=== PATIENT | male | born 1975 | race Caucasian/White ===

== ENCOUNTER 2021-12-30 23:31 | Inpatient (IN) ==
--- NOTE | 2021-12-31 00:01 | Emergency Department Note ---
History of Present Illness General Chief complaint: Chest Pain Stated complaint: chest pressure Time Seen by Provider: 12/30/21 23:43 History of Present Illness Maximum Pain Intensity: 5 38-year-old male presents emergency department with a significant history of multiple strokes in the past 2 years multiple heart attacks with 1 cardiac stent. Patient states he has not been receiving medical care for a year now he states he moved from [facility] to [place] used to get all of his medical care in [facility]. Patient was at work tonight he felt generally weak states he vomited once he had decreased p.o. intake he feels like he is constipated. Patient had called EMS due to chest pain he was given nitro and he was given aspirin by EMS prior to arrival. Patient any chest pain. Patient states that he vomited today and states there may have been blood however he states that he did not look at the vomit. Patient states that he is on Plavix. Patient states that he is got chronic kidney disease and is not on dialysis. There are no other mitigating or alleviating factors Home Medications Medication Instructions Recorded Confirmed Type amlodipine 10 mg tablet 10 mg PO DAILY 12/31/21 12/31/21 History aspirin 81 mg tablet,delayed 81 mg PO DAILY 12/31/21 12/31/21 History release atorvastatin 40 mg tablet 40 mg PO DAILY 12/31/21 12/31/21 History carvedilol 6.25 mg tablet 6.25 mg PO BID 12/31/21 12/31/21 History clopidogrel 75 mg tablet (Plavix) 75 mg PO DAILY 12/31/21 12/31/21 History isosorbide mononitrate 30 mg 30 mg PO DAILY 12/31/21 12/31/21 History tablet,extended release 24 hr losartan 25 mg tablet 25 mg PO DAILY 12/31/21 12/31/21 History Allergies Allergy/AdvReac Type Severity Reaction Status Date / Time No Known Allergies Allergy Verified 12/31/21 00:58 Past Med/Surg History Social History Smoking Status: Former smoker Immunizations: Past medical history CKD, coronary artery disease, DE, CVA, anemia Review of Systems A total of 10 systems reviewed and were otherwise negative Constitutional: + fatigue; no fever Respiratory: no cough Cardiovascular: + chest pain Gastrointestinal: + vomiting; no abdominal pain Neurologic: + generalized weakness Physical Exam Vital Signs Vital Signs - 24 hr 12/30/21 23:36 12/30/21 23:40 12/30/21 23:41 Temperature 37.0 C Temperature Source Oral Pulse Rate 73 75 Pulse Rate from SpO2 Sensor Pulse Rhythm Regular Respiratory Rate 20 20 20 Respiratory Effort / Characteristics Non-Labored Non-Labored Respiratory Depth Normal Normal Respiratory Pattern Regular Blood Pressure 166/86 H Blood Pressure Mean 112 Blood Pressure Position Lying Pulse Oximetry 98 98 99 Oxygen Delivery Method Room Air Room Air Room Air Sepsis Recent Fever Within 48 Hours No Sepsis New/Unexplained Change in Mental Status No Sepsis Action Taken by Nursing No Action Required 12/30/21 23:52 12/31/21 00:00 12/31/21 00:10 Temperature Temperature Source Pulse Rate 75 71 70 Pulse Rate from SpO2 Sensor 75 72 70 Pulse Rhythm Respiratory Rate 15 15 13 Respiratory Effort / Characteristics Respiratory Depth Respiratory Pattern Blood Pressure 181/91 H Blood Pressure Mean 121 Blood Pressure Position Pulse Oximetry 99 98 99 Oxygen Delivery Method Sepsis Recent Fever Within 48 Hours Sepsis New/Unexplained Change in Mental Status Sepsis Action Taken by Nursing 12/31/21 00:20 12/31/21 00:30 12/31/21 00:40 Temperature Temperature Source Pulse Rate 71 72 72 Pulse Rate from SpO2 Sensor 71 72 71 Pulse Rhythm Respiratory Rate 16 14 17 Respiratory Effort / Characteristics Respiratory Depth Respiratory Pattern Blood Pressure 174/91 H Blood Pressure Mean 118 Blood Pressure Position Pulse Oximetry 99 100 99 Oxygen Delivery Method Sepsis Recent Fever Within 48 Hours Sepsis New/Unexplained Change in Mental Status Sepsis Action Taken by Nursing 12/31/21 00:50 12/31/21 00:56 12/31/21 01:00 Temperature Temperature Source Pulse Rate 74 85 69 Pulse Rate from SpO2 Sensor 75 69 Pulse Rhythm Regular Respiratory Rate 20 20 15 Respiratory Effort / Characteristics Respiratory Depth Respiratory Pattern Blood Pressure 184/94 H Blood Pressure Mean 124 Blood Pressure Position Pulse Oximetry 99 98 99 Oxygen Delivery Method Room Air Sepsis Recent Fever Within 48 Hours Sepsis New/Unexplained Change in Mental Status Sepsis Action Taken by Nursing 12/31/21 01:10 12/31/21 01:20 12/31/21 01:30 Temperature Temperature Source Pulse Rate 69 69 66 Pulse Rate from SpO2 Sensor 69 69 66 Pulse Rhythm Respiratory Rate 12 13 16 Respiratory Effort / Characteristics Respiratory Depth Respiratory Pattern Blood Pressure 173/88 H Blood Pressure Mean 116 Blood Pressure Position Pulse Oximetry 97 98 98 Oxygen Delivery Method Sepsis Recent Fever Within 48 Hours Sepsis New/Unexplained Change in Mental Status Sepsis Action Taken by Nursing 12/31/21 01:40 Temperature Temperature Source Pulse Rate 68 Pulse Rate from SpO2 Sensor 69 Pulse Rhythm Respiratory Rate 13 Respiratory Effort / Characteristics Respiratory Depth Respiratory Pattern Blood Pressure Blood Pressure Mean Blood Pressure Position Pulse Oximetry 98 Oxygen Delivery Method Sepsis Recent Fever Within 48 Hours Sepsis New/Unexplained Change in Mental Status Sepsis Action Taken by Nursing VITAL SIGNS - Vital signs and nursing notes were reviewed. GENERAL - no acute distress. Communicates well with provider and answers questions appropriately. SKIN - Without rashes. HEAD - NC/AT. EYES - PERRL with EOMI bilaterally. Sclera anicteric. Palpebral conjunctiva pink and moist with no injection noted. EARS - No deformities of external structures noted on gross examination bilaterally. NOSE - Midline and without cyanosis. No epistaxis or purulent drainage noted. Septum midline without deviation or septal hematoma noted. MOUTH/OROPHARYNX - Without perioral cyanosis. NECK - Neck with FROM. LUNGS - Chest wall symmetric without accessory muscle use, intercostals retr actions, or central cyanosis. Normal vesicular breath sounds CTA B/L. No wheezes, rales, or rhonchi appreciated. CARDIAC - RRR with S1/S2. No murmur, rubs, or gallops appreciated. ABDOMEN - Abdominal contour soft without pulsations or visible masses. BS normoactive all four quadrants. No tenderness, palpable masses, hepatosplenomegaly, or ascites noted. EXTREMITIES - No clubbing or peripheral cyanosis. No pretibial edema present. +5/5 strength noted in UE/LE bilaterally. NEUROLOGIC - Cranial nerves II through XII grossly intact. PSYCH - A&Ox3 and cooperates fully with examiner. Pt is very pleasant and interacts well with examiner. Course Reevaluation(s) Reevaluation #1: Patient is resting in no distress normotensive. Patient states to me that he does make urine patient has a prior history of CKD but was never placed on dialysis. Patient does not remember his creatinine. Case was discussed with the hospitalist for admission. Patient is in acute renal failure. Time: 02:07 Critical Care Time Critical Care Time: Yes Total Critical Care Time: 35 I have personally spent greater than 35 minutes of critical care time in the direct management of this patient. This includes bedside care, interpretation of diagnostic studies, and testing, discussion with consultants, patient, and family members, and other required patient management activities. These minutes are in excess of all separately billable procedures. Medical Decision Making Medical Records Attestation: I reviewed the patient's medical records. Home Medications Current Medication List: was personally reviewed by me Laboratory Data Attestation: I reviewed the patient's lab results. Result diagrams: 12/30/21 23:53 12/30/21 23:53 Lab Results 12/30/21 12/30/21 12/31/21 Range/Units 23:53 23:53 00:51 WBC 18.58 H (4.8-10.8) K/uL RBC 2.70 L (4.7-6.1) M/uL Hgb 7.7 L (14.0-18.0) g/dL Hct 23.4 L (42-52) % MCV 86.7 (80-100) fL MCH 28.5 (25-34) pg MCHC 32.9 (32-36) g/dL RDW Std Deviation 40.1 (36.4-46.3) fL RDW Coeff of Jermaine 12.5 (11.5-14.5) % Plt Count 551 H (130-400) K/uL MPV 10.1 (7.4-10.4) fL Immature Gran % (Auto) 1.0 % Neut % (Auto) 85.4 % Lymph % (Auto) 6.3 % Dorado % (Auto) 6.3 % Eos % (Auto) 0.8 % Baso % (Auto) 0.2 % Neut # (Auto) 15.89 H (1.4-6.5) K/uL Lymph # (Auto) 1.17 L (1.2-3.4) K/uL Dor[place] # (Auto) 1.17 H (0.11-0.59) K/uL Eos # (Auto) 0.14 (0-0.5) K/uL Baso # (Auto) 0.03 (0-0.2) K/uL Immature Gran # (Auto) 0.18 H (0.00-0.02) K/uL Echinocytes 1+ Sodium 137 (136-145) mmol/L Potassium 4.0 (3.5-5.1) mmol/L Chloride 106 (98-107) mmol/L Carbon Dioxide 16 L (21-32) mmol/L Anion Gap 15 H (3-11) BUN 110 H (6-23) mg/dl Creatinine 13.14 H* (0.6-1.4) mg/dl Est Cr Clr Drug Dosing 6.8 ml/min Est GFR ( Amer) 4.6 ml/min Est GFR (Non-Af Amer) 3.9 ml/min BUN/Creatinine Ratio 8.4 L (10-20) Glucose 104 H (70-99(Fasting)) mg/dl Calcium 7.0 L (8.5-10.1) mg/dl Total Bilirubin 0.3 (0.2-1.0) mg/dl AST 7 L (13-39) U/L ALT 12 (7-52) U/L Alkaline Phosphatase 68 (34-104) U/L Troponin I High Sens 31.9 H (0-20) pg/ml Total Protein 7.2 (6.0-8.3) gm/dl Albumin 2.8 L (3.4-5.0) gm/dl Globulin 4.4 H (2.5-4.0) gm/dl Albumin/Globulin Ratio 0.6 L (0.9-2) Lipase 20 (11-82) U/L SARS-CoV-2, RNA, NAAT NEGATIVE (NEGATIVE) Imaging Data Attestation: I personally reviewed and interpreted this imaging study as follo ws: ECG Data Attestation: I personally reviewed and interpreted this ECG as follows: Additional Comments: EKG interpreted by me normal sinus rhythm rate of [address] segment segment elevation; normal intervals normal axis rate of 77; nonspecific ST-T changes in the lateral leads MDM Narrative Call decision making differential diagnosis includes angina unstable angina acute DE acute renal failure, acute anemia, dehydration, metabolic derangement. Impression & Plan Acute renal failure, Chest pain, Anemia Discharge Plan Visit Data Chief Complaint: Chest Pain Stated Complaint: chest pressure ED Provider: Herbert Chilel Discharge Problem: Acute renal failure, Chest pain, Anemia Patient Disposition: Being Evaluated by Hospitalist Forms Stand Alone Forms: [facility] Prescriptions Prescriptions: No Action clopidogrel [Plavix] 75 mg Tablet 75 mg PO DAILY RF: 0 atorvastatin 40 mg tablet 40 mg PO DAILY RF: 0 carvedilol 6.25 mg tablet 6.25 mg PO BID RF: 0 isosorbide mononitrate 30 mg tablet extended release 24 hr 30 mg PO DAILY RF: 0 aspirin 81 mg tablet,delayed release (DR/EC) 81 mg PO DAILY RF: 0 amlodipine 10 mg tablet 10 mg PO DAILY RF: 0 losartan 25 mg tablet 25 mg PO DAILY RF: 0 Referrals Referrals: PCP,NO [Primary Care Provider] - Discharge Problem: Acute renal failure Qualifiers: Acute renal failure type: unspecified Qualified Code(s): N17.9 - Acute kidney failure, unspecified Chest pain Qualifiers: Chest pain type: precordial pain Qualified Code(s): R07.2 - Precordial pain Anemia Qualifiers: Anemia type: unspecified type Qualified Code(s): D64.9 - Anemia, unspecified
[2021-12-31 00:03] LABS: Hematocrit (blood only) 23.4 % (42-52); Hemoglobin 7.7 g/dL (14.0-18.0); Mean Corpuscular Hemoglobin 28.5 pg (25-34); Mean Corpuscular Hgb Conc 32.9 g/dL (32-36); Mean Corpuscular Volume 86.7 fL (80-100); Mean Platelet Volume 10.1 fL (7.4-10.4); Platelet Count 551 K/uL (130-400); RDW Coefficient of Variation 12.5 % (11.5-14.5); RDW Standard Deviation 40.1 fL (36.4-46.3); White Blood Count 18.58 K/uL (4.8-10.8)
[2021-12-31 00:35] LABS: Basophils # (auto) 0.03 K/uL (0-0.2); Basophils % (auto) 0.2 %; Echinocytes 1+; Eosinophils # (auto) 0.14 K/uL (0-0.5); Eosinophils % (auto) 0.8 %; Immature Granulocytes # (auto) 0.18 K/uL (0.00-0.02); Lymphocytes # (auto) 1.17 K/uL (1.2-3.4); Lymphocytes % (auto) 6.3 %; Monocytes # (auto) 1.17 K/uL (0.11-0.59); Monocytes % (auto) 6.3 %; Neutrophils # (auto) 15.89 K/uL (1.4-6.5); Neutrophils % (auto) 85.4 %; Troponin I High Sensitivity 31.9 pg/ml (0-20)
[2021-12-31 00:36] LABS: Albumin Globulin Ratio 0.6 (0.9-2); Albumin Level 2.8 gm/dl (3.4-5.0); BUN Creatinine Ratio 8.4 (10-20); Bilirubin,Total 0.3 mg/dl (0.2-1.0); Creatinine Clr Calc Pharmacy 6.8 ml/min; Est GFR (African American) 4.6 ml/min; Est GFR (Non-African American) 3.9 ml/min; Globulin 4.4 gm/dl (2.5-4.0); Total Protein 7.2 gm/dl (6.0-8.3)
--- NOTE | 2021-12-31 02:32 | Emergency Department Note ---
ED Visit Note Reexamination of the patient after he removed his sneakers reveals the right foot dorsum has a significant area of ulceration and erythema as well as necrotic tissue involving the third fourth and fifth toes. . : Acute renal failure Qualifiers: Acute renal failure type: unspecified Qualified Code(s): N17.9 - Acute kidney failure, unspecified Chest pain Qualifiers: Chest pain type: precordial pain Qualified Code(s): R07.2 - Precordial pain Anemia Qualifiers: Anemia type: unspecified type Qualified Code(s): D64.9 - Anemia, unspecified
--- NOTE | 2021-12-31 02:45 | History & Physical Report ---
Date of Service December 31, 2021 Assessment & Plan (1) ESRD (end stage renal disease): Plan: Unfortunate 46 y/o M Hx HTN, HLD, DM II, CKD, CAD - KS x 8, CVA x 5. The pt has not followed up with an MD in approximately one year. He was working today and developed R central CP. He is short of breath at baseline. His employer thought he appeared ill and requested that he attend the hospital. He is CP- free at the time of admission but does endorse feeling SOB. He was not hypoxic and denies a cough or fever. On further questioning, he also provided that he has had an infection of his R foot for some time which he has not treated, and has been suffering from intermittent nausea, vomiting and poor PO intake for approximately one year. Initial labs were alarming, including a BUN/creatinine of 110/13, troponin of 32, leukocytosis, anemia with an Hb of 7.7, throm bocytosis, protein malnutrition. Calcium is low but can mostly be accounted for by a low albumin. Potassium is WNL and he us entirely lucid despite a BUN of 110 indicating his renal failure is quite chronic. He does in fact continue to make urine. An EKG demonstrated a sinus rhythm with lateral ST segment flattening and no clear ischemic changes. Examination of the pt's feet revealed a deep ulcer on the dorsal aspect of the R foot and BL necrosis of the 5th toes. 1) CKD - ESRD - not likely acute. We have requested a vascular and nephrology consult as he is going to require dialysis. Gentle IVF is provided overnight pending a repeat BMP, which may allow us to determine if there is an acute element. I do not feel we can stop his ASA ans Plavix considering his history. We will hold losartan due to hyperkalemia risk. 2) CAD - elevated trop in setting of ESRD and nonischemic EKG. Cont ASA, Plavix, statin, carvedilol, Imdur. Trend trop, AM echo, cardiology consult. Consider ful-dose anticoagulation if trop trends up. 3) Infection and necrosis of toes. Arterial Dopplers ordered. Vascular consult. I have informed that pt that amputation of toes may be likely. he is placed on Ceftriaxone and Dapto. 4) Multiple CVAs - states R carotid stenosis. We will obtain carotid Dopplers as he does not have good follow up at present. 4) DM - diet controlled - will check A1C. GLU is WNL on arrival. 5) HTN - poorly controlled despite compliance with meds. We will cont Imdur, amlodipine, carvedilol and start PRN Hydralazine. 6) HLD - lipid profile AM - cont statin This pt is set to move to [place] in one week to move in with his mother and sister. This would likely be beneficial so that we should consider discharge to resume care in [place] within one week if possible. Total time for this complex admission including review of labs, meds, imaging, EKG, records, discussion with pt and ER attending - 65 min (2) CAD (coronary artery disease): (3) Chest pain: (4) Anemia: (5) CVA, old, ataxia: History of Present Illness Chief Complaint: Chest pain Primary Care Provider: VIDHYA PCP Unfortunate 46 y/o M Hx HTN, HLD, DM II, CKD, CAD - KS x 8, CVA x 5. The pt has not followed up with an MD in approximately one year. He was working today and developed R central CP. He is short of breath at baseline. His employer thought he appeared ill and requested that he attend the hospital. He is CP- free at the time of admission but does endorse feeling SOB. He was not hypoxic and denies a cough or fever. On further questioning, he also provided that he has had an infection of his R foot for some time which he has not treated, and has been suffering from intermittent nausea, vomiting and poor PO intake for approximately one year. Initial labs were alarming, including a BUN/creatinine of 110/13, troponin of 32, leukocytosis, anemia with an Hb of 7.7, thrombocytosis, protein malnutrition. Calcium is low but can mostly be accounted for by a low albumin. Potassium is WNL and he us entirely lucid despite a BUN of 110 indicating his renal failure is quite chronic. He does in fact continue to make urine. An EKG demonstrated a sinus rhythm with lateral ST segment flattening and no clear ischemic changes. Examination of the pt's feet revealed a deep ulcer on the dorsal aspect of the R foot and BL necrosis of the 5th toes. PMH: 1) HTN 2) HLD 3) CAD - KS x 8, one stent to RCA 2019 (Dr Levy @ [facility]) 4) R carotid stenosis - CVA x 5 - residual L weakness 5) DM II - diet-controlled owing to significant weight loss over past year 6) CKD - could not tell me stage and has not checked renal function in > 1 year. Diagnosis of CKD dates back to 2004. Surgical: Denies prior surgery Social: Does not drink or smoke. No drug use. Employed at [employer]. Family: Does not know father Mother in remission from hepatocellular CA Allergies Allergy/AdvReac Type Severity Reaction Status Date / Time No Known Allergies Allergy Verified 12/31/21 00:58 Home Medications Medication Instructions Recorded Confirmed Type amlodipine 10 mg tablet 10 mg PO DAILY 12/31/21 12/31/21 History aspirin 81 mg tablet,delayed 81 mg PO DAILY 12/31/21 12/31/21 History release atorvastatin 40 mg tablet 40 mg PO DAILY 12/31/21 12/31/21 History carvedilol 6.25 mg tablet 6.25 mg PO BID 12/31/21 12/31/21 History clopidogrel 75 mg tablet (Plavix) 75 mg PO DAILY 12/31/21 12/31/21 History isosorbide mononitrate 30 mg 30 mg PO DAILY 12/31/21 12/31/21 History tablet,extended release 24 hr losartan 25 mg tablet 25 mg PO DAILY 12/31/21 12/31/21 History Past Med/Surg History Social History Smoking Status: Former smoker Review of Systems Review of Systems: Gen: Denies fevers, night sweats, rigors, fatigue, malaise, weight loss/gain ENT: Denies congestion, throat pain, hearing loss Eyes: Denies acute visual changes CV: + CP as above Pulmonary: + chronic SOB GI: + intermittent nausea, vomiting and poor intake x 1 yr Neuro: Chronic L weakness Musculoskeletal: Denies joint pain, inflammation Endocrine: Denies polydipsia, polyuria Skin: Ulcer/infection of R foot - was not aware of L infection Physical Exam Physical Exam: General: Thin and irritable, middle-aged M, AAO x 3, no distress ENT: No erythema or exudates, no thrush Eyes: DON, EOMI Head and neck: Normocephalic, atraumatic, No JVD, neck is supple. Chest/heart: Nontender, S1,2, RRR, no murmurs, no gallops Lungs: CTAB, no wheezing or crackles Abdomen: Nontender, nondistended, BS+ Neuro: AAO x 3, speech is clear. + L sided weakness Musculoskeletal: No joint inflammation, muscle tenderness, FROM Skin: Unstageable ulcer on dorsum of R foot, BL 5th toes are significantly necrotic and atrophied Extremities: As per skin exam - no edema Results & Data Results & Data ([facility]) Vital Signs (Past 12 Hours) Vital Signs Temp Pulse Resp BP Pulse Ox 12/31/21 02:33 77 14 177/74 H 98 12/31/21 01:40 68 13 98 12/31/21 01:30 66 16 173/88 H 98 12/31/21 01:20 69 13 98 12/31/21 01:10 69 12 97 12/31/21 01:00 69 15 184/94 H 99 12/31/21 00:56 85 20 98 12/31/21 00:50 74 20 99 12/31/21 00:40 72 17 99 12/31/21 00:30 72 14 174/91 H 100 12/31/21 00:20 71 16 99 12/31/21 00:10 70 13 99 12/31/21 00:00 71 15 181/91 H 98 12/30/21 23:52 75 15 99 12/30/21 23:41 98.6 F 75 20 166/86 H 99 12/30/21 23:40 20 98 12/30/21 23:36 73 20 98 Code Status & VTE Plan VTE Prophylaxis Plan VTE Prophylaxis will be ordered: Yes PG Care Time/CCT Total # of Minutes Spent Total Time Spent with Patient: Total time spent is greater than 50% in coordination of care (as documented) at patient's floor/unit and/or counseling patient: Coding Level of Care Code 31007 Initial Inpt Care Lvl 3 Diagnoses ESRD (end stage renal disease) N18.6 CAD (coronary artery disease) I25.10 Chest pain R07.2 Chest pain type: precordial pain Anemia D64.9 Anemia type: unspecified type CVA, old, ataxia I69.993 (1) Chest pain Chest pain type: precordial pain Qualified Code(s): R07.2 - Precordial pain (2) Anemia Anemia type: unspecified type Qualified Code(s): D64.9 - Anemia, unspecified
[2021-12-31] MEDS ORDERED: ACETAMINOPHEN 325 MG TAB PO PRN (02:52)
[2021-12-31] MEDS ORDERED: NITROGLYCERIN SL 0.4 MG/TAB TAB SL PRN (02:52)
[2021-12-31] MEDS ORDERED: hydrALAZINE HCL 20 MG/ML VIAL IV PRN (03:29)
[2021-12-31] MEDS ORDERED: cefTRIAXone SODIUM 1,000 MG in DEXTROSE 5% 50 ML IV SCH (04:00)
[2021-12-31] MEDS: SODIUM CHLORIDE 0.9% 1000ML 1,000 ML IV SCH ×2 (04:15→16:48)
[2021-12-31] MEDS ORDERED: DAPTOmycin 275 MG in SYRINGE 0 ML IV SCH (05:00)
[2021-12-31] MEDS: HEPARIN SOD 5,000 UNIT/0.5 ML VIAL SQ SCH ×2 (06:20→14:07)
[2021-12-31] MEDS ORDERED: PIPERACILLIN/TAZOBACTAM 2.25 GM in DEXTROSE 5% 100 ML IV SCH (07:15)
[2021-12-31] MEDS ORDERED: PIPERACILLIN/TAZOBACTAM 3.375 GM in DEXTROSE 5% 100 ML IV ONE (07:30)
[2021-12-31 07:39] LABS: Basophils # (auto) 0.03 K/uL (0-0.2); Basophils % (auto) 0.2 %; Eosinophils # (auto) 0.12 K/uL (0-0.5); Eosinophils % (auto) 0.6 %; Hematocrit (blood only) 22.2 % (42-52); Hemoglobin 7.3 g/dL (14.0-18.0); Immature Granulocytes # (auto) 0.14 K/uL (0.00-0.02); Immature Granulocytes % (auto) 0.7 %; Lymphocytes % (auto) 11.1 %; Mean Corpuscular Hemoglobin 28.6 pg (25-34); Mean Corpuscular Hgb Conc 32.9 g/dL (32-36); Mean Corpuscular Volume 87.1 fL (80-100); Mean Platelet Volume 10.3 fL (7.4-10.4); Monocytes # (auto) 1.08 K/uL (0.11-0.59); Monocytes % (auto) 5.7 %; Neutrophils # (auto) 15.45 K/uL (1.4-6.5); Neutrophils % (auto) 81.7 %; Platelet Count 501 K/uL (130-400); RDW Coefficient of Variation 12.6 % (11.5-14.5); Red Blood Count 2.55 M/uL (4.7-6.1); White Blood Count 18.92 K/uL (4.8-10.8)
--- NOTE | 2021-12-31 07:46 | History & Physical Bridge Note ---
Date of Service December 31, 2021 History & Physical Bridge Note I have examined the patient, reviewed the History & Physical and in the interval since the performance of the History & Physical I have noted the following changes of clinical significance: Also reports hematemesis, IV PPI, GI consult Podiatry consulted; R foot x-ray; denies tetanus booster; Plavix held Frequent hemoglobin
[2021-12-31 07:49] LABS: Estimated Average Glucose 128 mg/dl; Hemoglobin A1C 6.1 % (4.5-5.6)
[2021-12-31] MEDS ORDERED: PIPERACILLIN/TAZOBACTAM 3.375 GM in DEXTROSE 5% 100 ML IV SCH (08:00)
--- NOTE | 2021-12-31 08:07 | XRay Report ---
XR foot RT 2V HISTORY: 46 years-old Male diabetic foot infection acute right foot pain with reported soft tissue i nfection COMPARISON: None TECHNIQUE: 2 views of the right foot FINDINGS: Arterial calcifications. Mild diffuse soft tissue swelling. There is mild to moderate multifocal oste oarthritis. No acute fracture, dislocation or definite acute osseous erosion. IMPRESSION: Soft tissue swelling without acute osseous abnormality. ACT 112: Negative or not required by law. The above report was generated using voice recognition software. It may contain grammatical, syntax o r spelling errors. Electronically signed by: Farshad Kidd M.D. 12/31/2021 8:06 AM
[2021-12-31 08:09] LABS: Chol HDL Ratio 5.8 (0-5); Magnesium 2.4 mg/dl (1.7-2.4)
[2021-12-31 08:16] LABS: Troponin I High Sensitivity 34.5 pg/ml (0-20)
[2021-12-31 08:19] LABS: BUN Creatinine Ratio 8.5 (10-20); Calcium 6.9 mg/dl (8.5-10.1); Creatinine Clr Calc Pharmacy 6.7 ml/min; Est GFR (African American) 4.6 ml/min; Potassium 3.9 mmol/L (3.5-5.1)
[2021-12-31] MEDS ORDERED: DEXTROSE 50% 50 ML SYRINGE IV PRN (08:23)
[2021-12-31] MEDS ORDERED: GLUCOSE 10 TAB/TUBE PO PRN (08:23)
[2021-12-31] MEDS ORDERED: GLUCOSE 40% GEL 15 GM TUBE PO PRN (08:23)
[2021-12-31] MEDS ORDERED: GLUCAGON FOR INJ 1 MG VIAL SQ PRN (08:23)
[2021-12-31 08:44] LABS: RBC Morphology Unremarkable
--- NOTE | 2021-12-31 08:52 | XRay Report ---
XR chest 1V portable CLINICAL HISTORY: Chest Pain TECHNIQUE: Single frontal radiograph of the chest was obtained. Comparison: None available at the time of this dictation. FINDINGS: No lines and tubes are seen. The cardiomediastinal silhouette is normal. The lungs are clear. No evid ence of pleural effusion or pneumothorax. IMPRESSION: No acute chest disease. ACT 112: Negative or not required by law. Electronically signed by: Imtiaz Jarquin M.D. 12/31/2021 8:51 AM
[2021-12-31] MEDS ORDERED: CLOPIDOGREL BISULFATE 75 MG TAB PO SCH (09:00)
[2021-12-31] MEDS: ASPIRIN 81 MG ECTAB PO SCH (09:09)
[2021-12-31] MEDS: ATORVASTATIN 40 MG TAB PO SCH (09:09)
[2021-12-31] MEDS: ISOSORBIDE MONO EXTENDED REL 30 MG TABCR PO SCH (09:09)
[2021-12-31] MEDS: carvediloL 6.25 MG TAB PO SCH ×2 (09:09→20:27)
[2021-12-31] MEDS: amLODIPine BESYLATE 5 MG TAB PO SCH (09:09)
--- NOTE | 2021-12-31 09:28 | XCELERA ---
[id number]
[2021-12-31] MEDS: PANTOprazole 40 MG in SYRINGE 0 ML IV SCH ×2 (09:51→20:26)
--- NOTE | 2021-12-31 11:42 | Ultrasound Report ---
ULTRASOUND OF THE CAROTID ARTERIES CLINICAL HISTORY: Right carotid artery stenosis. COMPARISON STUDY: No priors. TECHNIQUE: Real-time, grayscale, and color Doppler sonography of the carotid arteries is performed. I mages are reviewed in the transverse and longitudinal planes. FINDINGS: The carotid arteries are patent bilaterally and demonstrate antegrade flow. There is advanced atheros clerotic plaque seen in the right carotid bulb. Only mild plaque is seen in the left carotid bulb. Th ere is near complete thrombosis of the right internal carotid artery with only trace flow. There is l oss of normal arterial waveforms in the right. Normal doppler arterial waveforms are seen on the left . Velocity measurements are listed below. Common carotid peak systolic velocity (cm/sec): RIGHT: 51 LEFT: 111 ICA proximal peak systolic velocity (cm/sec): RIGHT: 14 LEFT: 115 ICA mid peak systolic velocity (cm/sec): RIGHT: 9 LEFT: 68 ICA distal peak systolic velocity (cm/sec): RIGHT: 8 LEFT: 81 ICA/CC peak systolic ratio: RIGHT: 0.3 LEFT: 1.0 Antegrade flow was shown in the vertebral arteries. The external carotid arteries are patent. There a re elevated velocities within the right external carotid artery which measure up to 344 cm/s. IMPRESSION: 1. High-grade stenosis with only trace flow identified in the right internal carotid artery. 2. There is no sonographic evidence of hemodynamically significant stenosis within the left carotid a rterial system. 3. Antegrade flow is shown in the vertebral arteries. ACT 112: Negative or not required by law. Electronically signed by: Ab Green M.D. 12/31/2021 11:41 AM
--- NOTE | 2021-12-31 12:11 | Ultrasound Report ---
US renal/blad retro comp HISTORY: 46 years-old Male taisha/ckd acute on chronic kidney disease COMPARISON: None TECHNIQUE: Multiple real-time sonographic images of the kidneys and urinary bladder were obtained ass essing grayscale appearance and color flow FINDINGS: The right kidney measures 11.6 cm in length and demonstrates no renal calculi, hydronephrosis or susp icious mass lesion. Mild perinephric edema. Left kidney measures 11.2 cm in length and demonstrates n o renal calculi, hydronephrosis or suspicious mass lesion. There is increased echogenicity of the kid neys with decreased corticomedullary differentiation. Mild circumferential urinary bladder wall thickening. Ureteral jets are not identified. IMPRESSION: 1. No renal calculi or hydronephrosis. 2. Evidence of chronic medical renal disease. 3. Mild nonspecific right perinephric edema is noted in addition to mild urinary bladder wall thicken ing. Correlate with urinalysis to exclude infection. ACT 112: Negative or not required by law. The above report was generated using voice recognition software. It may contain grammatical, syntax o r spelling errors. Electronically signed by: Farshad Kidd M.D. 12/31/2021 12:10 PM
--- NOTE | 2021-12-31 12:15 | Nephrology Consultation ---
Date of Consultation December 31, 2021 Assessment & Plan (1) Acute renal failure: No emergent indication for HD today. Findings are suggestive of advanced CKD for which Raulito may require HD this admission. IVF are being provided and additional records requested. Goals of care were reviewed and education of HD started. Document strict I/O's. Repeat metabolic profile this afternoon. Hold losartan. Medications appropriate for kidney dysfunction. IVF to encourage positive fluid balance. PO NaHCO3 replacement has been ordered. Renal US and urine studies ordered this AM. (2) Chronic kidney disease: Additional records have been requested. Hepatitis labs ordered. Education of potential future need for dialysis provided. No emergent indication at this time but if there is no improvement in next 24 hours I would consider TDC placement. Update labs for CKD/MBD with next blood work. (3) Anemia: Check iron profile with next blood work. Epogen [id number] units now. GI consultation pending. History of Present Illness Reason for Consultation: Kidney dysfunction Requesting Physician: Joselyn Pope MD Attending Physician: Joselyn Pope MD History of Present Illness Mr. Raulito Richardson is a 46 year-old male with a notable history of chronic kidney disease, coronary artery disease and peripheral vascular disease. He reports multiple CVA and [place] in the past. He denies any chronic neurologic deficits. He has not had regular follow up with a physician though he reports that he has been taking antiplatelet therapy, a statin, and antihypertensives as prescribed. Raulito acknowledges a history of advanced CKD. He was told in the past that he will require dialysis. Unfortunately, he has very little education regarding renal replacement therapies. He previously followed in the nephrology clinic with Dr. Chilo Stevenson in [place]. However, he did not maintain regular follow up. He has not seen a physician or had blood work in 1 year. Raulito reports that he is essentially homeless at this time. He has significant financial concerns. His health has not been his priority and he acknowledges that he has been neglecting many concerning issues. He has developed a progressive necrotic area on his right foot. He has been struggling with persistent nausea, vomiting, and weight loss. Symptoms have been ongoing for at least 2 months. Raulito presented to the ER at [facility] for evaluation yesterday after vomiting blood. He was encouraged to come for medical evaluation by his employer. Raulito states that he knew that coming to the hospital would likely result in starting dialysis. He continues to make a good amount of urine. He denies fluid retention or edema. Laboratory studies on admission are notable for severe azotemia, advanced kidney dysfunction, anemia, and metabolic acidosis. Allergies Allergy/AdvReac Type Severity Reaction Status Date / Time No Known Allergies Allergy Verified 12/31/21 00:58 Home Medications Medication Instructions Recorded Confirmed Type amlodipine 10 mg tablet 10 mg PO DAILY 12/31/21 12/31/21 History aspirin 81 mg tablet,delayed 81 mg PO DAILY 12/31/21 12/31/21 History release atorvastatin 40 mg tablet 40 mg PO DAILY 12/31/21 12/31/21 History carvedilol 6.25 mg tablet 6.25 mg PO BID 12/31/21 12/31/21 History clopidogrel 75 mg tablet (Plavix) 75 mg PO DAILY 12/31/21 12/31/21 History isosorbide mononitrate 30 mg 30 mg PO DAILY 12/31/21 12/31/21 History tablet,extended release 24 hr losartan 25 mg tablet 25 mg PO DAILY 12/31/21 12/31/21 History Patient History Medical History (Updated 12/31/21 @ 12:13 by Carmine Webster DO) CAD (coronary artery disease) Chronic kidney disease CVA, old, ataxia Social History Smoking Status: Former smoker Second Hand Exposure: No; Do You Dip or Chew Tobacco: No; Tobacco Cessation Education Requested by Patient: No Hx Alcohol Use: No Hx Substance Use: No Preferred Language: Fijian Communication Ability: Effective Residential Door Unit Installer Required: No Beliefs That Will Affect Care: None Current Living Situation: Alone Other Information That Helps Us Care for You: Yes (patient claims he is going to [place] to live with his mother) Feels Safe at Home: Yes Assistive Devices: None Review of Systems Constitutional: + fatigue, + anorexia and + weight loss (20 lbs in past few months); no weight gain and no problem reported Eyes: no problem reported Ear, Nose, Mouth, Throat: no problem reported Respiratory: no problem reported Cardiovascular: no problem reported Gastrointestinal: + abdominal pain, + nausea, + vomiting and + diarrhea/loose stools Musculoskeletal: no problem reported Integumentary: + skin ulcer Neurologic: no problem reported Psychiatric: no problem reported Endocrine: no problem reported Hematologic / Lymphatic: no problem reported Physical Exam Constitutional: well developed; no acute distress Eyes: no scleral abnormality and no corneal abnormality ENMT: Mouth: no oral mucosal abnormality and oral mucous membranes not dry Neck: normal visual inspection and trachea midline Respiratory: normal respiratory effort Auscultation: lungs clear to auscultation bilaterally Cardiovascular: Rate/Rhythm: regular rate Heart Sounds: normal S1 and normal S2 Extremities: + pedal edema Musculoskeletal: Extremities: no cyanosis and no clubbing Skin: + turgor decreased and + ulcer Neurologic: Motor/Sensory: no tremor and no asterixis Psychiatric: Orientation: alert and oriented x 3 Results & Data ([facility]) Vital Signs (Past 12 Hours) Vital Signs Temp Pulse Pulse Resp BP BP Pulse Ox 12/31/21 11:44 36.8 C 59 L 10 L 134/67 98 12/31/21 07:14 36.9 C 67 12 169/82 H 98 12/31/21 05:13 63 12/31/21 02:52 36.8 C 73 18 178/78 H 98 12/31/21 02:50 36.8 C 73 18 175/78 H 98 12/31/21 02:33 77 14 177/74 H 98 12/31/21 01:40 68 13 98 12/31/21 01:30 66 16 173/88 H 98 12/31/21 01:20 69 13 98 12/31/21 01:10 69 12 97 12/31/21 01:00 69 15 184/94 H 99 12/31/21 00:56 85 20 98 12/31/21 00:50 74 20 99 12/31/21 00:40 72 17 99 12/31/21 00:30 72 14 174/91 H 100 12/31/21 00:20 71 16 99 Pulse Ox 12/31/21 11:44 12/31/21 07:14 12/31/21 05:13 12/31/21 02:52 98 12/31/21 02:50 12/31/21 02:33 12/31/21 01:40 12/31/21 01:30 12/31/21 01:20 12/31/21 01:10 12/31/21 01:00 12/31/21 00:56 12/31/21 00:50 12/31/21 00:40 12/31/21 00:30 12/31/21 00:20 Laboratory Results Laboratory Results - last 24 hr 12/30/21 12/30/21 12/31/21 23:53 23:53 00:51 WBC 18.58 H RBC 2.70 L Hgb 7.7 L Hct 23.4 L MCV 86.7 MCH 28.5 MCHC 32.9 RDW Std Deviation 40.1 RDW Coeff of Jermaine 12.5 Plt Count 551 H MPV 10.1 Immature Gran % (Auto) 1.0 Neut % (Auto) 85.4 Lymph % (Auto) 6.3 Moody % (Auto) 6.3 Eos % (Auto) 0.8 Baso % (Auto) 0.2 Neut # (Auto) 15.89 H Lymph # (Auto) 1.17 L Moody # (Auto) 1.17 H Eos # (Auto) 0.14 Baso # (Auto) 0.03 Immature Gran # (Auto) 0.18 H RBC Morphology Echinocytes 1+ Sodium 137 Potassium 4.0 Chloride 106 Carbon Dioxide 16 L Anion Gap 15 H BUN 110 H Creatinine 13.14 H* Est Cr Clr Drug Dosing 6.8 Est GFR ( Amer) 4.6 Est GFR (Non-Af Amer) 3.9 BUN/Creatinine Ratio 8.4 L Glucose 104 H POC Glucose Estimat Average Glucose Hemoglobin A1c Calcium 7.0 L Magnesium Total Bilirubin 0.3 AST 7 L ALT 12 Alkaline Phosphatase 68 Troponin I High Sens 31.9 H Total Protein 7.2 Albumin 2.8 L Globulin 4.4 H Albumin/Globulin Ratio 0.6 L Triglycerides Cholesterol LDL Cholesterol, Calc VLDL Cholesterol, Calc HDL Cholesterol Cholesterol/HDL Ratio Lipase 20 Hepatitis B Ab, Qual Hep Bs Antigen Hep Bs Ag Confirmation Hep B Core IgM Ab Hepatitis C Ab (EIA) Hep C Ab Signal/Cutoff SARS-CoV-2, RNA, NAAT NEGATIVE 12/31/21 12/31/21 12/31/21 06:59 06:59 06:59 WBC 18.92 H RBC 2.55 L Hgb 7.3 L Hct 22.2 L MCV 87.1 MCH 28.6 MCHC 32.9 RDW Std Deviation 41.0 RDW Coeff of Jermaine 12.6 Plt Count 501 H MPV 10.3 Immature Gran % (Auto) 0.7 Neut % (Auto) 81.7 Lymph % (Auto) 11.1 Moody % (Auto) 5.7 Eos % (Auto) 0.6 Baso % (Auto) 0.2 Neut # (Auto) 15.45 H Lymph # (Auto) 2.10 Moody # (Auto) 1.08 H Eos # (Auto) 0.12 Baso # (Auto) 0.03 Immature Gran # (Auto) 0.14 H RBC Morphology Unremarkable Echinocytes Sodium Potassium Chloride Carbon Dioxide Anion Gap BUN Creatinine Est Cr Clr Drug Dosing Est GFR ( Amer) Est GFR (Non-Af Amer) BUN/Creatinine Ratio Glucose POC Glucose Estimat Average Glucose 128 Hemoglobin A1c 6.1 H Calcium Magnesium 2.4 Total Bilirubin AST ALT Alkaline Phosphatase Troponin I High Sens Total Protein Albumin Globulin Albumin/Globulin Ratio Triglycerides 139 Cholesterol 110 LDL Cholesterol, Calc 63 VLDL Cholesterol, Calc 28 HDL Cholesterol 19 Cholesterol/HDL Ratio 5.8 H Lipase Hepatitis B Ab, Qual Hep Bs Antigen Hep Bs Ag Confirmation Hep B Core IgM Ab Hepatitis C Ab (EIA) Hep C Ab Signal/Cutoff SARS-CoV-2, RNA, NAAT 12/31/21 12/31/21 12/31/21 06:59 08:55 08:55 WBC RBC Hgb Hct MCV MCH MCHC RDW Std Deviation RDW Coeff of Jermaine Plt Count MPV Immature Gran % (Auto) Neut % (Auto) Lymph % (Auto) Moody % (Auto) Eos % (Auto) Baso % (Auto) Neut # (Auto) Lymph # (Auto) Moody # (Auto) Eos # (Auto) Baso # (Auto) Immature Gran # (Auto) RBC Morphology Echinocytes Sodium 138 Potassium 3.9 Chloride 108 H Carbon Dioxide 16 L Anion Gap 14 H BUN 110 H Creatinine 12.98 H* Est Cr Clr Drug Dosing 6.7 Est GFR ( Amer) 4.6 Est GFR (Non-Af Amer) 4.0 BUN/Creatinine Ratio 8.5 L Glucose 87 POC Glucose Estimat Average Glucose Hemoglobin A1c Calcium 6.9 L Magnesium Total Bilirubin AST ALT Alkaline Phosphatase Troponin I High Sens 34.5 H Total Protein Albumin Globulin Albumin/Globulin Ratio Triglycerides Cholesterol LDL Cholesterol, Calc VLDL Cholesterol, Calc HDL Cholesterol Cholesterol/HDL Ratio Lipase Hepatitis B Ab, Qual Pending Hep Bs Antigen Pending Hep Bs Ag Confirmation Pending Hep B Core IgM Ab Pending Hepatitis C Ab (EIA) Pending Hep C Ab Signal/Cutoff Pending SARS-CoV-2, RNA, NAAT 07/05/22 12:08 WBC RBC Hgb Hct MCV MCH MCHC RDW Std Deviation RDW Coeff of Jermaine Plt Count MPV Immature Gran % (Auto) Neut % (Auto) Lymph % (Auto) Moody % (Auto) Eos % (Auto) Baso % (Auto) Neut # (Auto) Lymph # (Auto) Moody # (Auto) Eos # (Auto) Baso # (Auto) Immature Gran # (Auto) RBC Morphology Echinocytes Sodium Potassium Chloride Carbon Dioxide Anion Gap BUN Creatinine Est Cr Clr Drug Dosing Est GFR ( Amer) Est GFR (Non-Af Amer) BUN/Creatinine Ratio Glucose POC Glucose 97 Estimat Average Glucose Hemoglobin A1c Calcium Magnesium Total Bilirubin AST ALT Alkaline Phosphatase Troponin I High Sens Total Protein Albumin Globulin Albumin/Globulin Ratio Triglycerides Cholesterol LDL Cholesterol, Calc VLDL Cholesterol, Calc HDL Cholesterol Cholesterol/HDL Ratio Lipase Hepatitis B Ab, Qual Hep Bs Antigen Hep Bs Ag Confirmation Hep B Core IgM Ab Hepatitis C Ab (EIA) Hep C Ab Signal/Cutoff SARS-CoV-2, RNA, NAAT PG Care Time/CCT Total # of Minutes Spent Total Time Spent with Patient: Total time spent is greater than 50% in coordination of care (as documented) at patient's floor/unit and/or counseling patient: Coding Level of Care Code 77978 Inpt Consult Level 4 Diagnoses Chronic kidney disease N18.9 Acute renal failure N17.9 Acute renal failure type: unspecified Anemia D64.9 Anemia type: unspecified type (1) Acute renal failure Acute renal failure type: unspecified Qualified Code(s): N17.9 - Acute kidney failure, unspecified (2) Anemia Anemia type: unspecified type Qualified Code(s): D64.9 - Anemia, unspecified
[2021-12-31] MEDS ORDERED: EPOETIN ALFA 10,000 UNITS/ML VIAL SQ ONE (12:34)
[2021-12-31 15:28] LABS: Iron 23 mcg/dl (35-175); Total Iron Binding Cap Calc 120 mcg/dl (250-450); Transferrin (FE) Percent Satur 19 % (20-50); Unsaturated Iron Binding Cap 97 mcg/dl (155-355)
[2021-12-31 15:38] LABS: Albumin Level 2.6 gm/dl (3.4-5.0); BUN Creatinine Ratio 8.5 (10-20); Calcium 6.9 mg/dl (8.5-10.1); Creatinine Clr Calc Pharmacy 6.7 ml/min; Est GFR (African American) 4.6 ml/min
--- NOTE | 2021-12-31 16:06 | Ultrasound Report ---
US arterial duplex LE BI CLINICAL HISTORY: BL necrosis of toes TECHNIQUE: Real-time grayscale and color and spectral Doppler ultrasound imaging of the bilateral low er extremity arteries was performed. Measurements calculated based on NASCET criteria. COMPARISON: None available at the time of this dictation. FINDINGS: RIGHT: Common femoral artery: Triphasic waveforms. Peak systolic velocity (PSV) 137 cm/s. Deep femoral artery: Triphasic waveforms. PSV 96 cm/s. Superficial femoral artery: Triphasic waveforms. PSV 233 cm/s. Popliteal artery: Triphasic waveforms. PSV 155 cm/s. Anterior tibial artery: Triphasic waveforms. PSV 147 cm/s. Posterior tibial artery: Triphasic waveforms. PSV 100 cm/s. Peroneal artery: Biphasic waveforms. PSV 127 cm/s. Dorsalis pedis: Biphasic waveforms. PSV 48 cm/s. LEFT: Common femoral artery: Triphasic waveforms. Peak systolic velocity (PSV) 126 cm/s. Deep femoral artery: Triphasic waveforms. PSV 120 cm/s. Superficial femoral artery: Triphasic waveforms. PSV 58 cm/s. Popliteal artery: Triphasic waveforms. PSV 155 cm/s. Anterior tibial artery: Monophasic waveforms. PSV 199 cm/s. Posterior tibial artery: Monophasic waveforms. PSV 133 cm/s. Peroneal artery: Biphasic waveforms. PSV 85 cm/s. Dorsalis pedis: Monophasic waveforms. PSV 192 cm/s. ANKLE/BRACHIAL INDEX (MILAGROS): Brachial: Right: 177 mmHg. Left: 175 mmHg. Ankle (dorsalis pedis): Right: 174 mmHg. Left: 157 mmHg. Ankle (posterior tibial): Right: 154 mmHg. Left: 144 mmHg. Ankle/brachial index: Right: 0.98, Left: 0.89. Reference ranges: Normal Ankle/Brachial Index (MILAGROS) 1.0-1.4; 0.91-0.99 borderline; < or = 0.9 abnormal (0.7-0.89 mild, 0.51-0.69 moderate, < or = 0.5 severe peripheral arterial disease). Normal Toe/Brachial Index (TBI) > or = 0.6; < 0.6 abnormal (0.34-0.59 mild, 0.12-0.34 moderate, < or = 0.11 severe peripheral arterial disease). IMPRESSION: 1. Mildly elevated velocities in the distal left lower extremity with monophasic to biphasic wavefor ms. 2. Mildly decreased left ankle brachial index. ACT 112: Negative or not required by law. Electronically signed by: Imtiaz Jarquin M.D. 12/31/2021 4:04 PM
--- NOTE | 2021-12-31 16:14 | Gastrointestinal Consultation ---
Date of Consultation December 31, 2021 Assessment & Plan (1) Anemia: (2) Hematemesis: (3) Nausea & vomiting: (4) Acute renal failure: (5) CAD (coronary artery disease): This is a 46 y/o male with multiple medical problems including h/o CKD, CAD, CVA, multiple MIs, admitted w/ severe acute on chronic renal failure, anemia, right foot wound, and nausea, vomiting. 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 On exam, has soft abd, HD stable. - He had reported hematemesis x 1 prior to arrival; it appears has not had any GI output since. He is being evaluated by nephrology for his severe renal dysfunction. - Given his overall lack of overt ongoing GIB and underlying significant co- morbidities including advanced CKD (which may be contributing to his anemia), will defer endoscopy here at this time - His renal disease likely also contributes to his symptoms of nausea/vomiting - Diet as per nephro/primary teams - Would continue PPI - Monitor and document GI output - If he has diarrhea consider sending for C. diff, stool culture - Await UCx, BCx given leukocytosis - Trend H&H, transfuse PRN - Nephro w/u in process - Antiemetics PRN - Once his acute issues improve and if he has continued GI symptoms including n/v could consider w/u perhaps in the outpt setting Thank you for allowing us to participate in the care of this patient. Please call with any acute changes, questions or concerns. Please see addendum below with additional recommendation from my supervising physician. Supervising Physician Co-Signing Physician Notes I saw and evaluated the patient on December 31, 2021. The patient presented with complications related to long-term renal dysfunction. GI is consulted for question of of hematemesis several days prior to arrival. It appears that this has not recurred since his admission nor has the patient had melena nor significant decline in his hemoglobin or hematocrit. Physical examination Patient appears much older than stated age No abdominal tenderness Impression: patient with numerous medical problems, GI consulted for question with regard to hematemesis. This appears to been an isolated event and has had no significant recurrence no drop in his hemoglobin or hematocrit. Given the multitude of medical problems endoscopic evaluation is probably not in the patient's best interest at the present time. Would recommend use of a proton pump inhibitor 20 mg 1 time daily. Please call with any questions or concerns, GI to sign off History of Present Illness Reason for Consultation: Hematemesis Requesting Physician: Dr. Pope Attending Physician: Joselyn Pope MD History of Present Illness This is a 46 y/o male iwth CKD, CAD, PVD, multiple CVA and AR x 8, on Plavix, without regular medical follow-up who was admitted to [facility] after presenting yesterday w/ chest pressure, nausea, vomiting. He reports seeing dark red in his vomit x 1 yesterday. On arrival was found to have acute on chronic renal f ailure w/ creatinine of 12.96 and a BUN of 110, anemia w/ HGB 7.7, leukocytosis w/ WBC 18.92, and thrombocytosis PLT 500. We are consulted for concern for hematemesis. Overnight has had no GI output. He is HD stable. He states he has been vomiting daily (one-several times a day) for the last few months; can be post- prandial, can be without eating, typically looks like "stomach acid." Has not taken anything for this. Appetite has been poor. He tends to have liquid brown stools; hasn't had a formed stool in a few months. He can't tell me how many stools he has per day; unable to quantify. He has an infected area on his right foot as well. Appears from hospital notes that he has had housing stability and has been neglecting many issues with his health. He states he has been taking his Plavix daily. Denies NSAID, tobacco, ETOH use. He is being evaluated by nephrology. Never had endoscopy. Denies melena, hematochezia, dysphagia, heartburn, fever, chills, SOB, abd pain, bloating, constipation. Allergies Allergy/AdvReac Type Severity Reaction Status Date / Time No Known Allergies Allergy Verified 12/31/21 00:58 Home Medications Medication Instructions Recorded Confirmed Type amlodipine 10 mg tablet 10 mg PO DAILY 12/31/21 12/31/21 History aspirin 81 mg tablet,delayed 81 mg PO DAILY 12/31/21 12/31/21 History release atorvastatin 40 mg tablet 40 mg PO DAILY 12/31/21 12/31/21 History carvedilol 6.25 mg tablet 6.25 mg PO BID 12/31/21 12/31/21 History clopidogrel 75 mg tablet (Plavix) 75 mg PO DAILY 12/31/21 12/31/21 History isosorbide mononitrate 30 mg 30 mg PO DAILY 12/31/21 12/31/21 History tablet,extended release 24 hr losartan 25 mg tablet 25 mg PO DAILY 12/31/21 12/31/21 History Patient History Medical History CAD (coronary artery disease) Carotid artery stenosis Chronic kidney disease CVA, old, ataxia Dyslipidemia Hypertension Surgical History S/P coronary artery stent placement Social History Smoking Status: Former smoker Second Hand Exposure: No; Do You Dip or Chew Tobacco: No; Tobacco Cessation Education Requested by Patient: No Hx Alcohol Use: No Hx Substance Use: No Preferred Language: Maori Communication Ability: Effective Food And Nutrition Professor Required: No Beliefs That Will Affect Care: None Current Living Situation: Alone Other Information That Helps Us Care for You: Yes (patient claims he is going to [place] to live with his mother) Feels Safe at Home: Yes Assistive Devices: None Review of Systems Review of Systems: All systems reviewed & are unremarkable except as noted in HPI & below Physical Exam Constitutional: WD/WN, vitals as above (chronically ill) Eyes: PERRL, conjunctivae normal, anicteric sclerae ENMT: external ear and nose normal, oropharynx normal Respiratory: normal respiratory effort, lungs clear to auscultation Cardiovascular: RRR, no murmur, no edema Gastrointestinal (Abdomen): normal bowel sounds, soft, nontender, no hepatosplenomegaly Skin: no rashes, warm and dry Psychiatric: A+Ox3, euthymic affect Results & Data ([facility]) Vital Signs (Past 12 Hours) Vital Signs Temp Pulse Pulse Resp BP Pulse Ox 12/31/21 11:44 36.8 C 59 L 10 L 134/67 98 12/31/21 07:14 36.9 C 67 12 169/82 H 98 12/31/21 05:13 63 Laboratory Results 12/31/21 12/31/21 12/31/21 Range/Units 14:47 14:47 14:47 WBC (4.8-10.8) K/uL RBC (4.7-6.1) M/uL Hgb (14.0-18.0) g/dL Hct (42-52) % MCV (80-100) fL MCH (25-34) pg MCHC (32-36) g/dL RDW Std Deviation (36.4-46.3) fL RDW Coeff of Jermaine (11.5-14.5) % Plt Count (130-400) K/uL MPV (7.4-10.4) fL Immature Gran % (Auto) % Neut % (Auto) % Lymph % (Auto) % Patrick % (Auto) % Eos % (Auto) % Baso % (Auto) % Neut # (Auto) (1.4-6.5) K/uL Lymph # (Auto) (1.2-3.4) K/uL Patrick # (Auto) (0.11-0.59) K/uL Eos # (Auto) (0-0.5) K/uL Baso # (Auto) (0-0.2) K/uL Immature Gran # (Auto) (0.00-0.02) K/uL RBC Morphology Echinocytes Sodium (136-145) mmol/L Potassium (3.5-5.1) mmol/L Chloride (98-107) mmol/L Carbon Dioxide (21-32) mmol/L Anion Gap (3-11) BUN (6-23) mg/dl Creatinine (0.6-1.4) mg/dl Est Cr Clr Drug Dosing ml/min Est GFR ( Amer) ml/min Est GFR (Non-Af Amer) ml/min BUN/Creatinine Ratio (10-20) Glucose (70-99(Fasting)) mg/dl POC Glucose (70-99) mg/dl Estimat Average Glucose mg/dl Hemoglobin A1c (4.5-5.6) % Calcium (8.5-10.1) mg/dl Phosphorus (2.5-4.9) mg/dl Magnesium (1.7-2.4) mg/dl Iron 23 L (35-175) mcg/dl TIBC 120 L (250-450) mcg/dl Unsaturated IBC 97 L (155-355) mcg/dl Transferrin % Sat 19 L (20-50) % Ferritin Total Bilirubin (0.2-1.0) mg/dl AST (13-39) U/L ALT (7-52) U/L Alkaline Phosphatase (34-104) U/L Troponin I High Sens (0-20) pg/ml Total Protein (6.0-8.3) gm/dl Albumin (3.4-5.0) gm/dl Globulin (2.5-4.0) gm/dl Albumin/Globulin Ratio (0.9-2) Triglycerides (0-150) mg/dl Cholesterol (0-200) mg/dl LDL Cholesterol, Calc mg/dl VLDL Cholesterol, Calc (0-30) mg/dl HDL Cholesterol mg/dl Cholesterol/HDL Ratio (0-5) Lipase (11-82) U/L 25-OH Vitamin D Total 90.9 (30-100) ng/ml PTH Intact 271.7 H (12.0-88.0) pg/ml Hepatitis B Ab, Qual Hep Bs Antigen Hep Bs Ag Confirmation Hep B Core IgM Ab Hepatitis C Ab (EIA) Hep C Ab Signal/Cutoff SARS-CoV-2, RNA, NAAT (NEGATIVE) 12/31/21 12/31/21 12/31/21 Range/Units 14:47 14:47 12:08 WBC (4.8-10.8) K/uL RBC (4.7-6.1) M/uL Hgb 7.3 L (14.0-18.0) g/dL Hct (42-52) % MCV (80-100) fL MCH (25-34) pg MCHC (32-36) g/dL RDW Std Deviation (36.4-46.3) fL RDW Coeff of Jermaine (11.5-14.5) % Plt Count (130-400) K/uL MPV (7.4-10.4) fL Immature Gran % (Auto) % Neut % (Auto) % Lymph % (Auto) % Patrick % (Auto) % Eos % (Auto) % Baso % (Auto) % Neut # (Auto) (1.4-6.5) K/uL Lymph # (Auto) (1.2-3.4) K/uL Patrick # (Auto) (0.11-0.59) K/uL Eos # (Auto) (0-0.5) K/uL Baso # (Auto) (0-0.2) K/uL Immature Gran # (Auto) (0.00-0.02) K/uL RBC Morphology Echinocytes Sodium 138 (136-145) mmol/L Potassium 4.0 (3.5-5.1) mmol/L Chloride 108 H (98-107) mmol/L Carbon Dioxide 17 L (21-32) mmol/L Anion Gap 13 H (3-11) BUN 110 H (6-23) mg/dl Creatinine 12.96 H* (0.6-1.4) mg/dl Est Cr Clr Drug Dosing 6.7 ml/min Est GFR ( Amer) 4.6 ml/min Est GFR (Non-Af Amer) 4.0 ml/min BUN/Creatinine Ratio 8.5 L (10-20) Glucose 97 (70-99(Fasting)) mg/dl POC Glucose 97 (70-99) mg/dl Estimat Average Glucose mg/dl Hemoglobin A1c (4.5-5.6) % Calcium 6.9 L (8.5-10.1) mg/dl Phosphorus 9.0 H (2.5-4.9) mg/dl Magnesium (1.7-2.4) mg/dl Iron (35-175) mcg/dl TIBC (250-450) mcg/dl Unsaturated IBC (155-355) mcg/dl Transferrin % Sat (20-50) % Ferritin Pending Total Bilirubin (0.2-1.0) mg/dl AST (13-39) U/L ALT (7-52) U/L Alkaline Phosphatase (34-104) U/L Troponin I High Sens (0-20) pg/ml Total Protein (6.0-8.3) gm/dl Albumin 2.6 L (3.4-5.0) gm/dl Globulin (2.5-4.0) gm/dl Albumin/Globulin Ratio (0.9-2) Triglycerides (0-150) mg/dl Cholesterol (0-200) mg/dl LDL Cholesterol, Calc mg/dl VLDL Cholesterol, Calc (0-30) mg/dl HDL Cholesterol mg/dl Cholesterol/HDL Ratio (0-5) Lipase (11-82) U/L 25-OH Vitamin D Total (30-100) ng/ml PTH Intact (12.0-88.0) pg/ml Hepatitis B Ab, Qual Hep Bs Antigen Hep Bs Ag Confirmation Hep B Core IgM Ab Hepatitis C Ab (EIA) Hep C Ab Signal/Cutoff SARS-CoV-2, RNA, NAAT (NEGATIVE) 12/31/21 12/31/21 12/31/21 Range/Units 08:55 08:55 06:59 WBC (4.8-10.8) K/uL RBC (4.7-6.1) M/uL Hgb (14.0-18.0) g/dL Hct (42-52) % MCV (80-100) fL MCH (25-34) pg MCHC (32-36) g/dL RDW Std Deviation (36.4-46.3) fL RDW Coeff of Jermaine (11.5-14.5) % Plt Count (130-400) K/uL MPV (7.4-10.4) fL Immature Gran % (Auto) % Neut % (Auto) % Lymph % (Auto) % Patrick % (Auto) % Eos % (Auto) % Baso % (Auto) % Neut # (Auto) (1.4-6.5) K/uL Lymph # (Auto) (1.2-3.4) K/uL Patrick # (Auto) (0.11-0.59) K/uL Eos # (Auto) (0-0.5) K/uL Baso # (Auto) (0-0.2) K/uL Immature Gran # (Auto) (0.00-0.02) K/uL RBC Morphology Echinocytes Sodium 138 (136-145) mmol/L Potassium 3.9 (3.5-5.1) mmol/L Chloride 108 H (98-107) mmol/L Carbon Dioxide 16 L (21-32) mmol/L Anion Gap 14 H (3-11) BUN 110 H (6-23) mg/dl Creatinine 12.98 H* (0.6-1.4) mg/dl Est Cr Clr Drug Dosing 6.7 ml/min Est GFR ( Amer) 4.6 ml/min Est GFR (Non-Af Amer) 4.0 ml/min BUN/Creatinine Ratio 8.5 L (10-20) Glucose 87 (70-99(Fasting)) mg/dl POC Glucose (70-99) mg/dl Estimat Average Glucose mg/dl Hemoglobin A1c (4.5-5.6) % Calcium 6.9 L (8.5-10.1) mg/dl Phosphorus (2.5-4.9) mg/dl Magnesium (1.7-2.4) mg/dl Iron (35-175) mcg/dl TIBC (250-450) mcg/dl Unsaturated IBC (155-355) mcg/dl Transferrin % Sat (20-50) % Ferritin Total Bilirubin (0.2-1.0) mg/dl AST (13-39) U/L ALT (7-52) U/L Alkaline Phosphatase (34-104) U/L Troponin I High Sens 34.5 H (0-20) pg/ml Total Protein (6.0-8.3) gm/dl Albumin (3.4-5.0) gm/dl Globulin (2.5-4.0) gm/dl Albumin/Globulin Ratio (0.9-2) Triglycerides (0-150) mg/dl Cholesterol (0-200) mg/dl LDL Cholesterol, Calc mg/dl VLDL Cholesterol, Calc (0-30) mg/dl HDL Cholesterol mg/dl Cholesterol/HDL Ratio (0-5) Lipase (11-82) U/L 25-OH Vitamin D Total (30-100) ng/ml PTH Intact (12.0-88.0) pg/ml Hepatitis B Ab, Qual Pending Hep Bs Antigen Pending Hep Bs Ag Confirmation Pending Hep B Core IgM Ab Pending Hepatitis C Ab (EIA) Pending Hep C Ab Signal/Cutoff Pending SARS-CoV-2, RNA, NAAT (NEGATIVE) 12/31/21 12/31/21 12/31/21 Range/Units 06:59 06:59 06:59 WBC 18.92 H (4.8-10.8) K/uL RBC 2.55 L (4.7-6.1) M/uL Hgb 7.3 L (14.0-18.0) g/dL Hct 22.2 L (42-52) % MCV 87.1 (80-100) fL MCH 28.6 (25-34) pg MCHC 32.9 (32-36) g/dL RDW Std Deviation 41.0 (36.4-46.3) fL RDW Coeff of Jermaine 12.6 (11.5-14.5) % Plt Count 501 H (130-400) K/uL MPV 10.3 (7.4-10.4) fL Immature Gran % (Auto) 0.7 % Neut % (Auto) 81.7 % Lymph % (Auto) 11.1 % Patrick % (Auto) 5.7 % Eos % (Auto) 0.6 % Baso % (Auto) 0.2 % Neut # (Auto) 15.45 H (1.4-6.5) K/uL Lymph # (Auto) 2.10 (1.2-3.4) K/uL Patrick # (Auto) 1.08 H (0.11-0.59) K/uL Eos # (Auto) 0.12 (0-0.5) K/uL Baso # (Auto) 0.03 (0-0.2) K/uL Immature Gran # (Auto) 0.14 H (0.00-0.02) K/uL RBC Morphology Unremarkable Echinocytes Sodium (136-145) mmol/L Potassium (3.5-5.1) mmol/L Chloride (98-107) mmol/L Carbon Dioxide (21-32) mmol/L Anion Gap (3-11) BUN (6-23) mg/dl Creatinine (0.6-1.4) mg/dl Est Cr Clr Drug Dosing ml/min Est GFR ( Amer) ml/min Est GFR (Non-Af Amer) ml/min BUN/Creatinine Ratio (10-20) Glucose (70-99(Fasting)) mg/dl POC Glucose (70-99) mg/dl Estimat Average Glucose 128 mg/dl Hemoglobin A1c 6.1 H (4.5-5.6) % Calcium (8.5-10.1) mg/dl Phosphorus (2.5-4.9) mg/dl Magnesium 2.4 (1.7-2.4) mg/dl Iron (35-175) mcg/dl TIBC (250-450) mcg/dl Unsaturated IBC (155-355) mcg/dl Transferrin % Sat (20-50) % Ferritin Total Bilirubin (0.2-1.0) mg/dl AST (13-39) U/L ALT (7-52) U/L Alkaline Phosphatase (34-104) U/L Troponin I High Sens (0-20) pg/ml Total Protein (6.0-8.3) gm/dl Albumin (3.4-5.0) gm/dl Globulin (2.5-4.0) gm/dl Albumin/Globulin Ratio (0.9-2) Triglycerides 139 (0-150) mg/dl Cholesterol 110 (0-200) mg/dl LDL Cholesterol, Calc 63 mg/dl VLDL Cholesterol, Calc 28 (0-30) mg/dl HDL Cholesterol 19 mg/dl Cholesterol/HDL Ratio 5.8 H (0-5) Lipase (11-82) U/L 25-OH Vitamin D Total (30-100) ng/ml PTH Intact (12.0-88.0) pg/ml Hepatitis B Ab, Qual Hep Bs Antigen Hep Bs Ag Confirmation Hep B Core IgM Ab Hepatitis C Ab (EIA) Hep C Ab Signal/Cutoff SARS-CoV-2, RNA, NAAT (NEGATIVE) 12/31/21 12/30/21 12/30/21 Range/Units 00:51 23:53 23:53 WBC 18.58 H (4.8-10.8) K/uL RBC 2.70 L (4.7-6.1) M/uL Hgb 7.7 L (14.0-18.0) g/dL Hct 23.4 L (42-52) % MCV 86.7 (80-100) fL MCH 28.5 (25-34) pg MCHC 32.9 (32-36) g/dL RDW Std Deviation 40.1 (36.4-46.3) fL RDW Coeff of Jermaine 12.5 (11.5-14.5) % Plt Count 551 H (130-400) K/uL MPV 10.1 (7.4-10.4) fL Immature Gran % (Auto) 1.0 % Neut % (Auto) 85.4 % Lymph % (Auto) 6.3 % Patrick % (Auto) 6.3 % Eos % (Auto) 0.8 % Baso % (Auto) 0.2 % Neut # (Auto) 15.89 H (1.4-6.5) K/uL Lymph # (Auto) 1.17 L (1.2-3.4) K/uL Patrick # (Auto) 1.17 H (0.11-0.59) K/uL Eos # (Auto) 0.14 (0-0.5) K/uL Baso # (Auto) 0.03 (0-0.2) K/uL Immature Gran # (Auto) 0.18 H (0.00-0.02) K/uL RBC Morphology Echinocytes 1+ Sodium 137 (136-145) mmol/L Potassium 4.0 (3.5-5.1) mmol/L Chloride 106 (98-107) mmol/L Carbon Dioxide 16 L (21-32) mmol/L Anion Gap 15 H (3-11) BUN 110 H (6-23) mg/dl Creatinine 13.14 H* (0.6-1.4) mg/dl Est Cr Clr Drug Dosing 6.8 ml/min Est GFR ( Amer) 4.6 ml/min Est GFR (Non-Af Amer) 3.9 ml/min BUN/Creatinine Ratio 8.4 L (10-20) Glucose 104 H (70-99(Fasting)) mg/dl POC Glucose (70-99) mg/dl Estimat Average Glucose mg/dl Hemoglobin A1c (4.5-5.6) % Calcium 7.0 L (8.5-10.1) mg/dl Phosphorus (2.5-4.9) mg/dl Magnesium (1.7-2.4) mg/dl Iron (35-175) mcg/dl TIBC (250-450) mcg/dl Unsaturated IBC (155-355) mcg/dl Transferrin % Sat (20-50) % Ferritin Total Bilirubin 0.3 (0.2-1.0) mg/dl AST 7 L (13-39) U/L ALT 12 (7-52) U/L Alkaline Phosphatase 68 (34-104) U/L Troponin I High Sens 31.9 H (0-20) pg/ml Total Protein 7.2 (6.0-8.3) gm/dl Albumin 2.8 L (3.4-5.0) gm/dl Globulin 4.4 H (2.5-4.0) gm/dl Albumin/Globulin Ratio 0.6 L (0.9-2) Triglycerides (0-150) mg/dl Cholesterol (0-200) mg/dl LDL Cholesterol, Calc mg/dl VLDL Cholesterol, Calc (0-30) mg/dl HDL Cholesterol mg/dl Cholesterol/HDL Ratio (0-5) Lipase 20 (11-82) U/L 25-OH Vitamin D Total (30-100) ng/ml PTH Intact (12.0-88.0) pg/ml Hepatitis B Ab, Qual Hep Bs Antigen Hep Bs Ag Confirmation Hep B Core IgM Ab Hepatitis C Ab (EIA) Hep C Ab Signal/Cutoff SARS-CoV-2, RNA, NAAT NEGATIVE (NEGATIVE) Medications Administered Renal US: FINDINGS: The right kidney measures 11.6 cm in length and demonstrates no renal calculi, hydronephrosis or suspicious mass lesion. Mild perinephric edema. Left kidney measures 11.2 cm in length and demonstrates no renal calculi, hydronephrosis or suspicious mass lesion. There is increased echogenicity of the kidneys with decreased corticomedullary differentiation. Mild circumferential urinary bladder wall thickening. Ureteral jets are not identified. IMPRESSION: 1. No renal calculi or hydronephrosis. 2. Evidence of chronic medical renal disease. 3. Mild nonspecific right perinephric edema is noted in addition to mild urinary bladder wall thickening. Correlate with urinalysis to exclude infection. CXR: No lines and tubes are seen. The cardiomediastinal silhouette is normal. The lungs are clear. No evidence of pleural effusion or pneumothorax. IMPRESSION: No acute chest disease. (1) Acute renal failure Acute renal failure type: unspecified Qualified Code(s): N17.9 - Acute kidney failure, unspecified (2) Anemia Anemia type: unspecified type Qualified Code(s): D64.9 - Anemia, unspecified
[2021-12-31 16:30] LABS: Ferritin 528.7 ng/ml (8-388)
[2021-12-31] MEDS ORDERED: IRON SUCROSE 200 MG in 0.9 % SODIUM CHLORIDE 100 ML IV ONE (16:43)
[2021-12-31] MEDS: PIPERACILLIN/TAZOBACTAM 3.375 GM in DEXTROSE 5% 100 ML IV SCH (16:49)
--- NOTE | 2021-12-31 17:15 | Surgery Consultation ---
Date of Consultation December 31, 2021 Assessment & Plan (1) Ulcer of right foot with necrosis of bone: Patient seen, evaluated, and treated. Reviewed necrotic toes with malodorous infection with Patient. Wounds probe to bone. I discussed removal of non-viable bone and soft tissue with Patient to bilateral feet. Patient understands need for procedure. Per anesthesia, Anemia present at 7.3, currently not optimized for procedure, will need transfusion PRBCs and repeat H/H prior to planned procedure with HgB target > 8.0 Plan is to delay procedure until 01/01. Reviewed consults from nephrology, cardiology, and gastrointestinal. Thank you for allowing me to participate in the care of this Patient. (2) Ulcer of left foot with necrosis of bone: History of Present Illness Requesting Physician: Dr. Pope Attending Physician: Joselyn Pope MD History of Present Illness Patient is a 46 year-old male who is seen at bedside. Patient has a complicated past medical history including hypertension, dyslipidemia, chronic kidney disease, coronary artery disease and peripheral vascular disease. He reports m ultiple CVA and DC in the past. Patient has not been evaluated by a physician for approximately 1 year. He had been living in [place] but moved to [place] a few months ago. He is currently homeless, but has been sleeping at his workplace. He was brought to [facility] via EMS after chest pains and vomiting blood while at work one day earlier at the insistence of his employer. During ED examination bilateral foot wounds with significant necrosis were noted. He states they started as blisters a 2 months earlier and progressively worsened. Laboratory studies on admission are notable for severe azotemia, advanced kidney dysfunction, anemia, and metabolic acidosis. Patient has been seen by cardiology, nephrology, and gastrointestinal for evaluation while in house. Allergies Allergy/AdvReac Type Severity Reaction Status Date / Time No Known Allergies Allergy Verified 12/31/21 00:58 Home Medications Medication Instructions Recorded Confirmed Type amlodipine 10 mg tablet 10 mg PO DAILY 12/31/21 12/31/21 History aspirin 81 mg tablet,delayed 81 mg PO DAILY 12/31/21 12/31/21 History release atorvastatin 40 mg tablet 40 mg PO DAILY 12/31/21 12/31/21 History carvedilol 6.25 mg tablet 6.25 mg PO BID 12/31/21 12/31/21 History clopidogrel 75 mg tablet (Plavix) 75 mg PO DAILY 12/31/21 12/31/21 History isosorbide mononitrate 30 mg 30 mg PO DAILY 12/31/21 12/31/21 History tablet,extended release 24 hr losartan 25 mg tablet 25 mg PO DAILY 12/31/21 12/31/21 History Patient History Medical History CAD (coronary artery disease) Carotid artery stenosis Chronic kidney disease CVA, old, ataxia Dyslipidemia Hypertension Surgical History S/P coronary artery stent placement Social History Smoking Status: Former smoker Second Hand Exposure: No; Do You Dip or Chew Tobacco: No; Tobacco Cessation Education Requested by Patient: No Hx Alcohol Use: No Hx Substance Use: No Preferred Language: Telugu Communication Ability: Effective Hat Brim Curler Required: No Beliefs That Will Affect Care: None Current Living Situation: Alone Other Information That Helps Us Care for You: Yes (patient claims he is going to [place] to live with his mother) Feels Safe at Home: Yes Assistive Devices: None Review of Systems Review of Systems: All systems reviewed & are unremarkable except as noted in HPI & below Physical Exam Constitutional: WD/WN, vitals as above Eyes: PERRL, conjunctivae normal, anicteric sclerae ENMT: external ear and nose normal, oropharynx normal Respiratory: normal respiratory effort, lungs clear to auscultation Cardiovascular: RRR, no murmur, no edema Pedal pulses palpable bilateral Gastrointestinal (Abdomen): normal bowel sounds, soft, nontender, no hepatosplenomegaly Skin: Left and rightfull thicknessulcers. Wound location:Right fourth and fifth toes and left foot fifth toes Wound base color and depth:Full-thickness intomuscle and tendon probes to bone Malodorous Mild drainage Adjacent erythema Neurologic: Absent epicritic sensation bilateral feet Psychiatric: A+Ox3, euthymic affect Results & Data ([facility]) Vital Signs (Past 12 Hours) Vital Signs Temp Pulse Resp BP Pulse Ox 12/31/21 16:19 36.6 C 62 10 L 122/50 L 97 12/31/21 11:44 36.8 C 59 L 10 L 134/67 98 12/31/21 07:14 36.9 C 67 12 169/82 H 98 Diagnostic Findings US arterial duplex LE BI CLINICAL HISTORY: BL necrosis of toes TECHNIQUE: Real-time grayscale and color and spectral Doppler ultrasound imaging of the bilateral lower extremity arteries was performed. Measurements calculated based on NASCET criteria. COMPARISON: None available at the time of this dictation. FINDINGS: RIGHT: Common femoral artery: Triphasic waveforms. Peak systolic velocity (PSV) 137 cm/s. Deep femoral artery: Triphasic waveforms. PSV 96 cm/s. Superficial femoral artery: Triphasic waveforms. PSV 233 cm/s. Popliteal artery: Triphasic waveforms. PSV 155 cm/s. Anterior tibial artery: Triphasic waveforms. PSV 147 cm/s. Posterior tibial artery: Triphasic waveforms. PSV 100 cm/s. Peroneal artery: Biphasic waveforms. PSV 127 cm/s. Dorsalis pedis: Biphasic waveforms. PSV 48 cm/s. LEFT: Common femoral artery: Triphasic waveforms. Peak systolic velocity (PSV) 126 cm/s. Deep femoral artery: Triphasic waveforms. PSV 120 cm/s. Superficial femoral artery: Triphasic waveforms. PSV 58 cm/s. Popliteal artery: Triphasic waveforms. PSV 155 cm/s. Anterior tibial artery: Monophasic waveforms. PSV 199 cm/s. Posterior tibial artery: Monophasic waveforms. PSV 133 cm/s. Peroneal artery: Biphasic waveforms. PSV 85 cm/s. Dorsalis pedis: Monophasic waveforms. PSV 192 cm/s. ANKLE/BRACHIAL INDEX (MILAGROS): Brachial: Right: 177 mmHg. Left: 175 mmHg. Ankle (dorsalis pedis): Right: 174 mmHg. Left: 157 mmHg. Ankle (posterior tibial): Right: 154 mmHg. Left: 144 mmHg. Ankle/brachial index: Right: 0.98, Left: 0.89. Reference ranges: Normal Ankle/Brachial Index (MILAGROS) 1.0-1.4; 0.91-0.99 borderline; < or = 0.9 abnormal (0.7-0.89 mild, 0.51-0.69 moderate, < or = 0.5 severe peripheral arterial disease). Normal Toe/Brachial Index (TBI) > or = 0.6; < 0.6 abnormal (0.34-0.59 mild, 0.12-0.34 moderate, < or = 0.11 severe peripheral arterial disease). IMPRESSION: 1. Mildly elevated velocities in the distal left lower extremity with monophasic to biphasic waveforms. 2. Mildly decreased left ankle brachial index.
--- NOTE | 2021-12-31 17:29 | Cardiology Consultation ---
Date of Consultation December 31, 2021 Assessment & Plan (1) CAD (coronary artery disease): (2) S/P coronary artery stent placement: (3) Chest pain: (4) Hematemesis: (5) Acute renal failure: (6) Hypertension: (7) Dyslipidemia: (8) Elevated troponin: (9) LVH (left ventricular hypertrophy): (10) Abnormal echocardiogram: ASSESSMENT/PLAN: 1. CAD s/p RCA PCI (2019): No definite angina but reports chest pain that can occur at rest or with exertion. Troponin is not indicative of acute coronary syndrome and is likely secondary to significant renal dysfunction. Continue aspirin 81 mg daily if safe from a GI standpoint given 1 episode of hematemesis. Continue high-intensity statin therapy. 2. Chest pain: Etiology unclear. Would not pursue ischemic evaluation in his current state with significant anemia, acute renal failure, and necrotic/possibly infected distal lower extremities. 3. Hypertension: Blood pressure was initially elevated but more recently well controlled. Continue amlodipine and carvedilol. 4. Acute renal failure: As per Nephrology. 5. Hematemesis: As per GI. 6. Dyslipidemia: Continue high-intensity statin therapy. 7. LVH: Severe concentric LVH could be secondary to poorly controlled chronic hypertension. Cannot exclude infiltrative process. 8. Anemia: Per primary service. 9. Elevated troponin: As above. Likely due to acute renal failure. 10. Abnormal echo: Echodensity noted along the tricuspid valve annulus is of uncertain significance. Will likely pursue limited echo during this hospital stay to further investigate. Would not pursue transesophageal echo with hematemesis on 12/30/2021. Blood cultures are pending. No vegetation noted. 11. Disposition: Please call with any questions or concerns. Will pursue limited echo as above. Thank you for allowing me to participate in the care of your patient. Please call for any other questions or concerns. Sincerely, Shayne Benitez M.D. History of Present Illness Reason for Consultation: Chest pain and history of AL Requesting Physician: Dr. Santos Attending Physician: Joselyn Pope MD History of Present Illness Mr. Richardson is a 46-year-old gentleman with a history significant for CAD s/p RCA PCI, AL x8, stroke x5 (residual left-sided weakness), CKD, type 2 diabetes, hypertension, dyslipidemia, carotid artery stenosis. He was admitted on 12/31/2021 with end-stage renal disease and infection/necrotic toes. He has not been evaluated by a physician for approximately 1 year. He had been living in [place] but moved to this area a few months ago. He is currently homeless, but has been sleeping at his workplace. He reportedly was urged to come to the emergency department by his employer. He has intermittent chest pain which occurs when feeling anxious. He describes it as a squeezing sensation. He also reports that he may get chest discomfort with movement. He feels very worn out with any movement. His fatigue has worsened over the past few months. He noted issues with his bilateral toes as they have been turning black and has a significant ulceration involving the right foot. He has noted this over the past 3 weeks. He is short of breath in all positions and has occasional palpitations. He has noted lower extremity swelling. He feels dizzy on occasion. He is currently free from chest pain. He reports unintentional 80 lb weight loss over the past year. He had reported intermittent nausea and vomiting to the admitting provider. He reports hematemesis last night for the first time and otherwise denies melena, hematochezia, hematuria, or other bleeding. On presentation, his creatinine was 13.14. Review of systems: As above. Review of systems otherwise negative/unremarkable. Family history: No known premature CAD. Social history: He has smoked in the past but denies tobacco or alcohol use in the past year. He denies drug abuse. He is . When asked about children, he stated that he does not feel comfortable discussing his social history with strangers. He was alone in his hospital room. Allergies Allergy/AdvReac Type Severity Reaction Status Date / Time No Known Allergies Allergy Verified 12/31/21 00:58 Home Medications Medication Instructions Recorded Confirmed Type amlodipine 10 mg tablet 10 mg PO DAILY 12/31/21 12/31/21 History aspirin 81 mg tablet,delayed 81 mg PO DAILY 12/31/21 12/31/21 History release atorvastatin 40 mg tablet 40 mg PO DAILY 12/31/21 12/31/21 History carvedilol 6.25 mg tablet 6.25 mg PO BID 12/31/21 12/31/21 History clopidogrel 75 mg tablet (Plavix) 75 mg PO DAILY 12/31/21 12/31/21 History isosorbide mononitrate 30 mg 30 mg PO DAILY 12/31/21 12/31/21 History tablet,extended release 24 hr losartan 25 mg tablet 25 mg PO DAILY 12/31/21 12/31/21 History Patient History Medical History (Updated 12/31/21 @ 17:21 by Clark Benitez MD) CAD (coronary artery disease) Carotid artery stenosis Chronic kidney disease CVA, old, ataxia Dyslipidemia Hypertension Surgical History (Updated 12/31/21 @ 17:21 by Clark Benitez MD) S/P coronary artery stent placement Social History Smoking Status: Former smoker Second Hand Exposure: No; Do You Dip or Chew Tobacco: No; Tobacco Cessation Education Requested by Patient: No Hx Alcohol Use: No Hx Substance Use: No Preferred Language: Malian Communication Ability: Effective Personal Investment Adviser Required: No Beliefs That Will Affect Care: None Current Living Situation: Alone Other Information That Helps Us Care for You: Yes (patient claims he is going to [place] to live with his mother) Feels Safe at Home: Yes Assistive Devices: None Physical Exam Physical Exam: Gen.: No acute distress. Alert and oriented. HEENT: Anicteric sclera. Neck: No appreciable JVD. No bruits. Normal carotid upstrokes bilaterally. Cardiac: PMI was nondisplaced. No ventricular heave. Regular rate and rhythm. Normal S1-S2. 1/6 systolic murmur. No rubs, or gallops. Pulmonary: Clear to auscultation bilaterally without wheezes, rales, or rhonchi. Abdomen: Soft, nontender, nondistended, with normoactive bowel sounds. No bruits noted. Extremities: 2+ radial pulses bilaterally. 2+ posterior tibialis pulses bilaterally. No significant pitting edema. No cyanosis. Ulceration of distal foot and necrotic appearing 4/5 toe on the right. Left fifth toe appears necrotic. Results & Data ([facility]) Vital Signs (Past 12 Hours) Vital Signs Temp Pulse Pulse Resp BP Pulse Ox 12/31/21 16:19 36.6 C 62 10 L 122/50 L 97 12/31/21 11:44 36.8 C 59 L 10 L 134/67 98 12/31/21 07:14 36.9 C 67 12 169/82 H 98 12/31/21 05:13 63 Laboratory Results Laboratory Results - last 24 hr 12/30/21 12/30/21 12/31/21 23:53 23:53 00:51 WBC 18.58 H RBC 2.70 L Hgb 7.7 L Hct 23.4 L MCV 86.7 MCH 28.5 MCHC 32.9 RDW Std Deviation 40.1 RDW Coeff of Jermaine 12.5 Plt Count 551 H MPV 10.1 Immature Gran % (Auto) 1.0 Neut % (Auto) 85.4 Lymph % (Auto) 6.3 Geary % (Auto) 6.3 Eos % (Auto) 0.8 Baso % (Auto) 0.2 Neut # (Auto) 15.89 H Lymph # (Auto) 1.17 L Geary # (Auto) 1.17 H Eos # (Auto) 0.14 Baso # (Auto) 0.03 Immature Gran # (Auto) 0.18 H RBC Morphology Echinocytes 1+ Sodium 137 Potassium 4.0 Chloride 106 Carbon Dioxide 16 L Anion Gap 15 H BUN 110 H Creatinine 13.14 H* Est Cr Clr Drug Dosing 6.8 Est GFR ( Amer) 4.6 Est GFR (Non-Af Amer) 3.9 BUN/Creatinine Ratio 8.4 L Glucose 104 H POC Glucose Estimat Average Glucose Hemoglobin A1c Calcium 7.0 L Phosphorus Magnesium Iron TIBC Unsaturated IBC Transferrin % Sat Ferritin Total Bilirubin 0.3 AST 7 L ALT 12 Alkaline Phosphatase 68 Troponin I High Sens 31.9 H Total Protein 7.2 Albumin 2.8 L Globulin 4.4 H Albumin/Globulin Ratio 0.6 L Triglycerides Cholesterol LDL Cholesterol, Calc VLDL Cholesterol, Calc HDL Cholesterol Cholesterol/HDL Ratio Lipase 20 25-OH Vitamin D Total PTH Intact Hepatitis B Ab, Qual Hep Bs Antigen Hep Bs Ag Confirmation Hep B Core IgM Ab Hepatitis C Ab (EIA) Hep C Ab Signal/Cutoff SARS-CoV-2, RNA, NAAT NEGATIVE 12/31/21 12/31/21 12/31/21 06:59 06:59 06:59 WBC 18.92 H RBC 2.55 L Hgb 7.3 L Hct 22.2 L MCV 87.1 MCH 28.6 MCHC 32.9 RDW Std Deviation 41.0 RDW Coeff of Jermaine 12.6 Plt Count 501 H MPV 10.3 Immature Gran % (Auto) 0.7 Neut % (Auto) 81.7 Lymph % (Auto) 11.1 Geary % (Auto) 5.7 Eos % (Auto) 0.6 Baso % (Auto) 0.2 Neut # (Auto) 15.45 H Lymph # (Auto) 2.10 Geary # (Auto) 1.08 H Eos # (Auto) 0.12 Baso # (Auto) 0.03 Immature Gran # (Auto) 0.14 H RBC Morphology Unremarkable Echinocytes Sodium Potassium Chloride Carbon Dioxide Anion Gap BUN Creatinine Est Cr Clr Drug Dosing Est GFR ( Amer) Est GFR (Non-Af Amer) BUN/Creatinine Ratio Glucose POC Glucose Estimat Average Glucose 128 Hemoglobin A1c 6.1 H Calcium Phosphorus Magnesium 2.4 Iron TIBC Unsaturated IBC Transferrin % Sat Ferritin Total Bilirubin AST ALT Alkaline Phosphatase Troponin I High Sens Total Protein Albumin Globulin Albumin/Globulin Ratio Triglycerides 139 Cholesterol 110 LDL Cholesterol, Calc 63 VLDL Cholesterol, Calc 28 HDL Cholesterol 19 Cholesterol/HDL Ratio 5.8 H Lipase 25-OH Vitamin D Total PTH Intact Hepatitis B Ab, Qual Hep Bs Antigen Hep Bs Ag Confirmation Hep B Core IgM Ab Hepatitis C Ab (EIA) Hep C Ab Signal/Cutoff SARS-CoV-2, RNA, NAAT 12/31/21 12/31/21 12/31/21 06:59 08:55 08:55 WBC RBC Hgb Hct MCV MCH MCHC RDW Std Deviation RDW Coeff of Jermaine Plt Count MPV Immature Gran % (Auto) Neut % (Auto) Lymph % (Auto) Geary % (Auto) Eos % (Auto) Baso % (Auto) Neut # (Auto) Lymph # (Auto) Geary # (Auto) Eos # (Auto) Baso # (Auto) Immature Gran # (Auto) RBC Morphology Echinocytes Sodium 138 Potassium 3.9 Chloride 108 H Carbon Dioxide 16 L Anion Gap 14 H BUN 110 H Creatinine 12.98 H* Est Cr Clr Drug Dosing 6.7 Est GFR ( Amer) 4.6 Est GFR (Non-Af Amer) 4.0 BUN/Creatinine Ratio 8.5 L Glucose 87 POC Glucose Estimat Average Glucose Hemoglobin A1c Calcium 6.9 L Phosphorus Magnesium Iron TIBC Unsaturated IBC Transferrin % Sat Ferritin Total Bilirubin AST ALT Alkaline Phosphatase Troponin I High Sens 34.5 H Total Protein Albumin Globulin Albumin/Globulin Ratio Triglycerides Cholesterol LDL Cholesterol, Calc VLDL Cholesterol, Calc HDL Cholesterol Cholesterol/HDL Ratio Lipase 25-OH Vitamin D Total PTH Intact Hepatitis B Ab, Qual Pending Hep Bs Antigen Pending Hep Bs Ag Confirmation Pending Hep B Core IgM Ab Pending Hepatitis C Ab (EIA) Pending Hep C Ab Signal/Cutoff Pending SARS-CoV-2, RNA, NAAT 12/31/21 12/31/21 12/31/21 12:08 14:47 14:47 WBC RBC Hgb 7.3 L Hct MCV MCH MCHC RDW Std Deviation RDW Coeff of Jermaine Plt Count MPV Immature Gran % (Auto) Neut % (Auto) Lymph % (Auto) Geary % (Auto) Eos % (Auto) Baso % (Auto) Neut # (Auto) Lymph # (Auto) Geary # (Auto) Eos # (Auto) Baso # (Auto) Immature Gran # (Auto) RBC Morphology Echinocytes Sodium 138 Potassium 4.0 Chloride 108 H Carbon Dioxide 17 L Anion Gap 13 H BUN 110 H Creatinine 12.96 H* Est Cr Clr Drug Dosing 6.7 Est GFR ( Amer) 4.6 Est GFR (Non-Af Amer) 4.0 BUN/Creatinine Ratio 8.5 L Glucose 97 POC Glucose 97 Estimat Average Glucose Hemoglobin A1c Calcium 6.9 L Phosphorus 9.0 H Magnesium Iron TIBC Unsaturated IBC Transferrin % Sat Ferritin 528.7 H Total Bilirubin AST ALT Alkaline Phosphatase Troponin I High Sens Total Protein Albumin 2.6 L Globulin Albumin/Globulin Ratio Triglycerides Cholesterol LDL Cholesterol, Calc VLDL Cholesterol, Calc HDL Cholesterol Cholesterol/HDL Ratio Lipase 25-OH Vitamin D Total PTH Intact Hepatitis B Ab, Qual Hep Bs Antigen Hep Bs Ag Confirmation Hep B Core IgM Ab Hepatitis C Ab (EIA) Hep C Ab Signal/Cutoff SARS-CoV-2, RNA, NAAT 12/31/21 12/31/21 12/31/21 14:47 14:47 14:47 WBC RBC Hgb Hct MCV MCH MCHC RDW Std Deviation RDW Coeff of Jermaine Plt Count MPV Immature Gran % (Auto) Neut % (Auto) Lymph % (Auto) Geary % (Auto) Eos % (Auto) Baso % (Auto) Neut # (Auto) Lymph # (Auto) Geary # (Auto) Eos # (Auto) Baso # (Auto) Immature Gran # (Auto) RBC Morphology Echinocytes Sodium Potassium Chloride Carbon Dioxide Anion Gap BUN Creatinine Est Cr Clr Drug Dosing Est GFR ( Amer) Est GFR (Non-Af Amer) BUN/Creatinine Ratio Glucose POC Glucose Estimat Average Glucose Hemoglobin A1c Calcium Phosphorus Magnesium Iron 23 L TIBC 120 L Unsaturated IBC 97 L Transferrin % Sat 19 L Ferritin Total Bilirubin AST ALT Alkaline Phosphatase Troponin I High Sens Total Protein Albumin Globulin Albumin/Globulin Ratio Triglycerides Cholesterol LDL Cholesterol, Calc VLDL Cholesterol, Calc HDL Cholesterol Cholesterol/HDL Ratio Lipase 25-OH Vitamin D Total 90.9 PTH Intact 271.7 H Hepatitis B Ab, Qual Hep Bs Antigen Hep Bs Ag Confirmation Hep B Core IgM Ab Hepatitis C Ab (EIA) Hep C Ab Signal/Cutoff SARS-CoV-2, RNA, NAAT 12/31/21 16:26 WBC RBC Hgb Hct MCV MCH MCHC RDW Std Deviation RDW Coeff of Jermaine Plt Count MPV Immature Gran % (Auto) Neut % (Auto) Lymph % (Auto) Geary % (Auto) Eos % (Auto) Baso % (Auto) Neut # (Auto) Lymph # (Auto) Geary # (Auto) Eos # (Auto) Baso # (Auto) Immature Gran # (Auto) RBC Morphology Echinocytes Sodium Potassium Chloride Carbon Dioxide Anion Gap BUN Creatinine Est Cr Clr Drug Dosing Est GFR ( Amer) Est GFR (Non-Af Amer) BUN/Creatinine Ratio Glucose POC Glucose 107 H Estimat Average Glucose Hemoglobin A1c Calcium Phosphorus Magnesium Iron TIBC Unsaturated IBC Transferrin % Sat Ferritin Total Bilirubin AST ALT Alkaline Phosphatase Troponin I High Sens Total Protein Albumin Globulin Albumin/Globulin Ratio Triglycerides Cholesterol LDL Cholesterol, Calc VLDL Cholesterol, Calc HDL Cholesterol Cholesterol/HDL Ratio Lipase 25-OH Vitamin D Total PTH Intact Hepatitis B Ab, Qual Hep Bs Antigen Hep Bs Ag Confirmation Hep B Core IgM Ab Hepatitis C Ab (EIA) Hep C Ab Signal/Cutoff SARS-CoV-2, RNA, NAAT Diagnostic Findings Telemetry personally reviewed: Sinus rhythm. No arrhythmia. Echo 12/31/2021: EF 60%. No wall motion abnormalities. Severe concentric LVH. No significant valvular abnormalities. Trace pericardial effusion. Normal RVSP. Echodensity near the tricuspid annulus involving the RV myocardium noted only on parasternal short axis view, measuring approximately 2.5 x 2.7 cm. This was not well evaluated on echo. ECG personally reviewed 12/30/2021: Sinus rhythm 77 beats per minute. Lateral T-wave abnormality. Renal ultrasound 12/31/2021: Chronic medical renal disease per Radiology. Carotid Doppler 12/31/2021: High-grade stenosis with only trace flow identified in the right ICA. No significant stenosis left ICA. Chest x-ray 12/30/2021: No acute disease per radiology. Medications Administered Current Inpatient Medications Acetaminophen (Acetaminophen 325 Mg Tab) 650 mg PO Q4H PRN PRN Reason: Pain or Fever Stop: 01/30/22 02:51 Amlodipine Besylate (Amlodipine Besylate 5 Mg Tab) 10 mg PO DAILY TALIB Stop: 01/30/22 08:59 Last Admin: 12/31/21 09:09 Dose: 10 mg Documented by: Aspirin (Aspirin 81 Mg Ectab) 81 mg PO DAILY TALIB Stop: 01/30/22 08:59 Last Admin: 12/31/21 09:09 Dose: 81 mg Documented by: Atorvastatin Calcium (Atorvastatin 40 Mg Tab) 40 mg PO DAILY TALIB Stop: 01/30/22 08:59 Last Admin: 12/31/21 09:09 Dose: 40 mg Documented by: Calcium Acetate (Calcium Acetate 667 Mg Cap/Tab) 667 mg PO TIDM TALIB Stop: 01/30/22 16:59 Carvedilol (Carvedilol 6.25 Mg Tab) 6.25 mg PO BID TALIB Stop: 01/30/22 08:59 Last Admin: 12/31/21 09:09 Dose: 6.25 mg Documented by: Dextrose (Dextrose 50% 50 Ml Syringe) 25 - 50 ml IV UD PRN; Protocol PRN Reason: Hypoglycemia Protocol Stop: 01/30/22 08:22 Glucagon (Glucagon For Inj 1 Mg Vial) 1 mg SQ UD PRN; Protocol PRN Reason: Hypoglycemia Protocol Stop: 01/30/22 08:22 Glucose (Glucose 10 Tabs/Tube) 4 - 8 tabs PO UD PRN; Protocol PRN Reason: Hypoglycemia Protocol Stop: 01/30/22 08:22 Glucose (Glucose 40% Gel 15 Gm Tube) 15 - 30 gm PO UD PRN; Protocol PRN Reason: Hypoglycemia Protocol Stop: 01/30/22 08:22 Hydralazine HCl (Hydralazine Hcl 20 Mg/Ml Vial) 5 mg IV Q8H PRN PRN Reason: SBP > 155 Stop: 01/30/22 03:29 Last Admin: 12/31/21 05:04 Dose: 5 mg Documented by: Sodium Chloride (Nss 1000ml) 1,000 mls @ 80 mls/hr IV .[id number] [facility] Stop: 01/30/22 02:51 Last Admin: 12/31/21 16:48 Dose: 80 mls/hr Documented by: Piperacillin Sod/Tazobactam (Sod 3.375 gm/ Dextrose) 115 mls @ 28.75 mls/hr IV Q12H [facility]; Protocol Stop: 02/11/22 15:59 Last Admin: 12/31/21 16:49 Dose: 28.8 mls/hr Documented by: Pantoprazole Sodium 40 mg/ (Syringe) 10 mls @ 5 mls/min IV BID [facility] Stop: 01/30/22 08:59 Last Admin: 12/31/21 09:51 Dose: 5 mls/min Documented by: Daptomycin 275 mg/ Syringe 5.5 mls @ 2.75 mls/min IV Q2D@1400 [facility]; Protocol Stop: 01/07/22 13:59 Insulin Aspart (Insulin Aspart Per Unit) 0 units SC ACHS [facility] Stop: 01/30/22 16:29 Isosorbide Mononitrate (Isosorbide [place] Extended Rel 30 Mg Tabcr) 30 mg PO DAILY [facility] Stop: 01/30/22 08:59 Last Admin: 12/31/21 09:09 Dose: 30 mg Documented by: Miscellaneous (Carbohydrates For Hypoglycemia ) 15 - 30 gm PO UD PRN PRN Reason: Hypoglycemia Protocol Stop: 01/30/22 08:22 Nitroglycerin (Nitroglycerin Sl 0.4 Mg/Tab Tab) 0.4 mg SL UD PRN PRN Reason: Chest Pain Stop: 01/30/22 02:51 Sodium Bicarbonate (Sodium Bicarbonate 650 Mg Tab) 650 mg PO BID [facility] Stop: 01/30/22 20:59 PG Care Time/CCT Total # of Minutes Spent Total Time Spent with Patient: Total time spent is greater than 50% in coordination of care (as documented) at patient's floor/unit and/or counseling patient: Coding Level of Care Code 11424 Initial Inpt Care Lvl 3 Diagnoses CAD (coronary artery disease) I25.10 S/P coronary artery stent placement Z95.5 Chest pain R07.9 Hematemesis K92.0 Acute renal failure N17.9 Acute renal failure type: unspecified Hypertension I10 Dyslipidemia E78.5 Elevated troponin R77.8 LVH (left ventricular hypertrophy) I51.7 Abnormal echocardiogram R93.1 (1) Acute renal failure Acute renal failure type: unspecified Qualified Code(s): N17.9 - Acute kidney failure, unspecified
[2021-12-31] MEDS: INSULIN ASPART PER UNIT SC SCH ×2 (17:34→21:28)
--- NOTE | 2021-12-31 17:43 | Anesthesiology Consultation ---
Date of Service December 31, 2021 Assessment & Plan (1) Encounter for pre-operative examination: Chart Review Chart Review: Pending: Refer to Additional Notes / Consult section and Patient NOT seen in Pre Admission Testing Consults Requested none Additional Notes Mr. Richardson is a 46-year-old gentleman with a history significant for CAD s/p RCA PCI, DC x8, stroke x5 (residual left-sided weakness), CKD, type 2 diabetes, hypertension, dyslipidemia, carotid artery stenosis. He was admitted on 12/31/2021 with end-stage renal disease and infection/necrotic toes. Anemia present at 7.3, currently not optimized for procedure, will need transfusion PRBCs and repeat H/H prior to planned procedure with HgB target > 8. 0 History Surgery Operation Date: 12/31/21 17:55 Proposed Procedures p Left 5th Toe Amputation, Right 4th & 5th Ray Amputation - Raulito Ferrer DPM, Operation Date: 01/01/22 08:20 Proposed Procedures p Left 5th Toe Amputation, Right 4th and 5th Ray Amputation - Raulito Ferrer DPM, MS Height/Weight Height: 5 ft 11 in Weight: 68.266 kg Allergies Allergy/AdvReac Type Severity Reaction Status Date / Time No Known Allergies Allergy Verified 12/31/21 00:58 Medications Home Medications Medication Instructions Recorded Confirmed Last Taken amlodipine 10 mg tablet 10 mg PO DAILY 12/31/21 12/31/21 Unknown aspirin 81 mg tablet,delayed 81 mg PO DAILY 12/31/21 12/31/21 Unknown release atorvastatin 40 mg tablet 40 mg PO DAILY 12/31/21 12/31/21 Unknown carvedilol 6.25 mg tablet 6.25 mg PO BID 12/31/21 12/31/21 Unknown clopidogrel 75 mg tablet (Plavix) 75 mg PO DAILY 12/31/21 12/31/21 Unknown isosorbide mononitrate 30 mg 30 mg PO DAILY 12/31/21 12/31/21 Unknown tablet,extended release 24 hr losartan 25 mg tablet 25 mg PO DAILY 12/31/21 12/31/21 Unknown Active Medications Generic Name Dose Route Start Last Admin Trade Name Freq PRN Reason Stop Dose Admin Amlodipine Besylate 10 mg 12/31/21 09:00 12/31/21 09:09 Amlodipine Besylate 5 Mg Tab PO 01/30/22 08:59 10 mg DAILY TALIB Administration Aspirin 81 mg 12/31/21 09:00 12/31/21 09:09 Aspirin 81 Mg Ectab PO 01/30/22 08:59 81 mg DAILY TALIB Administration Atorvastatin Calcium 40 mg 12/31/21 09:00 12/31/21 09:09 Atorvastatin 40 Mg Tab PO 01/30/22 08:59 40 mg DAILY TALIB Administration Carvedilol 6.25 mg 12/31/21 09:00 12/31/21 09:09 Carvedilol 6.25 Mg Tab PO 01/30/22 08:59 6.25 mg BID TALIB Administration Hydralazine HCl 5 mg 12/31/21 03:29 12/31/21 05:04 Hydralazine Hcl 20 Mg/Ml Vial IV 01/30/22 03:29 5 mg Q8H PRN Administration SBP > 155 Sodium Chloride 1,000 mls @ 80 mls/hr 12/31/21 02:52 12/31/21 16:48 Nss 1000ml IV 01/30/22 02:51 80 mls/hr .[id number] TALIB Administration Piperacillin Sod/Tazobactam 115 mls @ 28.75 mls/hr 12/31/21 16:00 12/31/21 16:49 Sod 3.375 gm/ Dextrose IV 02/11/22 15:59 28.8 mls/hr Q12H [facility]ALIB Administration Protocol Pantoprazole Sodium 40 mg/ 10 mls @ 5 mls/min 12/31/21 09:00 12/31/21 09:51 Syringe IV 01/30/22 08:59 5 mls/min BID TALIB Administration Insulin Aspart 0 units 12/31/21 16:30 12/31/21 17:34 Insulin Aspart Per Unit SC 01/30/22 16:29 Not Given ACHS [facility]ALIB Isosorbide Mononitrate 30 mg 12/31/21 09:00 12/31/21 09:09 Isosorbide [place] Extended Rel 30 Mg Tabcr PO 01/30/22 08:59 30 mg DAILY TALIB Administration Past Medical History Medical History CAD (coronary artery disease) Carotid artery stenosis Chronic kidney disease CVA, old, ataxia Dyslipidemia Hypertension Past Surgical History Surgical History S/P coronary artery stent placement Social History Smoking Status: Former smoker tobacco type: cigarettes Do You Dip or Chew Tobacco: No Hx Alcohol Use: No Hx Substance Use: No Physical Exam Vital Signs Last Vital Signs Temp 97.9 F 12/31/21 16:19 Pulse 62 12/31/21 16:19 Resp 10 L 12/31/21 16:19 BP 122/50 L 12/31/21 16:19 Pulse Ox 97 12/31/21 16:19 Testing Laboratory Results 12/31/21 14:47 12/31/21 14:47 Hemoglobin A1c 6.1 % (4.5-5.6) H 12/31/21 06:59 12/31/21 12/31/21 16:26 12:08 POC Glucose 107 H 97 Electrocardiogram Date: 12/30/21 Findings: + NSR @ Possible Left atrial enlargement T wave abnormality, consider lateral ischemia Abnormal ECG Chest X-Ray Date: 12/30/21 Findings: + NAD Echocardiogram Date: 12/31/21 EF: 60 LV Function: normal Valvular Disease: + no significant valvular disease
[2021-12-31] MEDS ORDERED: SODIUM CHLORIDE 0.9% 250 ML IV PRN ×2 (17:44→19:20)
[2021-12-31] MEDS: CALCIUM ACETATE 667 MG CAP/TAB PO SCH (17:57)
[2021-12-31] MEDS ORDERED: SODIUM BICARBONATE 650 MG TAB PO SCH (21:00)
[2022-01-01] MEDS: PIPERACILLIN/TAZOBACTAM 3.375 GM in DEXTROSE 5% 100 ML IV SCH ×2 (05:56→15:46)
--- NOTE | 2022-01-01 06:16 | Electrocardiogram Report ---
Test Reason : Blood Pressure : / mmHG Vent. Rate : 077 BPM Atrial Rate : 077 BPM P-R Int : 142 ms QRS Dur : 104 ms QT Int : 432 ms P-R-T Axes : 066 068 105 degrees QTc Int : 488 ms Normal sinus rhythm Possible Left atrial enlargement T wave abnormality, consider lateral ischemia Prolonged QT Abnormal ECG No previous ECGs available Confirmed by Clark Benitez ([id number]) on 01/01/2022 6:15:47 AM Referred By: REFERRED SELF Confirmed By:Clark Benitez
[2022-01-01 06:32] LABS: Appearance Urine Cloudy (Clear); Bacteria Urine Automated Negative (Negative); Bilirubin Urine Negative (Negative); Blood Urine 3+ (Negative); Color Urine Yellow; Epithelial Cell Urine Auto >30 /lpf (0-5); Glucose Urine UA Trace (Negative); Ketones Urine Negative (Negative); Leukocyte Esterase Urine Negative (Negative); Nitrite Urine Negative (Negative); Protein Urine 3+ (Negative); Specific Gravity Urine 1.015 (1.000-1.030); Urobilinogen Urine Negative (Negative)
[2022-01-01 06:49] LABS: Basophils # (auto) 0.06 K/uL (0-0.2); Basophils % (auto) 0.3 %; Eosinophils # (auto) 0.08 K/uL (0-0.5); Eosinophils % (auto) 0.4 %; Hematocrit (blood only) 24.9 % (42-52); Hemoglobin 8.2 g/dL (14.0-18.0); Immature Granulocytes # (auto) 0.14 K/uL (0.00-0.02); Immature Granulocytes % (auto) 0.8 %; Lymphocytes # (auto) 1.64 K/uL (1.2-3.4); Lymphocytes % (auto) 8.9 %; Mean Corpuscular Hemoglobin 28.5 pg (25-34); Mean Corpuscular Hgb Conc 32.9 g/dL (32-36); Mean Corpuscular Volume 86.5 fL (80-100); Mean Platelet Volume 9.9 fL (7.4-10.4); Neutrophils # (auto) 15.31 K/uL (1.4-6.5); Neutrophils % (auto) 83.6 %; Platelet Count 491 K/uL (130-400); RDW Coefficient of Variation 13.2 % (11.5-14.5); RDW Standard Deviation 42.2 fL (36.4-46.3); Red Blood Count 2.88 M/uL (4.7-6.1); White Blood Count 18.33 K/uL (4.8-10.8)
[2022-01-01 07:13] LABS: Creatinine Urine Random 132.7 mg/dl; Protein Creatinine Ratio Urine 2.9 (0-0.2); Total Protein Urine Random 381.9 mg/dl (0-11.9)
[2022-01-01 07:27] LABS: Albumin Globulin Ratio 0.6 (0.9-2); Albumin Level 2.6 gm/dl (3.4-5.0); Bilirubin,Total 0.3 mg/dl (0.2-1.0); Calcium 6.9 mg/dl (8.5-10.1); Creatinine Clr Calc Pharmacy 6.7 ml/min; Est GFR (African American) 4.5 ml/min; Est GFR (Non-African American) 3.9 ml/min; Globulin 4.1 gm/dl (2.5-4.0); Magnesium 2.5 mg/dl (1.7-2.4); Total Protein 6.7 gm/dl (6.0-8.3)
[2022-01-01] MEDS ORDERED: IRON SUCROSE 200 MG in 0.9 % SODIUM CHLORIDE 100 ML IV ONE (08:29)
[2022-01-01] MEDS: INSULIN ASPART PER UNIT SC SCH ×4 (09:28→20:07)
[2022-01-01] MEDS: CALCIUM ACETATE 667 MG CAP/TAB PO SCH ×3 (09:49→19:57)
[2022-01-01] MEDS: carvediloL 6.25 MG TAB PO SCH ×2 (09:50→19:57)
[2022-01-01] MEDS: PANTOprazole 40 MG in SYRINGE 0 ML IV SCH ×2 (09:50→20:07)
[2022-01-01] MEDS: ISOSORBIDE MONO EXTENDED REL 30 MG TABCR PO SCH (09:50)
[2022-01-01] MEDS: amLODIPine BESYLATE 5 MG TAB PO SCH (09:50)
[2022-01-01] MEDS: ASPIRIN 81 MG ECTAB PO SCH (09:50)
[2022-01-01] MEDS: ATORVASTATIN 40 MG TAB PO SCH (09:50)
[2022-01-01] MEDS: SODIUM CHLORIDE 0.9% 1000ML 1,000 ML IV SCH ×2 (09:50→20:06)
[2022-01-01] MEDS: CALCITRIOL 0.25 MCG CAPSULE PO SCH (09:50)
[2022-01-01] MEDS: SODIUM BICARBONATE 650 MG TAB PO SCH ×2 (09:51→20:07)
--- NOTE | 2022-01-01 10:29 | Nephrology Progress Note ---
Date of Service January 01, 2022 Assessment & Plan (1) Acute renal failure: Plan: No emergent indication for HD today. However, I have recommended Raulito consider having permcath placed and starting treatment. Serious health risks associated with advanced kidney dysfunction were discussed. Dialysis permcath placement was reviewed. Blood cultures negative. Follow up TTE pending. HD held for now pending additional monitoring. Dr. Flanagan is not available until Thursday. Document strict I/O's. Repeat metabolic profile tomorrow AM. Hold losartan. Medications appropriate for kidney dysfunction. PO NaHCO3 replacement 1300 mg BID. Renal US reviewed. (2) Chronic kidney disease: Plan: Additional records requested. Hepatitis profile updated. Education of potential future need for dialysis provided. No emergent indication at this time but if there is no improvement in next 24 hours I have suggested TDC placement. (3) Anemia: Plan: s/p 1 u PRBC overnight. Epogen 11566 units yesterday. Venofer 200 mg IV provided yesterday with second dose today. No signs of GI bleeding overnight. (4) Chronic kidney disease-mineral and bone disorder: Plan: Renal diet. Calcium acetate 1 tab QAC. Calcitriol 0.25 mcg daily for sPTH. Admission and Anticipated Discharge Date Admission Date: December 31, 2021 Subjective No acute events overnight. Raulito is frustrated this AM and overwhelmed with information. He is disappointed that surgery has not been completed. He states that he feels well but continues to struggle with nausea and intermittent v omiting. No additional hematemesis. No melena or hematochezia. He did have a bloody nose. Denies abdominal pain. Loose stools persist. Appetite is fair but he is not happy with his food selection. He denies fevers or chills. No chest pain or palpitations. No fluid retention or edema. We discussed dialysis in detail today. He expressed reservations. He states that he would likely refuse PER DIEM PHYSICAL THERAPIST at this time and consider revisiting once he moves to [place]. Review of Systems Review of Systems: All systems reviewed & are unremarkable except as noted in HPI & below Physical Exam Constitutional: well developed; no acute distress Eyes: no scleral abnormality and no corneal abnormality ENMT: Mouth: no oral mucosal abnormality and oral mucous membranes not dry Neck: normal visual inspection and trachea midline Respiratory: normal respiratory effort Auscultation: lungs clear to auscultation bilaterally Cardiovascular: Rate/Rhythm: regular rate Heart Sounds: normal S1 and normal S2 Extremities: + pedal edema Musculoskeletal: Extremities: no cyanosis and no clubbing Skin: + turgor decreased and + ulcer Neurologic: Motor/Sensory: no tremor and no asterixis Psychiatric: Orientation: alert and oriented x 3 Results & Data ([facility]) Vital Signs (Past 12 Hours) Vital Signs Temp Pulse Pulse Resp BP BP Pulse Ox 01/01/22 07:18 36.6 C 71 16 164/73 H 97 01/01/22 03:29 37.2 C 70 18 159/75 H 97 01/01/22 00:45 36.6 C 69 16 157/72 H 97 01/01/22 00:05 36.7 C 70 16 143/67 H 99 12/31/21 23:05 36.6 C 67 16 155/78 H 98 12/31/21 22:35 36.5 C 66 16 154/75 H 99 12/31/21 22:20 36.6 C 70 17 148/77 H 98 Laboratory Results Laboratory Results - last 24 hr 12/31/21 12/31/21 12/31/21 12:08 14:47 14:47 WBC RBC Hgb 7.3 L Hct MCV MCH MCHC RDW Std Deviation RDW Coeff of Jermaine Plt Count MPV Immature Gran % (Auto) Neut % (Auto) Lymph % (Auto) [place] % (Auto) Eos % (Auto) Baso % (Auto) Neut # (Auto) Lymph # (Auto) [place] # (Auto) Eos # (Auto) Baso # (Auto) Immature Gran # (Auto) Sodium 138 Potassium 4.0 Chloride 108 H Carbon Dioxide 17 L Anion Gap 13 H BUN 110 H Creatinine 12.96 H* Est Cr Clr Drug Dosing 6.7 Est GFR ( Amer) 4.6 Est GFR (Non-Af Amer) 4.0 BUN/Creatinine Ratio 8.5 L Glucose 97 POC Glucose 97 Fasting Glucose Calcium 6.9 L Phosphorus 9.0 H Magnesium Iron TIBC Unsaturated IBC Transferrin % Sat Ferritin 528.7 H Total Bilirubin AST ALT Alkaline Phosphatase Total Protein Albumin 2.6 L Globulin Albumin/Globulin Ratio 25-OH Vitamin D Total PTH Intact Urine Color Urine Appearance Urine pH Ur Specific [place] Urine Protein Urine Glucose (UA) Urine Ketones Urine Blood Urine Nitrite Urine Bilirubin Urine Urobilinogen Ur Leukocyte Esterase Urine WBC (Auto) Urine RBC (Auto) U Hyaline Cast (Auto) U Epithel Cells (Auto) Urine Bacteria (Auto) Ur Renal Epithelial Cell Granular Casts Ur Random Creatinine U Random Total Protein Protein/Creatinin Ratio Blood Type Blood Type Recheck Antibody Screen Crossmatch 12/31/21 12/31/21 12/31/21 14:47 14:47 14:47 WBC RBC Hgb Hct MCV MCH MCHC RDW Std Deviation RDW Coeff of Jermaine Plt Count MPV Immature Gran % (Auto) Neut % (Auto) Lymph % (Auto) [place] % (Auto) Eos % (Auto) Baso % (Auto) Neut # (Auto) Lymph # (Auto) [place] # (Auto) Eos # (Auto) Baso # (Auto) Immature Gran # (Auto) Sodium Potassium Chloride Carbon Dioxide Anion Gap BUN Creatinine Est Cr Clr Drug Dosing Est GFR ( Amer) Est GFR (Non-Af Amer) BUN/Creatinine Ratio Glucose POC Glucose Fasting Glucose Calcium Phosphorus Magnesium Iron 23 L TIBC 120 L Unsaturated IBC 97 L Transferrin % Sat 19 L Ferritin Total Bilirubin AST ALT Alkaline Phosphatase Total Protein Albumin Globulin Albumin/Globulin Ratio 25-OH Vitamin D Total 90.9 PTH Intact 271.7 H Urine Color Urine Appearance Urine pH Ur Specific [place] Urine Protein Urine Glucose (UA) Urine Ketones Urine Blood Urine Nitrite Urine Bilirubin Urine Urobilinogen Ur Leukocyte Esterase Urine WBC (Auto) Urine RBC (Auto) U Hyaline Cast (Auto) U Epithel Cells (Auto) Urine Bacteria (Auto) Ur Renal Epithelial Cell Granular Casts Ur Random Creatinine U Random Total Protein Protein/Creatinin Ratio Blood Type Blood Type Recheck Antibody Screen Crossmatch 12/31/21 12/31/21 12/31/21 16:26 18:02 18:33 WBC RBC Hgb Hct MCV MCH MCHC RDW Std Deviation RDW Coeff of Jermaine Plt Count MPV Immature Gran % (Auto) Neut % (Auto) Lymph % (Auto) [place] % (Auto) Eos % (Auto) Baso % (Auto) Neut # (Auto) Lymph # (Auto) [place] # (Auto) Eos # (Auto) Baso # (Auto) Immature Gran # (Auto) Sodium Potassium Chloride Carbon Dioxide Anion Gap BUN Creatinine Est Cr Clr Drug Dosing Est GFR ( Amer) Est GFR (Non-Af Amer) BUN/Creatinine Ratio Glucose POC Glucose 107 H Fasting Glucose Calcium Phosphorus Magnesium Iron TIBC Unsaturated IBC Transferrin % Sat Ferritin Total Bilirubin AST ALT Alkaline Phosphatase Total Protein Albumin Globulin Albumin/Globulin Ratio 25-OH Vitamin D Total PTH Intact Urine Color Urine Appearance Urine pH Ur Specific [place] Urine Protein Urine Glucose (UA) Urine Ketones Urine Blood Urine Nitrite Urine Bilirubin Urine Urobilinogen Ur Leukocyte Esterase Urine WBC (Auto) Urine RBC (Auto) U Hyaline Cast (Auto) U Epithel Cells (Auto) Urine Bacteria (Auto) Ur Renal Epithelial Cell Granular Casts Ur Random Creatinine U Random Total Protein Protein/Creatinin Ratio Blood Type O Positive Blood Type Recheck O Positive Antibody Screen NEGATIVE Crossmatch See Detail 12/31/21 01/01/22 01/01/22 20:34 01:07 06:15 WBC RBC Hgb 8.1 L Hct MCV MCH MCHC RDW Std Deviation RDW Coeff of Jermaine Plt Count MPV Immature Gran % (Auto) Neut % (Auto) Lymph % (Auto) [place] % (Auto) Eos % (Auto) Baso % (Auto) Neut # (Auto) Lymph # (Auto) [place] # (Auto) Eos # (Auto) Baso # (Auto) Immature Gran # (Auto) Sodium Potassium Chloride Carbon Dioxide Anion Gap BUN Creatinine Est Cr Clr Drug Dosing Est GFR ( Amer) Est GFR (Non-Af Amer) BUN/Creatinine Ratio Glucose POC Glucose 169 H Fasting Glucose Calcium Phosphorus Magnesium Iron TIBC Unsaturated IBC Transferrin % Sat Ferritin Total Bilirubin AST ALT Alkaline Phosphatase Total Protein Albumin Globulin Albumin/Globulin Ratio 25-OH Vitamin D Total PTH Intact Urine Color Yellow Urine Appearance Cloudy A Urine pH 5.0 Ur Specific [place] 1.015 Urine Protein 3+ H Urine Glucose (UA) Trace H Urine Ketones Negative Urine Blood 3+ H Urine Nitrite Negative Urine Bilirubin Negative Urine Urobilinogen Negative Ur Leukocyte Esterase Negative Urine WBC (Auto) 5-10 H Urine RBC (Auto) 5-10 H U Hyaline Cast (Auto) 1-5 U Epithel Cells (Auto) >30 H Urine Bacteria (Auto) Negative Ur Renal Epithelial Cell Not Reportable Granular Casts 1-5 H Ur Random Creatinine U Random Total Protein Protein/Creatinin Ratio Blood Type Blood Type Recheck Antibody Screen Crossmatch 01/01/22 01/01/22 01/01/22 06:15 06:33 06:33 WBC 18.33 H RBC 2.88 L Hgb 8.2 L Hct 24.9 L MCV 86.5 MCH 28.5 MCHC 32.9 RDW Std Deviation 42.2 RDW Coeff of Jermaine 13.2 Plt Count 491 H MPV 9.9 Immature Gran % (Auto) 0.8 Neut % (Auto) 83.6 Lymph % (Auto) 8.9 [place] % (Auto) 6.0 Eos % (Auto) 0.4 Baso % (Auto) 0.3 Neut # (Auto) 15.31 H Lymph # (Auto) 1.64 [place] # (Auto) 1.10 H Eos # (Auto) 0.08 Baso # (Auto) 0.06 Immature Gran # (Auto) 0.14 H Sodium 137 Potassium 4.0 Chloride 107 Carbon Dioxide 16 L Anion Gap 14 H BUN 109 H Creatinine 13.18 H* Est Cr Clr Drug Dosing 6.7 Est GFR ( Amer) 4.5 Est GFR (Non-Af Amer) 3.9 BUN/Creatinine Ratio Glucose POC Glucose Fasting Glucose 85 Calcium 6.9 L Phosphorus Magnesium 2.5 H Iron TIBC Unsaturated IBC Transferrin % Sat Ferritin Total Bilirubin 0.3 AST 6 L ALT 9 Alkaline Phosphatase 65 Total Protein 6.7 Albumin 2.6 L Globulin 4.1 H Albumin/Globulin Ratio 0.6 L 25-OH Vitamin D Total PTH Intact Urine Color Urine Appearance Urine pH Ur Specific [place] Urine Protein Urine Glucose (UA) Urine Ketones Urine Blood Urine Nitrite Urine Bilirubin Urine Urobilinogen Ur Leukocyte Esterase Urine WBC (Auto) Urine RBC (Auto) U Hyaline Cast (Auto) U Epithel Cells (Auto) Urine Bacteria (Auto) Ur Renal Epithelial Cell Granular Casts Ur Random Creatinine 132.7 U Random Total Protein 381.9 H Protein/Creatinin Ratio 2.9 H Blood Type Blood Type Recheck Antibody Screen Crossmatch 01/01/22 01/01/22 07:15 07:31 WBC RBC Hgb Hct MCV MCH MCHC RDW Std Deviation RDW Coeff of Jermaine Plt Count MPV Immature Gran % (Auto) Neut % (Auto) Lymph % (Auto) [place] % (Auto) Eos % (Auto) Baso % (Auto) Neut # (Auto) Lymph # (Auto) [place] # (Auto) Eos # (Auto) Baso # (Auto) Immature Gran # (Auto) Sodium Potassium Chloride Carbon Dioxide Anion Gap BUN Creatinine Est Cr Clr Drug Dosing Est GFR ( Amer) Est GFR (Non-Af Amer) BUN/Creatinine Ratio Glucose POC Glucose 69 L* 73 Fasting Glucose Calcium Phosphorus Magnesium Iron TIBC Unsaturated IBC Transferrin % Sat Ferritin Total Bilirubin AST ALT Alkaline Phosphatase Total Protein Albumin Globulin Albumin/Globulin Ratio 25-OH Vitamin D Total PTH Intact Urine Color Urine Appearance Urine pH Ur Specific [place] Urine Protein Urine Glucose (UA) Urine Ketones Urine Blood Urine Nitrite Urine Bilirubin Urine Urobilinogen Ur Leukocyte Esterase Urine WBC (Auto) Urine RBC (Auto) U Hyaline Cast (Auto) U Epithel Cells (Auto) Urine Bacteria (Auto) Ur Renal Epithelial Cell Granular Casts Ur Random Creatinine U Random Total Protein Protein/Creatinin Ratio Blood Type Blood Type Recheck Antibody Screen Crossmatch PG Care Time/CCT Total # of Minutes Spent Total Time Spent with Patient: Total time spent is greater than 50% in coordination of care (as documented) at patient's floor/unit and/or counseling patient: Coding Level of Care Code 70102 Subseq Hosp Care Lvl 3 Diagnoses Acute renal failure N17.9 Acute renal failure type: unspecified Chronic kidney disease N18.9 Anemia D64.9 Anemia type: unspecified type Chronic kidney disease-mineral and bone disorder N18.9; E83.9; M89.9 (1) Acute renal failure Acute renal failure type: unspecified Qualified Code(s): N17.9 - Acute kidney failure, unspecified (2) Anemia Anemia type: unspecified type Qualified Code(s): D64.9 - Anemia, unspecified
--- NOTE | 2022-01-01 10:54 | XCELERA ---
[id number]
[2022-01-01 12:28] LABS: HBSAG NON-REACTIVE (NON-REACTIVE); Hepatitis B Core Antibody IgM NON-REACTIVE (NON-REACTIVE)
--- NOTE | 2022-01-01 13:23 | Hospitalist Progress Note ---
Date of Service January 01, 2022 Assessment & Plan (1) Diabetic foot infection: Plan: Gangrenous fifth toes, leukocytosis, podiatry consultedsurgery today; continue broad-spectrum antibiotics (2) ESRD (end stage renal disease): Plan: Likely merits initiation of TECHNOLOGY SUPPORT ANALYST, nephrology following; noted electrolyte abnormalitiesnephrology managing, will defer (metabolic acidosis, hyperphosphatemia, hypocalcemia) (3) CAD (coronary artery disease): Plan: As noted by cardiology no convincing angina, continue aspirin, statin, on beta- sarah (4) Chest pain: Plan: Suspect noncardiac, as above (5) Anemia: Plan: Likely in large part due to CKD, may have some acute blood loss anemia secondary to hematemesis (6) CVA, old, ataxia: Plan: PT/OT after surgery; has severe carotid stenosisvascular surgery evaluation after acute illness (not available at present, not urgent) (7) Hypertension: Plan: BP trending high but hold off adjusting meds for now (8) Dyslipidemia: Plan: Continue statin (9) Hematemesis: Plan: None again after 1 episode, continue PPI (10) Carotid stenosis, right: Plan: Plavix on hold; resume when safe, vascular surgery later (11) DM type 2 (diabetes mellitus, type 2): Plan: Sliding scale, sugars acceptable (12) Right atrial mass: Plan: ? Significantce; cannot completely rule out endocarditis; cultures negative; cardiology input appreciated Admission and Anticipated Discharge Date Admission Date: December 31, 2021 Subjective Follow-up presentation with hematemesis, diabetic foot infection, right-sided chest painreceived blood transfusion overnight; no specific new issues, some vo miting after dinner Physical Exam Physical Exam: Constitutional and general: No acute distress, looks biologic age Head and face: No puffiness, atraumatic Eyes: No scleral icterus, extraocular movements normal Neck: Supple, no JVD Musculoskeletal: No acute joint swelling, no bony abnormalities Skin/dermatologic/integument: No rash, no purpura Hematologic and lymphatic: pallor ++, no petechia Gastrointestinal/abdomen: Nondistended, soft, nonacute Neurologic: Cranial nerves intact, nonfocal Psychiatry: Awake, alert, pleasant, communicative Cardiovascular: Heart rhythm regular, no rub, SM, no gallop Respiratory: Chest movements equal, no use of accessory muscles, no adventitious sounds Extremities: No edema, no cyanosis; gangrene both feet fifth toe Results & Data Results & Data ([facility]) Vital Signs (Past 12 Hours) Vital Signs Temp Pulse Resp BP Pulse Ox 01/01/22 07:18 36.6 C 71 16 164/73 H 97 01/01/22 03:29 37.2 C 70 18 159/75 H 97 Laboratory Results Laboratory Results - last 24 hr 12/31/21 12/31/21 12/31/21 08:55 08:55 14:47 WBC RBC Hgb 7.3 L Hct MCV MCH MCHC RDW Std Deviation RDW Coeff of Jermaine Plt Count MPV Immature Gran % (Auto) Neut % (Auto) Lymph % (Auto) [place] % (Auto) Eos % (Auto) Baso % (Auto) Neut # (Auto) Lymph # (Auto) [place] # (Auto) Eos # (Auto) Baso # (Auto) Immature Gran # (Auto) Sodium Potassium Chloride Carbon Dioxide Anion Gap BUN Creatinine Est Cr Clr Drug Dosing Est GFR ( Amer) Est GFR (Non-Af Amer) BUN/Creatinine Ratio Glucose POC Glucose Fasting Glucose Calcium Phosphorus Magnesium Iron TIBC Unsaturated IBC Transferrin % Sat Ferritin Total Bilirubin AST ALT Alkaline Phosphatase Total Protein Albumin Globulin Albumin/Globulin Ratio 25-OH Vitamin D Total PTH Intact Urine Color Urine Appearance Urine pH Ur Specific [place] Urine Protein Urine Glucose (UA) Urine Ketones Urine Blood Urine Nitrite Urine Bilirubin Urine Urobilinogen Ur Leukocyte Esterase Urine WBC (Auto) Urine RBC (Auto) U Hyaline Cast (Auto) U Epithel Cells (Auto) Urine Bacteria (Auto) Ur Renal Epithelial Cell Granular Casts Ur Random Creatinine U Random Total Protein Protein/Creatinin Ratio Hepatitis B Ab, Qual NON-REACTIVE Hep Bs Antigen NON-REACTIVE Hep Bs Ag Confirmation TNP Hep B Core IgM Ab NON-REACTIVE Hepatitis C Ab (EIA) NON-REACTIVE Hep C Ab Signal/Cutoff 0.22 Blood Type Blood Type Recheck Antibody Screen Crossmatch 12/31/21 12/31/21 12/31/21 14:47 14:47 14:47 WBC RBC Hgb Hct MCV MCH MCHC RDW Std Deviation RDW Coeff of Jermaine Plt Count MPV Immature Gran % (Auto) Neut % (Auto) Lymph % (Auto) [place] % (Auto) Eos % (Auto) Baso % (Auto) Neut # (Auto) Lymph # (Auto) [place] # (Auto) Eos # (Auto) Baso # (Auto) Immature Gran # (Auto) Sodium 138 Potassium 4.0 Chloride 108 H Carbon Dioxide 17 L Anion Gap 13 H BUN 110 H Creatinine 12.96 H* Est Cr Clr Drug Dosing 6.7 Est GFR ( Amer) 4.6 Est GFR (Non-Af Amer) 4.0 BUN/Creatinine Ratio 8.5 L Glucose 97 POC Glucose Fasting Glucose Calcium 6.9 L Phosphorus 9.0 H Magnesium Iron 23 L TIBC 120 L Unsaturated IBC 97 L Transferrin % Sat 19 L Ferritin 528.7 H Total Bilirubin AST ALT Alkaline Phosphatase Total Protein Albumin 2.6 L Globulin Albumin/Globulin Ratio 25-OH Vitamin D Total PTH Intact 271.7 H Urine Color Urine Appearance Urine pH Ur Specific [place] Urine Protein Urine Glucose (UA) Urine Ketones Urine Blood Urine Nitrite Urine Bilirubin Urine Urobilinogen Ur Leukocyte Esterase Urine WBC (Auto) Urine RBC (Auto) U Hyaline Cast (Auto) U Epithel Cells (Auto) Urine Bacteria (Auto) Ur Renal Epithelial Cell Granular Casts Ur Random Creatinine U Random Total Protein Protein/Creatinin Ratio Hepatitis B Ab, Qual Hep Bs Antigen Hep Bs Ag Confirmation Hep B Core IgM Ab Hepatitis C Ab (EIA) Hep C Ab Signal/Cutoff Blood Type Blood Type Recheck Antibody Screen Crossmatch 12/31/21 12/31/21 12/31/21 14:47 16:26 18:02 WBC RBC Hgb Hct MCV MCH MCHC RDW Std Deviation RDW Coeff of Jermaine Plt Count MPV Immature Gran % (Auto) Neut % (Auto) Lymph % (Auto) [place] % (Auto) Eos % (Auto) Baso % (Auto) Neut # (Auto) Lymph # (Auto) [place] # (Auto) Eos # (Auto) Baso # (Auto) Immature Gran # (Auto) Sodium Potassium Chloride Carbon Dioxide Anion Gap BUN Creatinine Est Cr Clr Drug Dosing Est GFR ( Amer) Est GFR (Non-Af Amer) BUN/Creatinine Ratio Glucose POC Glucose 107 H Fasting Glucose Calcium Phosphorus Magnesium Iron TIBC Unsaturated IBC Transferrin % Sat Ferritin Total Bilirubin AST ALT Alkaline Phosphatase Total Protein Albumin Globulin Albumin/Globulin Ratio 25-OH Vitamin D Total 90.9 PTH Intact Urine Color Urine Appearance Urine pH Ur Specific [place] Urine Protein Urine Glucose (UA) Urine Ketones Urine Blood Urine Nitrite Urine Bilirubin Urine Urobilinogen Ur Leukocyte Esterase Urine WBC (Auto) Urine RBC (Auto) U Hyaline Cast (Auto) U Epithel Cells (Auto) Urine Bacteria (Auto) Ur Renal Epithelial Cell Granular Casts Ur Random Creatinine U Random Total Protein Protein/Creatinin Ratio Hepatitis B Ab, Qual Hep Bs Antigen Hep Bs Ag Confirmation Hep B Core IgM Ab Hepatitis C Ab (EIA) Hep C Ab Signal/Cutoff Blood Type O Positive Blood Type Recheck Antibody Screen NEGATIVE Crossmatch See Detail 12/31/21 12/31/21 01/01/22 18:33 20:34 01:07 WBC RBC Hgb 8.1 L Hct MCV MCH MCHC RDW Std Deviation RDW Coeff of Jermaine Plt Count MPV Immature Gran % (Auto) Neut % (Auto) Lymph % (Auto) [place] % (Auto) Eos % (Auto) Baso % (Auto) Neut # (Auto) Lymph # (Auto) [place] # (Auto) Eos # (Auto) Baso # (Auto) Immature Gran # (Auto) Sodium Potassium Chloride Carbon Dioxide Anion Gap BUN Creatinine Est Cr Clr Drug Dosing Est GFR ( Amer) Est GFR (Non-Af Amer) BUN/Creatinine Ratio Glucose POC Glucose 169 H Fasting Glucose Calcium Phosphorus Magnesium Iron TIBC Unsaturated IBC Transferrin % Sat Ferritin Total Bilirubin AST ALT Alkaline Phosphatase Total Protein Albumin Globulin Albumin/Globulin Ratio 25-OH Vitamin D Total PTH Intact Urine Color Urine Appearance Urine pH Ur Specific [place] Urine Protein Urine Glucose (UA) Urine Ketones Urine Blood Urine Nitrite Urine Bilirubin Urine Urobilinogen Ur Leukocyte Esterase Urine WBC (Auto) Urine RBC (Auto) U Hyaline Cast (Auto) U Epithel Cells (Auto) Urine Bacteria (Auto) Ur Renal Epithelial Cell Granular Casts Ur Random Creatinine U Random Total Protein Protein/Creatinin Ratio Hepatitis B Ab, Qual Hep Bs Antigen Hep Bs Ag Confirmation Hep B Core IgM Ab Hepatitis C Ab (EIA) Hep C Ab Signal/Cutoff Blood Type Blood Type Recheck O Positive Antibody Screen Crossmatch 01/01/22 01/01/22 01/01/22 06:15 06:15 06:33 WBC 18.33 H RBC 2.88 L Hgb 8.2 L Hct 24.9 L MCV 86.5 MCH 28.5 MCHC 32.9 RDW Std Deviation 42.2 RDW Coeff of Jermaine 13.2 Plt Count 491 H MPV 9.9 Immature Gran % (Auto) 0.8 Neut % (Auto) 83.6 Lymph % (Auto) 8.9 [place] % (Auto) 6.0 Eos % (Auto) 0.4 Baso % (Auto) 0.3 Neut # (Auto) 15.31 H Lymph # (Auto) 1.64 [place] # (Auto) 1.10 H Eos # (Auto) 0.08 Baso # (Auto) 0.06 Immature Gran # (Auto) 0.14 H Sodium Potassium Chloride Carbon Dioxide Anion Gap BUN Creatinine Est Cr Clr Drug Dosing Est GFR ( Amer) Est GFR (Non-Af Amer) BUN/Creatinine Ratio Glucose POC Glucose Fasting Glucose Calcium Phosphorus Magnesium Iron TIBC Unsaturated IBC Transferrin % Sat Ferritin Total Bilirubin AST ALT Alkaline Phosphatase Total Protein Albumin Globulin Albumin/Globulin Ratio 25-OH Vitamin D Total PTH Intact Urine Color Yellow Urine Appearance Cloudy A Urine pH 5.0 Ur Specific [place] 1.015 Urine Protein 3+ H Urine Glucose (UA) Trace H Urine Ketones Negative Urine Blood 3+ H Urine Nitrite Negative Urine Bilirubin Negative Urine Urobilinogen Negative Ur Leukocyte Esterase Negative Urine WBC (Auto) 5-10 H Urine RBC (Auto) 5-10 H U Hyaline Cast (Auto) 1-5 U Epithel Cells (Auto) >30 H Urine Bacteria (Auto) Negative Ur Renal Epithelial Cell Not Reportable Granular Casts 1-5 H Ur Random Creatinine 132.7 U Random Total Protein 381.9 H Protein/Creatinin Ratio 2.9 H Hepatitis B Ab, Qual Hep Bs Antigen Hep Bs Ag Confirmation Hep B Core IgM Ab Hepatitis C Ab (EIA) Hep C Ab Signal/Cutoff Blood Type Blood Type Recheck Antibody Screen Crossmatch 01/01/22 01/01/22 01/01/22 06:33 07:15 07:31 WBC RBC Hgb Hct MCV MCH MCHC RDW Std Deviation RDW Coeff of Jermaine Plt Count MPV Immature Gran % (Auto) Neut % (Auto) Lymph % (Auto) [place] % (Auto) Eos % (Auto) Baso % (Auto) Neut # (Auto) Lymph # (Auto) [place] # (Auto) Eos # (Auto) Baso # (Auto) Immature Gran # (Auto) Sodium 137 Potassium 4.0 Chloride 107 Carbon Dioxide 16 L Anion Gap 14 H BUN 109 H Creatinine 13.18 H* Est Cr Clr Drug Dosing 6.7 Est GFR ( Amer) 4.5 Est GFR (Non-Af Amer) 3.9 BUN/Creatinine Ratio Glucose POC Glucose 69 L* 73 Fasting Glucose 85 Calcium 6.9 L Phosphorus Magnesium 2.5 H Iron TIBC Unsaturated IBC Transferrin % Sat Ferritin Total Bilirubin 0.3 AST 6 L ALT 9 Alkaline Phosphatase 65 Total Protein 6.7 Albumin 2.6 L Globulin 4.1 H Albumin/Globulin Ratio 0.6 L 25-OH Vitamin D Total PTH Intact Urine Color Urine Appearance Urine pH Ur Specific [place] Urine Protein Urine Glucose (UA) Urine Ketones Urine Blood Urine Nitrite Urine Bilirubin Urine Urobilinogen Ur Leukocyte Esterase Urine WBC (Auto) Urine RBC (Auto) U Hyaline Cast (Auto) U Epithel Cells (Auto) Urine Bacteria (Auto) Ur Renal Epithelial Cell Granular Casts Ur Random Creatinine U Random Total Protein Protein/Creatinin Ratio Hepatitis B Ab, Qual Hep Bs Antigen Hep Bs Ag Confirmation Hep B Core IgM Ab Hepatitis C Ab (EIA) Hep C Ab Signal/Cutoff Blood Type Blood Type Recheck Antibody Screen Crossmatch PG Care Time/CCT Total # of Minutes Spent Total Time Spent with Patient: Total time spent is greater than 50% in coordination of care (as documented) at patient's floor/unit and/or counseling patient: Coding Level of Care Code 25663 Subseq Hosp Care Lvl 3 Diagnoses ESRD (end stage renal disease) N18.6 CAD (coronary artery disease) I25.10 Chest pain R07.2 Chest pain type: precordial pain Anemia D64.9 Anemia type: unspecified type CVA, old, ataxia I69.993 Hypertension I10 Dyslipidemia E78.5 Hematemesis K92.0 Diabetic foot infection E11.628; L08.9 Carotid stenosis, right I65.21 DM type 2 (diabetes mellitus, type 2) E11.9 Right atrial mass I51.89 (1) Chest pain Chest pain type: precordial pain Qualified Code(s): R07.2 - Precordial pain (2) Anemia Anemia type: unspecified type Qualified Code(s): D64.9 - Anemia, unspecified
[2022-01-01] MEDS ORDERED: MIDAZOLAM HCL 1 MG/ML 2ML VIAL ONE (15:58)
[2022-01-01] MEDS ORDERED: LIDOCAINE 2% 2 ML VIAL/AMP(20MG/ML) INFIL ONE (15:58)
[2022-01-01] MEDS ORDERED: PROPOFOL IV EMULSION 10 MG/ML 20 ML VIAL IV ONE ×2 (15:58→17:59)
[2022-01-01] MEDS ORDERED: fentaNYL citrate 100 MCG/2 ML VIAL ONE (15:59)
[2022-01-01] MEDS ORDERED: PHENYLEPHRINE HCL 10 MG/ML VIAL ONE (16:00)
--- NOTE | 2022-01-01 16:34 | Orthopedic Progress Note ---
Date of Service January 01, 2022 Assessment & Plan (1) Ulcer of right foot with necrosis of bone: Plan: Patient seen, evaluated, and treated. Reviewed necrotic Left fifth and Right fourth and fifth toes with malodorous infection with Patient. I discussed removal of non-viable bone and soft tissue with Patient to bilateral feet. Patient understands need for procedure. I reviewed procedure in detail as well as postoperative recovery. I discussed expectations and patient's current weightbearing status. All questions answered. I have discussed procedure in detail as well as postoperative recovery. All potential risks, benefits, complications, alternatives, rehab, potential for incomplete relief of symptoms, need for further surgery, DVT, PE, , persistent pain, swelling, scarring, weakness, neurovascular, wound complications and potential for amputations were discussed with patient. Unwanted outcomes such as, but not limited to were reviewed including under correction, overcorrection, return of deformity, infection. All questions were answered. Patient has decided to proceed with procedure as indicated. (2) Ulcer of left foot with necrosis of bone: Admission and Anticipated Discharge Date Admission Date: December 31, 2021 Subjective Patient is a 46 year old male seen at bedside. Patient is being seen prior to surgical care for Right and left foot infections. He has no complaints. Review of Systems Review of Systems: All systems reviewed & are unremarkable except as noted in HPI & below Physical Exam Constitutional: WD/WN, vitals as above Eyes: PERRL, conjunctivae normal, anicteric sclerae ENMT: external ear and nose normal, oropharynx normal Respiratory: normal respiratory effort, lungs clear to auscultation Cardiovascular: RRR, no murmur, no edema Gastrointestinal (Abdomen): normal bowel sounds, soft, nontender, no hepatosplenomegaly Psychiatric: Orientation: oriented x 3 Results & Data ([facility]) Vital Signs (Past 12 Hours) Vital Signs Temp Pulse Resp BP Pulse Ox 01/01/22 07:18 36.6 C 71 16 164/73 H 97
[2022-01-01] MEDS ORDERED: BUPIVACAINE 0.5 % 5 MG/1 ML MPF 30ML VIAL ONE (16:57)
[2022-01-01] MEDS ORDERED: KETAMINE 50 MG/5 ML SYRINGE ONE (17:26)
--- NOTE | 2022-01-01 17:42 | History & Physical Bridge Note ---
Date of Service January 01, 2022 History & Physical Bridge Note I have examined the patient, reviewed the History & Physical and in the interval since the performance of the History & Physical I have noted the following changes of clinical significance: no changes noted
--- NOTE | 2022-01-01 18:37 | Post Operative Brief Note ---
Immediate Post Op Note v1 Date of Surgery January 01, 2022 Pre & Post Diagnosis Operation Date: 12/31/21 17:55 <No data on this case meets the specified criteria> Operation Date: 01/01/22 08:20 Pre-Op Diagnosis: bilateral foot infection Post-Op Diagnosis: bilateral foot infection I identified the patient and participated in the time-out.: Yes Procedure Operation Date: 12/31/21 17:55 <No data on this case meets the specified criteria> Operation Date: 01/01/22 08:20 Actual Procedures p Left 5th Toe Amputation, Right 4th and 5th Ray Amputation(Bilateral) - Raulito Ferrer DPM, MS Surgeon Raulito Ferrer DPM, MS C Consultant None Estimated Blood Loss 5 Findings Consistent with Post-Op Diagnosis necrotic right fourth and fifth ray, necrotic left fifth ray
[2022-01-01] MEDS ORDERED: ePHEDrine sulfate 50 MG/ML AMP IV PRN (19:01)
[2022-01-01] MEDS ORDERED: ATROPINE SULFATE 0.1 MG/ML 10ML SYR IV PRN (19:01)
--- NOTE | 2022-01-01 19:01 | Anesthesiology Progress Note ---
Date of Service January 01, 2022 Anesthesia Post Procedure Vital Signs Vital Signs: Temp Pulse Pulse Resp BP BP Pulse Ox 01/01/22 19:00 36.2 C L 58 L 12 138/69 99 01/01/22 18:50 63 12 134/72 100 01/01/22 18:43 36.2 C L 61 13 145/73 H 100 01/01/22 16:44 36.4 C L 68 14 146/73 H 98 01/01/22 16:32 36.4 C L 65 18 140/67 96 01/01/22 07:18 36.6 C 71 16 164/73 H 97 01/01/22 03:29 37.2 C 70 18 159/75 H 97 01/01/22 00:45 36.6 C 69 16 157/72 H 97 01/01/22 00:05 36.7 C 70 16 143/67 H 99 12/31/21 23:05 36.6 C 67 16 155/78 H 98 12/31/21 22:35 36.5 C 66 16 154/75 H 99 12/31/21 22:20 36.6 C 70 17 148/77 H 98 12/31/21 21:59 36.5 C 62 18 150/69 H 98 Transfer of Care Handoff Completed per policy Notes Mental Status: alert / awake / arousable and participated in evaluation Patient Amnestic to Procedure: Yes Nausea / Vomiting: adequately controlled Pain: adequately controlled Airway Patency, RR, SpO2: stable & adequate BP & HR: stable & adequate Hydration State: stable & adequate Anesthetic Complications: no major complications apparent and Pt Satisfied with anesthetic care
--- NOTE | 2022-01-01 20:43 | Operative Report ---
Post Operative Report Pre & Post Diagnosis Operation Date: 12/31/21 17:55 <No data on this case meets the specified criteria> Operation Date: 01/01/22 08:20 Pre-Op Diagnosis: bilateral foot infection Post-Op Diagnosis: bilateral foot infection I identified the patient and participated in the time-out.: Yes Procedure Operation Date: 12/31/21 17:55 <No data on this case meets the specified criteria> Operation Date: 01/01/22 08:20 Actual Procedures p Left 5th Toe Amputation, Right 4th and 5th Ray Amputation(Bilateral) - Raulito Ferrer DPM, MS Surgeon Raulito Ferrer DPM, MS Chef De Partie None Estimated Blood Loss 5 Findings Consistent with Post-Op Diagnosis Bilateral Diabetic foot ulcers Specimens 1.) Right foot Deep wound culture Micro 2.) Left foot Deep wound culture Micro 3.) Right foot fourth & fifth toes Pathology 4.) left foot fifth toe Pathology Anesthesia Type MAC Complications None Indications Bilateral diabetic foot infectionRight foot fourth & fifth toes Pathology Description of Procedure History of present illness: Patient is a type II diabetic, 46 year old male who is seen for treatment of right fourth and fifth necrotic toes and left fifth necrotic toes. Patient is neuropathic. Patient relates minimal discomfort. I discussed patient's black necrotic toes and treatment. All questions answered. Discussed procedure of removal of nonviable bone and soft tissue in detail and postoperative recovery. All potential risks, benefits, complications, alternatives, rehab, potential for incomplete relief of symptoms, need for further surgery, DVT, PE, , persistent pain, swelling, scarring, weakness, neurovascular, wound complications and potential for amputations were discussed with patient. Unwanted outcomes such as, but not limited to were reviewed including under correction, overcorrection, return of deformity, infection. All questions were answered. Patient has decided to proceed with procedure as indicated. Preoperative diagnosis: 1.) Necrotic right fourth and fifth toes 2.) Necrotic left fifth toe Postoperative diagnosis: same Name of operation: 1.) Amputation of right fourth and fifth toes with metatarsal resection 2.) Amputation or left fifth toe with metatarsal resection 3.) Delayed primary closure Surgeon Dr. Ferrer Chef De Partie: None Anesthesia: local with monitored anesthesia care Hemostasis: pneumatic ankle tourniquet Estimated blood loss: minimal Procedure in detail: Under mild sedation the patient was brought in the operating room placed on the operating table in supine position. A pneumatic ankle tourniquet was then placed about the patient's right and left ankles. Following IV sedation local anesthesia was obtained about the right and left foot utilizing 25 cc of 0.5% Marcaine plain. The foot was then prepped scrubbed and draped in usual aseptic manner. An Esmarch bandage was utilized to exsanguinate the patient's right foot and the pneumatic ankle tourniquet was then inflated. Attention was then directed to a nonhealing diabetic ulcers and necrotic right fourth and fifth toe. A fishmouth incision was created utilizing a sharp, sterile, #15 blade slightly proximal to the affected necrotic tissue. The incision which was deepened through subcutaneous tissue using sharp blunt dissection. Care was taken to identify and retract all vital neurovascular structures. All bleeders were ligated and cauterized necessary. At this time the right fourth and fifth toes were removed at the Metatarsal Phalangeal joint and placed on the back table. The fourth and fifth metatarsal heads were then resected. Deep culture of the right foot was taken. Purulence was found to traffic up into the extensor slips and this area was opened further. Due to the extent of the infection it was decided the wound would be left open for delayed primary closure. The right fourth and fifth toes were sent to pathology. 1 Liter of sterile lactate ringer was utilized to flush the amputation site. An Esmarch bandage was then utilized to exsanguinate the patient's left foot and the pneumatic ankle tourniquet was then inflated. Attention was then directed to a nonhealing diabetic ulcers and necrotic left fifth toe. A fishmouth incision was created utilizing a sharp, sterile, #15 blade slightly proximal to the affected necrotic tissue. The incision which was deepened through subcutaneous tissue using sharp blunt dissection. Care was taken to identify and retract all vital neurovascular structures. All bleeders were ligated and cauterized necessary. At this time the left fifth toes was removed at the Metatarsal Phalangeal joint and placed on the back table. The left fifth metatarsal head was then resected. Deep culture of the left foot was taken. Purulence was found to traffic down into the flexor tendon and this area was opened further. Due to the extent of the infection it was decided the wound would be left open for delayed primary closure. The left fifth toe was sent to pathology. 1 Liter of sterile lactate ringer was utilized to flush the amputation site. Upon completion of the procedure the sterile compressive dressing consisting of 4 x 4's Niyah Kerlix ABD. The pneumatic ankle tourniquet was inflated and a prompt hyperemic response was noted to all remaining digits of the right and left foot. An Lake wrap then applied to the right and left foot. The Patient tolerated the procedure and anesthesia well. He was transferred to recovery room vital signs stable and vascular status intact all remaining toes of the right and left foot. Following postoperative monitoring the patient will be readmitted to the floor resuming all pre-operative orders. Contact Dr. Ferrer for all postoperative care if any problems arise . I attest to the content of the Intraoperative Record and any orders documented therein. Any exceptions are noted below.
[2022-01-02] MEDS: PIPERACILLIN/TAZOBACTAM 3.375 GM in DEXTROSE 5% 100 ML IV SCH ×2 (03:15→16:10)
[2022-01-02 06:26] LABS: Basophils # (auto) 0.12 K/uL (0-0.2); Basophils % (auto) 0.7 %; Eosinophils # (auto) 0.11 K/uL (0-0.50); Eosinophils % (auto) 0.6 %; Hematocrit (blood only) 22.6 % (40.1-51.0); Hemoglobin 7.2 g/dl (14.0-18.0); Immature Granulocytes # (auto) 0.29 K/uL (0.00-0.02); Immature Granulocytes % (auto) 1.6 %; Lymphocytes % (auto) 8.2 %; Mean Corpuscular Hemoglobin 28.5 pg (25.0-34.0); Mean Corpuscular Hgb Conc 31.9 g/dL (32.0-36.0); Mean Corpuscular Volume 89.3 fL (80.0-100.0); Mean Platelet Volume 10.9 fL (9.4-12.4); Monocytes % (auto) 4.9 %; Neutrophils # (auto) 15.44 K/uL (1.4-6.5); Platelet Count 431 K/uL (130-400); RDW Coefficient of Variation 12.5 % (11.5-14.5); RDW Standard Deviation 40.8 fL (36.4-46.3); Red Blood Count 2.53 M/uL (4.63-6.08); White Blood Count 18.36 K/ul (4.8-10.8)
[2022-01-02 06:41] LABS: Albumin Globulin Ratio 0.7 (0.9-2); Albumin Level 2.4 gm/dl (3.4-5.0); Bilirubin,Total 0.3 mg/dl (0.2-1.0); Calcium 6.6 mg/dl (8.5-10.1); Creatinine Clr Calc Pharmacy 7.3 ml/min; Est GFR (African American) 4.8 ml/min; Est GFR (Non-African American) 4.1 ml/min; Globulin 3.6 gm/dl (2.5-4.0); Magnesium 2.3 mg/dl (1.7-2.4); Potassium 3.9 mmol/L (3.5-5.1)
[2022-01-02 06:57] LABS: RBC Morphology Unremarkable
[2022-01-02] MEDS: SODIUM CHLORIDE 0.9% 1000ML 1,000 ML IV SCH ×2 (07:56→20:17)
[2022-01-02] MEDS: INSULIN ASPART PER UNIT SC SCH ×4 (08:15→21:05)
[2022-01-02] MEDS: ONDANSETRON INJ 2 MG/ML 2 ML VIAL IV PRN (08:15)
--- NOTE | 2022-01-02 09:07 | Orthopedic Progress Note ---
Date of Service January 02, 2022 Assessment & Plan (1) DM type 2 (diabetes mellitus, type 2): Plan: Reviewed Diabetic foot ulcers and time line of appropriate treatment. Awaiting cultures and sensitives for appropriate Antibiotic coverage prior to discharge. Patient is scheduled for delayed primary closure Thursday 4pm. Patient is non weight bearing. Would recommend transition to [facility] facility upon discharge from [facility] due to need for immediate non weight bearing after bilateral foot surgery, Patient is not amendable to this plan. I recommended possible timeline for discharge Saturday 01/06 after microbiology results. Patient is aware. (2) Ulcer of left foot with necrosis of bone: (3) Ulcer of right foot with necrosis of bone: Admission and Anticipated Discharge Date Admission Date: December 31, 2021 Subjective Patient seen at bedside status post Day 1 right and left foot removal of non viable bone and soft tissue. Dressing is clean, dry, and intact. Patient voices concern that over delayed primary closure scheduled for Thursday at 4pm. He requests procedure done sooner as he has a bus ticket to [place] and needs to be discharged in a timely manner. Results & Data ([facility]) Vital Signs (Past 12 Hours) Vital Signs Temp Pulse Resp BP Pulse Ox 01/02/22 07:04 36.9 C 73 18 153/76 H 98 01/02/22 02:19 36.5 C 69 18 144/65 H 95 01/02/22 00:11 36.4 C L 66 18 136/70 99 01/01/22 22:30 61 16 138/66 98 01/01/22 21:34 63 16 96/58 L 98 01/01/22 21:00 67 16 136/71 98
[2022-01-02] MEDS: amLODIPine BESYLATE 5 MG TAB PO SCH (09:36)
[2022-01-02] MEDS: CALCIUM ACETATE 667 MG CAP/TAB PO SCH ×3 (09:36→17:04)
[2022-01-02] MEDS: ATORVASTATIN 40 MG TAB PO SCH (09:37)
[2022-01-02] MEDS: ASPIRIN 81 MG ECTAB PO SCH (09:37)
[2022-01-02] MEDS: ISOSORBIDE MONO EXTENDED REL 30 MG TABCR PO SCH (09:37)
[2022-01-02] MEDS: SODIUM BICARBONATE 650 MG TAB PO SCH ×2 (09:37→20:20)
[2022-01-02] MEDS: carvediloL 6.25 MG TAB PO SCH ×2 (09:37→20:20)
[2022-01-02] MEDS: PANTOprazole 40 MG in SYRINGE 0 ML IV SCH ×2 (09:37→20:18)
[2022-01-02] MEDS: CALCITRIOL 0.25 MCG CAPSULE PO SCH (09:37)
--- NOTE | 2022-01-02 10:08 | Nephrology Progress Note ---
Date of Service January 02, 2022 Assessment & Plan (1) Acute renal failure: Plan: No emergent indication for HD today. However, I have recommended permcath placement and starting treatment. Serious health risks associated with advanced kidney dysfunction were discussed. Dr. Flanagan is not available until Thursday. Document strict I/O's. Repeat metabolic profile tomorrow AM. Hold losartan. Medications appropriate for kidney dysfunction. PO NaHCO3 replacement 1300 mg BID. (2) Chronic kidney disease: Plan: Hepatitis profile updated. Additional education on dialysis provided today. (3) Anemia: Plan: s/p 1 u PRBC 12/31. Epogen 47768 units 12/31. Venofer 200 mg IV x 3rd dose today. No additional signs of GI bleeding reported. (4) Chronic kidney disease-mineral and bone disorder: Plan: Renal diet. Calcium acetate 1 tab QAC. Calcitriol 0.25 mcg daily for sPTH. Admission and Anticipated Discharge Date Admission Date: December 31, 2021 Subjective No acute events overnight. Raulito is experiencing significant nausea this morning. He was able to tolerate very little for breakfast. He vomited after eating. He denies significant pain. No fevers or chills. No complications with debridement yesterday. Raulito was much more receptive to discussing dialysis today. He was able to discuss his situation with his sister yesterday. After reviewing in more detail today, Raulito is more receptive to dialysis catheter placement. Review of Systems Review of Systems: All systems reviewed & are unremarkable except as noted in HPI & below Constitutional: no fever and no chills Gastrointestinal: + nausea and + vomiting; no abdominal pain and no constipation Physical Exam Constitutional: well developed; no acute distress Eyes: no scleral abnormality and no corneal abnormality ENMT: Mouth: no oral mucosal abnormality and oral mucous membranes not dry Neck: normal visual inspection and trachea midline Respiratory: normal respiratory effort Auscultation: lungs clear to auscultation bilaterally Cardiovascular: Rate/Rhythm: regular rate Heart Sounds: normal S1 and normal S2 Extremities: + pedal edema Musculoskeletal: Extremities: no cyanosis and no clubbing Skin: normal turgor and + ulcer Neurologic: Motor/Sensory: no tremor and no asterixis Psychiatric: Orientation: alert and oriented x 3 Results & Data ([facility]) Vital Signs (Past 12 Hours) Vital Signs Temp Pulse Resp BP Pulse Ox 01/02/22 07:04 36.9 C 73 18 153/76 H 98 07/07/22 02:19 36.5 C 69 18 144/65 H 95 01/02/22 00:11 36.4 C L 66 18 136/70 99 01/01/22 22:30 61 16 138/66 98 Laboratory Results Laboratory Results - last 24 hr 12/31/21 12/31/21 01/01/22 08:55 08:55 13:30 WBC RBC Hgb Hct MCV MCH MCHC RDW Std Deviation RDW Coeff of Jermaine Plt Count MPV Immature Gran % (Auto) Neut % (Auto) Lymph % (Auto) [place] % (Auto) Eos % (Auto) Baso % (Auto) Neut # (Auto) Lymph # (Auto) [place] # (Auto) Eos # (Auto) Baso # (Auto) Immature Gran # (Auto) RBC Morphology Sodium Potassium Chloride Carbon Dioxide Anion Gap BUN Creatinine Est Cr Clr Drug Dosing Est GFR ( Amer) Est GFR (Non-Af Amer) POC Glucose 84 Fasting Glucose Calcium Magnesium Total Bilirubin AST ALT Alkaline Phosphatase Total Protein Albumin Globulin Albumin/Globulin Ratio Hepatitis B Ab, Qual NON-REACTIVE Hep Bs Antigen NON-REACTIVE Hep Bs Ag Confirmation TNP Hep B Core IgM Ab NON-REACTIVE Hepatitis C Ab (EIA) NON-REACTIVE Hep C Ab Signal/Cutoff 0.22 01/01/22 01/01/22 01/01/22 16:54 18:52 20:03 WBC RBC Hgb Hct MCV MCH MCHC RDW Std Deviation RDW Coeff of Jermaine Plt Count MPV Immature Gran % (Auto) Neut % (Auto) Lymph % (Auto) [place] % (Auto) Eos % (Auto) Baso % (Auto) Neut # (Auto) Lymph # (Auto) [place] # (Auto) Eos # (Auto) Baso # (Auto) Immature Gran # (Auto) RBC Morphology Sodium Potassium Chloride Carbon Dioxide Anion Gap BUN Creatinine Est Cr Clr Drug Dosing Est GFR ( Amer) Est GFR (Non-Af Amer) POC Glucose 93 97 87 Fasting Glucose Calcium Magnesium Total Bilirubin AST ALT Alkaline Phosphatase Total Protein Albumin Globulin Albumin/Globulin Ratio Hepatitis B Ab, Qual Hep Bs Antigen Hep Bs Ag Confirmation Hep B Core IgM Ab Hepatitis C Ab (EIA) Hep C Ab Signal/Cutoff 01/02/22 01/02/22 01/02/22 05:33 05:33 07:03 WBC 18.36 H RBC 2.53 L Hgb 7.2 L Hct 22.6 L MCV 89.3 MCH 28.5 MCHC 31.9 L RDW Std Deviation 40.8 RDW Coeff of Jermaine 12.5 Plt Count 431 H MPV 10.9 Immature Gran % (Auto) 1.6 Neut % (Auto) 84.0 Lymph % (Auto) 8.2 [place] % (Auto) 4.9 Eos % (Auto) 0.6 Baso % (Auto) 0.7 Neut # (Auto) 15.44 H Lymph # (Auto) 1.50 [place] # (Auto) 0.90 H Eos # (Auto) 0.11 Baso # (Auto) 0.12 Immature Gran # (Auto) 0.29 H RBC Morphology Unremarkable Sodium 138 Potassium 3.9 Chloride 109 H Carbon Dioxide 16 L Anion Gap 13 H BUN 101 H Creatinine 12.65 H* D Est Cr Clr Drug Dosing 7.3 Est GFR ( Amer) 4.8 Est GFR (Non-Af Amer) 4.1 POC Glucose 134 H Fasting Glucose 124 H Calcium 6.6 L Magnesium 2.3 Total Bilirubin 0.3 AST 6 L ALT 7 Alkaline Phosphatase 55 Total Protein 6.0 Albumin 2.4 L Globulin 3.6 Albumin/Globulin Ratio 0.7 L Hepatitis B Ab, Qual Hep Bs Antigen Hep Bs Ag Confirmation Hep B Core IgM Ab Hepatitis C Ab (EIA) Hep C Ab Signal/Cutoff 01/02/22 01/02/22 08:12 09:06 WBC RBC Hgb Hct MCV MCH MCHC RDW Std Deviation RDW Coeff of Jermaine Plt Count MPV Immature Gran % (Auto) Neut % (Auto) Lymph % (Auto) [place] % (Auto) Eos % (Auto) Baso % (Auto) Neut # (Auto) Lymph # (Auto) [place] # (Auto) Eos # (Auto) Baso # (Auto) Immature Gran # (Auto) RBC Morphology Sodium Potassium Chloride Carbon Dioxide Anion Gap BUN Creatinine Est Cr Clr Drug Dosing Est GFR ( Amer) Est GFR (Non-Af Amer) POC Glucose 183 H 217 H Fasting Glucose Calcium Magnesium Total Bilirubin AST ALT Alkaline Phosphatase Total Protein Albumin Globulin Albumin/Globulin Ratio Hepatitis B Ab, Qual Hep Bs Antigen Hep Bs Ag Confirmation Hep B Core IgM Ab Hepatitis C Ab (EIA) Hep C Ab Signal/Cutoff PG Care Time/CCT Total # of Minutes Spent Total Time Spent with Patient: Total time spent is greater than 50% in coordination of care (as documented) at patient's floor/unit and/or counseling patient: Coding Level of Care Code 87100 Subseq Hosp Care Lvl 3 Diagnoses Acute renal failure N17.9 Acute renal failure type: unspecified Chronic kidney disease N18.9 Anemia D64.9 Anemia type: unspecified type Chronic kidney disease-mineral and bone disorder N18.9; E83.9; M89.9 (1) Acute renal failure Acute renal failure type: unspecified Qualified Code(s): N17.9 - Acute kidney failure, unspecified (2) Anemia Anemia type: unspecified type Qualified Code(s): D64.9 - Anemia, unspecified
--- NOTE | 2022-01-02 13:12 | Hospitalist Progress Note ---
Date of Service January 02, 2022 Assessment & Plan (1) Diabetic foot infection: Plan: Gangrenous fifth toes, leukocytosis-status post amputation, closure planned for tomorrow; cultures pending; WBC noted but await cultures and continue current antibiotics (2) ESRD (end stage renal disease): Plan: Likely merits initiation of ASSISTANT CURATOR, nephrology note noted; electrolyte abnormalities including metabolic acidosis, hypocalcemia, hyperphosphatemia noteddefer to nephrology to avoid multiplicity (3) CAD (coronary artery disease): Plan: As noted by cardiology no convincing angina, continue aspirin, statin, on beta- sarah (4) Chest pain: Plan: Suspect noncardiac, as above (5) Anemia: Plan: Likely in large part due to CKD, may have some acute blood loss anemia secondary to hematemesis (6) CVA, old, ataxia: Plan: severe carotid stenosisvascular surgery evaluation after acute illness (not available at present, not urgent); Plavix on hold while intervention is ongoing (7) Hypertension: Plan: BP acceptableno change (8) Dyslipidemia: Plan: Continue statin (9) Hematemesis: Plan: None again after 1 episode, continue PPI (10) Carotid stenosis, right: Plan: Plavix on hold; resume when safe, vascular surgery later (11) DM type 2 (diabetes mellitus, type 2): Plan: Sliding scale, sugars acceptable though some variation (12) Right atrial mass: Plan: ? Significantce; cannot completely rule out endocarditis; cultures negative; cardiology input appreciated Admission and Anticipated Discharge Date Admission Date: December 31, 2021 Subjective Follow-up presentation with hematemesis, diabetic foot infection, right-sided chest painstatus post bilateral toe amputations; no specific complaint but was unhappy about the need to stay Physical Exam Physical Exam: Constitutional and general: No acute distress, looks biologic age Head and face: No puffiness, atraumatic Eyes: No scleral icterus, extraocular movements normal Neck: Supple, no JVD Musculoskeletal: No acute joint swelling, no bony abnormalities Skin/dermatologic/integument: No rash, no purpura Hematologic and lymphatic: pallor ++, no petechia Gastrointestinal/abdomen: Nondistended, soft, nonacute Neurologic: Cranial nerves intact, nonfocal Psychiatry: Awake, alert, pleasant, communicative Cardiovascular: Heart rhythm regular, no rub, SM, no gallop Respiratory: Chest movements equal, no use of accessory muscles, no adventitious sounds Extremities: Surgical dressings Results & Data Results & Data ([facility]) Vital Signs (Past 12 Hours) Vital Signs Temp Pulse Pulse Resp BP Pulse Ox 01/02/22 10:53 36.8 C 73 18 151/69 H 97 01/02/22 08:00 69 01/02/22 07:04 36.9 C 73 18 153/76 H 98 01/02/22 02:19 36.5 C 69 18 144/65 H 95 Laboratory Results Laboratory Results - last 24 hr 01/01/22 01/01/22 01/01/22 13:30 16:54 18:52 WBC RBC Hgb Hct MCV MCH MCHC RDW Std Deviation RDW Coeff of Jermaine Plt Count MPV Immature Gran % (Auto) Neut % (Auto) Lymph % (Auto) [place] % (Auto) Eos % (Auto) Baso % (Auto) Neut # (Auto) Lymph # (Auto) [place] # (Auto) Eos # (Auto) Baso # (Auto) Immature Gran # (Auto) RBC Morphology Sodium Potassium Chloride Carbon Dioxide Anion Gap BUN Creatinine Est Cr Clr Drug Dosing Est GFR ( Amer) Est GFR (Non-Af Amer) POC Glucose 84 93 97 Fasting Glucose Calcium Magnesium Total Bilirubin AST ALT Alkaline Phosphatase Total Protein Albumin Globulin Albumin/Globulin Ratio 01/01/22 01/02/22 01/02/22 20:03 05:33 05:33 WBC 18.36 H RBC 2.53 L Hgb 7.2 L Hct 22.6 L MCV 89.3 MCH 28.5 MCHC 31.9 L RDW Std Deviation 40.8 RDW Coeff of Jermaine 12.5 Plt Count 431 H MPV 10.9 Immature Gran % (Auto) 1.6 Neut % (Auto) 84.0 Lymph % (Auto) 8.2 [place] % (Auto) 4.9 Eos % (Auto) 0.6 Baso % (Auto) 0.7 Neut # (Auto) 15.44 H Lymph # (Auto) 1.50 [place] # (Auto) 0.90 H Eos # (Auto) 0.11 Baso # (Auto) 0.12 Immature Gran # (Auto) 0.29 H RBC Morphology Unremarkable Sodium 138 Potassium 3.9 Chloride 109 H Carbon Dioxide 16 L Anion Gap 13 H BUN 101 H Creatinine 12.65 H* D Est Cr Clr Drug Dosing 7.3 Est GFR ( Amer) 4.8 Est GFR (Non-Af Amer) 4.1 POC Glucose 87 Fasting Glucose 124 H Calcium 6.6 L Magnesium 2.3 Total Bilirubin 0.3 AST 6 L ALT 7 Alkaline Phosphatase 55 Total Protein 6.0 Albumin 2.4 L Globulin 3.6 Albumin/Globulin Ratio 0.7 L 01/02/22 01/02/22 01/02/22 07:03 08:12 09:06 WBC RBC Hgb Hct MCV MCH MCHC RDW Std Deviation RDW Coeff of Jermaine Plt Count MPV Immature Gran % (Auto) Neut % (Auto) Lymph % (Auto) [place] % (Auto) Eos % (Auto) Baso % (Auto) Neut # (Auto) Lymph # (Auto) [place] # (Auto) Eos # (Auto) Baso # (Auto) Immature Gran # (Auto) RBC Morphology Sodium Potassium Chloride Carbon Dioxide Anion Gap BUN Creatinine Est Cr Clr Drug Dosing Est GFR ( Amer) Est GFR (Non-Af Amer) POC Glucose 134 H 183 H 217 H Fasting Glucose Calcium Magnesium Total Bilirubin AST ALT Alkaline Phosphatase Total Protein Albumin Globulin Albumin/Globulin Ratio 01/02/22 10:51 WBC RBC Hgb Hct MCV MCH MCHC RDW Std Deviation RDW Coeff of Jermaine Plt Count MPV Immature Gran % (Auto) Neut % (Auto) Lymph % (Auto) [place] % (Auto) Eos % (Auto) Baso % (Auto) Neut # (Auto) Lymph # (Auto) [place] # (Auto) Eos # (Auto) Baso # (Auto) Immature Gran # (Auto) RBC Morphology Sodium Potassium Chloride Carbon Dioxide Anion Gap BUN Creatinine Est Cr Clr Drug Dosing Est GFR ( Amer) Est GFR (Non-Af Amer) POC Glucose 154 H Fasting Glucose Calcium Magnesium Total Bilirubin AST ALT Alkaline Phosphatase Total Protein Albumin Globulin Albumin/Globulin Ratio PG Care Time/CCT Total # of Minutes Spent Total Time Spent with Patient: Total time spent is greater than 50% in coordination of care (as documented) at patient's floor/unit and/or counseling patient: Coding Level of Care Code 78559 Subseq Hosp Care Lvl 2 Diagnoses Diabetic foot infection E11.628; L08.9 ESRD (end stage renal disease) N18.6 CAD (coronary artery disease) I25.10 Chest pain R07.2 Chest pain type: precordial pain Anemia D64.9 Anemia type: unspecified type CVA, old, ataxia I69.993 Hypertension I10 Dyslipidemia E78.5 Hematemesis K92.0 Carotid stenosis, right I65.21 DM type 2 (diabetes mellitus, type 2) E11.9 Right atrial mass I51.89 (1) Chest pain Chest pain type: precordial pain Qualified Code(s): R07.2 - Precordial pain (2) Anemia Anemia type: unspecified type Qualified Code(s): D64.9 - Anemia, unspecified
[2022-01-02] MEDS: DAPTOmycin 275 MG in SYRINGE 0 ML IV SCH (15:10)
--- NOTE | 2022-01-02 15:37 | Consultation ---
Date of Consultation January 02, 2022 Assessment & Plan (1) Carotid stenosis, right: Pt with either severe R ICA stenosis vs possible distal occlusion based on US findings. Would recommend CTA neck and head, however, pt with very poor renal function and not yet on HD. Will reexamine need for further testing next week. (2) Acute renal failure: If needed, Dr Flanagan can place permcath for HD initiation next week in OR. Will discuss with Dr Webster early next week. Acute renal failure type: unspecified Qualified Code(s): N17.9 - Acute kidney failure, unspecified (3) Peripheral arterial disease: Pt with PAD and necrosis of BL toes which occurred acutely and simultaneously. Did not see the toes prior to amputation, but if embolism is suspected, would look for a central source, such as aorta or cardioembolism. Would be happy to reassess pt if poor healing of surgical wounds. History of Present Illness Reason for Consultation: PAD, NIKOLAI, ESRD Attending Physician: Joselyn Pope MD History of Present Illness 46 yo m with hx of CVA, CKD, DMII, HTN, hyperlpidemia, CAD, admitted with worsening renal function, seen in consultation for multiple vascular issues today. Pt with acute on chronic renal failure, but has been resistant to starting HD. Per nephrology, will likely need HD very soon, but not emergently today. Pt very frustrated and poor historian d/t unwillingness to relate information. Pt noted to have necrotic toes and underwent amputation yesterday by Dr Ferrer. PAD noted on US of BLE. Pt admits cramping in legs at night, as well as when ambulating. Has been occurring for years, but has continued to work. States toes became black without trauma about 3 weeks prior to admission. Pt admits hx of irregular heartbeat and palpitations. Also states hx of CVA for which he was hospitalized at [facility] approx 2 yr ago. States he was not told he needed surgery on his carotid arteries, but that he should take plavix. Admits chronic L sided weakness compared to right, as well as loss of L eye vision chronically. Denies facial droop, new L sided weakness, difficulty speaking. Denies fever, chest pain, SOB, adb pain, N/V, other complaints. Carotid US demonstrates trace flow to R ICA. BLE arterial US demonstrates diffuse PAD. Allergies Allergy/AdvReac Type Severity Reaction Status Date / Time No Known Allergies Allergy Verified 12/31/21 00:58 Home Medications Medication Instructions Recorded Confirmed Type amlodipine 10 mg tablet 10 mg PO DAILY 12/31/21 12/31/21 History aspirin 81 mg tablet,delayed 81 mg PO DAILY 12/31/21 12/31/21 History release atorvastatin 40 mg tablet 40 mg PO DAILY 12/31/21 12/31/21 History carvedilol 6.25 mg tablet 6.25 mg PO BID 12/31/21 12/31/21 History clopidogrel 75 mg tablet (Plavix) 75 mg PO DAILY 12/31/21 12/31/21 History isosorbide mononitrate 30 mg 30 mg PO DAILY 12/31/21 12/31/21 History tablet,extended release 24 hr losartan 25 mg tablet 25 mg PO DAILY 12/31/21 12/31/21 History Patient History Medical History CAD (coronary artery disease) Carotid artery stenosis Chronic kidney disease CVA, old, ataxia Dyslipidemia Hypertension Peripheral arterial disease Surgical History S/P coronary artery stent placement Social History Smoking Status: Former smoker Second Hand Exposure: No; Do You Dip or Chew Tobacco: No; Tobacco Cessation Education Requested by Patient: No Hx Alcohol Use: No Hx Substance Use: No Preferred Language: Wolof Communication Ability: Effective 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 Beliefs That Will Affect Care: None Current Living Situation: Alone Other Information That Helps Us Care for You: Yes (patient claims he is going to [place] to live with his mother) Feels Safe at Home: Yes Assistive Devices: None Review of Systems Review of Systems: All systems reviewed & are unremarkable except as noted in HPI & below Physical Exam Constitutional: WD/WN, vitals as above comfortable; + uncooperative ENMT: Ears: no hearing impairment Neck: trachea midline Respiratory: normal respiratory effort, lungs clear to auscultation Auscultation: + diminished lung sounds Cardiovascular: Rate/Rhythm: regular rate and regular rhythm Vessels: femoral pulses present, posterior tibial pulses present (not examined d/t dressing in place), dorsalis pedis pulses present (not examined d/t dressing in place) and radial pulses present Gastrointestinal (Abdomen): Inspection/Auscultation: abdomen normal to inspection and normal bowel sounds Percussion/Palpation: abdomen nontender Skin: + wound (feet, surgical, dressings in place) Neurologic: moves all extremities and awake; no focal motor deficits and not confused Psychiatric: Orientation: alert and oriented x 3 Affect: + depressed affect and + irritable affect Results & Data ([facility]) Vital Signs (Past 12 Hours) Vital Signs Temp Pulse Pulse Resp BP Pulse Ox 01/02/22 15:13 36.5 C 71 20 157/76 H 98 01/02/22 10:53 36.8 C 73 18 151/69 H 97 01/02/22 08:00 69 01/02/22 07:04 36.9 C 73 18 153/76 H 98
[2022-01-03] MEDS: PIPERACILLIN/TAZOBACTAM 3.375 GM in DEXTROSE 5% 100 ML IV SCH ×3 (04:46→15:51)
[2022-01-03 07:07] LABS: Albumin Globulin Ratio 0.6 (0.9-2); Albumin Level 2.3 gm/dl (3.4-5.0); Bilirubin,Total 0.2 mg/dl (0.2-1.0); Calcium 6.3 mg/dl (8.5-10.1); Creatinine Clr Calc Pharmacy 7.3 ml/min; Est GFR (African American) 4.6 ml/min; Globulin 3.8 gm/dl (2.5-4.0); Magnesium 2.2 mg/dl (1.7-2.4); Potassium 3.9 mmol/L (3.5-5.1); Total Protein 6.1 gm/dl (6.0-8.3)
[2022-01-03 07:33] LABS: Hematocrit (blood only) 21.1 % (40.1-51.0); Hemoglobin 6.7 g/dl (14.0-18.0); Mean Corpuscular Hemoglobin 28.5 pg (25.0-34.0); Mean Corpuscular Hgb Conc 31.8 g/dL (32.0-36.0); Mean Corpuscular Volume 89.8 fL (80.0-100.0); Mean Platelet Volume 10.5 fL (9.4-12.4); Platelet Count 399 K/uL (130-400); RDW Coefficient of Variation 12.3 % (11.5-14.5); RDW Standard Deviation 39.9 fL (36.4-46.3); Red Blood Count 2.35 M/uL (4.63-6.08); White Blood Count 16.47 K/ul (4.8-10.8)
[2022-01-03] MEDS ORDERED: SODIUM CHLORIDE 0.9% 250 ML IV PRN (07:37)
[2022-01-03] MEDS: ASPIRIN 81 MG ECTAB PO SCH (08:26)
[2022-01-03] MEDS: PANTOprazole 40 MG in SYRINGE 0 ML IV SCH ×2 (08:26→20:36)
[2022-01-03] MEDS: carvediloL 6.25 MG TAB PO SCH ×2 (08:26→20:35)
[2022-01-03] MEDS: CALCIUM ACETATE 667 MG CAP/TAB PO SCH ×3 (08:26→18:29)
[2022-01-03] MEDS: amLODIPine BESYLATE 5 MG TAB PO SCH (08:31)
[2022-01-03] MEDS: ATORVASTATIN 40 MG TAB PO SCH (08:31)
[2022-01-03] MEDS: SODIUM BICARBONATE 650 MG TAB PO SCH ×3 (08:31→20:36)
[2022-01-03] MEDS: CALCITRIOL 0.25 MCG CAPSULE PO SCH (08:31)
[2022-01-03] MEDS: ISOSORBIDE MONO EXTENDED REL 30 MG TABCR PO SCH (08:31)
[2022-01-03] MEDS: INSULIN ASPART PER UNIT SC SCH ×4 (08:32→20:46)
[2022-01-03 09:01] LABS: Basophils # (auto) 0.13 K/uL (0-0.2); Basophils % (auto) 0.8 %; Eosinophils # (auto) 0.16 K/uL (0-0.50); Immature Granulocytes # (auto) 0.24 K/uL (0.00-0.02); Immature Granulocytes % (auto) 1.5 %; Lymphocytes # (auto) 2.23 K/uL (1.2-3.4); Lymphocytes % (auto) 13.5 %; Monocytes % (auto) 6.1 %; Neutrophils # (auto) 12.71 K/uL (1.4-6.5); Neutrophils % (auto) 77.1 %; RBC Morphology Unremarkable
[2022-01-03] MEDS ORDERED: EPOETIN ALFA 10,000 UNITS/ML VIAL SQ ONE (10:04)
--- NOTE | 2022-01-03 10:10 | Nephrology Progress Note ---
Date of Service January 03, 2022 Assessment & Plan (1) Chronic kidney disease: Plan: Clinical presentation consistent with ESRD and symptomatic uremia. No emergent indication for HD today. Vascular surgery has been consulted for permcath placement when able (likely next week). Raulito will require assistance arranging outpatient HD at discharge. He states that he plans to move to [place] with his sister following his hospitalization. Hepatitis profile updated, sAb negative. Will require vaccination series which can be coordinated as outpatient. Document strict I/O's. Repeat metabolic profile tomorrow AM. Hold losartan. Medications appropriate for kidney dysfunction. PO NaHCO3 replacement increased from 1300 mg BID to TID today. Additional education on dialysis and overall plan of care reviewed today. (2) Anemia: Plan: s/p 1 u PRBC 12/31. Additional 1 unit PRBC transfusion support provided today. Epogen 69680 units today. Venofer 200 mg IV x 3rd dosing give. No additional signs of GI bleeding reported. (3) Chronic kidney disease-mineral and bone disorder: Plan: Renal diet. Calcium acetate 1 tab QAC. Calcitriol 0.25 mcg daily for sPTH. Admission and Anticipated Discharge Date Admission Date: December 31, 2021 Subjective No acute events overnight. Nausea and poor appetite persist. Denies significant pain. Noted bleeding from feet. Plan to return to the OR today. Raulito is feeling tired and frustrated overall. He is upset about the duration of his hospitalization and he is anxious for discharge. However, he is resolved to stay as long as needed. Plan for dialysis reviewed again today. Review of Systems Review of Systems: All systems reviewed & are unremarkable except as noted in HPI & below Physical Exam Constitutional: well developed; no acute distress Eyes: no scleral abnormality and no corneal abnormality ENMT: Mouth: no oral mucosal abnormality and oral mucous membranes not dry Neck: normal visual inspection and trachea midline Respiratory: normal respiratory effort Auscultation: lungs clear to auscultation bilaterally Cardiovascular: Rate/Rhythm: regular rate Heart Sounds: normal S1 and normal S2 Extremities: + pedal edema Musculoskeletal: Extremities: no cyanosis and no clubbing Skin: normal turgor and + ulcer Neurologic: Motor/Sensory: no tremor and no asterixis Psychiatric: Orientation: alert and oriented x 3 Results & Data ([facility]) Vital Signs (Past 12 Hours) Vital Signs Temp Pulse Pulse Resp BP BP Pulse Ox 01/03/22 08:54 37.1 C 66 16 121/61 99 01/03/22 08:38 37.1 C 68 16 128/62 01/03/22 08:00 63 01/03/22 07:48 36.6 C 64 20 148/74 H 97 01/03/22 04:35 36.8 C 76 18 99 01/03/22 04:33 37.3 C 124 H 17 112/59 L 98 01/03/22 02:38 69 01/03/22 00:47 36.7 C 69 18 148/75 H 97 Laboratory Results Laboratory Results - last 24 hr 12/31/21 01/02/22 01/02/22 18:02 10:51 15:57 WBC RBC Hgb Hct MCV MCH MCHC RDW Std Deviation RDW Coeff of Jermaine Plt Count MPV Immature Gran % (Auto) Neut % (Auto) Lymph % (Auto) [place] % (Auto) Eos % (Auto) Baso % (Auto) Neut # (Auto) Lymph # (Auto) [place] # (Auto) Eos # (Auto) Baso # (Auto) Immature Gran # (Auto) RBC Morphology Sodium Potassium Chloride Carbon Dioxide Anion Gap BUN Creatinine Est Cr Clr Drug Dosing Est GFR ( Amer) Est GFR (Non-Af Amer) POC Glucose 154 H 117 H Fasting Glucose Calcium Magnesium Total Bilirubin AST ALT Alkaline Phosphatase Total Protein Albumin Globulin Albumin/Globulin Ratio Blood Type O Positive Antibody Screen NEGATIVE Crossmatch See Detail 01/02/22 01/03/22 01/03/22 20:33 06:13 06:13 WBC 16.47 H RBC 2.35 L Hgb 6.7 L* Hct 21.1 L MCV 89.8 MCH 28.5 MCHC 31.8 L RDW Std Deviation 39.9 RDW Coeff of Jermaine 12.3 Plt Count 399 MPV 10.5 Immature Gran % (Auto) 1.5 Neut % (Auto) 77.1 Lymph % (Auto) 13.5 [place] % (Auto) 6.1 Eos % (Auto) 1.0 Baso % (Auto) 0.8 Neut # (Auto) 12.71 H Lymph # (Auto) 2.23 [place] # (Auto) 1.00 H Eos # (Auto) 0.16 Baso # (Auto) 0.13 Immature Gran # (Auto) 0.24 H RBC Morphology Unremarkable Sodium 138 Potassium 3.9 Chloride 110 H Carbon Dioxide 15 L Anion Gap 13 H BUN 100 H Creatinine 13.05 H* D Est Cr Clr Drug Dosing 7.3 Est GFR ( Amer) 4.6 Est GFR (Non-Af Amer) 4.0 POC Glucose 141 H Fasting Glucose 85 Calcium 6.3 L Magnesium 2.2 Total Bilirubin 0.2 AST 6 L ALT 7 Alkaline Phosphatase 51 Total Protein 6.1 Albumin 2.3 L Globulin 3.8 Albumin/Globulin Ratio 0.6 L Blood Type Antibody Screen Crossmatch 01/03/22 07:43 WBC RBC Hgb Hct MCV MCH MCHC RDW Std Deviation RDW Coeff of Jermaine Plt Count MPV Immature Gran % (Auto) Neut % (Auto) Lymph % (Auto) [place] % (Auto) Eos % (Auto) Baso % (Auto) Neut # (Auto) Lymph # (Auto) [place] # (Auto) Eos # (Auto) Baso # (Auto) Immature Gran # (Auto) RBC Morphology Sodium Potassium Chloride Carbon Dioxide Anion Gap BUN Creatinine Est Cr Clr Drug Dosing Est GFR ( Amer) Est GFR (Non-Af Amer) POC Glucose 88 Fasting Glucose Calcium Magnesium Total Bilirubin AST ALT Alkaline Phosphatase Total Protein Albumin Globulin Albumin/Globulin Ratio Blood Type Antibody Screen Crossmatch PG Care Time/CCT Total # of Minutes Spent Total Time Spent with Patient: Total time spent is greater than 50% in coordination of care (as documented) at patient's floor/unit and/or counseling patient: Coding Level of Care Code 15705 Subseq Hosp Care Lvl 3 Diagnoses Chronic kidney disease N18.9 Anemia D64.9 Anemia type: unspecified type Chronic kidney disease-mineral and bone disorder N18.9; E83.9; M89.9 (1) Anemia Anemia type: unspecified type Qualified Code(s): D64.9 - Anemia, unspecified
[2022-01-03] MEDS: SODIUM CHLORIDE 0.9% 1000ML 1,000 ML IV SCH ×2 (11:26→18:37)
--- NOTE | 2022-01-03 11:37 | Hospitalist Progress Note ---
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; tunneled catheter likely early next week; noted electrolyte abnormalities including metabolic acidosis, hypocalcemia, hyperphosphatemia noteddefer to nephrology to avoid multiplicity (3) CAD (coronary artery disease): Plan: As noted by cardiology no convincing angina, continue aspirin, statin, on beta- sarah (4) Chest pain: Plan: Suspect noncardiac, as above (5) Anemia: Plan: Likely in large part due to CKD, may have some acute blood loss anemia secondary to hematemesissupportive transfusion, IV iron, THAI per nephrology (6) CVA, old, ataxia: Plan: severe carotid stenosisvascular surgery evaluation; vascular surgery should be available Thursday and they will be involved for dialysis catheter placement in any case (7) Hypertension: Plan: BP acceptableno change (8) Dyslipidemia: Plan: Continue statin (9) Hematemesis: Plan: None again after 1 episode, continue PPI (10) Carotid stenosis, right: Plan: Plavix on hold; resume when safe, vascular surgery involvement as above (11) DM type 2 (diabetes mellitus, type 2): Plan: Sliding scale, sugars acceptable though some variation (12) Right atrial mass: Plan: ? Significance; cannot completely rule out endocarditis; cultures negative; cardiology input appreciated; would not rule out need for ROLAND but would discuss with cardiology; unsure if it does impact tunneled dialysis catheter placement Admission and Anticipated Discharge Date Admission Date: December 31, 2021 Subjective Follow-up of her original presentation with chest pain, hematemesis-no new issues, denied hematemesis Physical Exam Physical Exam: Constitutional and general: No acute distress, looks biologic age Head and face: No puffiness, atraumatic Eyes: No scleral icterus, extraocular movements normal Neck: Supple, no JVD Musculoskeletal: No acute joint swelling, no bony abnormalities Skin/dermatologic/integument: No rash, no purpura Hematologic and lymphatic: pallor ++, no petechia Gastrointestinal/abdomen: Nondistended, soft, nonacute Neurologic: Cranial nerves intact, nonfocal Psychiatry: Awake, alert, pleasant, communicative Cardiovascular: Heart rhythm regular, no rub, SM, no gallop Respiratory: Chest movements equal, no use of accessory muscles, no adventitious sounds Extremities: Surgical dressings Results & Data Results & Data ([facility]) Vital Signs (Past 12 Hours) Vital Signs Temp Pulse Pulse Resp BP BP Pulse Ox 01/03/22 10:50 37 C 60 16 121/71 96 01/03/22 08:54 37.1 C 66 16 121/61 99 01/03/22 08:38 37.1 C 68 16 128/62 01/03/22 08:00 63 01/03/22 07:48 36.6 C 64 20 148/74 H 97 01/03/22 04:35 36.8 C 76 18 99 01/03/22 04:33 37.3 C 124 H 17 112/59 L 98 01/03/22 02:38 69 01/03/22 00:47 36.7 C 69 18 148/75 H 97 PG Care Time/CCT Total # of Minutes Spent Total Time Spent with Patient: Total time spent is greater than 50% in coordination of care (as documented) at patient's floor/unit and/or counseling patient: Coding Level of Care Code 37535 Subseq Hosp Care Lvl 2 Diagnoses Diabetic foot infection E11.628; L08.9 ESRD (end stage renal disease) N18.6 CAD (coronary artery disease) I25.10 Chest pain R07.2 Chest pain type: precordial pain Anemia D64.9 Anemia type: unspecified type CVA, old, ataxia I69.993 Hypertension I10 Dyslipidemia E78.5 Hematemesis K92.0 Carotid stenosis, right I65.21 DM type 2 (diabetes mellitus, type 2) E11.9 Right atrial mass I51.89 (1) Chest pain Chest pain type: precordial pain Qualified Code(s): R07.2 - Precordial pain (2) Anemia Anemia type: unspecified type Qualified Code(s): D64.9 - Anemia, unspecified
[2022-01-03] MEDS ORDERED: ATROPINE SULFATE 0.1 MG/ML 10ML SYR IV PRN (14:06)
[2022-01-03] MEDS ORDERED: fentaNYL citrate 100 MCG/2 ML VIAL IV PRN (14:06)
[2022-01-03] MEDS ORDERED: ePHEDrine sulfate 50 MG/ML AMP IV PRN (14:06)
[2022-01-03] MEDS ORDERED: ONDANSETRON INJ 2 MG/ML 2 ML VIAL IV PRN (14:06)
--- NOTE | 2022-01-03 14:06 | Anesthesiology Consultation ---
Date of Service January 03, 2022 Assessment & Plan (1) Encounter for pre-operative examination: Chart Review Chart Review: medical charge entry specialist initiated History Surgery Operation Date: 12/31/21 17:55 Proposed Procedures p Left 5th Toe Amputation, Right 4th & 5th Ray Amputation - Raulito Ferrer DPM, MS Operation Date: 01/01/22 08:20 Proposed Procedures p Left 5th Toe Amputation, Right 4th and 5th Ray Amputation - Raulito Ferrer DPM, MS Operation Date: 01/03/22 07:00 Proposed Procedures p Closure of Bilateral Foot Amputations - Raulito Ferrer DPM, MS Height/Weight Height: 5 ft 11 in Weight: 74.9 kg Allergies Allergy/AdvReac Type Severity Reaction Status Date / Time No Known Allergies Allergy Verified 12/31/21 00:58 Medications Home Medications Medication Instructions Recorded Confirmed Last Taken amlodipine 10 mg tablet 10 mg PO DAILY 12/31/21 12/31/21 Unknown aspirin 81 mg tablet,delayed 81 mg PO DAILY 12/31/21 12/31/21 Unknown release atorvastatin 40 mg tablet 40 mg PO DAILY 12/31/21 12/31/21 Unknown carvedilol 6.25 mg tablet 6.25 mg PO BID 12/31/21 12/31/21 Unknown clopidogrel 75 mg tablet (Plavix) 75 mg PO DAILY 12/31/21 12/31/21 Unknown isosorbide mononitrate 30 mg 30 mg PO DAILY 12/31/21 12/31/21 Unknown tablet,extended release 24 hr losartan 25 mg tablet 25 mg PO DAILY 12/31/21 12/31/21 Unknown Active Medications Generic Name Dose Route Start Last Admin Trade Name Damien PRAdy Reason Stop Dose Admin Amlodipine Besylate 10 mg 12/31/21 09:00 01/03/22 08:31 Amlodipine Besylate 5 Mg Tab PO 01/30/22 08:59 10 mg DAILY TALIB Administration Aspirin 81 mg 12/31/21 09:00 01/03/22 08:26 Aspirin 81 Mg Ectab PO 01/30/22 08:59 81 mg DAILY TALIB Administration Atorvastatin Calcium 40 mg 12/31/21 09:00 01/03/22 08:31 Atorvastatin 40 Mg Tab PO 01/30/22 08:59 40 mg DAILY TALIB Administration Calcitriol 0.25 mcg 01/01/22 09:00 01/03/22 08:31 Calcitriol 0.25 Mcg Capsule PO 01/31/22 08:59 0.25 mcg QAM TALIB Administration Calcium Acetate 667 mg 12/31/21 17:00 01/03/22 11:50 Calcium Acetate 667 Mg Cap/Tab PO 01/30/22 16:59 Not Given TIDM TALIB Carvedilol 6.25 mg 12/31/21 09:00 01/03/22 08:26 Carvedilol 6.25 Mg Tab PO 01/30/22 08:59 6.25 mg BID TALIB Administration Hydralazine HCl 5 mg 12/31/21 03:29 12/31/21 05:04 Hydralazine Hcl 20 Mg/Ml Vial IV 01/30/22 03:29 5 mg Q8H PRN Administration SBP > 155 Sodium Chloride 1,000 mls @ 80 mls/hr 12/31/21 02:52 01/03/22 11:26 Nss 1000ml IV 01/30/22 02:51 80 mls/hr .[id number] TALIB Administration Piperacillin Sod/Tazobactam 115 mls @ 28.75 mls/hr 12/31/21 16:00 01/03/22 08:56 Sod 3.375 gm/ Dextrose IV 02/11/22 15:59 Infused Q12H TALIB Infusion Protocol Pantoprazole Sodium 40 mg/ 10 mls @ 5 mls/min 12/31/21 09:00 01/03/22 08:26 Syringe IV 01/30/22 08:59 5 mls/min BID TALIB Administration Daptomycin 275 mg/ Syringe 5.5 mls @ 2.75 mls/min 01/02/22 14:00 01/02/22 15:10 IV 01/07/22 13:59 2.75 mls/min Q2D@1400 TALIB Administration Protocol Insulin Aspart 0 units 12/31/21 16:30 01/03/22 11:50 Insulin Aspart Per Unit SC 01/30/22 16:29 Not Given ACHS TALIB Isosorbide Mononitrate 30 mg 12/31/21 09:00 01/03/22 08:31 Isosorbide [place] Extended Rel 30 Mg Tabcr PO 01/30/22 08:59 30 mg DAILY TALIB Administration Ondansetron HCl 4 mg 12/31/21 20:16 01/02/22 08:15 Ondansetron Inj 2 Mg/Ml 2 Ml Vial IV 01/30/22 20:15 4 mg Q6H PRN Administration Nausea NPO Date Last Intake of Fluids: 01/01/22 Time Last Intake of Fluids: 07:30 Last Intake of Fluids Comment: orange juice Date Last Intake of Solids: 12/31/21 Time Last Intake of Solids: 18:00 Past Medical History Medical History CAD (coronary artery disease) Carotid artery stenosis Chronic kidney disease CVA, old, ataxia Dyslipidemia Hypertension Peripheral arterial disease Past Surgical History Surgical History S/P coronary artery stent placement Social History Smoking Status: Former smoker tobacco type: cigarettes Do You Dip or Chew Tobacco: No Hx Alcohol Use: No Hx Substance Use: No Physical Exam Vital Signs Last Vital Signs Temp 97.7 F 01/03/22 11:44 Pulse 67 01/03/22 11:44 Resp 20 01/03/22 11:44 BP 146/80 H 01/03/22 11:44 Pulse Ox 98 01/03/22 11:44 Testing Laboratory Results 01/03/22 06:13 01/03/22 06:13 Hemoglobin A1c 6.1 % (4.5-5.6) H 12/31/21 06:59 Urine Color Yellow 01/01/22 06:15 Urine Appearance Cloudy (Clear) A 01/01/22 06:15 Urine pH 5.0 (4.5-7.5) 01/01/22 06:15 Ur Specific [place] 1.015 (1.000-1.030) 01/01/22 06:15 Urine Protein 3+ (Negative) H 01/01/22 06:15 Urine Glucose (UA) Trace (Negative) H 01/01/22 06:15 Urine Ketones Negative (Negative) 01/01/22 06:15 Urine Nitrite Negative (Negative) 01/01/22 06:15 Ur Leukocyte Esterase Negative (Negative) 01/01/22 06:15 Urine WBC (Auto) 5-10 /hpf (0-5) H 01/01/22 06:15 Urine RBC (Auto) 5-10 /hpf (0-4) H 01/01/22 06:15 U Hyaline Cast (Auto) 1-5 /lpf (0-5) 01/01/22 06:15 U Epithel Cells (Auto) >30 /lpf (0-5) H 01/01/22 06:15 Urine Bacteria (Auto) Negative (Negative) 01/01/22 06:15 Blood Type O Positive 12/31/21 18:02 Antibody Screen NEGATIVE 12/31/21 18:02 01/01/22 18:12 Gram Stain - Final Foot,Right Deep Wound Culture - Preliminary Group C Beta Strep Gram negative bacilli 01/01/22 18:12 Gram Stain - Final Foot,Left Deep Wound Culture - Preliminary Group C Beta Strep Staphylococcus species 12/31/21 07:31 Aerobic Blood Culture - Preliminary Blood No growth in Aerobic bottle after 48 hours. Anaerobic Blood Culture - Preliminary No growth in Anaerobic bottle after 48 hours. 12/31/21 07:31 Aerobic Blood Culture - Preliminary Blood No growth in Aerobic bottle after 48 hours. Anaerobic Blood Culture - Preliminary No growth in Anaerobic bottle after 48 hours. 01/03/22 01/03/22 11:12 07:43 POC Glucose 89 88 Electrocardiogram Date: 12/30/21 Findings: + NSR @ Possible Left atrial enlargement T wave abnormality, consider lateral ischemia Abnormal ECG Chest X-Ray Date: 12/30/21 Findings: + NAD Echocardiogram Date: 12/31/21 EF: 60 LV Function: normal Valvular Disease: + no significant valvular disease
[2022-01-03 14:31] LABS: Hematocrit (blood only) 23.7 % (40.1-51.0); Hemoglobin 7.7 g/dl (14.0-18.0)
[2022-01-03] MEDS ORDERED: LIDOCAINE 1% LOCAL 20 ML VIAL ONE (14:50)
[2022-01-03] MEDS ORDERED: BUPIVACAINE 0.5 % 5 MG/1 ML MPF 30ML VIAL ONE (14:51)
[2022-01-03] MEDS ORDERED: MIDAZOLAM HCL 1 MG/ML 2ML VIAL ONE (15:29)
[2022-01-03] MEDS ORDERED: KETAMINE 50 MG/5 ML SYRINGE ONE (15:29)
--- NOTE | 2022-01-03 15:38 | History & Physical Bridge Note ---
Date of Service January 03, 2022 History & Physical Bridge Note I have examined the patient, reviewed the History & Physical and in the interval since the performance of the History & Physical I have noted the following changes of clinical significance: no changes noted
[2022-01-03] MEDS ORDERED: fentaNYL citrate 100 MCG/2 ML VIAL ONE (16:31)
--- NOTE | 2022-01-03 16:47 | Post Operative Brief Note ---
Immediate Post Op Note v1 Date of Surgery January 03, 2022 Pre & Post Diagnosis Operation Date: 12/31/21 17:55 <No data on this case meets the specified criteria> Operation Date: 01/01/22 08:20 Pre-Op Diagnosis: bilateral foot infection Post-Op Diagnosis: bilateral foot infection Operation Date: 01/03/22 07:00 Pre-Op Diagnosis: 1. 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 Ulcer of left foot with bone necrosis Post-Op Diagnosis: 1. 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 Ulcer of left foot with bone necrosis I identified the patient and participated in the time-out.: Yes Procedure Operation Date: 12/31/21 17:55 <No data on this case meets the specified criteria> Operation Date: 01/01/22 08:20 Actual Procedures p Left 5th Toe Amputation, Right 4th and 5th Ray Amputation(Bilateral) - Raulito Ferrer DPM, MS Operation Date: 01/03/22 07:00 Actual Procedures p Closure of Bilateral Foot Amputations(Bilateral) - Raulito Ferrer DPM, MS Surgeon Raulito Ferrer DPM, MS Wedding Consultant None Estimated Blood Loss 5 Findings Consistent with Post-Op Diagnosis bilateral diabetic foot wounds Anesthesia Type MAC
--- NOTE | 2022-01-03 18:33 | Anesthesiology Progress Note ---
Date of Service January 03, 2022 Anesthesia Post Procedure Vital Signs Vital Signs: Temp Pulse Pulse Resp BP BP Pulse Ox 01/03/22 17:57 36.7 C 60 16 159/77 H 99 01/03/22 17:20 36.3 C L 59 L 14 146/75 H 97 01/03/22 17:10 61 9 L 139/70 96 01/03/22 17:00 59 L 9 L 133/65 97 01/03/22 16:52 36.7 C 61 11 L 135/63 97 01/03/22 14:50 36.7 C 69 18 174/83 H 97 01/03/22 11:44 36.5 C 67 20 146/80 H 98 01/03/22 10:50 37 C 60 16 121/71 96 01/03/22 08:54 37.1 C 66 16 121/61 99 01/03/22 08:38 37.1 C 68 16 128/62 01/03/22 08:00 63 01/03/22 07:48 36.6 C 64 20 148/74 H 97 01/03/22 04:35 36.8 C 76 18 99 01/03/22 04:33 37.3 C 124 H 17 112/59 L 98 01/03/22 02:38 69 01/03/22 00:47 36.7 C 69 18 148/75 H 97 01/02/22 19:22 36.8 C 68 16 140/69 99 Transfer of Care Handoff Completed per policy Notes Mental Status: alert / awake / arousable Patient Amnestic to Procedure: Yes Nausea / Vomiting: adequately controlled Pain: adequately controlled Airway Patency, RR, SpO2: stable & adequate BP & HR: stable & adequate Hydration State: stable & adequate Anesthetic Complications: no major complications apparent
--- NOTE | 2022-01-03 20:35 | Operative Report ---
Post Operative Report Pre & Post Diagnosis Operation Date: 12/31/21 17:55 <No data on this case meets the specified criteria> Operation Date: 01/01/22 08:20 Pre-Op Diagnosis: bilateral foot infection Post-Op Diagnosis: bilateral foot infection Operation Date: 01/03/22 07:00 Pre-Op Diagnosis: 1. 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 Ulcer of left foot with bone necrosis Post-Op Diagnosis: 1. 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 Ulcer of left foot with bone necrosis I identified the patient and participated in the time-out.: Yes Procedure Operation Date: 12/31/21 17:55 <No data on this case meets the specified criteria> Operation Date: 01/01/22 08:20 Actual Procedures p Left 5th Toe Amputation, Right 4th and 5th Ray Amputation(Bilateral) - Raulito Ferrer DPM, MS Operation Date: 01/03/22 07:00 Actual Procedures p Closure of Bilateral Foot Amputations(Bilateral) - Raulito Ferrer DPM, MS Surgeon Raulito Ferrer DPM, MS Software Design Analyst None Estimated Blood Loss 75 Findings Consistent with Post-Op Diagnosis none Specimens None Description of Procedure History of present illness: Patient is a type II diabetic, 46 year old ashleigh ledezma history of bilateral diabetic foot wounds. Patient is status post 2 days right fourth and fifth ray resections and left fifth ray resection. Due to presence of infection wounds were left open. He is seen today for delayed primary closure. I discussed patient's procedure and treatment scheduled for today. All questions answered. Discussed procedure of continued removal of nonviable tissue and closure in detail and postoperative recovery. All potential risks, benefits, complications, alternatives, rehab, potential for incomplete relief of symptoms, need for further surgery, DVT, PE, , persistent pain, swelling, scarring, weakness, neurovascular, wound complications and potential for amputations were discussed with patient. Unwanted outcomes such as, but not limited to were reviewed including under correction, overcorrection, return of deformity, infection. All questions were answered. Patient has decided to proceed with procedure as indicated. Preoperative diagnosis: 1.) status post right fourth and fifth ray resection 2.) status post left fifth ray resection Postoperative diagnosis: same Name of operation: 1.) Delayed primary closure right foot 2.) Delayed primary closure left foot Surgeon Dr. Ferrer Software Design Analyst: None Anesthesia: local with monitored anesthesia care Hemostasis: pneumatic ankle tourniquet right and left foot Estimated blood loss: 75mL Procedure in detail: Under mild sedation the patient was brought in the operating room placed on the operating table in supine position. A pneumatic ankle tourniquet was then placed about the patient's right and left ankles. Following IV sedation local anesthesia was obtained about the right and left foot utilizing 10 cc of 0.5% Marcaine plain. The right and left foot was then prepped scrubbed and draped in usual aseptic manner. An Esmarch bandage was utilized to exsanguinate the patient's right foot and the pneumatic ankle tourniquet was then inflated. Attention was then directed to open Right fourth and fifth ray resection. No signs of infection were noted. Minimal necrotic tissue was noted. Utilizing a sharp, sterile, #15 blade slightly non viable tissue was removed from wound bed. All bleeders were ligated and cauterized necessary. Wound edges were freshened. Copious amounts of sterile normal saline was utilized to flush the wound. The deep structures were coapted utilizing 3-0 vicryl and the skin was reapproximated coapted utilizing horizontal and simple suture technique with 4-0 nylon. An Esmarch bandage was then utilized to exsanguinate the patient's left foot and the pneumatic ankle tourniquet was then inflated. Attention was then directed to open left fifth ray resection. No signs of infection were noted. Minimal necrotic tissue was noted. Utilizing a sharp, sterile, #15 blade slightly non viable tissue was removed from wound bed. All bleeders were ligated and cauterized necessary. Wound edges were freshened. Copious amounts of sterile normal saline was utilized to flush the wound. The deep structures were coapted utilizing 3-0 Vicryl and the skin was reapproximated coapted utilizing horizontal and simple suture technique with 4-0 nylon. Upon completion of the procedure the sterile compressive dressing consisting of 4 x 4's Niyah Kerlix ABD to the right and left foot. The pneumatic ankle tourniquets were deflated and a prompt hyperemic response was noted to all remaining digits of the right and left foot. An [place] wrap then applied to the right and left foot. The Patient tolerated the procedure and anesthesia well. He was transferred to recovery room vital signs stable and vascular status intact all remaining toes of the right and left foot. Following postoperative monitoring the patient will be readmitted to the floor resuming all pre- operative orders. Contact Dr. Ferrer for all postoperative care if any problems arise . I attest to the content of the Intraoperative Record and any orders documented therein. Any exceptions are noted below.
[2022-01-04] MEDS ORDERED: INSULIN ASPART PER UNIT SC ONE (02:39)
[2022-01-04] MEDS: PIPERACILLIN/TAZOBACTAM 3.375 GM in DEXTROSE 5% 100 ML IV SCH ×2 (03:15→15:25)
[2022-01-04] MEDS: SODIUM CHLORIDE 0.9% 1000ML 1,000 ML IV SCH (03:18)
[2022-01-04 07:16] LABS: Basophils # (auto) 0.12 K/uL (0-0.2); Basophils % (auto) 0.8 %; Eosinophils # (auto) 0.15 K/uL (0-0.50); Eosinophils % (auto) 1.1 %; Hematocrit (blood only) 22.9 % (40.1-51.0); Hemoglobin 7.5 g/dl (14.0-18.0); Immature Granulocytes # (auto) 0.18 K/uL (0.00-0.02); Immature Granulocytes % (auto) 1.3 %; Lymphocytes # (auto) 1.61 K/uL (1.2-3.4); Lymphocytes % (auto) 11.3 %; Mean Corpuscular Hemoglobin 29.3 pg (25.0-34.0); Mean Corpuscular Hgb Conc 32.8 g/dL (32.0-36.0); Mean Corpuscular Volume 89.5 fL (80.0-100.0); Mean Platelet Volume 10.6 fL (9.4-12.4); Monocytes # (auto) 0.89 K/uL (0.24-0.82); Monocytes % (auto) 6.3 %; Neutrophils # (auto) 11.26 K/uL (1.4-6.5); Neutrophils % (auto) 79.2 %; Platelet Count 393 K/uL (130-400); RDW Coefficient of Variation 12.8 % (11.5-14.5); Red Blood Count 2.56 M/uL (4.63-6.08); White Blood Count 14.21 K/ul (4.8-10.8)
[2022-01-04] MEDS: INSULIN ASPART PER UNIT SC SCH ×5 (07:44→21:09)
[2022-01-04 08:07] LABS: Albumin Globulin Ratio 0.6 (0.9-2); Albumin Level 2.3 gm/dl (3.4-5.0); Bilirubin,Total 0.2 mg/dl (0.2-1.0); Calcium 6.1 mg/dl (8.5-10.1); Creatinine Clr Calc Pharmacy 7.3 ml/min; Est GFR (African American) 4.6 ml/min; Globulin 3.6 gm/dl (2.5-4.0); Magnesium 2.2 mg/dl (1.7-2.4); Potassium 3.9 mmol/L (3.5-5.1); Total Protein 5.9 gm/dl (6.0-8.3)
--- NOTE | 2022-01-04 08:54 | Nephrology Progress Note ---
Date of Service January 04, 2022 Assessment & Plan (1) ESRD (end stage renal disease): Plan: * ESKD - patient presented in kidney failure. Cause unknown. Biopsy not performed. Renal failure is likely due to DKD, vascular disease * Volume status and electrolyte balance are acceptable this morning. Awaiting vascular surgery return for TCC insertion and initiation of PAYROLL MASTER * Continue NaHCO3 1300 mg po TID * Will consult case management to set up outpatient HD (2) Anemia: Plan: * Recommend transfusion to maintain Hgb > 8.0 * Recommend consultation w/ GI for EGD due to LUQ abdominal discomfort and acute drop in Hgb (3) Chronic kidney disease-mineral and bone disorder: Plan: * Renal diet. Calcium acetate 1 tab QAC. Calcitriol 0.25 mcg daily for sPTH. (4) Right atrial mass: Plan: * Recommend ROLAND * Consider consultation w/ ID regarding duration of antibiotic therapy (5) Carotid stenosis, right: Plan: * Await vascular surgery evaluation Admission and Anticipated Discharge Date Admission Date: December 31, 2021 Subjective Mr. Richardson was evaluated in his hospital room. He reports one episode of emesis this morning. There was no blood noted. He c/o nausea but denies abdominal pain. He is agreeable to the plan for TCC insertion and initiation of PAYROLL MASTER next week Review of Systems Constitutional: + weakness; no fever Eyes: no problem reported Ear, Nose, Mouth, Throat: no problem reported Respiratory: no cough and no dyspnea Cardiovascular: no chest pain, no palpitations and no edema Gastrointestinal: + abdominal pain (LUQ), + nausea and + vomiting Musculoskeletal: no back pain Integumentary: no rash Neurologic: no confusion Physical Exam Constitutional: + ill appearing and + thin Eyes: PERRL, conjunctivae normal, anicteric sclerae ENMT: external ear and nose normal, oropharynx normal Neck: trachea midline, no thyromegaly Respiratory: normal respiratory effort, lungs clear to auscultation Cardiovascular: RRR, no murmur, no edema Gastrointestinal (Abdomen): Inspection/Auscultation: normal bowel sounds Percussion/Palpation: + abdomen tender (LUQ); no guarding Musculoskeletal: bilateral feet with bulky surgical dressing in place. Dressings are clean, dry. Neurologic: awake; not confused Results & Data ([facility]) Vital Signs (Past 12 Hours) Vital Signs Temp Pulse Resp BP Pulse Ox 01/04/22 07:49 36.6 C 70 20 150/80 H 98 01/04/22 02:30 36.5 C 67 18 146/60 H 97 01/03/22 23:08 36.4 C L 67 18 144/74 H 97 Laboratory Results Laboratory Tests 01/03/22 01/04/22 01/04/22 06:13 06:54 06:54 WBC 14.21 H Hgb 7.5 L Hct 22.9 L Plt Count 393 BUN 100 H Creatinine 13.05 H* D Est GFR (Non-Af Amer) 4.0 Calcium 6.1 L Magnesium 2.2 Albumin 2.3 L PG Care Time/CCT Total # of Minutes Spent Total Time Spent with Patient: Total time spent is greater than 50% in coordination of care (as documented) at patient's floor/unit and/or counseling patient: Coding Level of Care Code 29653 Subseq Hosp Care Lvl 3 Diagnoses Anemia D64.9 Anemia type: unspecified type Chronic kidney disease-mineral and bone disorder N18.9; E83.9; M89.9 ESRD (end stage renal disease) N18.6 Right atrial mass I51.89 Carotid stenosis, right I65.21 (1) Anemia Anemia type: unspecified type Qualified Code(s): D64.9 - Anemia, unspecified
[2022-01-04] MEDS: CALCITRIOL 0.25 MCG CAPSULE PO SCH (09:16)
[2022-01-04] MEDS: ASPIRIN 81 MG ECTAB PO SCH (09:16)
[2022-01-04] MEDS: amLODIPine BESYLATE 5 MG TAB PO SCH (09:16)
[2022-01-04] MEDS: carvediloL 6.25 MG TAB PO SCH ×2 (09:16→21:08)
[2022-01-04] MEDS: CALCIUM ACETATE 667 MG CAP/TAB PO SCH ×3 (09:16→17:38)
[2022-01-04] MEDS: ATORVASTATIN 40 MG TAB PO SCH (09:16)
[2022-01-04] MEDS: ONDANSETRON INJ 2 MG/ML 2 ML VIAL IV PRN (09:17)
[2022-01-04] MEDS: ISOSORBIDE MONO EXTENDED REL 30 MG TABCR PO SCH (09:17)
[2022-01-04] MEDS: SODIUM BICARBONATE 650 MG TAB PO SCH ×3 (09:17→21:07)
[2022-01-04] MEDS: PANTOprazole 40 MG in SYRINGE 0 ML IV SCH ×2 (09:17→21:08)
[2022-01-04] MEDS ORDERED: INSULIN ASPART PER UNIT SC SCH (11:30)
[2022-01-04] MEDS ORDERED: SODIUM CHLORIDE 0.9% 250 ML IV PRN (12:45)
[2022-01-04] MEDS: ADVANCED PROBIOTIC 1250 MG CAPSULE PO SCH (14:12)
[2022-01-04] MEDS: DAPTOmycin 275 MG in SYRINGE 0 ML IV SCH (14:12)
--- NOTE | 2022-01-04 14:41 | Hospitalist Progress Note ---
Date of Service January 04, 2022 Assessment & Plan (1) Diabetic foot infection: Plan: Gangrenous fifth toes, leukocytosis-status post amputation 01/01, and closure 01/[address] Ferrer; cultures polymicrobial growth; continue current antibiotics; will place infectious disease consult to determine ongoing antibiotics but continue on broad spectrum for now awaiting final cultures. (2) ESRD (end stage renal disease): Plan: Nephrology follow-up appreciated, [employer] initiation planned; tunneled catheter likely early next week; noted electrolyte abnormalities including metabolic acidosis, hypocalcemia, hyperphosphatemia noteddefer to nephrology to avoid multiplicity. On sodium bicarbonate, Phoslo and Rocaltrol. (3) Anemia: Plan: Likely in large part due to CKD, may have some acute blood loss anemia secondary to hematemesissupportive transfusion, IV iron, THAI per nephrology Additional 1 unit packed RBCs today (3 total). Will get FOB and if positive consider GI consult. Continue pantoprazole 40mg IV BID. (4) Nausea & vomiting: Plan: He relates this to his hyperglycemic episodes ?gastroparesis. Appears to resolve with insulin therefore will continue with insulin correction factor. No abdominal pain on my exam compared to nephrology earlier in the day. Will get FOB and if positive consider re-discussing possibility of inpatient EGD with GI - especially if needing ongoing blood transfusions. (5) Diarrhea: Plan: Liquid stool noted by nursing staff. Recommend sending for c. diff given broad spectrum antibiotic use. Start lactobacillus for presumed antibiotic associated diarrhea (6) Metabolic acidosis: Plan: Increasing likely due to normal saline use as becoming more hyperchloremic. Stop NSS. He has a significantly positive balance at this stage and will hold further IV fluids but consider normosol if he requires IV fluids ongoing. Continue Sodium bicarbonate per nephrology recommendations. (7) CAD (coronary artery disease): Plan: As noted by cardiology no convincing angina, continue aspirin, statin, on beta- sarah (8) Chest pain: Plan: Suspect noncardiac, as above (9) CVA, old, ataxia: Plan: severe carotid stenosisvascular surgery evaluation; vascular surgery should be available Thursday and they will be involved for dialysis catheter placement in any case (10) Hypertension: Plan: BP acceptableno change, likely mildly elevated this morning as he missed his morning medications (11) Dyslipidemia: Plan: Continue statin (12) Hematemesis: Plan: None again after 1 episode, continue PPI (13) Carotid stenosis, right: Plan: Plavix on hold; resume when safe, vascular surgery involvement as above (14) DM type 2 (diabetes mellitus, type 2): Plan: Sliding scale, sugars acceptable and initially discontinued however he is highly symptomatic when his glucose levels go > 200 therefore correction factor insulin ordered. (15) Right atrial mass: Plan: ? Significance; cannot completely rule out endocarditis; cultures negative; cardiology input appreciated; would not rule out need for ROLAND but would discuss with cardiology; per prior nephrology discussion would not impact tunneled line placement Plan: VTE Prophylaxis - chemical deferred due to hematemesis and need for ongoing blood transfusions Diet - dialysis renal, T2DM Disposition - continued admission to PCU Admission and Anticipated Discharge Date Admission Date: December 31, 2021 Subjective Nausea and vomiting this morning. He relates this to whenever his glucose level goes > 160 and glucose 251 this morning after eating a burger. Appeared to resolve with insulin. Having liquid diarrhea. Denies any abdominal pain to myself. Lethargic this morning. Review of Systems Review of Systems: All systems reviewed & are unremarkable except as noted in HPI & below Physical Exam Constitutional: + ill appearing and + thin ENMT: external ear and nose normal, oropharynx normal Respiratory: normal respiratory effort, lungs clear to auscultation Cardiovascular: RRR, no murmur, no edema Gastrointestinal (Abdomen): Inspection/Auscultation: normal bowel sounds Percussion/Palpation: abdomen soft; abdomen nontender, no guarding and abdomen not rigid Skin: surgical dressings not removed but no cellulitis beyond dressing Neurologic: moves all extremities and awake; not confused Results & Data Results & Data ([facility]) Vital Signs (Past 12 Hours) Vital Signs Temp Pulse Pulse Resp BP Pulse Ox 01/04/22 11:59 36.5 C 84 20 176/83 H 98 01/04/22 08:00 74 01/04/22 07:49 36.6 C 70 20 150/80 H 98 PG Care Time/CCT Total # of Minutes Spent Total Time Spent with Patient: Total time spent is greater than 50% in coordination of care (as documented) at patient's floor/unit and/or counseling patient: Coding Level of Care Code 30552 Subseq Hosp Care Lvl 3 Diagnoses Diabetic foot infection E11.628; L08.9 ESRD (end stage renal disease) N18.6 CAD (coronary artery disease) I25.10 Chest pain R07.2 Chest pain type: precordial pain Anemia D64.9 Anemia type: unspecified type CVA, old, ataxia I69.993 Hypertension I10 Dyslipidemia E78.5 Hematemesis K92.0 Carotid stenosis, right I65.21 DM type 2 (diabetes mellitus, type 2) E11.9 Right atrial mass I51.89 Metabolic acidosis E87.2 Nausea & vomiting R11.2 Diarrhea R19.7 (1) Anemia Anemia type: unspecified type Qualified Code(s): D64.9 - Anemia, unspecified (2) Chest pain Chest pain type: precordial pain Qualified Code(s): R07.2 - Precordial pain
[2022-01-04 19:07] LABS: Hematocrit (blood only) 27.6 % (40.1-51.0)
[2022-01-05] MEDS: PIPERACILLIN/TAZOBACTAM 3.375 GM in DEXTROSE 5% 100 ML IV SCH ×2 (04:23→16:47)
[2022-01-05 06:18] LABS: Basophils # (auto) 0.13 K/uL (0-0.2); Basophils % (auto) 0.9 %; Eosinophils # (auto) 0.18 K/uL (0-0.50); Eosinophils % (auto) 1.3 %; Hematocrit (blood only) 26.7 % (40.1-51.0); Hemoglobin 8.8 g/dl (14.0-18.0); Immature Granulocytes # (auto) 0.24 K/uL (0.00-0.02); Immature Granulocytes % (auto) 1.7 %; Lymphocytes # (auto) 1.94 K/uL (1.2-3.4); Lymphocytes % (auto) 13.7 %; Mean Corpuscular Hemoglobin 29.3 pg (25.0-34.0); Mean Platelet Volume 10.7 fL (9.4-12.4); Monocytes # (auto) 0.98 K/uL (0.24-0.82); Monocytes % (auto) 6.9 %; Neutrophils # (auto) 10.72 K/uL (1.4-6.5); Neutrophils % (auto) 75.5 %; Platelet Count 421 K/uL (130-400); RDW Coefficient of Variation 13.2 % (11.5-14.5); White Blood Count 14.19 K/ul (4.8-10.8)
[2022-01-05 06:54] LABS: Albumin Globulin Ratio 0.6 (0.9-2); Albumin Level 2.4 gm/dl (3.4-5.0); Bilirubin,Total 0.2 mg/dl (0.2-1.0); Calcium 6.2 mg/dl (8.5-10.1); Creatinine Clr Calc Pharmacy 7.3 ml/min; Est GFR (African American) 4.6 ml/min; Globulin 3.7 gm/dl (2.5-4.0); Magnesium 2.2 mg/dl (1.7-2.4); Total Protein 6.1 gm/dl (6.0-8.3)
[2022-01-05] MEDS: INSULIN ASPART PER UNIT SC SCH ×4 (08:17→21:00)
[2022-01-05] MEDS: ASPIRIN 81 MG ECTAB PO SCH (09:14)
[2022-01-05] MEDS: carvediloL 6.25 MG TAB PO SCH ×2 (09:14→20:05)
[2022-01-05] MEDS: PANTOprazole 40 MG in SYRINGE 0 ML IV SCH ×2 (09:14→20:06)
[2022-01-05] MEDS: amLODIPine BESYLATE 5 MG TAB PO SCH (09:14)
[2022-01-05] MEDS: CALCITRIOL 0.25 MCG CAPSULE PO SCH (09:14)
[2022-01-05] MEDS: SODIUM BICARBONATE 650 MG TAB PO SCH ×3 (09:14→20:05)
[2022-01-05] MEDS: ATORVASTATIN 40 MG TAB PO SCH (09:15)
[2022-01-05] MEDS: CALCIUM ACETATE 667 MG CAP/TAB PO SCH ×3 (09:15→16:40)
[2022-01-05] MEDS: ADVANCED PROBIOTIC 1250 MG CAPSULE PO SCH (09:15)
[2022-01-05] MEDS: ISOSORBIDE MONO EXTENDED REL 30 MG TABCR PO SCH (09:15)
[2022-01-05] MEDS ORDERED: STAT IV STA (09:46)
--- NOTE | 2022-01-05 09:52 | Nephrology Progress Note ---
Date of Service January 05, 2022 Assessment & Plan (1) ESRD (end stage renal disease): Plan: * ESKD - patient presented in kidney failure. Cause unknown. Biopsy not performed. Renal failure is likely due to DKD, vascular disease * Volume status and electrolyte balance remain acceptable this morning. 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 Calcium acetate 1 tab QAC. Calcitriol 0.25 mcg daily for sPTH. (4) Right atrial mass: Plan: * Recommend ROLAND * Consider consultation w/ ID regarding duration of antibiotic therapy (5) Carotid stenosis, right: Plan: * Await vascular surgery evaluation Admission and Anticipated Discharge Date Admission Date: December 31, 2021 Subjective Mr. Richardson was evaluated in his hospital room. He c/o nausea but denies abdominal pain Review of Systems Constitutional: + weakness; no fever Eyes: no problem reported Ear, Nose, Mouth, Throat: no problem reported Respiratory: no cough and no dyspnea Cardiovascular: no chest pain, no palpitations and no edema Gastrointestinal: + abdominal pain (LUQ), + nausea and + vomiting Musculoskeletal: no back pain Integumentary: no rash Neurologic: no confusion Physical Exam Constitutional: + ill appearing and + thin Eyes: PERRL, conjunctivae normal, anicteric sclerae ENMT: external ear and nose normal, oropharynx normal Neck: trachea midline, no thyromegaly Respiratory: normal respiratory effort, lungs clear to auscultation Cardiovascular: RRR, no murmur, no edema Gastrointestinal (Abdomen): Inspection/Auscultation: normal bowel sounds Percussion/Palpation: + abdomen tender (LUQ); no guarding Neurologic: awake; not confused Results & Data ([facility]) Vital Signs (Past 12 Hours) Vital Signs Temp Pulse Pulse Resp BP Pulse Ox 01/05/22 08:09 36.5 C 68 20 169/85 H 98 01/05/22 07:00 63 01/05/22 02:56 36.7 C 73 18 166/89 H 97 01/04/22 22:42 36.6 C 74 18 168/81 H 97 01/04/22 22:10 71 Laboratory Results Laboratory Tests 01/05/22 01/05/22 05:47 05:47 WBC 14.19 H Hgb 8.8 L Hct 26.7 L Plt Count 421 H Sodium 138 Potassium 4.0 Chloride 113 H Carbon Dioxide 14 L BUN 94 H Creatinine 13.10 H* Calcium 6.2 L Albumin 2.4 L Diagnostic Findings Laboratory Tests 01/05/22 04:00 Stool Occult Bld Scrn Positive A PG Care Time/CCT Total # of Minutes Spent Total Time Spent with Patient: Total time spent is greater than 50% in coordination of care (as documented) at patient's floor/unit and/or counseling patient: Coding Level of Care Code 00181 Subseq Hosp Care Lvl 3 Diagnoses ESRD (end stage renal disease) N18.6 Anemia D64.9 Anemia type: unspecified type Chronic kidney disease-mineral and bone disorder N18.9; E83.9; M89.9 Right atrial mass I51.89 Carotid stenosis, right I65.21 (1) Anemia Anemia type: unspecified type Qualified Code(s): D64.9 - Anemia, unspecified
[2022-01-05] MEDS ORDERED: CALCIUM GLUCONATE 10% 1,000 MG in DEXTROSE 5% 50 ML IV ONE (10:00)
--- NOTE | 2022-01-05 14:43 | Hospitalist Progress Note ---
Date of Service January 05, 2022 Assessment & Plan (1) Diabetic foot infection: Plan: Patient is now day 5 s/p amputation for Gangrenous fifth toes. cultures polymicrobial growth Currently on Daptomycin and Zosyn. WBC still elevated, although patient afebrile. ID on consult. Await recommendations. 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 Appreciate nephrology recs (3) Anemia: Plan: Stool positive for occult blood. May also have a component of anemia due to renal disease GI on consult Transfuse if hb<7 (4) Nausea & vomiting: Plan: He relates this to his hyperglycemic episodes ?gastroparesis. Appears to resolve with insulin therefore will continue with insulin correction factor. No abdominal pain on my exam compared to nephrology earlier in the day. Will get FOB and if positive consider re-discussing possibility of inpatient EGD with GI - especially if needing ongoing blood transfusions. (5) Diarrhea: Plan: Liquid stool noted by nursing staff. Recommend sending for c. diff given broad spectrum antibiotic use. Start lactobacillus for presumed antibiotic associated diarrhea May also have a component of pancreatic exocrine insufficiency, will consider pancrealipase (6) Metabolic acidosis: Plan: Due to CKD continue Bicarbonate per Nephrology (7) CAD (coronary artery disease): Plan: As noted by cardiology no convincing angina, continue aspirin, statin, on beta- sarah (8) Chest pain: Plan: Suspect noncardiac, as above (9) CVA, old, ataxia: Plan: severe carotid stenosisvascular surgery evaluation; vascular surgery should be available Thursday and they will be involved for dialysis catheter placement in any case (10) Hypertension: Plan: BP acceptableno change, likely mildly elevated this morning as he missed his morning medications (11) Dyslipidemia: Plan: Continue statin (12) Hematemesis: Plan: None again after 1 episode, continue PPI (13) Carotid stenosis, right: Plan: Plavix on hold; resume when safe, vascular surgery involvement as above (14) DM type 2 (diabetes mellitus, type 2): Plan: Sliding scale, sugars acceptable and initially discontinued however he is highly symptomatic when his glucose levels go > 200 therefore correction factor insulin ordered. (15) Right atrial mass: Plan: ? Significance; cannot completely rule out endocarditis; cultures negative; cardiology input appreciated; would not rule out need for ROLAND but would discuss with cardiology; per prior nephrology discussion would not impact tunneled line placement Plan: VTE Prophylaxis - chemical deferred due to hematemesis and need for ongoing blood transfusions Diet - dialysis renal, T2DM Disposition - continued admission to PCU Admission and Anticipated Discharge Date Admission Date: December 31, 2021 Subjective patient seen and examined, uncertain when the HD catheter is scheduled by vascular surgery Review of Systems Review of Systems: All systems reviewed are negative, apart from the ones contained in the history. Physical Exam Physical Exam: The patient is awake, alert and oriented 3, well developed and well nourished, normocephalic and atraumatic, lying in bed and in no acute distress. HEENT--PERRL, EOMI, mucous membranes and oropharynx mildly dry Neck--supple. No JVD. No bruits. Thyroid normal, trachea midline, no adenopathy. Heart--normal S1 and S2. No murmurs, rubs or gallops. Lungs--clear bilaterally, no respiratory distress, no accessory muscle use. Abdomen--normal bowel sounds and soft. Mild epigastric and left sided abdominal pain Extremities--bilateral lower extremities in bandage Dermatologic--normal skin turgor, normal color, no abnormal lymph nodes, no rash. Neurologic--cranial nerves II through XII grossly intact. Rheumatologic--normal range of motion. Psychiatric--normal affect. Results & Data Results & Data ([facility]) Vital Signs (Past 12 Hours) Vital Signs Temp Pulse Pulse Resp BP Pulse Ox 01/05/22 11:58 97.5 F L 78 20 179/86 H 98 01/05/22 08:09 97.7 F 68 20 169/85 H 98 01/05/22 07:00 63 01/05/22 02:56 98.1 F 73 18 166/89 H 97 PG Care Time/CCT Total # of Minutes Spent Total Time Spent with Patient: Total time spent is greater than 50% in coordination of care (as documented) at patient's floor/unit and/or counseling patient: Coding Level of Care Code 88103 Subseq Hosp Care Lvl 2 Diagnoses Diabetic foot infection E11.628; L08.9 ESRD (end stage renal disease) N18.6 Anemia D64.9 Anemia type: unspecified type Nausea & vomiting R11.2 Diarrhea R19.7 Metabolic acidosis E87.2 CAD (coronary artery disease) I25.10 Chest pain R07.2 Chest pain type: precordial pain CVA, old, ataxia I69.993 Hypertension I10 Dyslipidemia E78.5 Hematemesis K92.0 Carotid stenosis, right I65.21 DM type 2 (diabetes mellitus, type 2) E11.9 Right atrial mass I51.89 Time Spent (min) 35 (1) Anemia Anemia type: unspecified type Qualified Code(s): D64.9 - Anemia, unspecified (2) Chest pain Chest pain type: precordial pain Qualified Code(s): R07.2 - Precordial pain
[2022-01-05] MEDS ORDERED: HYDROCODONE/ACETAMOPHEN 5/325MG TAB PO PRN (16:05)
--- NOTE | 2022-01-05 21:56 | Orthopedic Progress Note ---
Date of Service January 04, 2022 Assessment & Plan (1) DM type 2 (diabetes mellitus, type 2): Plan: Patient dressing clean, dry, and intact. I did spend considerable time discussing need for DM shoes with CMOs. Cultures and sensitives reviewed. Patient is non weight bearing. 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 Patient seen at bed side. He notes no complaints. He is resting comfortably. Dressing is clean, dry, and intact. Physical Exam Constitutional: WD/WN, vitals as above Eyes: PERRL, conjunctivae normal, anicteric sclerae ENMT: external ear and nose normal, oropharynx normal Respiratory: normal respiratory effort, lungs clear to auscultation Cardiovascular: RRR, no murmur, no edema Gastrointestinal (Abdomen): normal bowel sounds, soft, nontender, no hepatosplenomegaly Psychiatric: A+Ox3, euthymic affect Orientation: oriented x 3 Results & Data ([facility]) Vital Signs (Past 12 Hours) Vital Signs Temp Pulse Resp BP Pulse Ox 01/05/22 19:59 36.7 C 71 16 165/84 H 98 01/05/22 19:28 36.6 C 68 18 151/77 H 98 01/05/22 16:56 36.6 C 76 18 179/86 H 96 01/05/22 11:58 36.4 C L 78 20 179/86 H 98
[2022-01-06 04:12] LABS: Hematocrit (blood only) 24.9 % (40.1-51.0); Hemoglobin 8.1 g/dl (14.0-18.0); Mean Corpuscular Hemoglobin 28.3 pg (25.0-34.0); Mean Corpuscular Hgb Conc 32.5 g/dL (32.0-36.0); Mean Corpuscular Volume 87.1 fL (80.0-100.0); Mean Platelet Volume 10.1 fL (9.4-12.4); Platelet Count 417 K/uL (130-400); RDW Coefficient of Variation 13.4 % (11.5-14.5); RDW Standard Deviation 42.5 fL (36.4-46.3); Red Blood Count 2.86 M/uL (4.63-6.08); White Blood Count 12.29 K/ul (4.8-10.8)
[2022-01-06] MEDS: PIPERACILLIN/TAZOBACTAM 3.375 GM in DEXTROSE 5% 100 ML IV SCH ×2 (04:18→16:37)
[2022-01-06 04:50] LABS: Calcium 6.5 mg/dl (8.5-10.1); Creatinine Clr Calc Pharmacy 7.3 ml/min; Est GFR (African American) 4.5 ml/min; Est GFR (Non-African American) 3.9 ml/min; Magnesium 2.2 mg/dl (1.7-2.4); Potassium 3.9 mmol/L (3.5-5.1)
[2022-01-06] MEDS: INSULIN ASPART PER UNIT SC SCH ×4 (08:13→20:57)
[2022-01-06] MEDS: ASPIRIN 81 MG ECTAB PO SCH (08:14)
[2022-01-06] MEDS: SODIUM BICARBONATE 650 MG TAB PO SCH ×3 (08:18→20:27)
[2022-01-06] MEDS: carvediloL 6.25 MG TAB PO SCH ×2 (08:18→20:27)
[2022-01-06] MEDS: CALCIUM ACETATE 667 MG CAP/TAB PO SCH ×3 (08:18→16:38)
[2022-01-06] MEDS: PANTOprazole 40 MG in SYRINGE 0 ML IV SCH ×2 (08:18→20:28)
[2022-01-06] MEDS: ISOSORBIDE MONO EXTENDED REL 30 MG TABCR PO SCH (08:19)
[2022-01-06] MEDS: amLODIPine BESYLATE 5 MG TAB PO SCH (08:19)
[2022-01-06] MEDS: ATORVASTATIN 40 MG TAB PO SCH (08:19)
[2022-01-06] MEDS: CALCITRIOL 0.25 MCG CAPSULE PO SCH (08:20)
[2022-01-06] MEDS: ADVANCED PROBIOTIC 1250 MG CAPSULE PO SCH (08:20)
--- NOTE | 2022-01-06 08:31 | Nephrology Progress Note ---
Date of Service January 06, 2022 Assessment & Plan (1) ESRD (end stage renal disease): Plan: * ESKD - patient presented in kidney failure. Cause unknown, biopsy not performed. Renal failure is likely due to DKD, vascular disease * Volume status and electrolyte balance remain acceptable this morning. 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 Calcium acetate 1 tab QAC. Calcitriol 0.25 mcg daily for sPTH. (5) Carotid stenosis, right: Plan: * Await vascular surgery evaluation Admission and Anticipated Discharge Date Admission Date: December 31, 2021 Subjective Mr. Richardson was evaluated in his hospital room. He c/o nausea but denies abdominal pain. Mr. Richardson denies overt GI blood loss. He is awaiting vascular surgery evaluation. Review of Systems Constitutional: + weakness; no fever Eyes: no problem reported Ear, Nose, Mouth, Throat: no problem reported Respiratory: no cough and no dyspnea Cardiovascular: no chest pain, no palpitations and no edema Gastrointestinal: + abdominal pain (LUQ) and + nausea; no vomiting Musculoskeletal: no back pain Integumentary: no rash Neurologic: no confusion Physical Exam Constitutional: + ill appearing and + thin Eyes: PERRL, conjunctivae normal, anicteric sclerae ENMT: external ear and nose normal, oropharynx normal Neck: trachea midline, no thyromegaly Respiratory: normal respiratory effort, lungs clear to auscultation Cardiovascular: RRR, no murmur, no edema Gastrointestinal (Abdomen): Inspection/Auscultation: normal bowel sounds Percussion/Palpation: + abdomen tender (LUQ); no guarding Neurologic: awake; not confused Results & Data ([facility]) Vital Signs (Past 12 Hours) Vital Signs Temp Pulse Pulse Resp BP Pulse Ox 01/06/22 07:31 36.6 C 68 16 170/81 H 98 01/06/22 03:15 36.5 C 61 18 164/82 H 98 01/05/22 23:19 36.5 C 62 19 155/76 H 98 01/05/22 22:20 57 L Laboratory Results Laboratory Tests 01/05/22 01/05/22 01/05/22 04:00 04:00 05:47 WBC Hgb Hct Plt Count Sodium Potassium Chloride Carbon Dioxide BUN Creatinine Est GFR (Non-Af Amer) Calcium Albumin 2.4 L Stool Occult Bld Scrn Positive A Stl C. diff Tox B Gene Negative Cdiff Gene 01/06/22 01/06/22 04:02 04:02 WBC 12.29 H Hgb 8.1 L Hct 24.9 L Plt Count 417 H Sodium 140 Potassium 3.9 Chloride 114 H Carbon Dioxide 14 L BUN 92 H Creatinine 13.18 H* Est GFR (Non-Af Amer) 3.9 Calcium 6.5 L Albumin Stool Occult Bld Scrn Stl C. diff Tox B Gene PG Care Time/CCT Total # of Minutes Spent Total Time Spent with Patient: Total time spent is greater than 50% in coordination of care (as documented) at patient's floor/unit and/or counseling patient: Coding Level of Care Code 95234 Subseq Hosp Care Lvl 3 Diagnoses ESRD (end stage renal disease) N18.6 Anemia D64.9 Anemia type: unspecified type Chronic kidney disease-mineral and bone disorder N18.9; E83.9; M89.9 Right atrial mass I51.89 Carotid stenosis, right I65.21 (1) Anemia Anemia type: unspecified type Qualified Code(s): D64.9 - Anemia, unspecified
--- NOTE | 2022-01-06 10:35 | Communication Note ---
Date of Service: January 06, 2022 Pt discussed at length with Dr Flanagan. Planning on permcath insertion for HD initiation in OR tomorrow.
--- NOTE | 2022-01-06 12:14 | Hospitalist Progress Note ---
Date of Service January 06, 2022 Assessment & Plan (1) Diabetic foot infection: Plan: Patient is now day 5 s/p bilateral foot surgery, amputation of Gangrenous fifth toes. cultures polymicrobial growth Currently on Daptomycin and Zosyn. WBC still elevated, but trending down, patient afebrile. ID on consult. Await recommendations. (2) ESRD (end stage renal disease): Plan: Nephrology follow-up appreciated, MASTER OCEAN initiation planned; for permacath tomorrow per vascular On sodium bicarbonate, Phoslo and Rocaltrol. Appreciate nephrology recs (3) Anemia: Plan: Stool positive for occult blood. May also have a component of anemia due to renal disease GI on consult Transfuse if hb<7 (4) Nausea & vomiting: Plan: He relates this to his hyperglycemic episodes ?gastroparesis. Appears to resolve with insulin therefore will continue with insulin correction factor. No abdominal pain on my exam compared to nephrology earlier in the day. Will get FOB and if positive consider re-discussing possibility of inpatient EGD with GI - especially if needing ongoing blood transfusions. (5) Diarrhea: Plan: Liquid stool noted by nursing staff. Recommend sending for c. diff given broad spectrum antibiotic use. Start lactobacillus for presumed antibiotic associated diarrhea May also have a component of pancreatic exocrine insufficiency, will consider pancrealipase (6) Metabolic acidosis: Plan: Due to CKD continue Bicarbonate per Nephrology (7) CAD (coronary artery disease): Plan: As noted by cardiology no convincing angina, continue aspirin, statin, on beta- sarah (8) Chest pain: Plan: Suspect noncardiac, as above (9) CVA, old, ataxia: Plan: severe carotid stenosisvascular surgery evaluation; vascular surgery should be available Thursday and they will be involved for dialysis catheter placement in any case (10) Hypertension: Plan: BP acceptableno change, likely mildly elevated this morning as he missed his morning medications (11) Dyslipidemia: Plan: Continue statin (12) Hematemesis: Plan: None again after 1 episode, continue PPI (13) Carotid stenosis, right: Plan: Plavix on hold; resume when safe, vascular surgery involvement as above (14) DM type 2 (diabetes mellitus, type 2): Plan: Sliding scale, sugars acceptable and initially discontinued however he is highly symptomatic when his glucose levels go > 200 therefore correction factor insulin ordered. (15) Right atrial mass: Plan: ? Significance; endocarditis unlikely, cultures negative; cardiology input appreciated; would not rule out need for ROLAND but would discuss with cardiology; per prior nephrology discussion would not impact tunneled line placement Plan: VTE Prophylaxis - chemical deferred due to hematemesis and need for ongoing blood transfusions Diet - dialysis renal, T2DM Disposition - continued admission to PCU Admission and Anticipated Discharge Date Admission Date: December 31, 2021 Subjective patient seen and examined,frustrated that his permacath hasnt been inserted yet Review of Systems Review of Systems: All systems reviewed are negative, apart from the ones contained in the history. Physical Exam Physical Exam: The patient is awake, alert and oriented 3, well developed and well nourished, normocephalic and atraumatic, lying in bed and in no acute distress. HEENT--PERRL, EOMI, mucous membranes and oropharynx mildly dry Neck--supple. No JVD. No bruits. Thyroid normal, trachea midline, no adenopathy. Heart--normal S1 and S2. No murmurs, rubs or gallops. Lungs--clear bilaterally, no respiratory distress, no accessory muscle use. Abdomen--normal bowel sounds and soft. Mild epigastric and left sided abdominal pain Extremities--bilateral lower extremities in bandage Dermatologic--normal skin turgor, normal color, no abnormal lymph nodes, no rash. Neurologic--cranial nerves II through XII grossly intact. Rheumatologic--normal range of motion. Psychiatric--normal affect. Results & Data Results & Data ([facility]) Vital Signs (Past 12 Hours) Vital Signs Temp Pulse Resp BP Pulse Ox 01/06/22 11:59 98.4 F 63 18 170/84 H 96 01/06/22 07:31 97.9 F 68 16 170/81 H 98 01/06/22 03:15 97.7 F 61 18 164/82 H 98 PG Care Time/CCT Total # of Minutes Spent Total Time Spent with Patient: Total time spent is greater than 50% in coordination of care (as documented) at patient's floor/unit and/or counseling patient: Coding Level of Care Code 82870 Subseq Hosp Care Lvl 2 Diagnoses Diabetic foot infection E11.628; L08.9 ESRD (end stage renal disease) N18.6 Anemia D64.9 Anemia type: unspecified type Nausea & vomiting R11.2 Diarrhea R19.7 Metabolic acidosis E87.2 CAD (coronary artery disease) I25.10 Chest pain R07.2 Chest pain type: precordial pain CVA, old, ataxia I69.993 Hypertension I10 Dyslipidemia E78.5 Hematemesis K92.0 Carotid stenosis, right I65.21 DM type 2 (diabetes mellitus, type 2) E11.9 Right atrial mass I51.89 Time Spent (min) 35 (1) Anemia Anemia type: unspecified type Qualified Code(s): D64.9 - Anemia, unspecified (2) Chest pain Chest pain type: precordial pain Qualified Code(s): R07.2 - Precordial pain
[2022-01-06] MEDS: DAPTOmycin 275 MG in SYRINGE 0 ML IV SCH (14:07)
[2022-01-07] MEDS: PIPERACILLIN/TAZOBACTAM 3.375 GM in DEXTROSE 5% 100 ML IV SCH ×2 (03:40→17:08)
[2022-01-07 06:53] LABS: BUN Creatinine Ratio 6.2 (10-20); Calcium 6.3 mg/dl (8.5-10.1); Creatinine Clr Calc Pharmacy 6.6 ml/min; Est GFR (African American) 4.1 ml/min; Est GFR (Non-African American) 3.5 ml/min; Potassium 3.9 mmol/L (3.5-5.1)
[2022-01-07 06:59] LABS: INR 1.1 (0.9-1.1); Prothrombin Time 11.2 Seconds (9.0-12.0)
[2022-01-07] MEDS: INSULIN ASPART PER UNIT SC SCH ×4 (07:41→20:34)
--- NOTE | 2022-01-07 08:24 | Nephrology Progress Note ---
Date of Service January 07, 2022 Assessment & Plan (1) ESRD (end stage renal disease): Plan: * ESKD - patient presented in kidney failure. Cause unknown, biopsy not performed. Renal failure is likely due to DKD, vascular disease * IJ TCC to be inserted 11am today * 1st run HD this afternoon. Orders placed in EMR and HD RN notified * Will plan 2nd HD treatment for tomorrow * Will stop NaHCO3 supplement and start Nephrovite * Case management has been consulted to set up outpatient HD (2) Anemia: Plan: * Hgb is again trending down * Recommend transfusion to maintain Hgb > 8.0 * 1 unit PRBC given 01/04/22 * FOBT + * Recommend consultation w/ GI for EGD due to FOBT+, LUQ abdominal discomfort and recent acute drop in Hgb (3) Right atrial mass: Plan: * Recommend ROLAND * Consider consultation w/ ID regarding duration of antibiotic therapy (4) Chronic kidney disease-mineral and bone disorder: Plan: * Renal diet. Calcium acetate 1 tab QAC. Calcitriol 0.25 mcg daily for sPTH. (5) Carotid stenosis, right: Plan: * Await vascular surgery evaluation Admission and Anticipated Discharge Date Admission Date: December 31, 2021 Subjective Mr. Richardson was evaluated in his hospital room this morning. He is awaiting TCC insertion. He is agreeable to starting HD. Mr. Richardson plans to travel to [place] to be with his sister once he leaves the hospital. He currently denies fever, angina or dyspnea Review of Systems Constitutional: + weakness; no fever Eyes: no problem reported Ear, Nose, Mouth, Throat: no problem reported Respiratory: no cough and no dyspnea Cardiovascular: no chest pain, no palpitations and no edema Gastrointestinal: + abdominal pain (LUQ) and + nausea; no vomiting Musculoskeletal: no back pain Integumentary: no rash Neurologic: no confusion Physical Exam Constitutional: + ill appearing and + thin Eyes: PERRL, conjunctivae normal, anicteric sclerae ENMT: external ear and nose normal, oropharynx normal Neck: trachea midline, no thyromegaly Respiratory: normal respiratory effort, lungs clear to auscultation Cardiovascular: RRR, no murmur, no edema Gastrointestinal (Abdomen): Inspection/Auscultation: normal bowel sounds Percussion/Palpation: + abdomen tender (LUQ); no guarding Neurologic: awake; not confused Results & Data ([facility]) Vital Signs (Past 12 Hours) Vital Signs Temp Pulse Pulse Resp BP Pulse Ox 01/07/22 08:06 65 01/07/22 07:02 36.6 C 68 18 161/85 H 97 01/07/22 03:40 36.6 C 72 18 165/85 H 97 01/06/22 22:44 36.5 C 64 18 153/74 H 98 Laboratory Results Laboratory Tests 01/07/22 01/07/22 06:05 06:05 INR 1.1 Sodium 139 Potassium 3.9 Chloride 112 H Carbon Dioxide 15 L BUN 90 H Creatinine 14.44 H* D Glucose 126 H Calcium 6.3 L PG Care Time/CCT Total # of Minutes Spent Total Time Spent with Patient: Total time spent is greater than 50% in coordination of care (as documented) at patient's floor/unit and/or counseling patient: Coding Level of Care Code 24347 Subseq Hosp Care Lvl 3 Diagnoses ESRD (end stage renal disease) N18.6 Anemia D64.9 Anemia type: unspecified type Right atrial mass I51.89 Chronic kidney disease-mineral and bone disorder N18.9; E83.9; M89.9 Carotid stenosis, right I65.21 (1) Anemia Anemia type: unspecified type Qualified Code(s): D64.9 - Anemia, unspecified
[2022-01-07] MEDS ORDERED: SODIUM CHLORIDE 0.9% 1000ML 1,000 ML IV PRN (09:18)
[2022-01-07] MEDS ORDERED: EPOETIN ALFA 10,000 UNITS/ML VIAL IV ONE (09:18)
--- NOTE | 2022-01-07 09:24 | Orthopedic Progress Note ---
Date of Service January 06, 2022 Assessment & Plan (1) DM type 2 (diabetes mellitus, type 2): Plan: Patient dressing clean, dry, and intact. I did spend considerable time discussing need for DM shoes with CMOs once incision sites heal. 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 We did discuss need for suture removal in 2 weeks. Patient relates he would like to transition to [place] upon discharge. 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 Patient resting comfortably with dressing clean, dry, and intact. Review of Systems Review of Systems: All systems reviewed & are unremarkable except as noted in HPI & below Physical Exam Physical Exam: Dressing intact to bilateral feet. There is no strike through. Results & Data ([facility]) Vital Signs (Past 12 Hours) Vital Signs Temp Pulse Pulse Resp BP Pulse Ox 01/07/22 08:06 65 01/07/22 07:02 36.6 C 68 18 161/85 H 97 01/07/22 03:40 36.6 C 72 18 165/85 H 97 01/06/22 22:44 36.5 C 64 18 153/74 H 98
--- NOTE | 2022-01-07 09:29 | Orthopedic Progress Note ---
Date of Service January 07, 2022 Assessment & Plan (1) DM type 2 (diabetes mellitus, type 2): Plan: Patient dressing changed with out incidence. Dressing maybe changed as needed. We did discuss need for suture removal in 2 weeks. Patient is weight bearing to heel only bilateral. Please dispensed heel weight bearing surgical shoe or off loading surgical if available. Patient relates he would like to transition to [place] upon discharge. I did spend considerable time discussing need for DM shoes with CMOs once incision sites heal. He is encouraged to follow up in office if he maintains residency in [place]. Thank you for allowing me to participate in the care of this Patient. 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 Patient resting comfortably with dressing clean, dry, and intact. Review of Systems 2 Review of Systems: All systems reviewed & are unremarkable except as noted in HPI & below Physical Exam Physical Exam: Dressing intact to bilateral feet. There is no strike through. Constitutional: WD/WN, vitals as above Eyes: PERRL, conjunctivae normal, anicteric sclerae Musculoskeletal: no cyanosis or clubbing, extremities motor strength 5/5 Skin: no rashes, warm and dry Incision site shows skin well co-apted. Sutures intact. There are no signs of infection. Neurologic: Decreased Epicritic sensation. Psychiatric: Orientation: oriented x 3 Results & Data ([facility]) Vital Signs (Past 12 Hours) Vital Signs Temp Pulse Pulse Resp BP Pulse Ox 01/07/22 08:06 65 01/07/22 07:02 36.6 C 68 18 161/85 H 97 01/07/22 03:40 36.6 C 72 18 165/85 H 97 01/06/22 22:44 36.5 C 64 18 153/74 H 98
[2022-01-07] MEDS: amLODIPine BESYLATE 5 MG TAB PO SCH (09:59)
[2022-01-07] MEDS: ASPIRIN 81 MG ECTAB PO SCH (09:59)
[2022-01-07] MEDS: ADVANCED PROBIOTIC 1250 MG CAPSULE PO SCH (09:59)
[2022-01-07] MEDS: ATORVASTATIN 40 MG TAB PO SCH (09:59)
[2022-01-07] MEDS: CALCIUM ACETATE 667 MG CAP/TAB PO SCH ×3 (09:59→17:10)
[2022-01-07] MEDS: carvediloL 6.25 MG TAB PO SCH ×2 (09:59→20:35)
[2022-01-07] MEDS: CALCITRIOL 0.25 MCG CAPSULE PO SCH (09:59)
[2022-01-07] MEDS: PANTOprazole 40 MG in SYRINGE 0 ML IV SCH ×2 (09:59→20:35)
[2022-01-07] MEDS: ISOSORBIDE MONO EXTENDED REL 30 MG TABCR PO SCH (09:59)
[2022-01-07] MEDS: SODIUM BICARBONATE 650 MG TAB PO SCH (09:59)
--- NOTE | 2022-01-07 11:14 | History & Physical Bridge Note ---
Date of Service January 07, 2022 History & Physical Bridge Note Patient for insertion of permcath today. I have discussed the risks options and benefits of the procedure with the patient. The patient understands the risks options and benefits and agrees to the procedure. I have examined the patient, reviewed the History & Physical and in the interval since the performance of the History & Physical I have noted the following changes of clinical significance: no changes noted
[2022-01-07] MEDS ORDERED: HEPARIN SOD (PORCINE) 5,000 UNITS/ML VIAL ONE (11:15)
[2022-01-07] MEDS ORDERED: MIDAZOLAM HCL 1 MG/ML 2ML VIAL ONE (11:15)
[2022-01-07] MEDS ORDERED: fentaNYL citrate 100 MCG/2 ML VIAL ONE (11:15)
--- NOTE | 2022-01-07 11:27 | Pre Anesthesia Assessment ---
Date of Service January 07, 2022 Pre Sedation Assessment Vital Signs Temp Pulse Pulse Pulse Resp BP Pulse Ox 01/07/22 11:20 36.8 C 76 16 169/87 H 99 01/07/22 08:06 65 01/07/22 07:02 36.6 C 68 18 161/85 H 97 01/07/22 03:40 36.6 C 72 18 165/85 H 97 01/06/22 22:44 36.5 C 64 18 153/74 H 98 01/06/22 19:21 36.5 C 69 18 156/77 H 98 01/06/22 16:17 36.8 C 67 18 145/72 H 95 01/06/22 11:59 36.9 C 63 18 170/84 H 96 Cardiovascular RRR, no murmur, no edema Respiratory normal respiratory effort, lungs clear to auscultation Pre-Sedation Airway Assessment Smoking Status: Former smoker Hx Sleep Apnea: No Short, Thick Neck: No Thyromental Distance: > or= 3.5 Finger Breadths Oral Cavity: + WNL Mallampati Class: III ASA: ASA4 NPO Status Date of Last Intake of Fluids: 01/06/22 Time of Last Intake of Fluids: 22:00 Date of Last Intake of Solid Food: 01/06/22 Time of Last Intake of Solid Foods: 22:00 Notes The planned sedation has been discussed with the patient. Informed Consent was obtained. I have identified the patient, determined the appropriateness of sedation and have assessed the patient immediately prior to the procedure. All medicine(s) and interventions are by my order.
--- NOTE | 2022-01-07 11:58 | Post Anesthesia Assessment ---
Date of Service January 07, 2022 Post Sedation Assessment Vital Signs Temp Pulse Pulse Pulse Resp BP Pulse Ox 01/07/22 11:55 72 18 156/81 H 95 01/07/22 11:50 66 18 176/89 H 95 01/07/22 11:45 67 18 173/88 H 98 01/07/22 11:39 70 18 166/89 H 98 01/07/22 11:20 36.8 C 76 16 169/87 H 99 01/07/22 08:06 65 01/07/22 07:02 36.6 C 68 18 161/85 H 97 01/07/22 03:40 36.6 C 72 18 165/85 H 97 01/06/22 22:44 36.5 C 64 18 153/74 H 98 01/06/22 19:21 36.5 C 69 18 156/77 H 98 01/06/22 16:17 36.8 C 67 18 145/72 H 95 01/06/22 11:59 36.9 C 63 18 170/84 H 96 Recovery Score Activity: Moves 4 extremities Respiration: Deep Breath/Cough Circulation: +/-20% PreAnes Value Consciousness: Arouseable (by name) Oxygen Saturation: > 92% On Room Air Post Anesthesia Score: 9 Discharge Sedation Level of Care: Fast Track Phase II Post Sedation Plan On clinical assessment, the patient appears to have tolerated the sedation without complications. Patient is recovering as anticipated. Patient will continue to be monitored by nursing and may be discharged when sedation discharge criteria are met per below protocol. Upon Completions of procedure up to 15 minutes continue every 5 minute vital signs and the P.A.R. score; then discharge to a Phase I or Fast Track to Phase II per the following guidelines: * Discharge Patient to appropriate Phase II area if PAR is 8 or greater or return to pre- procedure baseline. The post - procedure orders will be as directed. * If PAR score is less than 8 or not return to pre-procedure baseline then patient will follow Phase I monitoring till PAR is reached for Phase II. The Phase I may be done in procedure room or may call to secure a Phase I area. * If naloxone or flumazenil are used for reversal, hold in Phase I for continued monitoring from when last reversal dose was given for a minimum of 60 minutes or longer pending the nurse and/or physician discretion of patient condition before discharge to Phase II. Please call the Sedation Physician to re-evaluate and complete post-note for discharge to Phase II area. Do NOT discharge from procedure sedation or Phase 1 until post- sedation evaluation note is complete by procedure /sedation MD Sedation Discharge Instructions to be given to the patient at discharge to home.
[2022-01-07] MEDS ORDERED: LIDOCAINE 1% LOCAL 20 ML VIAL INFIL ONE (12:00)
--- NOTE | 2022-01-07 12:02 | Operative Report ---
Post Operative Report Pre & Post Diagnosis Operation Date: 12/31/21 17:55 <No data on this case meets the specified criteria> Operation Date: 01/01/22 08:20 Pre-Op Diagnosis: bilateral foot infection Post-Op Diagnosis: bilateral foot infection Operation Date: 01/03/22 07:00 Pre-Op Diagnosis: 1. 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 Ulcer of left foot with bone necrosis Post-Op Diagnosis: 1. 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 Ulcer of left foot with bone necrosis Operation Date: 01/07/22 12:20 Pre-Op Diagnosis: Acute Kidney Injury Post-Op Diagnosis: Acute Kidney Injury I identified the patient and participated in the time-out.: Yes Procedure Operation Date: 12/31/21 17:55 <No data on this case meets the specified criteria> Operation Date: 01/01/22 08:20 Actual Procedures p Left 5th Toe Amputation, Right 4th and 5th Ray Amputation(Bilateral) - Raulito Ferrer DPM, Operation Date: 01/03/22 07:00 Actual Procedures p Closure of Bilateral Foot Amputations(Bilateral) - Raulito Ferrer DPM, MS Operation Date: 01/07/22 12:20 Actual Procedures p Insertion of Perm Cath, Right Internal Jugular Approach, Ultrasound Localization of Right Internal Jugular Vein, Fluroscopy for Positioning, Moderate Sedation [id number](Right) - Michele Flanagan MD Surgeon Michele Flanagan MD Conciliator None Estimated Blood Loss 5 Findings Consistent with Post-Op Diagnosis Specimens None Anesthesia Type RN Sedation Complications none Disposition Accompanied Patient To Recovery: No Disposition: Recovery Room Indications This is a 46-year-old gentleman with acute kidney injury in need of dialysis. PermCath was recommended. I have discussed the risks options and benefits of the procedure with the patient. The patient understands the risks options and benefits and agrees to the procedure. Description of Procedure Patient was taken to the angio suite and placed in the supine position. The right side of the neck and chest wall were prepped and draped in a sterile manner. The patient was identified and a timeout performed. Local anesthesia was then administered to the appropriate areas of the neck and chest wall. Ultrasound was then used to locate the right internal jugular vein. The vein compressed easily, had no filing defects, and was patent. The vein was then punctured under direct ultrasound imaging. A guidewire was then passed centrally under fluoroscopic imaging. A stab wound was then made in the anterior chest wall and a 19 cm permcath was passed from the stab wound on the chest wall to the puncture site on the neck. The puncture site was then dilated till the 14Fr peel away sheath was inserted. The permcath was then inserted through the sheath to a central position in the distal superior vena cava. The peel away sheath was then removed. The catheter was then sutured in place using nylon sutures. The puncture was then closed using a 4-0 Vicryl subcuticular suture. Dermabond was used for a dressing on the puncture site. Both ports aspirated and flushed easily and were then packed with heparin. A sterile dressing was applied to the catheter. The patient left the operation room in satisfactory condition and tolerated the procedure well. All needle and sponge counts were correct at the end of the procedure. I attest to the content of the Intraoperative Record and any orders documented therein. Any exceptions are noted below.
--- NOTE | 2022-01-07 12:05 | Hospitalist Progress Note ---
Date of Service January 07, 2022 Assessment & Plan (1) Diabetic foot infection: Plan: Patient is now day 6 s/p bilateral foot surgery, amputation of Gangrenous fifth toes. cultures polymicrobial growth, strep, MSSA Currently on Zosyn, will discontinue daptomycin WBC still elevated, but trending down, patient afebrile. ID on consult. Await recommendations. (2) ESRD (end stage renal disease): Plan: Nephrology follow-up appreciated, CONCEPT ARTIST initiation planned; for permacath tomorrow per vascular On sodium bicarbonate, Phoslo and Rocaltrol. Appreciate nephrology recs (3) Anemia: Plan: Stool positive for occult blood. May also have a component of anemia due to renal disease GI on consult Transfuse if hb<7 (4) Nausea & vomiting: Plan: Resolved (5) Diarrhea: Plan: Liquid stool noted by nursing staff. Recommend sending for c. diff given broad spectrum antibiotic use. Start lactobacillus for presumed antibiotic associated diarrhea May also have a component of pancreatic exocrine insufficiency, will consider pancrealipase (6) Metabolic acidosis: Plan: Due to CKD continue Bicarbonate per Nephrology (7) CAD (coronary artery disease): Plan: As noted by cardiology no convincing angina, continue aspirin, statin, on beta- sarah (8) Chest pain: Plan: Suspect noncardiac, as above (9) CVA, old, ataxia: Plan: severe carotid stenosisvascular surgery evaluation; vascular surgery should be available Thursday and they will be involved for dialysis catheter placement in any case (10) Hypertension: Plan: BP acceptableno change, likely mildly elevated this morning as he missed his morning medications (11) Dyslipidemia: Plan: Continue statin (12) Hematemesis: Plan: None again after 1 episode, continue PPI (13) Carotid stenosis, right: Plan: Plavix on hold; resume when safe, vascular surgery involvement as above (14) DM type 2 (diabetes mellitus, type 2): Plan: Sliding scale, sugars acceptable and initially discontinued however he is highly symptomatic when his glucose levels go > 200 therefore correction factor insulin ordered. (15) Right atrial mass: Plan: ? Significance; endocarditis unlikely, cultures negative; cardiology input appreciated; would not rule out need for ROLAND but would discuss with cardiology; per prior nephrology discussion would not impact tunneled line placement Plan: VTE Prophylaxis - chemical deferred due to hematemesis and need for ongoing blood transfusions Diet - dialysis renal, T2DM Disposition - continued admission to PCU Admission and Anticipated Discharge Date Admission Date: December 31, 2021 Subjective patient seen and examined, looking foward to permacath insertion Review of Systems Review of Systems: All systems reviewed are negative, apart from the ones contained in the history. Physical Exam Physical Exam: The patient is awake, alert and oriented 3, well developed and well nourished, normocephalic and atraumatic, lying in bed and in no acute distress. HEENT--PERRL, EOMI, mucous membranes and oropharynx mildly dry Neck--supple. No JVD. No bruits. Thyroid normal, trachea midline, no adenopathy. Heart--normal S1 and S2. No murmurs, rubs or gallops. Lungs--clear bilaterally, no respiratory distress, no accessory muscle use. Abdomen--normal bowel sounds and soft. Mild epigastric and left sided abdominal pain Extremities--bilateral lower extremities in bandage Dermatologic--normal skin turgor, normal color, no abnormal lymph nodes, no rash. Neurologic--cranial nerves II through XII grossly intact. Rheumatologic--normal range of motion. Psychiatric--normal affect. Results & Data Results & Data ([facility]) Vital Signs (Past 12 Hours) Vital Signs Temp Pulse Pulse Pulse Resp BP Pulse Ox 01/07/22 12:00 66 18 150/79 H 99 01/07/22 11:55 72 18 156/81 H 95 01/07/22 11:50 66 18 176/89 H 95 01/07/22 11:45 67 18 173/88 H 98 01/07/22 11:39 70 18 166/89 H 98 01/07/22 11:20 98.2 F 76 16 169/87 H 99 01/07/22 08:06 65 01/07/22 07:02 97.9 F 68 18 161/85 H 97 01/07/22 03:40 97.9 F 72 18 165/85 H 97 PG Care Time/CCT Total # of Minutes Spent Total Time Spent with Patient: Total time spent is greater than 50% in coordination of care (as documented) at patient's floor/unit and/or counseling patient: Coding Level of Care Code 12512 Subseq Hosp Care Lvl 2 Diagnoses Diabetic foot infection E11.628; L08.9 ESRD (end stage renal disease) N18.6 Anemia D64.9 Anemia type: unspecified type Nausea & vomiting R11.2 Diarrhea R19.7 Metabolic acidosis E87.2 CAD (coronary artery disease) I25.10 Chest pain R07.2 Chest pain type: precordial pain CVA, old, ataxia I69.993 Hypertension I10 Dyslipidemia E78.5 Hematemesis K92.0 Carotid stenosis, right I65.21 DM type 2 (diabetes mellitus, type 2) E11.9 Right atrial mass I51.89 Time Spent (min) 35 (1) Anemia Anemia type: unspecified type Qualified Code(s): D64.9 - Anemia, unspecified (2) Chest pain Chest pain type: precordial pain Qualified Code(s): R07.2 - Precordial pain
[2022-01-07] MEDS: hydrALAZINE HCL 20 MG/ML VIAL IV PRN (17:53)
[2022-01-07] MEDS: ONDANSETRON INJ 2 MG/ML 2 ML VIAL IV PRN (20:34)
[2022-01-08] MEDS: PIPERACILLIN/TAZOBACTAM 3.375 GM in DEXTROSE 5% 100 ML IV SCH ×2 (05:15→17:09)
[2022-01-08] MEDS ORDERED: SODIUM CHLORIDE 0.9% 1000ML 1,000 ML IV PRN (07:00)
[2022-01-08 07:39] LABS: Albumin Globulin Ratio 0.7 (0.9-2); Albumin Level 2.5 gm/dl (3.4-5.0); BUN Creatinine Ratio 6.1 (10-20); Bilirubin,Total 0.2 mg/dl (0.2-1.0); Calcium 6.4 mg/dl (8.5-10.1); Creatinine Clr Calc Pharmacy 8.3 ml/min; Est GFR (African American) 5.4 ml/min; Est GFR (Non-African American) 4.7 ml/min; Globulin 3.6 gm/dl (2.5-4.0); Potassium 3.6 mmol/L (3.5-5.1); Total Protein 6.1 gm/dl (6.0-8.3)
[2022-01-08] MEDS: INSULIN ASPART PER UNIT SC SCH ×4 (07:40→21:12)
--- NOTE | 2022-01-08 08:19 | Nephrology Progress Note ---
Date of Service January 08, 2022 Assessment & Plan (1) ESRD (end stage renal disease): Plan: * ESKD - patient presented in kidney failure. Cause unknown, biopsy not performed. Renal failure is likely due to DKD, vascular disease * R IJ TCC placed 01/07/[address] Flanagan * 1st run HD completed 01/07/22 * 2nd run HD treatment scheduled for later this morning * Will plan on 3rd HD treatment in am and then change to QOD schedule * All HD to date has been heparin free due to recent anemia and FOBT + * Continue Nephrovite daily * Case management has been consulted to set up outpatient HD * Discussed types of vascular access and the process of IHD in detail w/ patient this morning (2) Anemia: Plan: * Hgb is again trending down * Recommend transfusion to maintain Hgb > 8.0 * 1 unit PRBC given 01/04/22 * FOBT + * Recommend consultation w/ GI for EGD due to FOBT+, LUQ abdominal discomfort and recent acute drop in Hgb (3) Right atrial mass: Plan: * Recommend ROLAND * Consider consultation w/ ID regarding duration of antibiotic therapy (4) Chronic kidney disease-mineral and bone disorder: Plan: * Renal diet. Calcium acetate 1 tab QAC. Calcitriol 0.25 mcg daily for sPTH. (5) Carotid stenosis, right: Plan: * Await vascular surgery evaluation Admission and Anticipated Discharge Date Admission Date: December 31, 2021 Subjective Mr. Richardson was evaluated in his hospital room this morning. He reports tenderness at his R IJ TCC site. He tolerated his 1st run HD treatment yesterday without complication. 1 L UF was obtained. Mr. Richardson reinforced his desire to relocate to [place] following his hospitalization to be with his sister Review of Systems Constitutional: + weakness; no fever Eyes: no problem reported Ear, Nose, Mouth, Throat: no problem reported Respiratory: no cough and no dyspnea Cardiovascular: no chest pain, no palpitations and no edema Gastrointestinal: no abdominal pain and no nausea Musculoskeletal: no back pain Integumentary: no rash Neurologic: no confusion Physical Exam Constitutional: + ill appearing and + thin Eyes: PERRL, conjunctivae normal, anicteric sclerae ENMT: external ear and nose normal, oropharynx normal Neck: trachea midline, no thyromegaly R IJ TCC with clean dry dressing in place Respiratory: normal respiratory effort, lungs clear to auscultation Cardiovascular: RRR, no murmur, no edema Gastrointestinal (Abdomen): Inspection/Auscultation: normal bowel sounds Percussion/Palpation: abdomen nontender Neurologic: awake; not confused Results & Data ([facility]) Vital Signs (Past 12 Hours) Vital Signs Temp Pulse Pulse Resp BP Pulse Ox O2 Del Method 01/08/22 07:22 67 01/08/22 04:00 36.8 C 73 18 174/74 H 96 Room Air 01/07/22 23:44 36.8 C 68 18 183/84 H 98 Room Air Laboratory Results Laboratory Tests 01/08/22 06:42 Sodium 140 Potassium 3.6 Chloride 111 H Carbon Dioxide 20 L BUN 70 H D Creatinine 11.44 H* D Glucose 120 H Calcium 6.4 L Albumin 2.5 L PG Care Time/CCT Total # of Minutes Spent Total Time Spent with Patient: Total time spent is greater than 50% in coordination of care (as documented) at patient's floor/unit and/or counseling patient: Coding Level of Care Code 57673 Subseq Hosp Care Lvl 3 Diagnoses ESRD (end stage renal disease) N18.6 Anemia D64.9 Anemia type: unspecified type Right atrial mass I51.89 Chronic kidney disease-mineral and bone disorder N18.9; E83.9; M89.9 Carotid stenosis, right I65.21 (1) Anemia Anemia type: unspecified type Qualified Code(s): D64.9 - Anemia, unspecified
[2022-01-08] MEDS: ATORVASTATIN 40 MG TAB PO SCH (08:33)
[2022-01-08] MEDS: amLODIPine BESYLATE 5 MG TAB PO SCH (08:33)
[2022-01-08] MEDS: carvediloL 6.25 MG TAB PO SCH ×2 (08:33→21:17)
[2022-01-08] MEDS: PANTOprazole 40 MG in SYRINGE 0 ML IV SCH ×2 (08:33→21:17)
[2022-01-08] MEDS: ISOSORBIDE MONO EXTENDED REL 30 MG TABCR PO SCH (08:34)
[2022-01-08] MEDS: CALCITRIOL 0.25 MCG CAPSULE PO SCH (08:34)
[2022-01-08] MEDS: NEPHROCAPS PO SCH (08:34)
[2022-01-08] MEDS: ADVANCED PROBIOTIC 1250 MG CAPSULE PO SCH (08:34)
[2022-01-08] MEDS: ASPIRIN 81 MG ECTAB PO SCH (08:34)
[2022-01-08] MEDS: CALCIUM ACETATE 667 MG CAP/TAB PO SCH ×3 (09:47→17:10)
--- NOTE | 2022-01-08 12:54 | Hospitalist Progress Note ---
Date of Service January 08, 2022 Assessment & Plan (1) Diabetic foot infection: Plan: Patient is now day 6 s/p bilateral foot surgery, amputation of Gangrenous fifth toes. Bilateral foot surgery, partial amputation on 01/01/2022, delayed primary closure due to infection 01/03/2022 Dressing change as needed Per orthopedics, suture removal in 2 weeks cultures polymicrobial growth, strep, MSSA Currently on Zosyn ID on consult. Await recommendations. (2) ESRD (end stage renal disease): Plan: Patient now undergoing hemodialysis through [facility] Scheduled for further hemodialysis today. Patient wishes to move to [place] to be with her sister. Social work trying to establish hemodialysis chair for him (3) Anemia: Plan: Stool positive for occult blood. Received 1 unit of blood a few days ago, hemoglobin beginning to trend down again May also have a component of anemia due to renal disease GI on consult Transfuse if hb<7 (4) Nausea & vomiting: Plan: Resolved (5) Diarrhea: Plan: Liquid stool noted by nursing staff. Recommend sending for c. diff given broad spectrum antibiotic use. Start lactobacillus for presumed antibiotic associated diarrhea May also have a component of pancreatic exocrine insufficiency, will consider pancrealipase (6) Metabolic acidosis: Plan: Due to CKD continue Bicarbonate per Nephrology (7) CAD (coronary artery disease): Plan: As noted by cardiology no convincing angina, continue aspirin, statin, on beta- sarah (8) Chest pain: Plan: Resolved (9) CVA, old, ataxia: Plan: severe carotid stenosisvascular surgery evaluation; vascular surgery should be available Thursday and they will be involved for dialysis catheter placement in any case (10) Hypertension: Plan: BP acceptableno change, likely mildly elevated this morning as he missed his morning medications (11) Dyslipidemia: Plan: Continue statin (12) Hematemesis: Plan: None again after 1 episode, continue PPI (13) Carotid stenosis, right: Plan: Plavix on hold; resume when safe, vascular surgery involvement as above (14) DM type 2 (diabetes mellitus, type 2): Plan: Sliding scale, sugars acceptable and initially discontinued however he is highly symptomatic when his glucose levels go > 200 therefore correction factor insulin ordered. (15) Right atrial mass: Plan: Of questionable significance; endocarditis unlikely, cultures negative; cardiology input appreciated; would not rule out need for ROLAND but would discuss with cardiology; Plan VTE Prophylaxis - chemical deferred due to hematemesis and need for ongoing blood transfusions Diet - dialysis renal, T2DM Disposition - continued admission to PCU Admission and Anticipated Discharge Date Admission Date: December 31, 2021 Review of Systems Review of Systems: All systems reviewed are negative, apart from the ones contained in the history. Physical Exam Physical Exam: The patient is awake, alert and oriented 3, well developed and well nourished, normocephalic and atraumatic, lying in bed and in no acute distress. HEENT--PERRL, EOMI, mucous membranes and oropharynx mildly dry Neck--supple. No JVD. No bruits. Thyroid normal, trachea midline, no adenopathy. Heart--normal S1 and S2. No murmurs, rubs or gallops. Lungs--clear bilaterally, no respiratory distress, no accessory muscle use. Abdomen--normal bowel sounds and soft. Mild epigastric and left sided abdominal pain Extremities--bilateral lower extremities in bandage Dermatologic--normal skin turgor, normal color, no abnormal lymph nodes, no rash. Neurologic--cranial nerves II through XII grossly intact. Rheumatologic--normal range of motion. Psychiatric--normal affect. Results & Data Results & Data ([facility]) Vital Signs (Past 12 Hours) Vital Signs Temp Pulse Pulse Pulse Pulse Resp BP 01/08/22 12:34 61 176/92 H 01/08/22 12:00 62 178/95 H 01/08/22 11:30 60 173/92 H 01/08/22 11:00 67 170/94 H 01/08/22 10:28 97.9 F 65 01/08/22 08:28 98.2 F 71 16 01/08/22 07:22 67 01/08/22 04:00 98.2 F 73 18 BP BP Pulse Ox O2 Del Method 01/08/22 12:34 01/08/22 12:00 01/08/22 11:30 01/08/22 11:00 01/08/22 10:28 01/08/22 08:28 191/98 H 185/89 H 99 Room Air 01/08/22 07:22 01/08/22 04:00 174/74 H 96 Room Air PG Care Time/CCT Total # of Minutes Spent Total Time Spent with Patient: Total time spent is greater than 50% in coordination of care (as documented) at patient's floor/unit and/or counseling patient: Coding Level of Care Code 51641 Subseq Hosp Care Lvl 2 Diagnoses Diabetic foot infection E11.628; L08.9 ESRD (end stage renal disease) N18.6 Anemia D64.9 Anemia type: unspecified type Nausea & vomiting R11.2 Diarrhea R19.7 Metabolic acidosis E87.2 CAD (coronary artery disease) I25.10 Chest pain R07.2 Chest pain type: precordial pain CVA, old, ataxia I69.993 Hypertension I10 Dyslipidemia E78.5 Hematemesis K92.0 Carotid stenosis, right I65.21 DM type 2 (diabetes mellitus, type 2) E11.9 Right atrial mass I51.89 Time Spent (min) 35 (1) Anemia Anemia type: unspecified type Qualified Code(s): D64.9 - Anemia, unspecified (2) Chest pain Chest pain type: precordial pain Qualified Code(s): R07.2 - Precordial pain
--- NOTE | 2022-01-08 14:14 | Communication Note ---
Date of Service: January 08, 2022 GI is consulted for hematemesis. See full consult for same issue earlier during this admission on 12/31/21. ESRD, underwent surgery this admission Chart reviewed: Received transfusions on 12/31, 01/03 and 01/04. Hb today 8.1. BUN 70 (decreasing)/Cr 11.44 BMs documented at [facility], liquid, 1-2 BMs every 1-2 days. Spoke w patient, and his nurse. No gross GI bleeding. Recommend OP EGD/Colonoscopy for anemia. Discussed with DEVON Cervantes. Agree with plan as stated above.
[2022-01-08] MEDS: hydrALAZINE HCL 20 MG/ML VIAL IV PRN (14:58)
[2022-01-09] MEDS: PIPERACILLIN/TAZOBACTAM 3.375 GM in DEXTROSE 5% 100 ML IV SCH ×2 (04:48→15:58)
[2022-01-09] MEDS ORDERED: HEPARIN SOD (PORCINE) 1000 UNIT/ML IV SCH (07:00)
[2022-01-09] MEDS ORDERED: HEPARIN SOD (PORCINE) 1000 UNIT/ML IV ONE (07:00)
[2022-01-09] MEDS ORDERED: SODIUM CHLORIDE 0.9% 1000ML 1,000 ML IV PRN (07:00)
[2022-01-09 07:02] LABS: Hemoglobin 9.2 g/dl (14.0-18.0); Mean Corpuscular Hemoglobin 28.8 pg (25.0-34.0); Mean Corpuscular Hgb Conc 32.9 g/dL (32.0-36.0); Mean Corpuscular Volume 87.5 fL (80.0-100.0); Nucleated RBC # (auto) 0.03 K/uL (0-0); Nucleated RBC % (auto) 0.3 %; Platelet Count 384 K/uL (130-400)
[2022-01-09] MEDS: INSULIN ASPART PER UNIT SC SCH ×4 (07:25→20:32)
--- NOTE | 2022-01-09 08:18 | Nephrology Progress Note ---
Date of Service January 09, 2022 Assessment & Plan (1) ESRD (end stage renal disease): Plan: * ESKD - patient presented in kidney failure. Cause unknown, biopsy not performed. Renal failure is likely due to DKD, vascular disease * R IJ TCC placed 01/07/[address] Flanagan * HD initiated 01/07/22 * Will schedule 4 hour HD treatment for today. No heparin due to recent hematemesis * All HD to date has been heparin free due to recent anemia and FOBT +. Will ask GI whether EGD can be completed as inpatient as patient may have difficulty returning to hospital for evaluation and presence of active GI lesion will affect whether anticoagulation can be used during dialysis vamsi tments * Continue Nephrovite daily * Case management is assisting w/ disposition. Patient wishes to move to [place], [place] upon discharge to be closer to his sister (2) Anemia: Plan: * Recommend transfusion to maintain Hgb > 8.0 * 1 unit PRBC given 01/04/22 * FOBT + * Await GI recommendations re: EGD (3) Right atrial mass: Plan: * Recommend ROLAND * Consider consultation w/ ID regarding duration of antibiotic therapy (4) Chronic kidney disease-mineral and bone disorder: Plan: * Renal diet. Calcium acetate 1 tab QAC. Calcitriol 0.25 mcg daily for sPTH. (5) Carotid stenosis, right: Plan: * Await vascular surgery evaluation Admission and Anticipated Discharge Date Admission Date: December 31, 2021 Subjective Mr. Richardson was evaluated in his hospital room this morning. He completed his 2nd dialysis treatment without complication. He voiced no new medical concerns. Review of Systems Constitutional: + weakness; no fever Eyes: no problem reported Ear, Nose, Mouth, Throat: no problem reported Respiratory: no cough and no dyspnea Cardiovascular: no chest pain, no palpitations and no edema Gastrointestinal: no abdominal pain and no nausea Musculoskeletal: no back pain Integumentary: no rash Neurologic: no confusion Physical Exam Constitutional: + ill appearing and + thin Eyes: PERRL, conjunctivae normal, anicteric sclerae ENMT: external ear and nose normal, oropharynx normal Neck: trachea midline, no thyromegaly R IJ TCC with clean dry dressing in place Respiratory: normal respiratory effort, lungs clear to auscultation Cardiovascular: RRR, no murmur, no edema Gastrointestinal (Abdomen): Inspection/Auscultation: normal bowel sounds Percussion/Palpation: abdomen nontender Neurologic: awake; not confused Results & Data ([facility]) Vital Signs (Past 12 Hours) Vital Signs Temp Pulse Pulse Pulse Resp BP Pulse Ox 01/09/22 07:00 36.6 C 72 17 164/80 H 98 01/09/22 00:00 73 01/09/22 03:33 36.6 C 65 19 152/68 H 98 01/08/22 23:14 36.6 C 63 16 163/80 H 98 O2 Del Method 01/09/22 07:00 Room Air 01/09/22 00:00 01/09/22 03:33 Room Air 01/08/22 23:14 Room Air Laboratory Results Laboratory Tests 01/08/22 01/09/22 06:42 05:49 WBC 9.10 Hgb 9.2 L Hct 28.0 L Plt Count 384 Sodium 140 Potassium 3.6 Chloride 111 H Carbon Dioxide 20 L BUN 70 H D Creatinine 11.44 H* D Glucose 120 H PG Care Time/CCT Total # of Minutes Spent Total Time Spent with Patient: Total time spent is greater than 50% in coordination of care (as documented) at patient's floor/unit and/or counseling patient: Coding Level of Care Code 11306 Subseq Hosp Care Lvl 3 Diagnoses ESRD (end stage renal disease) N18.6 Anemia D64.9 Anemia type: unspecified type Right atrial mass I51.89 Chronic kidney disease-mineral and bone disorder N18.9; E83.9; M89.9 Carotid stenosis, right I65.21 (1) Anemia Anemia type: unspecified type Qualified Code(s): D64.9 - Anemia, unspecified
[2022-01-09] MEDS: ATORVASTATIN 40 MG TAB PO SCH (08:53)
[2022-01-09 08:55] LABS: BUN Creatinine Ratio 5.6 (10-20); Calcium 6.7 mg/dl (8.5-10.1); Creatinine Clr Calc Pharmacy 12.8 ml/min; Est GFR (African American) 9.3 ml/min; Potassium 3.5 mmol/L (3.5-5.1)
[2022-01-09] MEDS: NEPHROCAPS PO SCH (08:55)
[2022-01-09] MEDS: CALCIUM ACETATE 667 MG CAP/TAB PO SCH ×3 (08:55→16:18)
--- NOTE | 2022-01-09 08:55 | Gastroenterology Progress Note ---
Date of Service January 09, 2022 Assessment & Plan (1) Anemia: Plan: Acute on chronic normalcytic anemia. Likely multifactorial. Plan Will plan for EGD by Dr. Hernandez tomorrow. Recommend colonoscopy for anemia. Explained in detail to the pt. He refuses colonoscopy - not willing to undergo prep. Admission and Anticipated Discharge Date Admission Date: December 31, 2021 Supervising Physician Co-Signing Physician Notes Late entry: Patient was seen and examined on 01/09 with DEVON Cervantes whose note reflects our findings and plan. Subjective 46 yr old male w ESRD on dialysis,CAD S/P MIs and stenting. Today, asked by nephrology to reconsider IP endoscopy to r/o GI contribution to transfusion requiring anemia. Per nephrology, pt is homeless and very unlikely to present for OP endoscopy. Though initial consult last week for hematemesis, denies recent hematemesis and denies melena. On Plavix which has been held since admission. Continues on ASA 81 mg daily. Review of Systems Constitutional: + sweats and + weakness Ear, Nose, Mouth, Throat: no sore throat, no dysphagia and no pain with swallowing Respiratory: no cough, no chest congestion and no dyspnea on exertion Cardiovascular: no chest pain and no palpitations Gastrointestinal: no nausea, no vomiting and no melena Musculoskeletal: + joint pain (bilat foot partial amputations this admission) Physical Exam Constitutional: + ill appearing (chronically) and + thin; no acute distress Eyes: PERRL, conjunctivae normal, anicteric sclerae ENMT: external ear and nose normal, oropharynx normal Neck: trachea midline, no thyromegaly Respiratory: normal respiratory effort, lungs clear to auscultation Cardiovascular: RRR, no murmur, no edema Gastrointestinal (Abdomen): normal bowel sounds, soft, nontender, no hepatosplenomegaly Results & Data ([facility]) Vital Signs (Past 12 Hours) Vital Signs Temp Pulse Pulse Pulse Resp BP Pulse Ox 01/09/22 07:00 36.6 C 72 17 164/80 H 98 01/09/22 00:00 73 01/09/22 03:33 36.6 C 65 19 152/68 H 98 01/08/22 23:14 36.6 C 63 16 163/80 H 98 O2 Del Method 01/09/22 07:00 Room Air 01/09/22 00:00 01/09/22 03:33 Room Air 01/08/22 23:14 Room Air Laboratory Results WBC 9, Hb 9.2, Hct 28, Plys 384, Na 138, K 3.5, Cl 107, CO2 23, BUN 41, Cr 7.3, glucose 148. (1) Anemia Anemia type: unspecified type Qualified Code(s): D64.9 - Anemia, unspecified
[2022-01-09] MEDS: CALCITRIOL 0.25 MCG CAPSULE PO SCH (08:56)
[2022-01-09] MEDS: ADVANCED PROBIOTIC 1250 MG CAPSULE PO SCH (08:56)
[2022-01-09] MEDS: PANTOprazole 40 MG in SYRINGE 0 ML IV SCH ×2 (08:57→20:32)
[2022-01-09] MEDS: ASPIRIN 81 MG ECTAB PO SCH (08:57)
[2022-01-09] MEDS: amLODIPine BESYLATE 5 MG TAB PO SCH (09:23)
[2022-01-09] MEDS: ISOSORBIDE MONO EXTENDED REL 30 MG TABCR PO SCH (09:23)
[2022-01-09] MEDS: carvediloL 6.25 MG TAB PO SCH ×2 (09:23→20:32)
[2022-01-09] MEDS: ONDANSETRON INJ 2 MG/ML 2 ML VIAL IV PRN (09:53)
[2022-01-09] MEDS ORDERED: INSULIN HUMAN REGULAR SC ONE (10:02)
[2022-01-09] MEDS ORDERED: INSULIN ASPART PER UNIT SC STA (10:26)
[2022-01-09] MEDS ORDERED: INSULIN HUMAN REGULAR SC SCH (11:30)
--- NOTE | 2022-01-09 12:05 | Hospitalist Progress Note ---
Date of Service January 09, 2022 Assessment & Plan (1) Diabetic foot infection: Plan: Patient is now day 8 s/p bilateral foot surgery, amputation of Gangrenous fifth toes. Bilateral foot surgery, partial amputation on 01/01/2022, delayed primary closure due to infection 01/03/2022 Dressing change as needed Per orthopedics, suture removal in 2 weeks cultures polymicrobial growth, strep, MSSA Currently on Zosyn, will discharge on PO antibiotics Patient has been afebrile, wbc wnl Per Podiatry, patient will need diabetic shoes with custon moulded orthotics when he gets to [place], but can mange with post shoes in the meantime ID on consult. Await recommendations. (2) ESRD (end stage renal disease): Plan: Patient now undergoing hemodialysis through [facility] Scheduled for further hemodialysis today. Patient wishes to move to [place] to be with her sister. Social work trying to establish hemodialysis chair for him (3) Anemia: Plan: Stool positive for occult blood. Received 1 unit of blood a few days ago, hemoglobin beginning to trend down again May also have a component of anemia due to renal disease GI on consult, plan for EGD Transfuse if hb<7 (4) Nausea & vomiting: Plan: Resolved (5) Diarrhea: Plan: Liquid stool noted by nursing staff. Recommend sending for c. diff given broad spectrum antibiotic use. Start lactobacillus for presumed antibiotic associated diarrhea May also have a component of pancreatic exocrine insufficiency, will consider pancrealipase (6) Right atrial mass: Plan: Of questionable significance; endocarditis unlikely, blood cultures negative; I dont think we need ROLAND (7) Metabolic acidosis: Plan: Due to CKD continue Bicarbonate per Nephrology (8) CAD (coronary artery disease): Plan: As noted by cardiology no convincing angina, continue aspirin, statin, on beta- sarah (9) Chest pain: Plan: Resolved (10) CVA, old, ataxia: Plan: severe carotid stenosisvascular surgery evaluation; vascular surgery should be available Thursday and they will be involved for dialysis catheter placement in any case (11) Hypertension: Plan: BP acceptableno change, likely mildly elevated this morning as he missed his morning medications (12) Dyslipidemia: Plan: Continue statin (13) Hematemesis: Plan: None again after 1 episode, continue PPI (14) Carotid stenosis, right: Plan: Plavix on hold; resume when safe, vascular surgery involvement as above (15) DM type 2 (diabetes mellitus, type 2): Plan: Sliding scale, sugars acceptable and initially discontinued however he is highly symptomatic when his glucose levels go > 200 therefore correction factor insulin ordered. Plan VTE Prophylaxis - chemical deferred due to hematemesis and need for ongoing blood transfusions Diet - dialysis renal, T2DM Disposition - continued admission to PCU Admission and Anticipated Discharge Date Admission Date: December 31, 2021 Subjective patient seen and examined, tolerating HD, will go for another session today Review of Systems Review of Systems: All systems reviewed are negative, apart from the ones contained in the history. Physical Exam Physical Exam: The patient is awake, alert and oriented 3, well developed and well nourished, normocephalic and atraumatic, lying in bed and in no acute distress. HEENT--PERRL, EOMI, mucous membranes and oropharynx mildly dry Neck--supple. No JVD. No bruits. Thyroid normal, trachea midline, no adenopathy. Heart--normal S1 and S2. No murmurs, rubs or gallops. Lungs--clear bilaterally, no respiratory distress, no accessory muscle use. Abdomen--normal bowel sounds and soft. Mild epigastric and left sided abdominal pain Extremities--bilateral lower extremities in bandage Dermatologic--normal skin turgor, normal color, no abnormal lymph nodes, no rash. Neurologic--cranial nerves II through XII grossly intact. Rheumatologic--normal range of motion. Psychiatric--normal affect. Results & Data Results & Data ([facility]) Vital Signs (Past 12 Hours) Vital Signs Temp Pulse Pulse Pulse Resp BP BP 01/09/22 11:00 74 163/87 H 01/09/22 10:30 63 180/90 H 01/09/22 10:45 80 175/82 H 01/09/22 10:28 63 01/09/22 10:15 87 182/86 H 01/09/22 10:09 88 182/90 H 01/09/22 09:45 98.6 F 66 01/09/22 07:00 97.9 F 72 17 164/80 H 01/09/22 00:00 73 01/09/22 03:33 97.9 F 65 19 152/68 H Pulse Ox O2 Del Method 01/09/22 11:00 01/09/22 10:30 01/09/22 10:45 01/09/22 10:28 01/09/22 10:15 01/09/22 10:09 01/09/22 09:45 01/09/22 07:00 98 Room Air 01/09/22 00:00 01/09/22 03:33 98 Room Air PG Care Time/CCT Total # of Minutes Spent Total Time Spent with Patient: Total time spent is greater than 50% in coordination of care (as documented) at patient's floor/unit and/or counseling patient: Coding Level of Care Code 36976 Subseq Hosp Care Lvl 2 Diagnoses Diabetic foot infection E11.628; L08.9 ESRD (end stage renal disease) N18.6 Anemia D64.9 Anemia type: unspecified type Nausea & vomiting R11.2 Diarrhea R19.7 Right atrial mass I51.89 Metabolic acidosis E87.2 CAD (coronary artery disease) I25.10 Chest pain R07.2 Chest pain type: precordial pain CVA, old, ataxia I69.993 Hypertension I10 Dyslipidemia E78.5 Hematemesis K92.0 Carotid stenosis, right I65.21 DM type 2 (diabetes mellitus, type 2) E11.9 Time Spent (min) 35 (1) Anemia Anemia type: unspecified type Qualified Code(s): D64.9 - Anemia, unspecified (2) Chest pain Chest pain type: precordial pain Qualified Code(s): R07.2 - Precordial pain
[2022-01-09] MEDS: hydrALAZINE HCL 20 MG/ML VIAL IV PRN (15:58)
[2022-01-10] MEDS: PIPERACILLIN/TAZOBACTAM 3.375 GM in DEXTROSE 5% 100 ML IV SCH ×2 (03:34→17:00)
[2022-01-10] MEDS ORDERED: Nursing to Pharmacy Communication SCH ×2 (05:45→20:00)
[2022-01-10] MEDS: INSULIN ASPART PER UNIT SC SCH ×3 (06:17→17:09)
[2022-01-10 07:24] LABS: BUN Creatinine Ratio 4.1 (10-20); Calcium 6.9 mg/dl (8.5-10.1); Est GFR (African American) 11.7 ml/min; Est GFR (Non-African American) 10.1 ml/min; Potassium 3.4 mmol/L (3.5-5.1)
--- NOTE | 2022-01-10 08:20 | Nephrology Progress Note ---
Date of Service January 10, 2022 Assessment & Plan (1) ESRD (end stage renal disease): Plan: * ESKD - patient presented in kidney failure. Cause unknown, biopsy not performed. Renal failure is likely due to DKD, vascular disease * R IJ TCC placed 01/07/[address] Flanagan * HD initiated 01/07/22 * Will schedule HD treatment for Thursday. No heparin due to recent hematemesis * All HD to date has been heparin free due to recent anemia and FOBT +. GI has scheduled EGD this am * Continue Nephrovite daily * Case management is assisting w/ disposition. Patient wishes to move to [place], [place] upon discharge to be closer to his sister (2) Anemia: Plan: * Recommend transfusion to maintain Hgb > 8.0 * 1 unit PRBC given 01/04/22 * FOBT + * Await EGD results (3) Right atrial mass: Plan: * Recommend ROLAND * Consider consultation w/ ID regarding duration of antibiotic therapy (4) Chronic kidney disease-mineral and bone disorder: Plan: * Renal diet. Calcium acetate 1 tab QAC. Calcitriol 0.25 mcg daily for sPTH. (5) Carotid stenosis, right: Plan: * Await vascular surgery evaluation - possibly chronic occlusion Admission and Anticipated Discharge Date Admission Date: December 31, 2021 Subjective Mr. Richardson was evaluated in his hospital room this morning. He completed his 3rd dialysis treatment without complication. He voiced no new medical concerns. He is awaiting EGD. Review of Systems Constitutional: + weakness; no fever Eyes: no problem reported Ear, Nose, Mouth, Throat: no problem reported Respiratory: no cough and no dyspnea Cardiovascular: no chest pain, no palpitations and no edema Gastrointestinal: no abdominal pain and no nausea Musculoskeletal: no back pain Integumentary: no rash Neurologic: no confusion Psychiatric: no problem reported Endocrine: no problem reported Hematologic / Lymphatic: no problem reported Physical Exam Constitutional: + ill appearing and + thin Eyes: PERRL, conjunctivae normal, anicteric sclerae ENMT: external ear and nose normal, oropharynx normal Neck: trachea midline, no thyromegaly Respiratory: normal respiratory effort, lungs clear to auscultation Cardiovascular: RRR, no murmur, no edema Gastrointestinal (Abdomen): Inspection/Auscultation: normal bowel sounds Percussion/Palpation: abdomen nontender and no guarding Neurologic: awake; not confused Results & Data ([facility]) Vital Signs (Past 12 Hours) Vital Signs Temp Pulse Pulse Resp BP Pulse Ox O2 Del Method 01/10/22 07:25 36.7 C 68 17 171/87 H 98 Room Air 01/10/22 04:10 37.0 C 73 18 171/88 H 97 Room Air 01/10/22 00:00 63 01/10/22 00:02 36.8 C 72 16 177/80 H 97 Room Air Laboratory Results Laboratory Tests 01/08/22 01/09/22 01/10/22 06:42 05:49 06:19 WBC 9.10 Hgb 9.2 L Hct 28.0 L Plt Count 384 Sodium 140 Potassium 3.4 L Chloride 108 H Carbon Dioxide 26 BUN 25 H Creatinine 6.03 H* D Calcium 6.9 L Albumin 2.5 L PG Care Time/CCT Total # of Minutes Spent Total Time Spent with Patient: Total time spent is greater than 50% in coordination of care (as documented) at patient's floor/unit and/or counseling patient: Coding Level of Care Code 94632 Subseq Hosp Care Lvl 3 Diagnoses ESRD (end stage renal disease) N18.6 Anemia D64.9 Anemia type: unspecified type Right atrial mass I51.89 Chronic kidney disease-mineral and bone disorder N18.9; E83.9; M89.9 Carotid stenosis, right I65.21 (1) Anemia Anemia type: unspecified type Qualified Code(s): D64.9 - Anemia, unspecified
[2022-01-10] MEDS: amLODIPine BESYLATE 5 MG TAB PO SCH (09:07)
[2022-01-10] MEDS: ISOSORBIDE MONO EXTENDED REL 30 MG TABCR PO SCH (09:07)
[2022-01-10] MEDS: carvediloL 6.25 MG TAB PO SCH ×2 (09:08→21:11)
[2022-01-10] MEDS: PANTOprazole 40 MG in SYRINGE 0 ML IV SCH ×2 (09:08→22:06)
[2022-01-10] MEDS: CALCIUM ACETATE 667 MG CAP/TAB PO SCH ×3 (09:19→17:14)
--- NOTE | 2022-01-10 10:26 | Anesthesiology Consultation ---
Date of Service January 10, 2022 Assessment & Plan ASA ASA3 Proposed Anesthesia Anesthesia Type: MAC Risk / Benefits Reviewed With: PT / POA / Parent / Guardian, Accepts Plan and Informed Consent Obtained History Surgery Operation Date: 12/31/21 17:55 Proposed Procedures p Left 5th Toe Amputation, Right 4th & 5th Ray Amputation - Raulito Ferrer DPM, [place] Operation Date: 01/01/22 08:20 Proposed Procedures p Left 5th Toe Amputation, Right 4th and 5th Ray Amputation - Raulito Ferrer DPM, MS Operation Date: 01/03/22 07:00 Proposed Procedures p Closure of Bilateral Foot Amputations - Raulito Ferrer DPM, MS Operation Date: 01/07/22 12:20 Proposed Procedures p Perm Catheter Placement - Michele Flanagan MD Operation Date: 01/10/22 16:30 Proposed Procedures p Esophagogastroduodenoscopy Dr David Hernandez, Height/Weight Height: 5 ft 11 in Weight: 70.6 kg Allergies Allergy/AdvReac Type Severity Reaction Status Date / Time No Known Allergies Allergy Verified 12/31/21 00:58 Medications Home Medications Medication Instructions Recorded Confirmed Last Taken amlodipine 10 mg tablet 10 mg PO DAILY 12/31/21 12/31/21 Unknown aspirin 81 mg tablet,delayed 81 mg PO DAILY 12/31/21 12/31/21 Unknown release atorvastatin 40 mg tablet 40 mg PO DAILY 12/31/21 12/31/21 Unknown carvedilol 6.25 mg tablet 6.25 mg PO BID 12/31/21 12/31/21 Unknown clopidogrel 75 mg tablet (Plavix) 75 mg PO DAILY 12/31/21 12/31/21 Unknown isosorbide mononitrate 30 mg 30 mg PO DAILY 12/31/21 12/31/21 Unknown tablet,extended release 24 hr losartan 25 mg tablet 25 mg PO DAILY 12/31/21 12/31/21 Unknown Active Medications Generic Name Dose Route Start Last Admin Trade Name Freq PRN Reason Stop Dose Admin Hydrocodone Bitart/Acetaminophen 1 tab 01/05/22 16:05 01/05/22 16:29 Hydrocodone/Acetamophen 5/325mg Tab PO 01/19/22 16:04 1 tab Q6H PRN Administration Pain Amlodipine Besylate 10 mg 12/31/21 09:00 01/10/22 09:07 Amlodipine Besylate 5 Mg Tab PO 01/30/22 08:59 10 mg DAILY TALIB Administration Aspirin 81 mg 12/31/21 09:00 01/09/22 08:57 Aspirin 81 Mg Ectab PO 01/30/22 08:59 81 mg DAILY TALIB Administration Atorvastatin Calcium 40 mg 12/31/21 09:00 01/09/22 08:53 Atorvastatin 40 Mg Tab PO 01/30/22 08:59 40 mg DAILY TALIB Administration Calcitriol 0.25 mcg 01/01/22 09:00 01/09/22 08:56 Calcitriol 0.25 Mcg Capsule PO 01/31/22 08:59 0.25 mcg QAM TALIB Administration Calcium Acetate 667 mg 12/31/21 17:00 01/10/22 09:19 Calcium Acetate 667 Mg Cap/Tab PO 01/30/22 16:59 Not Given TIDM TALIB Carvedilol 6.25 mg 12/31/21 09:00 01/10/22 09:08 Carvedilol 6.25 Mg Tab PO 01/30/22 08:59 6.25 mg BID TALIB Administration Hydralazine HCl 5 mg 01/04/22 12:44 01/09/22 15:58 Hydralazine Hcl 20 Mg/Ml Vial IV 01/30/22 03:29 5 mg Q8H PRN Administration SBP > 180 Piperacillin Sod/Tazobactam 115 mls @ 28.75 mls/hr 12/31/21 16:00 01/10/22 07:42 Sod 3.375 gm/ Dextrose IV 02/11/22 15:59 Infused Q12H TALIB Infusion Protocol Pantoprazole Sodium 40 mg/ 10 mls @ 5 mls/min 12/31/21 09:00 01/10/22 09:08 Syringe IV 01/30/22 08:59 5 mls/min BID TALIB Administration Insulin Aspart 0 units 01/10/22 06:00 01/10/22 06:17 Insulin Aspart Per Unit SC 02/09/22 05:59 Not Given Q6 TALIB Isosorbide Mononitrate 30 mg 12/31/21 09:00 01/10/22 09:07 Isosorbide [place] Extended Rel 30 Mg Tabcr PO 01/30/22 08:59 30 mg DAILY TALIB Administration Lactobacillus Acidophilus 2 cap 01/04/22 13:00 01/09/22 08:56 Advanced Probiotic 1250 Mg Capsule PO 02/03/22 12:59 2 cap DAILY TALIB Administration Ondansetron HCl 4 mg 12/31/21 20:16 01/09/22 09:53 Ondansetron Inj 2 Mg/Ml 2 Ml Vial IV 01/30/22 20:15 4 mg Q6H PRN Administration Nausea Vitamin B Complex/Folic Acid 1 cap 01/08/22 09:00 01/09/22 08:55 Nephrocaps PO 02/07/22 08:59 1 cap QAM TALIB Administration NPO Date Last Intake of Fluids: 01/06/22 Time Last Intake of Fluids: 22:00 Last Intake of Fluids Comment: sip of water 0830 w/meds Date Last Intake of Solids: 01/06/22 Time Last Intake of Solids: 22:00 Past Medical History Medical History CAD (coronary artery disease) Carotid artery stenosis Chronic kidney disease CVA, old, ataxia Dyslipidemia Hypertension Peripheral arterial disease Past Surgical History Surgical History S/P coronary artery stent placement Social History Smoking Status: Former smoker tobacco type: cigarettes Do You Dip or Chew Tobacco: No Hx Alcohol Use: No Hx Substance Use: No substance use type: does not use Physical Exam Vital Signs Last Vital Signs Temp 36.7 C 01/10/22 07:25 Pulse 70 01/10/22 08:55 Resp 17 01/10/22 07:25 BP 171/87 H 01/10/22 07:25 Pulse Ox 98 01/10/22 07:25 O2 Del Method 01/10/22 07:25 O2 Flow Rate 0 01/07/22 12:00 ENMT Mouth: no TMJ abnormality and no dentition abnormality Thyromental Distance: > or= 3.5 Finger Breadths Mallampati Class: II Neck neck extension not limited Respiratory normal respiratory effort; no respiratory distress Auscultation: lungs clear to auscultation bilaterally Cardiovascular Rate/Rhythm: regular rate and regular rhythm Neurologic moves all extremities Psychiatric Orientation: alert and oriented x 3 Testing Laboratory Results 01/09/22 05:49 01/10/22 06:19 PT 11.2 Seconds (9.0-12.0) 01/07/22 06:05 INR 1.1 (0.9-1.1) 01/07/22 06:05 Hemoglobin A1c 6.1 % (4.5-5.6) H 12/31/21 06:59 Urine Color Yellow 01/01/22 06:15 Urine Appearance Cloudy (Clear) A 01/01/22 06:15 Urine pH 5.0 (4.5-7.5) 01/01/22 06:15 Ur Specific [place] 1.015 (1.000-1.030) 01/01/22 06:15 Urine Protein 3+ (Negative) H 01/01/22 06:15 Urine Glucose (UA) Trace (Negative) H 01/01/22 06:15 Urine Ketones Negative (Negative) 01/01/22 06:15 Urine Nitrite Negative (Negative) 01/01/22 06:15 Ur Leukocyte Esterase Negative (Negative) 01/01/22 06:15 Urine WBC (Auto) 5-10 /hpf (0-5) H 01/01/22 06:15 Urine RBC (Auto) 5-10 /hpf (0-4) H 01/01/22 06:15 U Hyaline Cast (Auto) 1-5 /lpf (0-5) 01/01/22 06:15 U Epithel Cells (Auto) >30 /lpf (0-5) H 01/01/22 06:15 Urine Bacteria (Auto) Negative (Negative) 01/01/22 06:15 Blood Type O Positive 01/04/22 13:00 Antibody Screen NEGATIVE 01/04/22 13:00 12/31/21 07:31 Aerobic Blood Culture - Final Blood No growth in Aerobic bottle after 5 days. Anaerobic Blood Culture - Final No growth in Anaerobic bottle after 5 days. 12/31/21 07:31 Aerobic Blood Culture - Final Blood No growth in Aerobic bottle after 5 days. Anaerobic Blood Culture - Final No growth in Anaerobic bottle after 5 days. 01/01/22 18:12 Gram Stain - Final Foot,Right Deep Wound Culture - Final Group C Beta Strep Non-delivery rep species Staphylococcus aureus 01/01/22 18:12 Gram Stain - Final Foot,Left Deep Wound Culture - Final Group C Beta Strep Staphylococcus aureus 01/10/22 01/10/22 06:05 00:01 POC Glucose 98 230 H Electrocardiogram Date: 12/30/21 Findings: + NSR @ Possible Left atrial enlargement T wave abnormality, consider lateral ischemia Abnormal ECG Chest X-Ray Date: 12/30/21 Findings: + NAD Echocardiogram Date: 12/31/21 EF: 60 LV Function: normal Valvular Disease: + no significant valvular disease
--- NOTE | 2022-01-10 10:44 | History & Physical Bridge Note ---
Date of Service January 10, 2022 History & Physical Bridge Note I have examined the patient, reviewed the History & Physical and in the interval since the performance of the History & Physical I have noted the following changes of clinical significance: no changes noted
--- NOTE | 2022-01-10 10:57 | Communication Note ---
Date of Service: January 10, 2022 The patient underwent upper endoscopy this afternoon. The endoscopy was notable for several small gastric polyps which are likely benign fundic polyps. Bio psies were obtained from the small intestine and stomach and gastric polyps. History of anemia would recommend an outpatient colonoscopy, please call with any questions or concerns GI to sign off
--- NOTE | 2022-01-10 10:59 | GI REPORT ---
Patient Name: Raulito Richardson Procedure Date: 01/10/2022 10:34 AM Date of : 1975 Admit Type: Inpatient Age: 46 Gender: Male Attending MD: Gm Hernandez DO Procedure: Upper GI endoscopy Providers: Gm Hernandez DO Referring MD: Mario Watts Md Indications: Unexplained iron deficiency anemia Medicines: Monitored Anesthesia Care Complications: No immediate complications. Estimated blood loss: Minimal. Estimated Blood Loss: Estimated blood loss was minimal. Procedure: Pre-Anesthesia Assessment: - Prior to the procedure, a History and Physical was performed, and patient medications, allergies and sensitivities were reviewed. The patient's tolerance of previous anesthesia was reviewed. - The risks and benefits of the procedure and the sedation options and risks were discussed with the patient. All questions were answered and informed consent was obtained. - Patient identification and proposed procedure were verified prior to the procedure by the physician, the nurse and the business line controller. The procedure was verified in the procedure room. - Pre-procedure physical examination revealed no contraindications to sedation. - ASA Grade Assessment: III - A patient with severe systemic disease. - After reviewing the risks and benefits, the patient was deemed in satisfactory condition to undergo the procedure. - The anesthesia plan was to use monitored anesthesia care (MAC). - Immediately prior to administration of medications, the patient was re-assessed for adequacy to receive sedatives. - The heart rate, respiratory rate, oxygen saturations, blood pressure, adequacy of pulmonary ventilation, and response to care were monitored throughout the procedure. - The physical status of the patient was re-assessed after the procedure. After obtaining informed consent, the endoscope was passed under direct vision. Throughout the procedure, the patient's blood pressure, pulse, and oxygen saturations were monitored continuously. The Endoscope was introduced through the mouth, and advanced to the third part of duodenum. The upper GI endoscopy was accomplished without difficulty. The patient tolerated the procedure well. Findings: The examined esophagus was normal. The Z-line was regular and was found 38 cm from the incisors. A few 4 to 5 mm semi-sessile polyps with no bleeding and no stigmata of recent bleeding were found in the gastric body. Biopsies were taken with a cold forceps for histology. The pathology specimen was placed into Bottle C. Estimated blood loss was minimal. Normal mucosa was found in the entire examined stomach. Biopsies were taken with a cold forceps for histology. The pathology specimen was placed into Bottle B. Estimated blood loss was minimal. The examined duodenum was normal. Biopsies were taken with a cold forceps for histology. The pathology specimen was placed into Bottle A. Estimated blood loss was minimal. Impression: - Normal esophagus. - Z-line regular, 38 cm from the incisors. - A few gastric polyps. Biopsied. - Normal mucosa was found in the entire stomach. Biopsied. - Normal examined duodenum. Biopsied. Recommendation: - [facility] care. - Advance diet as tolerated. - Await pathology results. Gm Hernandez D.O. Gm Hernandez, 01/10/2022 10:59:28 AM This report has been signed electronically. Note Initiated On: 01/10/2022 10:34 AM Number of Addenda: 0 I attest to the content of the Intraoperative Record and orders documented therein, exceptions below {[id number]}
--- NOTE | 2022-01-10 11:32 | Anesthesiology Progress Note ---
Date of Service January 10, 2022 Anesthesia Post Procedure Vital Signs Vital Signs: Temp Pulse Pulse Pulse Resp BP BP 01/10/22 11:26 60 18 156/83 H 01/10/22 11:16 60 18 140/81 01/10/22 11:00 67 18 152/79 H 01/10/22 08:55 70 01/10/22 07:25 36.7 C 68 17 01/10/22 04:10 37.0 C 73 18 01/10/22 00:00 63 01/10/22 00:02 36.8 C 72 16 01/09/22 19:47 36.7 C 65 16 01/09/22 15:43 36.7 C 67 20 185/83 H 01/09/22 14:15 36.9 C 64 01/09/22 14:00 61 174/90 H 01/09/22 13:30 64 182/93 H 01/09/22 13:00 63 182/93 H 01/09/22 12:30 64 163/90 H 01/09/22 12:00 75 165/93 H BP Pulse Ox O2 Del Method 01/10/22 11:26 99 Room Air 01/10/22 11:16 98 Room Air 01/10/22 11:00 99 Room Air 01/10/22 08:55 01/10/22 07:25 171/87 H 98 Room Air 01/10/22 04:10 171/88 H 97 Room Air 01/10/22 00:00 01/10/22 00:02 177/80 H 97 Room Air 01/09/22 19:47 175/77 H 97 Room Air 01/09/22 15:43 99 Room Air 01/09/22 14:15 168/78 H 01/09/22 14:00 01/09/22 13:30 01/09/22 13:00 01/09/22 12:30 01/09/22 12:00 Transfer of Care Handoff Completed per policy Notes Mental Status: alert / awake / arousable and participated in evaluation Patient Amnestic to Procedure: Yes Nausea / Vomiting: adequately controlled Pain: adequately controlled Airway Patency, RR, SpO2: stable & adequate BP & HR: stable & adequate Hydration State: stable & adequate Anesthetic Complications: no major complications apparent and Pt Satisfied with anesthetic care
--- NOTE | 2022-01-10 11:48 | Hospitalist Progress Note ---
Date of Service January 10, 2022 Assessment & Plan (1) Diabetic foot infection: Plan: Patient is now day 9 s/p bilateral foot surgery, amputation of Gangrenous fifth toes. Bilateral foot surgery, partial amputation on 01/01/2022, delayed primary closure due to infection 01/03/2022 Dressing change as needed Per orthopedics, suture removal in 2 weeks after revision cultures polymicrobial growth, strep, MSSA Currently on Zosyn, will discharge on PO antibiotics Patient has been afebrile, wbc wnl Per Podiatry, patient will need diabetic shoes with custom moulded orthotics when he gets to [place], but can mange with post shoes in the meantime ID on consult. Await recommendations. (2) ESRD (end stage renal disease): Plan: Patient now undergoing hemodialysis through [facility] Scheduled for further hemodialysis today. Patient wishes to move to [place] to be with her sister. Social work trying to establish hemodialysis chair for him (3) Anemia: Plan: Stool positive for occult blood. Received 1 unit of blood a few days ago, hemoglobin stable May also have a component of anemia due to renal disease EGD did not show any bleeding ulcer, just some polyps which were biopsied Transfuse if hb<7 (4) Nausea & vomiting: Plan: Resolved (5) Diarrhea: Plan: Sporadic diarrhea May also have a component of pancreatic exocrine insufficiency, will consider pancrelipase (6) Right atrial mass: Plan: Of questionable significance; endocarditis unlikely, blood cultures negative; I dont think we need ROLAND (7) Metabolic acidosis: Plan: Resolved (8) CAD (coronary artery disease): Plan: As noted by cardiology no convincing angina, continue aspirin, statin, on beta- sarah (9) Chest pain: Plan: Resolved (10) CVA, old, ataxia: Plan: severe carotid stenosisvascular surgery evaluation; vascular surgery should be available Thursday and they will be involved for dialysis catheter placement in any case (11) Hypertension: Plan: BP acceptableno change, likely mildly elevated this morning as he missed his morning medications (12) Dyslipidemia: Plan: Continue statin (13) Hematemesis: Plan: None again after 1 episode, continue PPI (14) Carotid stenosis, right: Plan: Plavix on hold; resume upon discharge (15) DM type 2 (diabetes mellitus, type 2): Plan: Sliding scale, sugars acceptable and initially discontinued however he is highly symptomatic when his glucose levels go > 200 therefore correction factor insulin ordered. Plan VTE Prophylaxis - chemical deferred due to hematemesis and need for ongoing blood transfusions Diet - dialysis renal, T2DM Disposition - continued admission to PCU Admission and Anticipated Discharge Date Admission Date: December 31, 2021 Subjective patient seen and examined, getting ready for EGD Review of Systems Review of Systems: All systems reviewed are negative, apart from the ones contained in the history. Physical Exam Physical Exam: The patient is awake, alert and oriented 3, well developed and well nourished, normocephalic and atraumatic, lying in bed and in no acute distress. HEENT--PERRL, EOMI, mucous membranes and oropharynx mildly dry Neck--supple. No JVD. No bruits. Thyroid normal, trachea midline, no adenopathy . Heart--normal S1 and S2. No murmurs, rubs or gallops. Lungs--clear bilaterally, no respiratory distress, no accessory muscle use. Abdomen--normal bowel sounds and soft. Mild epigastric and left sided abdominal pain Extremities--bilateral lower extremities in bandage Dermatologic--normal skin turgor, normal color, no abnormal lymph nodes, no rash. Neurologic--cranial nerves II through XII grossly intact. Rheumatologic--normal range of motion. Psychiatric--normal affect. Results & Data Results & Data ([facility]) Vital Signs (Past 12 Hours) Vital Signs Temp Pulse Pulse Resp BP BP Pulse Ox 01/10/22 11:41 97.7 F 75 17 140/80 99 01/10/22 11:26 60 18 156/83 H 99 01/10/22 11:16 60 18 140/81 98 01/10/22 11:00 67 18 152/79 H 99 01/10/22 08:55 70 01/10/22 07:25 98.0 F 68 17 171/87 H 98 01/10/22 04:10 98.6 F 73 18 171/88 H 97 01/10/22 00:00 63 01/10/22 00:02 98.2 F 72 16 177/80 H 97 O2 Del Method 01/10/22 11:41 01/10/22 11:26 Room Air 01/10/22 11:16 Room Air 01/10/22 11:00 Room Air 01/10/22 08:55 01/10/22 07:25 Room Air 01/10/22 04:10 Room Air 01/10/22 00:00 01/10/22 00:02 Room Air PG Care Time/CCT Total # of Minutes Spent Total Time Spent with Patient: Total time spent is greater than 50% in coordination of care (as documented) at patient's floor/unit and/or counseling patient: Coding Level of Care Code 14199 Subseq Hosp Care Lvl 2 Diagnoses Diabetic foot infection E11.628; L08.9 ESRD (end stage renal disease) N18.6 Anemia D64.9 Anemia type: unspecified type Nausea & vomiting R11.2 Diarrhea R19.7 Right atrial mass I51.89 Metabolic acidosis E87.2 CAD (coronary artery disease) I25.10 Chest pain R07.2 Chest pain type: precordial pain CVA, old, ataxia I69.993 Hypertension I10 Dyslipidemia E78.5 Hematemesis K92.0 Carotid stenosis, right I65.21 DM type 2 (diabetes mellitus, type 2) E11.9 Time Spent (min) 35 (1) Anemia Anemia type: unspecified type Qualified Code(s): D64.9 - Anemia, unspecified (2) Chest pain Chest pain type: precordial pain Qualified Code(s): R07.2 - Precordial pain
[2022-01-10] MEDS: ATORVASTATIN 40 MG TAB PO SCH (12:30)
[2022-01-10] MEDS: CALCITRIOL 0.25 MCG CAPSULE PO SCH (12:31)
[2022-01-10] MEDS: ADVANCED PROBIOTIC 1250 MG CAPSULE PO SCH (12:31)
[2022-01-10] MEDS: NEPHROCAPS PO SCH (12:31)
[2022-01-10] MEDS: ASPIRIN 81 MG ECTAB PO SCH (13:08)
[2022-01-10] MEDS ORDERED: PHARMACY GLYCEMIC MGMT CONSULT PRN (21:14)
[2022-01-10] MEDS: INSULIN HUMAN REGULAR SC SCH (23:03)
[2022-01-11] MEDS ORDERED: INSULIN HUMAN REGULAR SC ONE (02:00)
[2022-01-11] MEDS: PIPERACILLIN/TAZOBACTAM 3.375 GM in DEXTROSE 5% 100 ML IV SCH ×2 (03:37→16:46)
[2022-01-11] MEDS ORDERED: EPOETIN ALFA 10,000 UNITS/ML VIAL IV SCH (07:00)
[2022-01-11] MEDS ORDERED: SODIUM CHLORIDE 0.9% 1000ML 1,000 ML IV PRN (07:00)
[2022-01-11 07:41] LABS: C Reactive Protein 1.43 mg/dl (0-0.5); Calcium 6.7 mg/dl (8.5-10.1); Creatinine Clr Calc Pharmacy 11.9 ml/min; Est GFR (African American) 8.6 ml/min; Est GFR (Non-African American) 7.4 ml/min; Potassium 3.9 mmol/L (3.5-5.1)
[2022-01-11] MEDS: INSULIN ASPART PER UNIT SC SCH ×4 (07:53→20:42)
[2022-01-11] MEDS: INSULIN HUMAN REGULAR SC SCH (08:11)
[2022-01-11] MEDS: CALCIUM ACETATE 667 MG CAP/TAB PO SCH ×3 (08:31→17:26)
[2022-01-11] MEDS: ATORVASTATIN 40 MG TAB PO SCH (08:31)
[2022-01-11] MEDS: PANTOprazole 40 MG in SYRINGE 0 ML IV SCH (08:31)
[2022-01-11] MEDS: ASPIRIN 81 MG ECTAB PO SCH (08:31)
[2022-01-11] MEDS: CALCITRIOL 0.25 MCG CAPSULE PO SCH (08:32)
[2022-01-11] MEDS: NEPHROCAPS PO SCH (08:32)
[2022-01-11] MEDS: ADVANCED PROBIOTIC 1250 MG CAPSULE PO SCH (08:32)
[2022-01-11] MEDS ORDERED: LANTUS PER UNIT CHARGE SQ SCH ×2 (09:00→21:00)
[2022-01-11] MEDS ORDERED: LOPERAMIDE HCL 2 MG CAP PO PRN (09:21)
[2022-01-11] MEDS ORDERED: LOPERAMIDE HCL 2 MG CAP PO STA (09:21)
--- NOTE | 2022-01-11 10:47 | Hospitalist Progress Note ---
Date of Service January 11, 2022 Assessment & Plan (1) Diabetic foot infection: Plan: Patient is now day 10 s/p bilateral foot surgery, amputation of Gangrenous fifth toes. Bilateral foot surgery, partial amputation on 01/01/2022, delayed primary closure due to infection 01/03/2022 Dressing change as needed Per orthopedics, suture removal in 2 weeks after revision cultures polymicrobial growth, strep, MSSA Currently on Zosyn, will discharge on PO Augmentin and bactrim for 1 week Patient has been afebrile, wbc wnl Per Podiatry, patient will need diabetic shoes with custom moulded orthotics when he gets to [place], but can mange with post surgery shoes in the meantime. Patient will also need a wheelchair while he is recovering from surgery on both feet ID on consult. Await recommendations. (2) ESRD (end stage renal disease): Plan: Patient now undergoing hemodialysis through [facility] Scheduled for further hemodialysis today. Patient wishes to move to [place] to be with her sister. Social work trying to establish hemodialysis chair for him (3) Anemia: Plan: Stool positive for occult blood. Received 1 unit of blood a few days ago, hemoglobin stable May also have a component of anemia due to renal disease EGD did not show any bleeding ulcer, just some polyps which were biopsied Transfuse if hb<7 (4) Nausea & vomiting: Plan: Resolved (5) DM type 2 (diabetes mellitus, type 2): Plan: Sliding scale, sugars acceptable and initially discontinued however he is highly symptomatic when his glucose levels go > 200 therefore correction factor insulin ordered. Upon discharge, he will need a script for OneTouch Ultra 2 meters OneTouch ultra Blue test strips OneTouch Delica lancets 33 gauge (6) Diarrhea: Plan: Sporadic diarrhea C diff is negative, stool cultures negative May also have a component of pancreatic exocrine insufficiency, Will offer Pancrealipase and Lomotil (7) Right atrial mass: Plan: Of questionable significance, likely a myxoma, endocarditis unlikely, blood cultures negative; I dont think we need ROLAND (8) Metabolic acidosis: Plan: Resolved (9) CAD (coronary artery disease): Plan: As noted by cardiology no convincing angina, continue aspirin, statin, on beta- sarah (10) Chest pain: Plan: Resolved (11) CVA, old, ataxia: Plan: severe carotid stenosisvascular surgery evaluation; On plavix (12) Hypertension: Plan: BP acceptableno change, likely mildly elevated this morning as he missed his morning medications (13) Dyslipidemia: Plan: Continue statin (14) Hematemesis: Plan: None again after 1 episode, continue PPI (15) Carotid stenosis, right: Plan: Plavix on hold; resume upon discharge Plan VTE Prophylaxis - chemical deferred due to hematemesis and need for ongoing blood transfusions Diet - dialysis renal, T2DM Disposition - Patient will be d/c hopefully in the next 24 -48hrs. he wants to go to [place] to be with his sister Admission and Anticipated Discharge Date Admission Date: December 31, 2021 Subjective patient seen and examined, feels weak, having diarrhea Review of Systems Review of Systems: All systems reviewed are negative, apart from the ones contained in the history. Physical Exam Physical Exam: The patient is awake, alert and oriented 3, well developed and well nourished, normocephalic and atraumatic, lying in bed and in no acute distress. HEENT--PERRL, EOMI, mucous membranes and oropharynx mildly dry Neck--supple. No JVD. No bruits. Thyroid normal, trachea midline, no adenopathy. Heart--normal S1 and S2. No murmurs, rubs or gallops. Lungs--clear bilaterally, no respiratory distress, no accessory muscle use. Abdomen--normal bowel sounds and soft. Mild epigastric and left sided abdominal pain Extremities--bilateral lower extremities in bandage Dermatologic--normal skin turgor, normal color, no abnormal lymph nodes, no rash. Neurologic--cranial nerves II through XII grossly intact. Rheumatologic--normal range of motion. Psychiatric--normal affect. Results & Data Results & Data ([facility]) Vital Signs (Past 12 Hours) Vital Signs Temp Pulse Pulse Pulse Resp BP BP 01/11/22 10:30 70 159/89 H 01/11/22 10:00 76 179/110 H 01/11/22 09:30 90 190/89 H 01/11/22 09:15 98.1 F 92 H 01/11/22 07:29 98.2 F 68 17 162/79 H 01/11/22 07:14 68 01/11/22 03:34 98.1 F 71 16 161/73 H 01/10/22 23:59 98.2 F 64 20 160/73 H 01/10/22 22:54 67 Pulse Ox O2 Del Method 01/11/22 10:30 01/11/22 10:00 01/11/22 09:30 01/11/22 09:15 01/11/22 07:29 98 Room Air 01/11/22 07:14 01/11/22 03:34 97 Room Air 01/10/22 23:59 98 Room Air 01/10/22 22:54 PG Care Time/CCT Total # of Minutes Spent Total Time Spent with Patient: Total time spent is greater than 50% in coordination of care (as documented) at patient's floor/unit and/or counseling patient: Coding Level of Care Code 85815 Subseq Hosp Care Lvl 2 Diagnoses Diabetic foot infection E11.628; L08.9 ESRD (end stage renal disease) N18.6 Anemia D64.9 Anemia type: unspecified type Nausea & vomiting R11.2 DM type 2 (diabetes mellitus, type 2) E11.9 Diarrhea R19.7 Right atrial mass I51.89 Metabolic acidosis E87.2 CAD (coronary artery disease) I25.10 Chest pain R07.2 Chest pain type: precordial pain CVA, old, ataxia I69.993 Hypertension I10 Dyslipidemia E78.5 Hematemesis K92.0 Carotid stenosis, right I65.21 Time Spent (min) 35 (1) Anemia Anemia type: unspecified type Qualified Code(s): D64.9 - Anemia, unspecified (2) Chest pain Chest pain type: precordial pain Qualified Code(s): R07.2 - Precordial pain
--- NOTE | 2022-01-11 10:49 | Pharmacy Report ---
Pharmacy Glycemic Short Note 2 - Date of Service January 11, 2022 - Glycemic Short BSG Results (Last 24 hours): 01/10/22 01/10/22 01/10/22 11:38 16:16 17:53 Glucose POC Glucose 85 103 H 167 H 01/10/22 01/11/22 01/11/22 20:41 02:14 06:11 Glucose 165 H POC Glucose 156 H 143 H 01/11/22 01/11/22 07:31 08:23 Glucose POC Glucose 161 H 207 H OUTPATIENT ANTIDIABETIC REGIMEN: * N/A * HbA1C unreliable in dialysis patient ASSESSMENT: * Patient's BSGs yesterday were 05-92-275-156 mg/dL. Patient received 2 units of Novolog with lunch. * Patient's fasting BSG is 161 mg/dL. * Will start Lantus 10 units daily with 10 units HS if BSG continues > 160 mg/dL. * Novolog weight-based stress of 2 right now. Tighten if BSGs trend upwards. PLAN FOR INPATIENT GLYCEMIC CONTROL: * Hold outpatient oral diabetes medications * Basal insulin * Lantus 10 units SQ BID (hold HS dose if BSG < 160 mg/dL) * Bolus insulin * NovoLog per scale ACHS or Q6hrs while NPO * Goal Range: Low 110 mg/dL - High 140 mg/dL * Correction Factor: 30 mg/dL/unit * Nutritional / Prandial insulin per carb ratio of 1 unit per 10 grams CHO consumed
--- NOTE | 2022-01-11 11:41 | Nephrology Progress Note ---
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 Initially presented to the hospital with prior history of advanced CKD but no follow-up with Nephrology over years. On admission found to be end-stage kidney disease and started on dialysis via tunneled dialysis catheter. Also had gangrenous toe requiring amputation of right 4th and 5th toe some left 5th toes. Echo showed concern for endocarditis and possible atrial mass however ROLAND was not consider this point. -- Currently getting dialysis, tolerating dialysis for 4 hours, tolerating UF. Blood pressure improving with UF. -- Continue on Epogen, receive 60749 units today during dialysis. -- On PhosLo and renal vitamins. -- Left arm nephrology precaution for future vascular access, dose meds for EGFR less than 10. -- case management consulted for setting up outpatient dialysis [place] however patient is considering at to be discharging eventually going to [place] will follow Admission and Anticipated Discharge Date Admission Date: December 31, 2021 Jesus Cabezas was seen and examined during dialysis this morning. was feeling poorly this morning with nausea which currently resolved. Overall has been tolerating dialysis well. Tunneled dialysis catheter has been working well. No active bleeding from catheter site but has been somewhat painful because of medical a barton yesterday. Blood pressure has been high but slowly improving with UF. Tolerating UF, no dizziness, lightheadedness or leg cramps. Appetite decent. Review of Systems Review of Systems: Detail ROS was otherwise unremarkable. Physical Exam Constitutional: WD/WN, vitals as above + ill appearing and + cachectic; no acute distress Eyes: + anicteric sclerae Neck: normal visual inspection Respiratory: Auscultation: lungs clear to auscultation bilaterally Cardiovascular: Rate/Rhythm: regular rate and regular rhythm Extremities: no edema Musculoskeletal: Extremities: + muscle atrophy Skin: no rashes Neurologic: no focal motor deficits Psychiatric: Orientation: alert and oriented x 3 Results & Data ([facility]) Vital Signs (Past 12 Hours) Vital Signs Temp Pulse Pulse Pulse Resp BP BP 01/11/22 10:30 70 159/89 H 01/11/22 10:00 76 179/110 H 01/11/22 09:30 90 190/89 H 01/11/22 09:15 36.7 C 92 H 01/11/22 07:29 36.8 C 68 17 162/79 H 01/11/22 07:14 68 01/11/22 03:34 36.7 C 71 16 161/73 H 01/10/22 23:59 36.8 C 64 20 160/73 H Pulse Ox O2 Del Method 01/11/22 10:30 01/11/22 10:00 01/11/22 09:30 01/11/22 09:15 01/11/22 07:29 98 Room Air 01/11/22 07:14 01/11/22 03:34 97 Room Air 01/10/22 23:59 98 Room Air PG Care Time/CCT Total # of Minutes Spent Total Time Spent with Patient: Total time spent is greater than 50% in coordination of care (as documented) at patient's floor/unit and/or counseling patient: Coding Level of Care Code 75371 Subseq Hosp Care Lvl 3 Diagnoses ESRD (end stage renal disease) N18.6 Diabetic foot infection E11.628; L08.9 Right atrial mass I51.89 Anemia D64.9 Anemia type: unspecified type 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
[2022-01-11] MEDS: carvediloL 6.25 MG TAB PO SCH ×2 (12:46→20:55)
[2022-01-11] MEDS: ISOSORBIDE MONO EXTENDED REL 30 MG TABCR PO SCH (12:46)
[2022-01-11] MEDS: PANCREAZE (LIPASE 10,500U) CAP PO SCH (12:46)
[2022-01-11] MEDS: amLODIPine BESYLATE 5 MG TAB PO SCH (12:46)
[2022-01-11] MEDS: hydrALAZINE HCL 20 MG/ML VIAL IV PRN (14:23)
[2022-01-11] MEDS: CARBOHYDRATES FOR HYPOGLYCEMIA PO PRN ×2 (14:30→14:52)
[2022-01-11] MEDS ORDERED: cloNIDine HCL 0.1 MG TAB PO ONE (15:15)
[2022-01-12] MEDS: PIPERACILLIN/TAZOBACTAM 3.375 GM in DEXTROSE 5% 100 ML IV SCH ×2 (02:56→16:57)
[2022-01-12 07:06] LABS: Hematocrit (blood only) 28.6 % (40.1-51.0); Hemoglobin 9.1 g/dl (14.0-18.0); Mean Corpuscular Hemoglobin 29.2 pg (25.0-34.0); Mean Corpuscular Hgb Conc 31.8 g/dL (32.0-36.0); Mean Corpuscular Volume 91.7 fL (80.0-100.0); Mean Platelet Volume 10.5 fL (9.4-12.4); Platelet Count 316 K/uL (130-400); Red Blood Count 3.12 M/uL (4.63-6.08); White Blood Count 11.99 K/ul (4.8-10.8)
[2022-01-12] MEDS: amLODIPine BESYLATE 5 MG TAB PO SCH (08:20)
[2022-01-12] MEDS: ADVANCED PROBIOTIC 1250 MG CAPSULE PO SCH (08:20)
[2022-01-12] MEDS: ATORVASTATIN 40 MG TAB PO SCH (08:20)
[2022-01-12] MEDS: ASPIRIN 81 MG ECTAB PO SCH (08:20)
[2022-01-12] MEDS: NEPHROCAPS PO SCH (08:20)
[2022-01-12] MEDS: ISOSORBIDE MONO EXTENDED REL 30 MG TABCR PO SCH (08:20)
[2022-01-12] MEDS: CALCITRIOL 0.25 MCG CAPSULE PO SCH (08:21)
[2022-01-12] MEDS: PANTOprazole 40 MG TAB PO SCH (08:21)
[2022-01-12] MEDS: CALCIUM ACETATE 667 MG CAP/TAB PO SCH ×3 (08:21→16:57)
[2022-01-12] MEDS: PANCREAZE (LIPASE 10,500U) CAP PO SCH (08:21)
[2022-01-12] MEDS: CLOPIDOGREL BISULFATE 75 MG TAB PO SCH (08:21)
[2022-01-12] MEDS: carvediloL 6.25 MG TAB PO SCH ×2 (08:21→20:48)
[2022-01-12] MEDS: INSULIN ASPART PER UNIT SC SCH ×4 (08:33→20:49)
[2022-01-12] MEDS ORDERED: cloNIDine HCL 0.1 MG TAB PO SCH (09:00)
--- NOTE | 2022-01-12 10:46 | Nephrology Progress Note ---
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 Initially presented to the hospital with prior history of advanced CKD but no follow-up with Nephrology over years. On admission found to be end-stage kidney disease and started on dialysis via tunneled dialysis catheter. Also had gangrenous toe requiring amputation of right 4th and 5th toe some left 5th toes. Echo showed concern for endocarditis and possible atrial mass however ROLAND was not consider this point. -- HD tomorrow, Epogen 63397 units during dialysis. -- on PhosLo and renal vitamins. -- Left arm nephrology precaution for future vascular access, dose meds for EGFR less than 10. -- has outpt HD set up at [place], [place] when ready for discharge will follow Admission and Anticipated Discharge Date Admission Date: December 31, 2021 Jesus Cabezas was seen and examined this morning. Denied any specific symptoms. Feels he is urinating more. Tunneled dialysis catheter has been working well. Blood pressure has been high but improves with UF. Appetite decent. Review of Systems Review of Systems: Detail ROS was otherwise unremarkable. Physical Exam Constitutional: WD/WN, vitals as above + ill appearing and + cachectic; no acute distress Eyes: + anicteric sclerae Neck: normal visual inspection Respiratory: Auscultation: lungs clear to auscultation bilaterally Cardiovascular: Rate/Rhythm: regular rate and regular rhythm Extremities: no edema Musculoskeletal: Extremities: + muscle atrophy Skin: no rashes Neurologic: no focal motor deficits Psychiatric: Orientation: alert and oriented x 3 Results & Data ([facility]) Vital Signs (Past 12 Hours) Vital Signs Temp Pulse Pulse Pulse Resp BP Pulse Ox 01/12/22 07:22 36.8 C 65 17 160/74 H 98 01/12/22 07:16 64 01/12/22 02:57 36.7 C 64 20 151/66 H 98 01/11/22 23:26 36.8 C 62 14 156/77 H 98 01/11/22 23:09 62 O2 Del Method 01/12/22 07:22 Room Air 01/12/22 07:16 01/12/22 02:57 Room Air 01/11/22 23:26 Room Air 01/11/22 23:09 PG Care Time/CCT Total # of Minutes Spent Total Time Spent with Patient: Total time spent is greater than 50% in coordination of care (as documented) at patient's floor/unit and/or counseling patient: Coding Level of Care Code 10016 Subseq Hosp Care Lvl 3 Diagnoses ESRD (end stage renal disease) N18.6 Diabetic foot infection E11.628; L08.9 Right atrial mass I51.89 Anemia D64.9 Anemia type: unspecified type 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
--- NOTE | 2022-01-12 11:58 | Hospitalist Progress Note ---
Date of Service January 12, 2022 Assessment & Plan (1) Diabetic foot infection: Plan: Patient is now day 11 s/p bilateral foot surgery, amputation of Gangrenous fifth toes. Bilateral foot surgery, partial amputation on 01/01/2022, delayed primary closure due to infection 01/03/2022 Dressing change as needed Per orthopedics, suture removal in 2 weeks after revision cultures polymicrobial growth, strep, MSSA Currently on Zosyn, will discharge on PO Augmentin and Bactrim for 1 week Patient has been afebrile, wbc wnl Per Podiatry, patient will need diabetic shoes with custom moulded orthotics when he gets to [place], but can mange with post surgery shoes in the meantime. Patient will also need a wheelchair while he is recovering from surgery on both feet ID on consult. Await recommendations. (2) ESRD (end stage renal disease): Plan: Patient now undergoing hemodialysis through tunneled dialysis catheter Patient wishes to move to [place] to be with her sister. Social work has established hemodialysis chair for him in [place] (3) Anemia: Plan: Stool positive for occult blood. Received 1 unit of blood a few days ago, hemoglobin stable May also have a component of anemia due to renal disease EGD did not show any bleeding ulcer, just some polyps which were biopsied Transfuse if hb<7 (4) DM type 2 (diabetes mellitus, type 2): Plan: Patient has very labile blood glucose, will continue insulin sliding scale He will benefit from Insulin pump, he is reluctant to have one Upon discharge, he will need a script for OneTouch Ultra 2 meters OneTouch ultra Blue test strips OneTouch Delica lancets 33 gauge (5) Diarrhea: Plan: Sporadic diarrhea, patient claims he gets diarrhea each time his blood glucose goes above 120 C diff is negative, stool cultures negative May also have a component of pancreatic exocrine insufficiency, Will offer Pancrealipase and Lomotil (6) Right atrial mass: Plan: ECHO done 12/31 and read multiple times did not mention any mass (7) Metabolic acidosis: Plan: Resolved (8) CAD (coronary artery disease): Plan: As noted by cardiology no convincing angina, continue aspirin, statin, on beta- sarah (9) Chest pain: Plan: Resolved (10) CVA, old, ataxia: Plan: severe carotid stenosisvascular surgery evaluation; On plavix (11) Nausea & vomiting: Plan: Resolved (12) Hypertension: Plan: BP acceptableno change, likely mildly elevated this morning as he missed his morning medications (13) Dyslipidemia: Plan: Continue statin (14) Hematemesis: Plan: None again after 1 episode, continue PPI (15) Carotid stenosis, right: Plan: Plavix on hold; resume upon discharge Plan VTE Prophylaxis - chemical deferred due to hematemesis and need for ongoing blood transfusions Diet - dialysis renal, T2DM Disposition - Patient will be d/c hopefully in the next 48hrs. he wants to go to [place] to be with his sister. However, he wants to get a few more days of physical therapy before d/c. He will need a script for wheelchair Admission and Anticipated Discharge Date Admission Date: December 31, 2021 Subjective patient seen and examined, no new complaints Review of Systems Review of Systems: All systems reviewed are negative, apart from the ones contained in the history. Physical Exam Physical Exam: The patient is awake, alert and oriented 3, well developed and well nourished, normocephalic and atraumatic, lying in bed and in no acute distress. HEENT--PERRL, EOMI, mucous membranes and oropharynx mildly dry Neck--supple. No JVD. No bruits. Thyroid normal, trachea midline, no adenopathy. Heart--normal S1 and S2. No murmurs, rubs or gallops. Lungs--clear bilaterally, no respiratory distress, no accessory muscle use. Abdomen--normal bowel sounds and soft. Mild epigastric and left sided abdominal pain Extremities--bilateral lower extremities in bandage Dermatologic--normal skin turgor, normal color, no abnormal lymph nodes, no rash. Neurologic--cranial nerves II through XII grossly intact. Rheumatologic--normal range of motion. Psychiatric--normal affect. Results & Data Results & Data ([facility]) Vital Signs (Past 12 Hours) Vital Signs Temp Pulse Pulse Pulse Resp BP Pulse Ox 01/12/22 07:22 98.2 F 65 17 160/74 H 98 01/12/22 07:16 64 01/12/22 02:57 98.1 F 64 20 151/66 H 98 O2 Del Method 01/12/22 07:22 Room Air 01/12/22 07:16 01/12/22 02:57 Room Air PG Care Time/CCT Total # of Minutes Spent Total Time Spent with Patient: Total time spent is greater than 50% in coordination of care (as documented) at patient's floor/unit and/or counseling patient: Coding Level of Care Code 80903 Subseq Hosp Care Lvl 2 Diagnoses Diabetic foot infection E11.628; L08.9 ESRD (end stage renal disease) N18.6 Anemia D64.9 Anemia type: unspecified type DM type 2 (diabetes mellitus, type 2) E11.9 Diarrhea R19.7 Right atrial mass I51.89 Metabolic acidosis E87.2 CAD (coronary artery disease) I25.10 Chest pain R07.2 Chest pain type: precordial pain CVA, old, ataxia I69.993 Nausea & vomiting R11.2 Hypertension I10 Dyslipidemia E78.5 Hematemesis K92.0 Carotid stenosis, right I65.21 Time Spent (min) 35 (1) Anemia Anemia type: unspecified type Qualified Code(s): D64.9 - Anemia, unspecified (2) Chest pain Chest pain type: precordial pain Qualified Code(s): R07.2 - Precordial pain
--- NOTE | 2022-01-12 14:28 | Pharmacy Report ---
Pharmacy Glycemic Short Note 2 - Date of Service January 12, 2022 - Glycemic Short BSG Results (Last 24 hours): 01/11/22 01/11/22 01/11/22 14:27 14:46 15:08 POC Glucose 45 L* 51 L* 53 L* 01/11/22 01/11/22 01/11/22 15:26 16:20 20:19 POC Glucose 98 103 H 73 01/12/22 01/12/22 07:24 11:06 POC Glucose 83 122 H OUTPATIENT ANTIDIABETIC REGIMEN: * N/A * HbA1C unreliable in dialysis patient ASSESSMENT: * BSGs yesterday were 161-87-53/98-73 mg/dL. Today's BSGs are 83-122 mg/dL. * Patient received 22 units of insulin yesterday (10 units of basal and 12 units of bolus). * Will d/c Lantus as fasting trending down significantly. * Loosen CF/CR due to hypoglycemia yesterday. Background * Patient's BSGs yesterday were 45-75-777-156 mg/dL. Patient received 2 units of Novolog with lunch. * Patient's fasting BSG is 161 mg/dL. * Will start Lantus 10 units daily with 10 units HS if BSG continues > 160 mg/dL. * Novolog weight-based stress of 2 right now. Tighten if BSGs trend upwards. PLAN FOR INPATIENT GLYCEMIC CONTROL: * Hold outpatient oral diabetes medications * Basal insulin * hold * Bolus insulin * NovoLog per scale ACHS or Q6hrs while NPO * Goal Range: Low 110 mg/dL - High 140 mg/dL * Correction Factor: 35 mg/dL/unit * Nutritional / Prandial insulin per carb ratio of 1 unit per 12 grams CHO consumed
[2022-01-13] MEDS ORDERED: INSULIN ASPART PER UNIT SC STA (03:21)
[2022-01-13] MEDS: PIPERACILLIN/TAZOBACTAM 3.375 GM in DEXTROSE 5% 100 ML IV SCH ×2 (03:38→16:28)
[2022-01-13 04:41] LABS: BUN Creatinine Ratio 6.1 (10-20); Calcium 7.3 mg/dl (8.5-10.1); Creatinine Clr Calc Pharmacy 11.3 ml/min; Est GFR (African American) 8.5 ml/min; Est GFR (Non-African American) 7.3 ml/min; Phosphorus 5.7 mg/dl (2.5-4.9)
[2022-01-13] MEDS: INSULIN ASPART PER UNIT SC SCH ×4 (08:31→20:40)
[2022-01-13] MEDS ORDERED: cloNIDine HCL 0.1 MG TAB PO SCH (09:00)
[2022-01-13] MEDS ORDERED: EPOETIN ALFA 10,000 UNITS/ML VIAL IV SCH (09:00)
[2022-01-13] MEDS: carvediloL 12.5 MG TAB PO SCH ×2 (09:40→20:36)
[2022-01-13] MEDS: CALCIUM ACETATE 667 MG CAP/TAB PO SCH ×3 (09:40→17:08)
[2022-01-13] MEDS: amLODIPine BESYLATE 5 MG TAB PO SCH (09:40)
[2022-01-13] MEDS: PANCREAZE (LIPASE 10,500U) CAP PO SCH (09:41)
[2022-01-13] MEDS: ADVANCED PROBIOTIC 1250 MG CAPSULE PO SCH (09:41)
[2022-01-13] MEDS: CLOPIDOGREL BISULFATE 75 MG TAB PO SCH (09:41)
[2022-01-13] MEDS: NEPHROCAPS PO SCH (09:41)
[2022-01-13] MEDS: ASPIRIN 81 MG ECTAB PO SCH (09:41)
[2022-01-13] MEDS: CALCITRIOL 0.25 MCG CAPSULE PO SCH (09:41)
[2022-01-13] MEDS: ATORVASTATIN 40 MG TAB PO SCH (09:41)
[2022-01-13] MEDS: PANTOprazole 40 MG TAB PO SCH (09:41)
[2022-01-13] MEDS: ISOSORBIDE MONO EXTENDED REL 30 MG TABCR PO SCH (09:41)
--- NOTE | 2022-01-13 10:27 | Nephrology Progress Note ---
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 Initially presented to the hospital with prior history of advanced CKD but no follow-up with Nephrology over years. On admission found to be end-stage kidney disease and started on dialysis via tunneled dialysis catheter. Also had gangrenous toe requiring amputation of right 4th and 5th toe some left 5th toes. Echo showed concern for endocarditis and possible atrial mass however ROLAND was not consider this point. BP has been high, carvedilol was restarted this morning. On amlodipine and clonidine. Electrolyte acceptable. Volume status acceptable. -- HD tomorrow, Epogen 78452 units during dialysis. -- on PhosLo and renal vitamins. -- Left arm nephrology precaution for future vascular access, dose meds for EGFR less than 10. -- has outpt HD set up at [address], [place] when ready for discharge -- If blood pressure continues to remain high, carvedilol can be increased to 25 mg twice a day. will follow Admission and Anticipated Discharge Date Admission Date: December 31, 2021 Jesus Cabezas was seen and examined this morning. Had breakfast this morning and after that started having nausea and feeling like throwing up. Also has been having diarrhea. Blood pressure elevated. Tunneled dialysis catheter has been working well. Review of Systems Review of Systems: Detail ROS was otherwise unremarkable. Physical Exam Constitutional: WD/WN, vitals as above + ill appearing and + cachectic; no acute distress Eyes: + anicteric sclerae Neck: normal visual inspection Respiratory: Auscultation: lungs clear to auscultation bilaterally Cardiovascular: Rate/Rhythm: regular rate and regular rhythm Extremities: no edema Musculoskeletal: Extremities: + muscle atrophy Skin: no rashes Neurologic: no focal motor deficits Psychiatric: Orientation: alert and oriented x 3 Results & Data ([facility]) Vital Signs (Past 12 Hours) Vital Signs Temp Pulse Pulse Pulse Pulse Resp BP 01/13/22 09:26 36.7 C 82 14 177/90 H 01/13/22 03:37 36.4 C L 88 20 180/85 H 07/18/22 00:39 62 01/13/22 00:14 36.7 C 63 18 171/86 H Pulse Ox O2 Del Method 01/13/22 09:26 98 Room Air 01/13/22 03:37 Room Air 01/13/22 00:39 01/13/22 00:14 98 Room Air PG Care Time/CCT Total # of Minutes Spent Total Time Spent with Patient: Total time spent is greater than 50% in coordination of care (as documented) at patient's floor/unit and/or counseling patient: Coding Level of Care Code 31224 Subseq Hosp Care Lvl 3 Diagnoses ESRD (end stage renal disease) N18.6 Diabetic foot infection E11.628; L08.9 Right atrial mass I51.89 Anemia D64.9 Anemia type: unspecified type 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
--- NOTE | 2022-01-13 12:10 | Hospitalist Progress Note ---
Date of Service January 13, 2022 Assessment & Plan (1) Diabetic foot infection: Plan: Patient is now day 11 s/p bilateral foot surgery, amputation of Gangrenous fifth toes. Bilateral foot surgery, partial amputation on 01/01/2022, delayed primary closure due to infection 01/03/2022 Dressing change as needed Per orthopedics, suture removal in 2 weeks after revision cultures polymicrobial growth, strep, MSSA Currently on Zosyn, will discharge on PO Augmentin and Bactrim for 1 week Patient has been afebrile, wbc wnl Per Podiatry, patient will need diabetic shoes with custom moulded orthotics when he gets to [place], but can mange with post surgery shoes in the meantime. Patient will also need a wheelchair while he is recovering from surgery on both feet ID on consult. Await recommendations. (2) ESRD (end stage renal disease): Plan: Patient now undergoing hemodialysis through tunneled dialysis catheter Patient wishes to move to [place] to be with her sister. Social work has established hemodialysis chair for him in [place] (3) Anemia: Plan: Stool positive for occult blood. Received 1 unit of blood a few days ago, hemoglobin stable May also have a component of anemia due to renal disease EGD did not show any bleeding ulcer, just some polyps which were biopsied Transfuse if hb<7 (4) DM type 2 (diabetes mellitus, type 2): Plan: Patient has very labile blood glucose, will continue insulin sliding scale Upon discharge, he will need a script for OneTouch Ultra 2 meters OneTouch ultra Blue test strips OneTouch Delica lancets 33 gauge (5) Diarrhea: Plan: Sporadic diarrhea, patient claims he gets diarrhea each time his blood glucose goes above 120 C diff is negative, stool cultures negative May also have a component of pancreatic exocrine insufficiency, Will offer Pancrealipase and Lomotil (6) Right atrial mass: Plan: Ill-defined lesion on echo, follow-up outpatient I suppose (7) CAD (coronary artery disease): Plan: As noted by cardiology no convincing angina, continue aspirin, statin, on beta- sarah (8) Chest pain: Plan: Resolved (9) CVA, old, ataxia: Plan: severe carotid stenosisvascular surgery evaluation; On plavix (10) Nausea & vomiting: Plan: Resolved (11) Hypertension: Plan: Continued high trend in general, Taper clonidine, increase carvedilol (12) Dyslipidemia: Plan: Continue statin (13) Hematemesis: Plan: None again after 1 episode, continue PPI (14) Carotid stenosis, right: Plan: Vascular surgery follow-up Plan VTE Prophylaxis - chemical deferred due to hematemesis and need for ongoing bl ood transfusions Diet - dialysis renal, T2DM Disposition - Patient will be d/c hopefully soon; he wants to go to [place] to be with his sister. However, he wants to get a few more days of physical therapy before d/c. He will need a script for wheelchair Admission and Anticipated Discharge Date Admission Date: December 31, 2021 Subjective Follow-up of original presentation with chest pain, diabetic foot infection, 1 hematemesis; during the course toe amputation with closure, permacath placement for dialysis; no new complaints Physical Exam Physical Exam: Constitutional and general: No acute distress, looks biologic age Head and face: No puffiness, atraumatic Eyes: No scleral icterus, extraocular movements normal Neck: Supple, no JVD Musculoskeletal: No acute joint swelling, no bony abnormalities Skin/dermatologic/integument: No rash, no purpura Hematologic and lymphatic: pallor ++, no petechia Gastrointestinal/abdomen: Nondistended, soft, nonacute Neurologic: Cranial nerves intact, nonfocal Psychiatry: Awake, alert, pleasant, communicative Cardiovascular: Heart rhythm regular, no rub, SM, no gallop Respiratory: Chest movements equal, no use of accessory muscles, no adventitious sounds Extremities: Surgical dressings Results & Data Results & Data ([facility]) Vital Signs (Past 12 Hours) Vital Signs Temp Pulse Pulse Pulse Pulse Resp BP 01/13/22 09:26 36.7 C 82 14 177/90 H 01/13/22 03:37 36.4 C L 88 20 180/85 H 01/13/22 00:39 62 01/13/22 00:14 36.7 C 63 18 171/86 H Pulse Ox O2 Del Method 01/13/22 09:26 98 Room Air 01/13/22 03:37 Room Air 01/13/22 00:39 01/13/22 00:14 98 Room Air Laboratory Results Laboratory Results - last 24 hr 01/12/22 01/12/22 01/13/22 16:15 20:28 03:10 Sodium Potassium Chloride Carbon Dioxide Anion Gap BUN Creatinine Est Cr Clr Drug Dosing Est GFR ( Amer) Est GFR (Non-Af Amer) BUN/Creatinine Ratio Glucose POC Glucose 98 70 247 H Calcium Phosphorus Total Creatine Kinase Albumin 01/13/22 01/13/22 01/13/22 03:53 03:53 05:04 Sodium 137 Potassium 4.0 Chloride 108 H Carbon Dioxide 21 Anion Gap 8 BUN 48 H Creatinine 7.85 H* Est Cr Clr Drug Dosing 11.3 Est GFR ( Amer) 8.5 Est GFR (Non-Af Amer) 7.3 BUN/Creatinine Ratio 6.1 L Glucose 242 H POC Glucose 164 H Calcium 7.3 L Phosphorus 5.7 H Total Creatine Kinase Cancelled 60 Albumin 3.0 L 01/13/22 01/13/22 07:23 11:30 Sodium Potassium Chloride Carbon Dioxide Anion Gap BUN Creatinine Est Cr Clr Drug Dosing Est GFR ( Amer) Est GFR (Non-Af Amer) BUN/Creatinine Ratio Glucose POC Glucose 141 H 77 Calcium Phosphorus Total Creatine Kinase Albumin PG Care Time/CCT Total # of Minutes Spent Total Time Spent with Patient: Total time spent is greater than 50% in coordination of care (as documented) at patient's floor/unit and/or counseling patient: Coding Level of Care Code 94462 Subseq Hosp Care Lvl 2 Diagnoses Diabetic foot infection E11.628; L08.9 ESRD (end stage renal disease) N18.6 Anemia D64.9 Anemia type: unspecified type DM type 2 (diabetes mellitus, type 2) E11.9 Diarrhea R19.7 Right atrial mass I51.89 CAD (coronary artery disease) I25.10 Chest pain R07.2 Chest pain type: precordial pain CVA, old, ataxia I69.993 Nausea & vomiting R11.2 Hypertension I10 Dyslipidemia E78.5 Hematemesis K92.0 Carotid stenosis, right I65.21 (1) Anemia Anemia type: unspecified type Qualified Code(s): D64.9 - Anemia, unspecified (2) Chest pain Chest pain type: precordial pain Qualified Code(s): R07.2 - Precordial pain
--- NOTE | 2022-01-13 12:36 | Pharmacy Report ---
Pharmacy Glycemic Short Note 2 - Date of Service January 13, 2022 - Glycemic Short BSG Results (Last 24 hours): 01/12/22 01/12/22 01/13/22 16:15 20:28 03:10 Glucose POC Glucose 98 70 247 H 01/13/22 01/13/22 01/13/22 03:53 05:04 07:23 Glucose 242 H POC Glucose 164 H 141 H 01/13/22 11:30 Glucose POC Glucose 77 OUTPATIENT ANTIDIABETIC REGIMEN: * N/A * HbA1C unreliable in dialysis patient ASSESSMENT: 01/13: * BSGs the last 24h: 79-206-192-77mg/dL. Patient received 15 units of Novolog yesterday. * Stressors stable, tolerating a diet. * CR loosened again today at lunch to 15gm/unit given periodic low BSGs. Also adjusted upper end of goal range to 150mg/dL to provide milder correction. 01/12: * BSGs yesterday were 161-87-53/98-73 mg/dL. Today's BSGs are 83-122 mg/dL. * Patient received 22 units of insulin yesterday (10 units of basal and 12 units of bolus). * Will d/c Lantus as fasting trending down significantly. * Loosen CF/CR due to hypoglycemia yesterday. Background * Patient's BSGs yesterday were 51-46-257-156 mg/dL. Patient received 2 units of Novolog with lunch. * Patient's fasting BSG is 161 mg/dL. * Will start Lantus 10 units daily with 10 units HS if BSG continues > 160 mg/dL. * Novolog weight-based stress of 2 right now. Tighten if BSGs trend upwards. PLAN FOR INPATIENT GLYCEMIC CONTROL: * Hold outpatient oral diabetes medications * Bolus insulin * NovoLog per scale ACHS or Q6hrs while NPO * Goal Range: Low 110 mg/dL - High 150 mg/dL * Correction Factor: 35 mg/dL/unit * Nutritional / Prandial insulin per carb ratio of 1 unit per 15 grams CHO consumed
[2022-01-14] MEDS: PIPERACILLIN/TAZOBACTAM 3.375 GM in DEXTROSE 5% 100 ML IV SCH (04:49)
[2022-01-14] MEDS: CALCIUM ACETATE 667 MG CAP/TAB PO SCH ×3 (08:16→16:19)
[2022-01-14] MEDS: ASPIRIN 81 MG ECTAB PO SCH (08:16)
[2022-01-14] MEDS: ADVANCED PROBIOTIC 1250 MG CAPSULE PO SCH (08:18)
[2022-01-14] MEDS: CLOPIDOGREL BISULFATE 75 MG TAB PO SCH (08:21)
[2022-01-14] MEDS: PANTOprazole 40 MG TAB PO SCH (08:21)
[2022-01-14] MEDS: NEPHROCAPS PO SCH (08:21)
[2022-01-14] MEDS: CALCITRIOL 0.25 MCG CAPSULE PO SCH (08:22)
[2022-01-14] MEDS: PANCREAZE (LIPASE 10,500U) CAP PO SCH (08:22)
[2022-01-14] MEDS: ATORVASTATIN 40 MG TAB PO SCH (08:22)
[2022-01-14] MEDS: INSULIN ASPART PER UNIT SC SCH ×4 (08:28→20:41)
[2022-01-14] MEDS ORDERED: EPOETIN ALFA 10,000 UNITS/ML VIAL IV SCH (09:00)
--- NOTE | 2022-01-14 09:47 | Nephrology Progress Note ---
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 Initially presented to the hospital with prior history of advanced CKD but no follow-up with Nephrology over years. On admission found to be end-stage kidney disease and started on dialysis via tunneled dialysis catheter. Also had gangrenous toe requiring amputation of right 4th and 5th toe some left 5th toes. Echo showed concern for endocarditis and possible atrial mass however ROLAND was not consider this point. BP has been high, carvedilol was restarted this morning. On amlodipine and clonidine. Electrolyte acceptable. Volume status acceptable. -- HD today, Epogen 53932 units during dialysis. -- on PhosLo and renal vitamins. -- Left arm nephrology precaution for future vascular access, dose meds for EGFR less than 10. -- has outpt HD set up at [place], [place] when ready for discharge will follow Admission and Anticipated Discharge Date Admission Date: December 31, 2021 Jesus Cabezas was seen and examined this morning. Overall feeling well, denies any acute symptom. Does not feel like he is ready for discharge yet.. Blood pressure elevated. Tunneled dialysis catheter has been working well. Review of Systems Review of Systems: Detail ROS was otherwise unremarkable. Physical Exam Constitutional: WD/WN, vitals as above + ill appearing and + cachectic; no acute distress Eyes: + anicteric sclerae Respiratory: Auscultation: lungs clear to auscultation bilaterally Cardiovascular: Rate/Rhythm: regular rate and regular rhythm Extremities: no edema Skin: no rashes Neurologic: no focal motor deficits Psychiatric: Orientation: alert and oriented x 3 Results & Data ([facility]) Vital Signs (Past 12 Hours) Vital Signs Temp Pulse Pulse Pulse Pulse Resp BP 01/14/22 09:40 63 165/85 H 01/14/22 09:20 61 178/90 H 01/14/22 09:16 61 172/89 H 01/14/22 09:12 36.7 C 62 01/14/22 07:35 36.5 C 64 18 01/14/22 05:00 36.7 C 66 18 01/14/22 00:00 60 BP Pulse Ox O2 Del Method 01/14/22 09:40 01/14/22 09:20 01/14/22 09:16 01/14/22 09:12 01/14/22 07:35 171/95 H 97 Room Air 01/14/22 05:00 175/92 H 97 Room Air 01/14/22 00:00 PG Care Time/CCT Total # of Minutes Spent Total Time Spent with Patient: Total time spent is greater than 50% in coordination of care (as documented) at patient's floor/unit and/or counseling patient: Coding Level of Care Code 65217 Subseq Hosp Care Lvl 3 Diagnoses ESRD (end stage renal disease) N18.6 Diabetic foot infection E11.628; L08.9 Right atrial mass I51.89 Anemia D64.9 Anemia type: unspecified type 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
--- NOTE | 2022-01-14 12:38 | Hospitalist Progress Note ---
Date of Service January 14, 2022 Assessment & Plan (1) Diabetic foot infection: Plan: Patient is now day 11 s/p bilateral foot surgery, amputation of Gangrenous fifth toes. Bilateral foot surgery, partial amputation on 01/01/2022, delayed primary closure due to infection 01/03/2022 Dressing change as needed Per orthopedics, suture removal in 2 weeks after revision cultures polymicrobial growth, strep, MSSA Currently on Zosyn, will discharge on PO Augmentin and Bactrim for 1 week Patient has been afebrile, wbc wnl Per Podiatry, patient will need diabetic shoes with custom moulded orthotics when he gets to [place], but can mange with post surgery shoes in the meantime-re quested ID on consult done-trying to find report PT/OT after shoes are fitted (2) ESRD (end stage renal disease): Plan: Patient now undergoing hemodialysis through tunneled dialysis catheter Patient wishes to move to [place] to be with her sister. Social work has established hemodialysis chair for him in [place] (3) Anemia: Plan: Stool positive for occult blood. Received 1 unit of blood a few days ago, hemoglobin stable May also have a component of anemia due to renal disease EGD did not show any bleeding ulcer, just some polyps which were biopsied Transfuse if hb<7; ct PPI for now (4) DM type 2 (diabetes mellitus, type 2): Plan: A1c 6.1, likely will be diet controlled; noted some fluctuation in blood sugar but overall BG good recentlydid have some variation during acute phase early (5) Diarrhea: Plan: Likely diabetic diarrhea, symptomatic treatment, pancreatic replacement not unreasonable (6) Right atrial mass: Plan: Ill-defined lesion on echo, follow-up outpatient I suppose (7) CAD (coronary artery disease): Plan: As noted by cardiology no convincing angina, continue aspirin, statin, on beta- sarah (8) Chest pain: Plan: Resolved (9) CVA, old, ataxia: Plan: severe carotid stenosisvascular surgery follow-up On plavix (10) Nausea & vomiting: Plan: Resolved (11) Hypertension: Plan: Continued high trend in general, stop clonidine, resume ARB (12) Dyslipidemia: Plan: Continue statin (13) Hematemesis: Plan: None again after 1 episode, continue PPI (14) Carotid stenosis, right: Plan: Vascular surgery follow-up Plan VTE Prophylaxis - chemical deferred due to hematemesis and need for ongoing blood transfusions Diet - dialysis renal, T2DM Disposition - Patient will be d/c hopefully soon; he wants to go to [place] to be with his sister. However, he wants to get a few more days of physical therapy before d/c. Prescription for wheelchair given Admission and Anticipated Discharge Date Admission Date: December 31, 2021 Jesus Cabezas was seen and examined this morning. Overall feeling well, denies any acute symptom. Does not feel like he is ready for discharge yet.. Blood pressure elevated. Tunneled dialysis catheter has been working well. Physical Exam Physical Exam: Constitutional and general: No acute distress, looks biologic age Head and face: No puffiness, atraumatic Eyes: No scleral icterus, extraocular movements normal Neck: Supple, no JVD Musculoskeletal: No acute joint swelling, no bony abnormalities Skin/dermatologic/integument: No rash, no purpura Hematologic and lymphatic: pallor ++, no petechia Gastrointestinal/abdomen: Nondistended, soft, nonacute Neurologic: Cranial nerves intact, nonfocal Psychiatry: Awake, alert, pleasant, communicative Cardiovascular: Heart rhythm regular, no rub, SM, no gallop Respiratory: Chest movements equal, no use of accessory muscles, no adventitious sounds Extremities: Surgical dressings Results & Data Results & Data ([facility]) Vital Signs (Past 12 Hours) Vital Signs Temp Pulse Pulse Pulse Pulse Resp BP 01/14/22 12:20 65 188/90 H 01/14/22 12:00 65 176/92 H 01/14/22 11:40 65 182/95 H 01/14/22 11:20 67 175/89 H 01/14/22 11:00 64 186/94 H 01/14/22 10:40 62 184/91 H 01/14/22 10:20 60 159/92 H 01/14/22 10:00 61 164/92 H 01/14/22 08:00 65 01/14/22 09:40 63 165/85 H 01/14/22 09:20 61 178/90 H 01/14/22 09:16 61 172/89 H 01/14/22 09:12 36.7 C 62 01/14/22 07:35 36.5 C 64 18 01/14/22 05:00 36.7 C 66 18 BP Pulse Ox O2 Del Method 01/14/22 12:20 01/14/22 12:00 01/14/22 11:40 01/14/22 11:20 01/14/22 11:00 01/14/22 10:40 01/14/22 10:20 01/14/22 10:00 01/14/22 08:00 01/14/22 09:40 01/14/22 09:20 01/14/22 09:16 01/14/22 09:12 01/14/22 07:35 171/95 H 97 Room Air 01/14/22 05:00 175/92 H 97 Room Air PG Care Time/CCT Total # of Minutes Spent Total Time Spent with Patient: Total time spent is greater than 50% in coordination of care (as documented) at patient's floor/unit and/or counseling patient: Coding Level of Care Code 50489 Subseq Hosp Care Lvl 2 Diagnoses Diabetic foot infection E11.628; L08.9 ESRD (end stage renal disease) N18.6 Anemia D64.9 Anemia type: unspecified type DM type 2 (diabetes mellitus, type 2) E11.9 Diarrhea R19.7 Right atrial mass I51.89 CAD (coronary artery disease) I25.10 Chest pain R07.2 Chest pain type: precordial pain CVA, old, ataxia I69.993 Nausea & vomiting R11.2 Hypertension I10 Dyslipidemia E78.5 Hematemesis K92.0 Carotid stenosis, right I65.21 (1) Anemia Anemia type: unspecified type Qualified Code(s): D64.9 - Anemia, unspecified (2) Chest pain Chest pain type: precordial pain Qualified Code(s): R07.2 - Precordial pain
[2022-01-14] MEDS: carvediloL 12.5 MG TAB PO SCH ×2 (13:45→20:41)
[2022-01-14] MEDS: LOSARTAN POTASSIUM 25 MG TAB PO SCH (13:45)
[2022-01-14] MEDS: ISOSORBIDE MONO EXTENDED REL 30 MG TABCR PO SCH (14:12)
[2022-01-14] MEDS: amLODIPine BESYLATE 5 MG TAB PO SCH (14:13)
--- NOTE | 2022-01-14 14:33 | Anesthesiology Consultation ---
Date of Service January 14, 2022 Assessment & Plan Chart Review Chart Review: Acceptable Risk for Surgery and Patient NOT seen in Pre Admission Testing History Surgery Operation Date: 12/31/21 17:55 Proposed Procedures p Left 5th Toe Amputation, Right 4th & 5th Ray Amputation - Raulito Ferrer DPM, MS Operation Date: 01/01/22 08:20 Proposed Procedures p Left 5th Toe Amputation, Right 4th and 5th Ray Amputation - Raulito Ferrer DPM, MS Operation Date: 01/03/22 07:00 Proposed Procedures p Closure of Bilateral Foot Amputations - Raulito Ferrer DPM, MS Operation Date: 01/07/22 12:20 Proposed Procedures p Perm Catheter Placement - Michele Flanagan MD Operation Date: 01/10/22 16:30 Proposed Procedures p Esophagogastroduodenoscopy Dr David Hernandez, Height/Weight Height: 5 ft 11 in Weight: 72 kg Allergies Allergy/AdvReac Type Severity Reaction Status Date / Time No Known Allergies Allergy Verified 12/31/21 00:58 Medications Home Medications Medication Instructions Recorded Confirmed Last Taken amlodipine 10 mg tablet 10 mg PO DAILY 12/31/21 12/31/21 Unknown aspirin 81 mg tablet,delayed 81 mg PO DAILY 12/31/21 12/31/21 Unknown release atorvastatin 40 mg tablet 40 mg PO DAILY 12/31/21 12/31/21 Unknown carvedilol 6.25 mg tablet 6.25 mg PO BID 12/31/21 12/31/21 Unknown clopidogrel 75 mg tablet (Plavix) 75 mg PO DAILY 12/31/21 12/31/21 Unknown isosorbide mononitrate 30 mg 30 mg PO DAILY 12/31/21 12/31/21 Unknown tablet,extended release 24 hr losartan 25 mg tablet 25 mg PO DAILY 12/31/21 12/31/21 Unknown Active Medications Generic Name Dose Route Start Last Admin Trade Name Freq PRN Reason Stop Dose Admin Hydrocodone Bitart/Acetaminophen 1 tab 01/05/22 16:05 01/05/22 16:29 Hydrocodone/Acetamophen 5/325mg Tab PO 01/19/22 16:04 1 tab Q6H PRN Administration Pain Amlodipine Besylate 10 mg 12/31/21 09:00 01/14/22 14:13 Amlodipine Besylate 5 Mg Tab PO 01/30/22 08:59 10 mg DAILY TALIB Administration Lipase/Protease/Amylase 1 cap 01/11/22 09:45 01/14/22 08:22 Pancreaze (Lipase 10,500u) Cap PO 02/10/22 09:44 1 cap Q24H TALIB Administration Aspirin 81 mg 12/31/21 09:00 01/14/22 08:16 Aspirin 81 Mg Ectab PO 01/30/22 08:59 81 mg DAILY TALIB Administration Atorvastatin Calcium 40 mg 12/31/21 09:00 01/14/22 08:22 Atorvastatin 40 Mg Tab PO 01/30/22 08:59 40 mg DAILY TALIB Administration Calcitriol 0.25 mcg 01/01/22 09:00 01/14/22 08:22 Calcitriol 0.25 Mcg Capsule PO 01/31/22 08:59 0.25 mcg QAM TALIB Administration Calcium Acetate 667 mg 12/31/21 17:00 01/14/22 13:49 Calcium Acetate 667 Mg Cap/Tab PO 01/30/22 16:59 667 mg TIDM TALIB Administration Carvedilol 12.5 mg 01/13/22 09:00 01/14/22 13:45 Carvedilol 12.5 Mg Tab PO 02/12/22 08:59 12.5 mg BID TALIB Administration Clopidogrel Bisulfate 75 mg 01/12/22 09:00 01/14/22 08:21 Clopidogrel Bisulfate 75 Mg Tab PO 02/11/22 08:59 75 mg QAM TALIB Administration Epoetin Shadi 10,000 units 01/14/22 09:00 01/14/22 11:19 Epoetin Shadi 10,000 Units/Ml Vial IV 01/14/22 23:59 10,000 units TODAY@0900 TALIB Administration Hydralazine HCl 5 mg 01/04/22 12:44 01/11/22 14:23 Hydralazine Hcl 20 Mg/Ml Vial IV 01/30/22 03:29 5 mg Q8H PRN Administration SBP > 180 Insulin Aspart 0 units 01/11/22 08:00 01/14/22 14:17 Insulin Aspart Per Unit SC 02/10/22 07:59 2 units ACHS TALIB Administration Isosorbide Mononitrate 30 mg 12/31/21 09:00 01/14/22 14:12 Isosorbide Geary Extended Rel 30 Mg Tabcr PO 08/04/22 08:59 30 mg DAILY TALIB Administration Lactobacillus Acidophilus 2 cap 01/04/22 13:00 01/14/22 08:18 Advanced Probiotic 1250 Mg Capsule PO 02/03/22 12:59 2 cap DAILY TALIB Administration Losartan Potassium 25 mg 01/14/22 09:00 01/14/22 13:45 Losartan Potassium 25 Mg Tab PO 02/13/22 08:59 25 mg QAM TALIB Administration Miscellaneous 15 - 30 gm 12/31/21 08:23 01/11/22 14:52 Carbohydrates For Hypoglycemia PO 01/30/22 08:22 22 gm UD PRN Administration Hypoglycemia Protocol Ondansetron HCl 4 mg 12/31/21 20:16 01/09/22 09:53 Ondansetron Inj 2 Mg/Ml 2 Ml Vial IV 01/30/22 20:15 4 mg Q6H PRN Administration Nausea Pantoprazole Sodium 40 mg 01/12/22 09:00 01/14/22 08:21 Pantoprazole 40 Mg Tab PO 02/11/22 08:59 40 mg QAM TALIB Administration Vitamin B Complex/Folic Acid 1 cap 01/08/22 09:00 01/14/22 08:21 Nephrocaps PO 02/07/22 08:59 1 cap QAM TALIB Administration NPO Date Last Intake of Fluids: 01/06/22 Time Last Intake of Fluids: 22:00 Last Intake of Fluids Comment: sip of water 0830 w/meds Date Last Intake of Solids: 01/06/22 Time Last Intake of Solids: 22:00 Past Medical History Medical History CAD (coronary artery disease) Carotid artery stenosis Chronic kidney disease CVA, old, ataxia Dyslipidemia Hypertension Peripheral arterial disease Past Surgical History Surgical History S/P coronary artery stent placement Social History Smoking Status: Former smoker tobacco type: cigarettes Do You Dip or Chew Tobacco: No Hx Alcohol Use: No Hx Substance Use: No substance use type: does not use Physical Exam Vital Signs Last Vital Signs Temp 36.9 C 01/14/22 13:35 Pulse 67 01/14/22 13:35 Resp 18 01/14/22 07:35 BP 194/90 H 01/14/22 13:35 Pulse Ox 97 01/14/22 07:35 O2 Del Method 01/14/22 07:35 O2 Flow Rate 0 01/07/22 12:00 Testing Laboratory Results 01/12/22 06:44 01/13/22 03:53 PT 11.2 Seconds (9.0-12.0) 01/07/22 06:05 INR 1.1 (0.9-1.1) 01/07/22 06:05 Hemoglobin A1c 6.1 % (4.5-5.6) H 12/31/21 06:59 Urine Color Yellow 01/01/22 06:15 Urine Appearance Cloudy (Clear) A 01/01/22 06:15 Urine pH 5.0 (4.5-7.5) 01/01/22 06:15 Ur Specific [place] 1.015 (1.000-1.030) 01/01/22 06:15 Urine Protein 3+ (Negative) H 01/01/22 06:15 Urine Glucose (UA) Trace (Negative) H 01/01/22 06:15 Urine Ketones Negative (Negative) 01/01/22 06:15 Urine Nitrite Negative (Negative) 01/01/22 06:15 Ur Leukocyte Esterase Negative (Negative) 01/01/22 06:15 Urine WBC (Auto) 5-10 /hpf (0-5) H 01/01/22 06:15 Urine RBC (Auto) 5-10 /hpf (0-4) H 01/01/22 06:15 U Hyaline Cast (Auto) 1-5 /lpf (0-5) 01/01/22 06:15 U Epithel Cells (Auto) >30 /lpf (0-5) H 01/01/22 06:15 Urine Bacteria (Auto) Negative (Negative) 01/01/22 06:15 Blood Type O Positive 01/04/22 13:00 Antibody Screen NEGATIVE 01/04/22 13:00 12/31/21 07:31 Aerobic Blood Culture - Final Blood No growth in Aerobic bottle after 5 days. Anaerobic Blood Culture - Final No growth in Anaerobic bottle after 5 days. 12/31/21 07:31 Aerobic Blood Culture - Final Blood No growth in Aerobic bottle after 5 days. Anaerobic Blood Culture - Final No growth in Anaerobic bottle after 5 days. 01/01/22 18:12 Gram Stain - Final Foot,Right Deep Wound Culture - Final Group C Beta Strep Non-parts consultant species Staphylococcus aureus 01/01/22 18:12 Gram Stain - Final Foot,Left Deep Wound Culture - Final Group C Beta Strep Staphylococcus aureus 01/14/22 01/14/22 13:39 07:33 POC Glucose 105 H 97 Electrocardiogram Date: 12/30/21 Findings: + NSR @ Possible Left atrial enlargement T wave abnormality, consider lateral ischemia Abnormal ECG Chest X-Ray Date: 12/30/21 Findings: + NAD Echocardiogram Date: 12/31/21 EF: 60 LV Function: normal Valvular Disease: + no significant valvular disease
[2022-01-14] MEDS: CEFEPIME 2,000 MG in SYRINGE 0 ML IV SCH (16:19)
[2022-01-15 06:45] LABS: Basophils # (auto) 0.23 K/uL (0-0.2); Basophils % (auto) 2.1 %; Eosinophils # (auto) 0.39 K/uL (0-0.50); Eosinophils % (auto) 3.5 %; Hematocrit (blood only) 27.7 % (40.1-51.0); Immature Granulocytes # (auto) 0.05 K/uL (0.00-0.02); Immature Granulocytes % (auto) 0.4 %; Lymphocytes # (auto) 2.67 K/uL (1.2-3.4); Lymphocytes % (auto) 23.8 %; Mean Corpuscular Hemoglobin 29.3 pg (25.0-34.0); Mean Corpuscular Hgb Conc 32.5 g/dL (32.0-36.0); Mean Corpuscular Volume 90.2 fL (80.0-100.0); Mean Platelet Volume 10.2 fL (9.4-12.4); Monocytes # (auto) 0.92 K/uL (0.24-0.82); Monocytes % (auto) 8.2 %; Neutrophils # (auto) 6.95 K/uL (1.4-6.5); Platelet Count 255 K/uL (130-400); RDW Coefficient of Variation 14.3 % (11.5-14.5); RDW Standard Deviation 45.7 fL (36.4-46.3); Red Blood Count 3.07 M/uL (4.63-6.08); White Blood Count 11.21 K/ul (4.8-10.8)
[2022-01-15] MEDS: amLODIPine BESYLATE 5 MG TAB PO SCH (08:47)
[2022-01-15] MEDS: ISOSORBIDE MONO EXTENDED REL 30 MG TABCR PO SCH (08:48)
[2022-01-15] MEDS: NEPHROCAPS PO SCH (08:48)
[2022-01-15] MEDS: CLOPIDOGREL BISULFATE 75 MG TAB PO SCH (08:48)
[2022-01-15] MEDS: LOSARTAN POTASSIUM 25 MG TAB PO SCH (08:50)
[2022-01-15] MEDS: ADVANCED PROBIOTIC 1250 MG CAPSULE PO SCH (08:50)
[2022-01-15] MEDS: CALCIUM ACETATE 667 MG CAP/TAB PO SCH ×3 (08:50→17:21)
[2022-01-15] MEDS: PANCREAZE (LIPASE 10,500U) CAP PO SCH (08:50)
[2022-01-15] MEDS: ATORVASTATIN 40 MG TAB PO SCH (08:50)
[2022-01-15] MEDS: PANTOprazole 40 MG TAB PO SCH (08:51)
[2022-01-15] MEDS: ASPIRIN 81 MG ECTAB PO SCH (08:51)
[2022-01-15] MEDS: CALCITRIOL 0.25 MCG CAPSULE PO SCH (08:51)
[2022-01-15] MEDS: carvediloL 12.5 MG TAB PO SCH ×2 (08:52→20:54)
[2022-01-15] MEDS: INSULIN ASPART PER UNIT SC SCH ×4 (09:01→20:54)
--- NOTE | 2022-01-15 10:00 | Nephrology Progress Note ---
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 Initially presented to the hospital with prior history of advanced CKD but no follow-up with Nephrology over years. On admission found to be end-stage kidney disease and started on dialysis via tunneled dialysis catheter. Also had gangrenous toe requiring amputation of right 4th and 5th toe some left 5th toes. Echo showed concern for endocarditis and possible atrial mass. Continued on Cefepime and waiting on ROLAND. BP improving, carvedilol was restarted.. On amlodipine and clonidine. Electrolyte acceptable. Volume status acceptable. Waiting on ROLAND -- HD tomorrow -- on PhosLo and renal vitamins. -- Left arm nephrology precaution for future vascular access, dose meds for EGFR less than 10. -- has outpt HD set up at [place], [place] when ready for discharge will follow Admission and Anticipated Discharge Date Admission Date: December 31, 2021 Jesus Cabezas was seen and examined this morning. Overall feeling well, denies any acute symptom. Does not feel like he is ready for discharge yet.. Blood pressure elevated. Tunneled dialysis catheter has been working well. Review of Systems Review of Systems: Detail ROS was otherwise unremarkable. Physical Exam Constitutional: WD/WN, vitals as above + ill appearing and + cachectic; no acute distress Eyes: + anicteric sclerae Neck: normal visual inspection Respiratory: Auscultation: lungs clear to auscultation bilaterally Cardiovascular: Rate/Rhythm: regular rate and regular rhythm Extremities: no edema Skin: no rashes Neurologic: no focal motor deficits Psychiatric: Orientation: alert and oriented x 3 Results & Data ([facility]) Vital Signs (Past 12 Hours) Vital Signs Temp Pulse Pulse Pulse Resp BP BP 01/15/22 08:06 36.8 C 73 16 165/73 H 01/15/22 03:34 36.8 C 78 20 151/68 H 01/15/22 01:16 36.8 C 78 16 150/60 H 01/14/22 23:07 69 Pulse Ox O2 Del Method 01/15/22 08:06 97 Room Air 01/15/22 03:34 96 Room Air 01/15/22 01:16 97 Room Air 01/14/22 23:07 PG Care Time/CCT Total # of Minutes Spent Total Time Spent with Patient: Total time spent is greater than 50% in coordination of care (as documented) at patient's floor/unit and/or counseling patient: Coding Level of Care Code 68382 Subseq Hosp Care Lvl 3 Diagnoses ESRD (end stage renal disease) N18.6 Diabetic foot infection E11.628; L08.9 Right atrial mass I51.89 Anemia D64.9 Anemia type: unspecified type 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
[2022-01-15] MEDS ORDERED: BENZOCAINE/TETRACAIN/BUTAM 50 APPLN/5 GM CAN EXT ONE (10:58)
--- NOTE | 2022-01-15 11:34 | Anesthesiology Progress Note ---
Date of Service January 15, 2022 Anesthesia Post Procedure Vital Signs Vital Signs: Temp Pulse Pulse Pulse Pulse Resp BP 01/15/22 11:29 74 15 01/15/22 10:56 66 1 L 01/15/22 06:13 74 01/15/22 08:00 01/15/22 08:06 36.8 C 73 16 01/15/22 03:34 36.8 C 78 20 01/15/22 01:16 36.8 C 78 16 01/14/22 23:07 69 01/14/22 19:48 36.6 C 62 14 01/14/22 15:51 36.8 C 69 18 01/14/22 13:35 36.9 C 67 01/14/22 13:00 64 177/82 H 01/14/22 12:40 66 166/83 H 01/14/22 12:20 65 188/90 H 01/14/22 12:00 65 176/92 H 01/14/22 11:40 65 182/95 H BP BP Pulse Ox O2 Del Method O2 Flow Rate 01/15/22 11:29 160/66 H 98 Oxymask 10 01/15/22 10:56 162/75 H 97 Room Air 01/15/22 06:13 01/15/22 08:00 Room Air 01/15/22 08:06 165/73 H 97 Room Air 01/15/22 03:34 151/68 H 96 Room Air 01/15/22 01:16 150/60 H 97 Room Air 01/14/22 23:07 01/14/22 19:48 134/62 97 Room Air 01/14/22 15:51 119/71 99 Room Air 01/14/22 13:35 194/90 H 01/14/22 13:00 01/14/22 12:40 01/14/22 12:20 01/14/22 12:00 01/14/22 11:40 Transfer of Care Handoff Completed per policy Notes Mental Status: alert / awake / arousable Patient Amnestic to Procedure: Yes Nausea / Vomiting: adequately controlled Pain: adequately controlled Airway Patency, RR, SpO2: stable & adequate BP & HR: stable & adequate Hydration State: stable & adequate Anesthetic Complications: no major complications apparent and Pt Satisfied with anesthetic care Notes: The patient is awake and comfortable. His vital signs are stable.
[2022-01-15] MEDS ORDERED: PROPOFOL IV EMULSION 10 MG/ML 20 ML VIAL IV ONE (11:37)
[2022-01-15] MEDS ORDERED: LIDOCAINE 2% MPF LOCAL 5 ML VIAL INFIL ONE (11:37)
--- NOTE | 2022-01-15 13:25 | Pharmacy Report ---
Pharmacy Glycemic Short Note 2 - Date of Service January 15, 2022 - Glycemic Short BSG Results (Last 24 hours): 01/14/22 01/14/22 01/14/22 13:39 16:11 20:21 POC Glucose 105 H 111 H 172 H 01/15/22 01/15/22 01/15/22 07:32 09:00 12:09 POC Glucose 267 H 219 H 162 H OUTPATIENT ANTIDIABETIC REGIMEN: * N/A * HbA1C unreliable in dialysis patient ASSESSMENT: 01/15: * BSGs largely within goal the last 48h, [phone]. Received 10 units of Novolog 01/13 and 14 units 01/14. * Stressors stable. Was NPO briefly this AM (for ROLAND), but has been tolerating a diet. * No change to Novolog 01/13: * BSGs the last 24h: 44-129-346-77mg/dL. Patient received 15 units of Novolog yesterday. * Stressors stable, tolerating a diet. * CR loosened again today at lunch to 15gm/unit given periodic low BSGs. Also adjusted upper end of goal range to 150mg/dL to provide milder correction. 01/12: * BSGs yesterday were 161-87-53/98-73 mg/dL. Today's BSGs are 83-122 mg/dL. * Patient received 22 units of insulin yesterday (10 units of basal and 12 units of bolus). * Will d/c Lantus as fasting trending down significantly. * Loosen CF/CR due to hypoglycemia yesterday. Background * Patient's BSGs yesterday were 74-44-919-156 mg/dL. Patient received 2 units of Novolog with lunch. * Patient's fasting BSG is 161 mg/dL. * Will start Lantus 10 units daily with 10 units HS if BSG continues > 160 mg/dL. * Novolog weight-based stress of 2 right now. Tighten if BSGs trend upwards. PLAN FOR INPATIENT GLYCEMIC CONTROL: * Hold outpatient oral diabetes medications * Bolus insulin * NovoLog per scale ACHS or Q6hrs while NPO * Goal Range: Low 110 mg/dL - High 150 mg/dL * Correction Factor: 35 mg/dL/unit * Nutritional / Prandial insulin per carb ratio of 1 unit per 15 grams CHO consumed
--- NOTE | 2022-01-15 15:01 | Hospitalist Progress Note ---
Date of Service January 15, 2022 Assessment & Plan (1) Diabetic foot infection: Plan: Patient is now day 11 s/p bilateral foot surgery, amputation of Gangrenous fifth toes. Bilateral foot surgery, partial amputation on 01/01/2022, delayed primary closure due to infection 01/03/2022 Heel weightbearing per podiatry note, has surgical shoes, PT No residual osteomyelitis Since here we will have podiatry reevaluate for residual cellulitis and suture removal Thursday Continue cefepime postdialysis for now Noted WBC count, declining, noted CRP not impressive (2) Anemia: Plan: Stool positive for occult blood. 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 EGD did not show any bleeding ulcer, just some polyps which were biopsied Transfuse if hb<7; ct PPI for now Currently hemoglobin stable (3) DM type 2 (diabetes mellitus, type 2): Plan: A1c 6.1, likely will be diet controlled; noted some fluctuation in blood sugar (4) Diarrhea: Plan: No complaints of that currently likely diabetic diarrhea, symptomatic treatment, pancreatic replacement not unreasonable (5) Right atrial mass: Plan: Ill-defined lesion on echo, ROLAND no vegetation, await final report (6) CAD (coronary artery disease): Plan: As noted by cardiology no convincing angina, continue aspirin, statin, on beta-sarah (7) CVA, old, ataxia: Plan: severe carotid stenosisvascular surgery follow-up On plavix (8) Nausea & vomiting: Plan: No complaints elicited at present (9) Hypertension: Plan: Somewhat better, recent med changesaddition of ARB, up titration of carvedilol; no change (10) Dyslipidemia: Plan: Continue statin (11) Hematemesis: Plan: None again after 1 episode, continue PPI (12) Carotid stenosis, right: Plan: Vascular surgery follow-up Plan VTE Prophylaxis - chemical deferred due to hematemesis and need for ongoing blood transfusions Diet - dialysis renal, T2DM Disposition - Patient will be d/c hopefully soon; he wants to go to [place] to be with his sister. However, he wants to get a few more days of physical therapy before d/c. Prescription for wheelchair given Admission and Anticipated Discharge Date Admission Date: December 31, 2021 Subjective Physical Exam Physical Exam: Constitutional and general: No acute distress, looks biologic age Head and face: No puffiness, atraumatic Eyes: No scleral icterus, extraocular movements normal Neck: Supple, no JVD Musculoskeletal: No acute joint swelling, no bony abnormalities Skin/dermatologic/integument: No rash, no purpura Hematologic and lymphatic: pallor ++, no petechia Gastrointestinal/abdomen: Nondistended, soft, nonacute Neurologic: Cranial nerves intact, nonfocal Psychiatry: Awake, alert, pleasant, communicative Cardiovascular: Heart rhythm regular, no rub, SM, no gallop Respiratory: Chest movements equal, no use of accessory muscles, no adventitious sounds Extremities: Surgical dressings Results & Data Results & Data ([facility]) Vital Signs (Past 12 Hours) Vital Signs Temp Pulse Pulse Pulse Pulse Resp BP 01/15/22 11:54 36.8 C 70 16 01/15/22 11:38 69 15 01/15/22 11:29 74 15 01/15/22 10:56 66 1 L 01/15/22 06:13 74 01/15/22 08:00 01/15/22 08:06 36.8 C 73 16 165/73 H 01/15/22 03:34 36.8 C 78 20 151/68 H BP Pulse Ox O2 Del Method O2 Flow Rate 01/15/22 11:54 158/77 H 98 Room Air 01/15/22 11:38 146/61 H 98 Oxymask 10 01/15/22 11:29 160/66 H 98 Oxymask 10 01/15/22 10:56 162/75 H 97 Room Air 01/15/22 06:13 01/15/22 08:00 Room Air 01/15/22 08:06 97 Room Air 01/15/22 03:34 96 Room Air Laboratory Results Laboratory Results - last 24 hr 01/14/22 01/14/22 01/15/22 16:11 20:21 06:35 WBC 11.21 H RBC 3.07 L Hgb 9.0 L Hct 27.7 L MCV 90.2 MCH 29.3 MCHC 32.5 RDW Std Deviation 45.7 RDW Coeff of Jermaine 14.3 Plt Count 255 MPV 10.2 Immature Gran % (Auto) 0.4 Neut % (Auto) 62.0 Lymph % (Auto) 23.8 [place] % (Auto) 8.2 Eos % (Auto) 3.5 Baso % (Auto) 2.1 Neut # (Auto) 6.95 H Lymph # (Auto) 2.67 [place] # (Auto) 0.92 H Eos # (Auto) 0.39 Baso # (Auto) 0.23 H Immature Gran # (Auto) 0.05 H POC Glucose 111 H 172 H C-Reactive Protein 01/15/22 01/15/22 01/15/22 06:35 07:32 09:00 WBC RBC Hgb Hct MCV MCH MCHC RDW Std Deviation RDW Coeff of Jermaine Plt Count MPV Immature Gran % (Auto) Neut % (Auto) Lymph % (Auto) [place] % (Auto) Eos % (Auto) Baso % (Auto) Neut # (Auto) Lymph # (Auto) [place] # (Auto) Eos # (Auto) Baso # (Auto) Immature Gran # (Auto) POC Glucose 267 H 219 H C-Reactive Protein 1.01 H 01/15/22 12:09 WBC RBC Hgb Hct MCV MCH MCHC RDW Std Deviation RDW Coeff of Jermaine Plt Count MPV Immature Gran % (Auto) Neut % (Auto) Lymph % (Auto) [place] % (Auto) Eos % (Auto) Baso % (Auto) Neut # (Auto) Lymph # (Auto) [place] # (Auto) Eos # (Auto) Baso # (Auto) Immature Gran # (Auto) POC Glucose 162 H C-Reactive Protein PG Care Time/CCT Total # of Minutes Spent Total Time Spent with Patient: Total time spent is greater than 50% in coordination of care (as documented) at patient's floor/unit and/or counseling patient: Coding Level of Care Code 20749 Subseq Hosp Care Lvl 2 Diagnoses Diabetic foot infection E11.628; L08.9 Anemia D64.9 Anemia type: unspecified type DM type 2 (diabetes mellitus, type 2) E11.9 Diarrhea R19.7 Right atrial mass I51.89 CAD (coronary artery disease) I25.10 CVA, old, ataxia I69.993 Nausea & vomiting R11.2 Hypertension I10 Dyslipidemia E78.5 Hematemesis K92.0 Carotid stenosis, right I65.21 (1) Anemia Anemia type: unspecified type Qualified Code(s): D64.9 - Anemia, unspecified
--- NOTE | 2022-01-15 16:25 | XCELERA ---
[id number]
[2022-01-16] MEDS: INSULIN ASPART PER UNIT SC SCH ×3 (08:35→21:03)
[2022-01-16] MEDS: CALCIUM ACETATE 667 MG CAP/TAB PO SCH ×3 (08:36→16:43)
[2022-01-16] MEDS: CLOPIDOGREL BISULFATE 75 MG TAB PO SCH (09:11)
--- NOTE | 2022-01-16 09:51 | Nephrology Progress Note ---
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 Initially presented to the hospital with prior history of advanced CKD but no follow-up with Nephrology over years. On admission found to be end-stage kidney disease and started on dialysis via tunneled dialysis catheter. Also had gangrenous toe requiring amputation of right 4th and 5th toe some left 5th toes. Echo showed concern for endocarditis and possible atrial mass but ROLAND on 01/15/22 was negative for vegetation. BP better, on amlodipine and clonidine. Electrolyte acceptable. Volume status acceptable. -- HD today and then possibly short treatment tomorrow before DC in Afternoon. -- on PhosLo and renal vitamins. -- Left arm nephrology precaution for future vascular access, dose meds for EGFR less than 10. -- has outpt HD set up at [place], [place] when ready for discharge will follow Admission and Anticipated Discharge Date Admission Date: December 31, 2021 Jesus Cabezas was seen and examined this morning. Overall feeling well, denies any acute symptom. Plan for possible discharge tomorrow. Blood pressure elevated. Tunneled dialysis catheter has been working well. Review of Systems Review of Systems: Detail ROS was otherwise unremarkable. Physical Exam Constitutional: WD/WN, vitals as above + ill appearing and + cachectic; no acute distress Eyes: + anicteric sclerae Neck: normal visual inspection Respiratory: Auscultation: lungs clear to auscultation bilaterally Cardiovascular: Rate/Rhythm: regular rate and regular rhythm Extremities: no edema Skin: no rashes Neurologic: no focal motor deficits Psychiatric: Orientation: alert and oriented x 3 Results & Data ([facility]) Vital Signs (Past 12 Hours) Vital Signs Temp Pulse Pulse Pulse Resp BP Pulse Ox 01/16/22 07:46 36.4 C L 65 14 151/70 H 99 01/16/22 03:00 36.5 C 77 18 157/73 H 98 01/16/22 00:42 67 01/15/22 22:45 36.7 C 70 18 139/74 97 O2 Del Method 01/16/22 07:46 Room Air 01/16/22 03:00 Room Air 01/16/22 00:42 01/15/22 22:45 Room Air PG Care Time/CCT Total # of Minutes Spent Total Time Spent with Patient: Total time spent is greater than 50% in coordination of care (as documented) at patient's floor/unit and/or counseling patient: Coding Level of Care Code 94714 Subseq Hosp Care Lvl 3 Diagnoses ESRD (end stage renal disease) N18.6 Diabetic foot infection E11.628; L08.9 Right atrial mass I51.89 Anemia D64.9 Anemia type: unspecified type 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
[2022-01-16 09:58] LABS: Hematocrit (blood only) 28.2 % (40.1-51.0); Mean Corpuscular Hemoglobin 29.5 pg (25.0-34.0); Mean Corpuscular Hgb Conc 31.9 g/dL (32.0-36.0); Mean Corpuscular Volume 92.5 fL (80.0-100.0); Mean Platelet Volume 10.8 fL (9.4-12.4); Platelet Count 259 K/uL (130-400); RDW Coefficient of Variation 14.5 % (11.5-14.5); RDW Standard Deviation 48.4 fL (36.4-46.3); Red Blood Count 3.05 M/uL (4.63-6.08); White Blood Count 11.54 K/ul (4.8-10.8)
[2022-01-16 10:43] LABS: Albumin Level 2.8 gm/dl (3.4-5.0); BUN Creatinine Ratio 6.8 (10-20); Calcium 7.1 mg/dl (8.5-10.1); Creatinine Clr Calc Pharmacy 11.6 ml/min; Est GFR (African American) 8.1 ml/min; Phosphorus 5.9 mg/dl (2.5-4.9); Potassium 4.2 mmol/L (3.5-5.1)
[2022-01-16] MEDS: ASPIRIN 81 MG ECTAB PO SCH (13:06)
[2022-01-16] MEDS: PANTOprazole 40 MG TAB PO SCH (13:06)
[2022-01-16] MEDS: NEPHROCAPS PO SCH (13:07)
[2022-01-16] MEDS: LOSARTAN POTASSIUM 25 MG TAB PO SCH (13:07)
[2022-01-16] MEDS: ISOSORBIDE MONO EXTENDED REL 30 MG TABCR PO SCH (13:08)
[2022-01-16] MEDS: CALCITRIOL 0.25 MCG CAPSULE PO SCH (13:08)
[2022-01-16] MEDS: ATORVASTATIN 40 MG TAB PO SCH (13:08)
[2022-01-16] MEDS: ADVANCED PROBIOTIC 1250 MG CAPSULE PO SCH (13:09)
[2022-01-16] MEDS: carvediloL 12.5 MG TAB PO SCH ×2 (13:09→21:03)
[2022-01-16] MEDS: amLODIPine BESYLATE 5 MG TAB PO SCH (13:09)
[2022-01-16] MEDS: PANCREAZE (LIPASE 10,500U) CAP PO SCH (13:10)
[2022-01-16] MEDS ORDERED: INSULIN ASPART PER UNIT SC ONE (13:30)
[2022-01-16] MEDS: CEFEPIME 2,000 MG in SYRINGE 0 ML IV SCH (15:09)
[2022-01-16] MEDS ORDERED: LOSARTAN POTASSIUM 50 MG TAB PO ONE (16:15)
--- NOTE | 2022-01-16 18:53 | Hospitalist Progress Note ---
Date of Service January 16, 2022 Assessment & Plan (1) Diabetic foot infection: Plan: Resolved; toe amputation followed by delayed primary closure on 01-03 No residual cellulitis, no residual osteomyelitis; noted mild stable leukocytosisstop antibiotics (2) Anemia: Plan: Stool positive for occult blood. 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 EGD did not show any bleeding ulcer, just some polyps which were biopsied Transfuse if hb<7; ct PPI for now Currently hemoglobin stable (3) DM type 2 (diabetes mellitus, type 2): Plan: A1c 6.1, likely will be diet controlled; noted some fluctuation in blood sugar (suspect dietary) (4) Diarrhea: Plan: No complaints of that currently likely diabetic diarrhea, symptomatic treatment, pancreatic replacement not unreasonable (5) CAD (coronary artery disease): Plan: As noted by cardiology no convincing angina, continue aspirin, statin, on beta- sarah (6) CVA, old, ataxia: Plan: severe carotid stenosisvascular surgery follow-up On plavix (7) Nausea & vomiting: Plan: No complaints elicited at present (8) Hypertension: Plan: Again high readings, postdialysis high generally renin mediatedincrease ARB (9) Dyslipidemia: Plan: Continue statin (10) Hematemesis: Plan: None again after 1 episode, continue PPI (11) Carotid stenosis, right: Plan: Vascular surgery follow-up Plan VTE Prophylaxis - chemical deferred due to hematemesis and need for ongoing blood transfusions Diet - dialysis renal, T2DM Disposition - Patient will be d/c hopefully soon; he wants to go to [place] to be with his sister. Admission and Anticipated Discharge Date Admission Date: December 31, 2021 Subjective Follow-up up for initial presentation with diabetic foot infectiondoing well; no complaints Physical Exam Physical Exam: Constitutional and general: No acute distress, looks biologic age Head and face: No puffiness, atraumatic Eyes: No scleral icterus, extraocular movements normal Neck: Supple, no JVD Musculoskeletal: No acute joint swelling, no bony abnormalities Skin/dermatologic/integument: No rash, no purpura Hematologic and lymphatic: pallor ++, no petechia Gastrointestinal/abdomen: Nondistended, soft, nonacute Neurologic: Cranial nerves intact, nonfocal Psychiatry: Awake, alert, pleasant, communicative Cardiovascular: Heart rhythm regular, no rub, SM, no gallop Respiratory: Chest movements equal, no use of accessory muscles, no adventitious sounds Extremities: Surgical site seen with Dr. Ferrerno residual cellulitis seen Results & Data Results & Data ([facility]) Vital Signs (Past 12 Hours) Vital Signs Temp Pulse Pulse Pulse Pulse Resp BP 01/16/22 16:05 36.7 C 83 18 01/16/22 14:24 91 H 01/16/22 12:56 36.7 C 72 14 01/16/22 12:46 36.6 C 71 01/16/22 12:30 77 176/91 H 01/16/22 12:00 68 161/87 H 01/16/22 11:30 66 171/83 H 01/16/22 11:00 63 161/80 H 01/16/22 10:30 61 157/81 H 01/16/22 10:00 62 166/88 H 01/16/22 09:45 64 158/80 H 01/16/22 09:40 36.6 C 66 01/16/22 08:00 01/16/22 07:46 36.4 C L 65 14 BP BP Pulse Ox O2 Del Method 01/16/22 16:05 171/78 H 98 Room Air 01/16/22 14:24 01/16/22 12:56 203/96 H 189/103 H 96 Room Air 01/16/22 12:46 178/88 H 01/16/22 12:30 01/16/22 12:00 01/16/22 11:30 01/16/22 11:00 01/16/22 10:30 01/16/22 10:00 01/16/22 09:45 01/16/22 09:40 01/16/22 08:00 Room Air 01/16/22 07:46 151/70 H 99 Room Air PG Care Time/CCT Total # of Minutes Spent Total Time Spent with Patient: Total time spent is greater than 50% in coordination of care (as documented) at patient's floor/unit and/or counseling patient: Coding Level of Care Code 46570 Subseq Hosp Care Lvl 2 Diagnoses Diabetic foot infection E11.628; L08.9 Anemia D64.9 Anemia type: unspecified type DM type 2 (diabetes mellitus, type 2) E11.9 Diarrhea R19.7 CAD (coronary artery disease) I25.10 CVA, old, ataxia I69.993 Nausea & vomiting R11.2 Hypertension I10 Dyslipidemia E78.5 Hematemesis K92.0 Carotid stenosis, right I65.21 (1) Anemia Anemia type: unspecified type Qualified Code(s): D64.9 - Anemia, unspecified
--- NOTE | 2022-01-16 21:38 | Orthopedic Progress Note ---
Date of Service January 16, 2022 Assessment & Plan (1) DM type 2 (diabetes mellitus, type 2): Plan: Patient dressing changed with out incidence. Patient is weight bearing to heel bilateral. Surgical off loading shoes dispensed. Incision sites well co-apted. Sutures removed with out incident. I did spend considerable time discussing need for DM shoes with CMOsl. 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 Thank you for allowing me to participate in the care of this Patient. 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 Physical Exam Physical Exam: Dressing intact to bilateral feet. There is no strike through. Constitutional: WD/WN, vitals as above Eyes: PERRL, conjunctivae normal, anicteric sclerae Musculoskeletal: no cyanosis or clubbing, extremities motor strength 5/5 Skin: no rashes, warm and dry Psychiatric: Orientation: oriented x 3 Results & Data ([facility]) Vital Signs (Past 12 Hours) Vital Signs Temp Pulse Pulse Pulse Pulse Resp BP 01/16/22 19:18 36.6 C 72 18 01/16/22 16:05 36.7 C 83 18 01/16/22 14:24 91 H 01/16/22 12:56 36.7 C 72 14 01/16/22 12:46 36.6 C 71 01/16/22 12:30 77 176/91 H 01/16/22 12:00 68 161/87 H 01/16/22 11:30 66 171/83 H 01/16/22 11:00 63 161/80 H 01/16/22 10:30 61 157/81 H 01/16/22 10:00 62 166/88 H 01/16/22 09:45 64 158/80 H 01/16/22 09:40 36.6 C 66 BP BP Pulse Ox O2 Del Method 01/16/22 19:18 171/78 H 98 Room Air 01/16/22 16:05 171/78 H 98 Room Air 01/16/22 14:24 01/16/22 12:56 203/96 H 189/103 H 96 Room Air 01/16/22 12:46 178/88 H 01/16/22 12:30 01/16/22 12:00 01/16/22 11:30 01/16/22 11:00 01/16/22 10:30 01/16/22 10:00 01/16/22 09:45 01/16/22 09:40
[2022-01-17 06:36] LABS: Albumin Level 2.8 gm/dl (3.4-5.0); BUN Creatinine Ratio 6.1 (10-20); Creatinine Clr Calc Pharmacy 12.9 ml/min; Est GFR (African American) 9.4 ml/min; Est GFR (Non-African American) 8.1 ml/min; Phosphorus 4.5 mg/dl (2.5-4.9); Potassium 4.1 mmol/L (3.5-5.1)
[2022-01-17] MEDS: INSULIN ASPART PER UNIT SC SCH ×4 (08:10→21:26)
[2022-01-17] MEDS ORDERED: EPOETIN ALFA 10,000 UNITS/ML VIAL IV STA (08:18)
--- NOTE | 2022-01-17 08:34 | Pharmacy Report ---
Pharmacy Glycemic Sign Off Nt - Date of Service January 17, 2022 - Assessment & Plan ASSESSMENT: * Pharmacy was consulted by Dr Hamlin on 01/10/22 for glycemic control and to write orders per [facility] inpatient glycemic control protocol. * Major changes made by pharmacy to antidiabetic regimen include: * Initiation and adjustment of Novolog SSI. Basal insulin briefly trialed, however patient developed hypoglycemia. * Patient has been receiving/requiring ~11 units of insulin per day for adequate glycemic control * BSGs largely within goal * Regimen has only required minor adjustments over the past 48hrs to achieve this level of control * Do not anticipate further changes in patient status that would quickly deteriorate glycemic control (i.e. patient to be NPO for upcoming procedure, steroids tapering, starting tube feedings, etc). PLAN FOR INPATIENT GLYCEMIC CONTROL: No changes needed to current regimen. * Continue NovoLog per scale ACHS/Q6hrs while NPO * Goal range = 110-150 mg/dl * CF = 35 mg/dl/unit * CR = 1 unit for ever 15 g CHO consumed * Pharmacy is signing off of glycemic consult and will no longer be making adjustments to inpatient regimen. Please feel free to re-consult if needed. Thank you.
--- NOTE | 2022-01-17 10:58 | Nephrology Progress Note ---
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 Initially presented to the hospital with prior history of advanced CKD but no follow-up with Nephrology over years. On admission found to be end-stage kidney disease and started on dialysis via tunneled dialysis catheter. Also had gangrenous toe requiring amputation of right 4th and 5th toe some left 5th toes. Echo showed concern for endocarditis and possible atrial mass but ROLAND on 01/15/22 was negative for vegetation. BP better, on amlodipine and clonidine. Electrolyte acceptable. Volume status acceptable. -- HD today for 3 h before DC in Afternoon. he is scheduled to have next dialysis as an outpatient on Thursday at [place], [place]. Waiting for wheelchair before discharge. -- on PhosLo and renal vitamins. -- Left arm nephrology precaution for future vascular access, dose meds for EGFR less than 10. will follow Admission and Anticipated Discharge Date Admission Date: December 31, 2021 Jesus Cabezas was seen and examined this morning. He denies any acute symptoms, appetite improving slowly. Plan for possible discharge this afternoon. Blood pressure fair.. Tunneled dialysis catheter has been working well. Review of Systems Review of Systems: Detail ROS was otherwise unremarkable. Physical Exam Constitutional: WD/WN, vitals as above + ill appearing and + cachectic; no acute distress Eyes: + anicteric sclerae Neck: normal visual inspection Respiratory: Auscultation: lungs clear to auscultation bilaterally Cardiovascular: Rate/Rhythm: regular rate and regular rhythm Extremities: no edema Skin: no rashes Neurologic: no focal motor deficits Psychiatric: Orientation: alert and oriented x 3 Results & Data ([facility]) Vital Signs (Past 12 Hours) Vital Signs Temp Pulse Pulse Pulse Resp BP BP 01/17/22 08:00 72 01/17/22 10:15 69 153/79 H 01/17/22 10:00 70 159/85 H 01/17/22 09:46 67 169/86 H 01/17/22 09:40 37.1 C 69 01/17/22 07:00 36.7 C 75 18 157/84 H 01/17/22 03:50 36.8 C 66 18 157/67 H 01/16/22 23:31 36.7 C 77 18 162/76 H 01/16/22 23:10 78 Pulse Ox O2 Del Method 01/17/22 08:00 01/17/22 10:15 01/17/22 10:00 01/17/22 09:46 01/17/22 09:40 01/17/22 07:00 97 01/17/22 03:50 97 Room Air 01/16/22 23:31 96 Room Air 01/16/22 23:10 PG Care Time/CCT Total # of Minutes Spent Total Time Spent with Patient: Total time spent is greater than 50% in coordination of care (as documented) at patient's floor/unit and/or counseling patient: Coding Level of Care Code 96722 Subseq Hosp Care Lvl 3 Diagnoses ESRD (end stage renal disease) N18.6 Diabetic foot infection E11.628; L08.9 Anemia D64.9 Anemia type: unspecified type 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
[2022-01-17] MEDS: ATORVASTATIN 40 MG TAB PO SCH (14:01)
[2022-01-17] MEDS: ISOSORBIDE MONO EXTENDED REL 30 MG TABCR PO SCH (14:01)
[2022-01-17] MEDS: LOSARTAN POTASSIUM 50 MG TAB PO SCH (14:01)
[2022-01-17] MEDS: carvediloL 12.5 MG TAB PO SCH ×2 (14:01→21:27)
[2022-01-17] MEDS: ASPIRIN 81 MG ECTAB PO SCH (14:01)
[2022-01-17] MEDS: CLOPIDOGREL BISULFATE 75 MG TAB PO SCH (14:01)
[2022-01-17] MEDS: amLODIPine BESYLATE 5 MG TAB PO SCH (14:01)
[2022-01-17] MEDS: ADVANCED PROBIOTIC 1250 MG CAPSULE PO SCH (14:01)
[2022-01-17] MEDS: PANTOprazole 40 MG TAB PO SCH (14:02)
[2022-01-17] MEDS: CALCIUM ACETATE 667 MG CAP/TAB PO SCH ×3 (14:02→17:32)
[2022-01-17] MEDS: CALCITRIOL 0.25 MCG CAPSULE PO SCH (14:02)
[2022-01-17] MEDS: NEPHROCAPS PO SCH (14:02)
[2022-01-17] MEDS: PANCREAZE (LIPASE 10,500U) CAP PO SCH (15:14)
--- NOTE | 2022-01-17 17:12 | Hospitalist Progress Note ---
Date of Service January 17, 2022 Assessment & Plan (1) Diabetic foot infection: Plan: Resolved; toe amputation followed by delayed primary closure on 01-03 No residual cellulitis, no residual osteomyelitis; noted mild stable leukocytosisstopped antibiotics (2) Anemia: Plan: Stool positive for occult blood. 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 EGD did not show any bleeding ulcer, just some polyps which were biopsied Transfuse if hb<7; ct PPI for now Currently hemoglobin stable (3) DM type 2 (diabetes mellitus, type 2): Plan: A1c 6.1, likely will be diet controlled; noted some fluctuation in blood sugar (suspect dietary); will send home on sliding scale (4) Diarrhea: Plan: No complaints of that currently likely diabetic diarrhea, symptomatic treatment, pancreatic replacement not unreasonable (5) CAD (coronary artery disease): Plan: As noted by cardiology no convincing angina, continue aspirin, statin, on beta- sarah (6) CVA, old, ataxia: Plan: severe carotid stenosisvascular surgery follow-up On plavix (7) Nausea & vomiting: Plan: No complaints elicited at present (8) Hypertension: Plan: Tending to be high but meds just adjustedno change today (9) Dyslipidemia: Plan: Continue statin (10) Hematemesis: Plan: None again after 1 episode, continue PPI (11) Carotid stenosis, right: Plan: Vascular surgery follow-up Plan VTE Prophylaxis - chemical deferred due to hematemesis and need for ongoing blood transfusions Diet - dialysis renal, T2DM Disposition -anticipate DC in a.m.; he is unwilling to consider anything else other than discharge to self-care and then he is going to go to [place] via bus Admission and Anticipated Discharge Date Admission Date: December 31, 2021 Subjective Follow-up of original presentation with diabetic foot infectionno new medical issues j Physical Exam Physical Exam: Constitutional and general: No acute distress, looks biologic age Head and face: No puffiness, atraumatic Eyes: No scleral icterus, extraocular movements normal Neck: Supple, no JVD Musculoskeletal: No acute joint swelling, no bony abnormalities Skin/dermatologic/integument: No rash, no purpura Hematologic and lymphatic: pallor ++, no petechia Gastrointestinal/abdomen: Nondistended, soft, nonacute Neurologic: Cranial nerves intact, nonfocal Psychiatry: Awake, alert, pleasant, communicative Cardiovascular: Heart rhythm regular, no rub, SM, no gallop Respiratory: Chest movements equal, no use of accessory muscles, no adventitious sounds Extremities: Surgical site seen with Dr. Ferrerno residual cellulitis seen Results & Data Results & Data ([facility]) Vital Signs (Past 12 Hours) Vital Signs Temp Pulse Pulse Pulse Pulse Resp BP 01/17/22 16:14 36.8 C 69 18 01/17/22 13:14 36.6 C 72 20 01/17/22 12:50 36.9 C 70 01/17/22 12:30 71 172/86 H 01/17/22 12:00 70 182/80 H 01/17/22 11:30 71 171/80 H 01/17/22 11:00 72 179/91 H 01/17/22 08:00 72 01/17/22 10:30 70 171/81 H 01/17/22 10:15 69 153/79 H 01/17/22 10:00 70 159/85 H 01/17/22 09:46 67 169/86 H 01/17/22 09:40 37.1 C 69 01/17/22 07:00 36.7 C 75 18 BP BP Pulse Ox O2 Del Method 01/17/22 16:14 159/73 H 01/17/22 13:14 197/96 H 98 Room Air 01/17/22 12:50 182/85 H 01/17/22 12:30 01/17/22 12:00 01/17/22 11:30 01/17/22 11:00 01/17/22 08:00 01/17/22 10:30 01/17/22 10:15 01/17/22 10:00 01/17/22 09:46 01/17/22 09:40 01/17/22 07:00 157/84 H 97 Laboratory Results Laboratory Results - last 24 hr 01/16/22 01/17/22 01/17/22 20:58 05:27 07:34 Sodium 143 Potassium 4.1 Chloride 109 H Carbon Dioxide 27 Anion Gap 7 BUN 44 H Creatinine 7.24 H* D Est Cr Clr Drug Dosing 12.9 Est GFR ( Amer) 9.4 Est GFR (Non-Af Amer) 8.1 BUN/Creatinine Ratio 6.1 L Glucose 131 H POC Glucose 156 H 130 H Calcium 7.0 L Phosphorus 4.5 D Albumin 2.8 L 01/17/22 01/17/22 13:12 16:31 Sodium Potassium Chloride Carbon Dioxide Anion Gap BUN Creatinine Est Cr Clr Drug Dosing Est GFR ( Amer) Est GFR (Non-Af Amer) BUN/Creatinine Ratio Glucose POC Glucose 92 117 H Calcium Phosphorus Albumin PG Care Time/CCT Total # of Minutes Spent Total Time Spent with Patient: Total time spent is greater than 50% in coordination of care (as documented) at patient's floor/unit and/or counseling patient: Coding Level of Care Code 96147 Subseq Hosp Care Lvl 2 Diagnoses Diabetic foot infection E11.628; L08.9 Anemia D64.9 Anemia type: unspecified type DM type 2 (diabetes mellitus, type 2) E11.9 Diarrhea R19.7 CAD (coronary artery disease) I25.10 CVA, old, ataxia I69.993 Nausea & vomiting R11.2 Hypertension I10 Dyslipidemia E78.5 Hematemesis K92.0 Carotid stenosis, right I65.21 (1) Anemia Anemia type: unspecified type Qualified Code(s): D64.9 - Anemia, unspecified
--- NOTE | 2022-01-18 07:20 | Discharge Summary ---
Date of Service January 18, 2022 Admission HPI Per Admitting Provider Unfortunate 46 y/o M Hx HTN, HLD, DM II, CKD, CAD - DE x 8, CVA x 5. The pt has not followed up with an MD in approximately one year. He was working today and developed R central CP. He is short of breath at baseline. His employer thought he appeared ill and requested that he attend the hospital. He is CP- free at the time of admission but does endorse feeling SOB. He was not hypoxic and denies a cough or fever. On further questioning, he also provided that he has had an infection of his R foot for some time which he has not treated, and has been suffering from intermittent nausea, vomiting and poor PO intake for approximately one year. Initial labs were alarming, including a BUN/creatinine of 110/13, troponin of 32, leukocytosis, anemia with an Hb of 7.7, thrombocytosis, protein malnutrition. Calcium is low but can mostly be accounted for by a low albumin. Potassium is WNL and he us entirely lucid despite a BUN of 110 indicating his renal failure is quite chronic. He does in fact continue to make urine. An EKG demonstrated a sinus rhythm with lateral ST segment flattening and no clear ischemic changes. Examination of the pt's feet revealed a deep ulcer on the dorsal aspect of the R foot and BL necrosis of the 5th toes. 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 Diagnosis of CKD dates back to 2004. Surgical: Denies prior surgery Social: Does not drink or smoke. No drug use. Employed at [employer]. Family: Does not know father Mother in remission from hepatocellular CA Principal Diagnosis Diabetic foot infection Discharge Exam Constitutional and general: No acute distress, looks biologic age Hematologic and lymphatic: pallor +, no petechia Heart regular rate and rhythm, soft systolic murmur Vital Signs Temp Pulse Pulse Pulse Pulse Resp BP 01/18/22 03:00 37.0 C 67 18 01/17/22 21:20 72 01/17/22 23:36 36.8 C 69 18 07/22/22 19:36 36.8 C 70 18 01/17/22 16:14 36.8 C 69 18 01/17/22 13:14 36.6 C 72 20 01/17/22 12:50 36.9 C 70 01/17/22 12:30 71 172/86 H 01/17/22 12:00 70 182/80 H 01/17/22 11:30 71 171/80 H 01/17/22 11:00 72 179/91 H 01/17/22 08:00 72 01/17/22 10:30 70 171/81 H 01/17/22 10:15 69 153/79 H 01/17/22 10:00 70 159/85 H 01/17/22 09:46 67 169/86 H 01/17/22 09:40 37.1 C 69 BP BP Pulse Ox O2 Del Method 01/18/22 03:00 151/81 H 97 Room Air 01/17/22 21:20 01/17/22 23:36 144/82 H 98 Room Air 01/17/22 19:36 141/73 H 96 Room Air 01/17/22 16:14 159/73 H 01/17/22 13:14 197/96 H 98 Room Air 01/17/22 12:50 182/85 H 01/17/22 12:30 01/17/22 12:00 01/17/22 11:30 01/17/22 11:00 01/17/22 08:00 01/17/22 10:30 01/17/22 10:15 01/17/22 10:00 01/17/22 09:46 01/17/22 09:40 Intake and Output 01/17/22 01/18/22 01/18/22 22:59 06:59 14:59 Intake Total 240 / 1080 240 / 1080 Balance 240 / 880 240 / 880 Intake: Oral 240 / 1080 240 / 1080 Other: Weight 72.1 kg Weight Measurement Method Built in [facility] Discharge Data Allergies Allergy/AdvReac Type Severity Reaction Status Date / Time No Known Allergies Allergy Verified 12/31/21 00:58 Consultations 12/31/21 01:48 ED Decision to Admit Stat 12/31/21 02:28 Consult Vascular Surgery Routine 12/31/21 02:52 Consult Cardiology Routine Consult Nephrology Routine 12/31/21 07:37 Consult Gastroenterology Routine 12/31/21 07:38 Consult Podiatry Routine 01/02/22 10:16 Consult Vascular Surgery Routine 01/04/22 12:47 Consult Infectious Diseases Routine 01/08/22 12:30 Consult Gastroenterology Routine 01/08/22 12:32 Consult Infectious Diseases Routine 01/14/22 13:11 Consult Anesthesiology Routine Procedures Performed Operation Date: 12/31/21 17:55 <No data on this case meets the specified criteria> Operation Date: 01/01/22 08:20 Actual Procedures p Left 5th Toe Amputation, Right 4th and 5th Ray Amputation(Bilateral) - Raulito Ferrer DPM, MS Operation Date: 01/03/22 07:00 Actual Procedures p Closure of Bilateral Foot Amputations(Bilateral) - Raulito Ferrer DPM, MS Operation Date: 01/07/22 12:20 Actual Procedures p Insertion of Perm Cath, Right Internal Jugular Approach, Ultrasound Localization of Right Internal Jugular Vein, Fluroscopy for Positioning, Moderate Sedation [id number](Right) - Michele Flanagan MD Operation Date: 01/10/22 16:30 Actual Procedures p EGD Polypectomy - Gm Hernandez DO Operation Date: 01/15/22 11:00 Actual Procedures p Echo Transesophageal - Alfonso Ayala MD Ordered Studies 12/31/21 03:13 US arterial duplex LE BI Routine 12/31/21 03:29 US carotid doppler BI Routine 12/31/21 08:43 US renal/blad retro comp Routine 01/07/22 07:26 EV cvc insrt tunnel wo prt/electronic musical instrument repairer Routine US EV guide vascular access Routine Hospital Course (1) Diabetic foot infection: Resolved; toe amputation followed by delayed primary closure on 01-03 No residual cellulitis, no residual osteomyelitis; noted mild stable l eukocytosisstopped antibiotics (2) Anemia: Stool positive for occult blood. 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 EGD did not show any bleeding ulcer, just some polyps which were biopsied Transfuse if hb<7; ct PPI for now Currently hemoglobin stable (3) DM type 2 (diabetes mellitus, type 2): A1c 6.1, likely will be diet controlled; noted some fluctuation in blood sugar (suspect dietary); will send home on sliding scale (4) Diarrhea: No complaints of that currently likely diabetic diarrhea, symptomatic treatment, pancreatic replacement not unreasonable (5) CAD (coronary artery disease): As noted by cardiology no convincing angina, continue aspirin, statin, on beta- sarah (6) CVA, old, ataxia: severe carotid stenosisvascular surgery follow-up On plavix (7) Nausea & vomiting: No complaints elicited at present (8) Hypertension: Pressures better on current regimen; discharge on current regimen (9) Dyslipidemia: Continue statin (10) Hematemesis: None again after 1 episode, continue PPI (11) Carotid stenosis, right: Vascular surgery follow-up Total Time Total Time Spent Total Time Spent (In Minutes): 35 Discharge Plan Discharge Items Patient Disposition: Home - Self-Care Reason For Visit: ESRD Discharge Diagnosis: Diabetic foot infection Activity: As commented below Activity Comment: Bilateral lower extremity weight bearing to heel; surgical shoes when erect Non-emergency contact: Primary Care Provider Call non-emergency contact if: your symptoms worsen Follow-up/Referrals: PCP,NO [Primary Care Provider] - Diet: Carb Consistent or DM2 and Dialysis Renal Addtl Attending Provider Instructions: See your primary care provider immediately after reaching [place]; see a podiatry as soon as possible and among other things obtain diabetic shoes with custom molded orthotics; maintain your dialysis schedule Thursday, Thursday, Thursday; obtain a referral and see a vascular surgeon as soon as possible for carotid stenosis; check your blood sugar before meals and at bedtime and take insulin as directed. Pending Studies at Discharge: No Stand-Alone Forms: My [facility] [place], Smoking Cessation Medications and DC Order Prescriptions: New losartan 50 mg Tablet 50 mg PO QAM Qty: 30 0RF Rx Instructions: new dose of this medication calcium acetate(phosphat bind) 667 mg Capsule 667 mg PO TIDM Qty: 90 0RF Creon 36,000-114,000- 180,000 unit Capsule,Delayed Release(Dr/Ec) 1 cap PO Q24H Qty: 30 0RF pantoprazole 40 mg Tablet,Delayed Release (Dr/Ec) 40 mg PO QAM Qty: 30 0RF Renal Caps 1 mg Capsule 1 cap PO QAM Qty: 30 0RF calcitriol 0.25 mcg Capsule 0.25 mcg PO QAM Qty: 30 0RF insulin aspart U-100 [Novolog Flexpen U-100 Insulin] 100 unit/mL (3 mL) insulin pen 1 sliding scale dose subcut USEASDIRECTD Qty: 3 3RF Rx Instructions: blood sugar < 150 -0 units, blood sugar 151-200- 1 unit, blood sugar 201-250 -3 units, blood 251-300 -5 units, blood sugar 301-350 -7 units, blood sugar 351- 400 - 9 unis, blood sugar > 400 call MD Continued clopidogrel [Plavix] 75 mg Tablet 75 mg PO DAILY Rx Instructions: FILLED 12/27/21--30 TABS. atorvastatin 40 mg tablet 40 mg PO DAILY Rx Instructions: FILLED 10/08/21---30 TABS isosorbide mononitrate 30 mg tablet extended release 24 hr 30 mg PO DAILY Rx Instructions: FILLED 09/11/21--30 TABS aspirin 81 mg tablet,delayed release (DR/EC) 81 mg PO DAILY Rx Instructions: FILLED 10/09/21--30 TABS amlodipine 10 mg tablet 10 mg PO DAILY Rx Instructions: FILLED 10/15/21--30 TABS. Discontinued carvedilol 6.25 mg tablet 6.25 mg PO BID Rx Instructions: FILLED 10/09/21--30 TABS losartan 25 mg tablet 25 mg PO DAILY Rx Instructions: FILLED 10/09/21--90 TABS. Discharge Orders: Discharge Order (Routine); Ordered 01/18/22 Ordered By: Joselyn Mathur/Other Patient Handouts: Kidney Disease Potassium in Diet, Kidney Disease Reducing Potassium, Kidney Disease Calcium Phosphorus, Kidney Disease Protein, Kidney Disease Limiting Sodium Admission Data Admit Date/Time: 12/31/21 02:16 Attending Provider: Joselyn Pope Admit Provider: Brendan Santos Primary Care Provider: PCP,NO Other Providers: Michele Flanagan ; Clark Benitez ; Kaiden Pena ; Peter Cole ; Saray Martinez ; Joaquin Munguia I. ; Pramod Vila II ; Kirsten Watters ; Yon Enrique ; Juan David Chambers ; Kayy Spear ; Raulito Ferrer ; Brendan Santos ; Dominguez Muir ; Mario Watts ; Maisha Ba ; Heidi Cruz ; Maddie Alvarado ; Emy Estrada ; Vance Strickland ; Ananth Salomon ; Dez Richter ; Jeet Willis ; Jennifer Willis ; Balta Pyle ; Kim Lozano ; Jarad Hernandez ; Jose Eduardo Paulino ; Akshat Moody ; Emre Davison ; Liz Rivero ; Yon Henson ; Sarah Sparrow ; Tammy Henson ; Gab King ; Krystin Frey ; Lonny Luke ; Samantha Broderick ; Johnna Linda ; Pricilla Muir ; Herbert Hyatt ; Maribell Britt ; Zoë Foreman ; Teresa Dennis ; Kaelyn Wilhelm ; Chandan Wilhelm V ; Sebastian Ortez ; Heidi Heaton ; Kimo Valdez ; Leah Albrecht ; Chandan House ; Luis Rivero ; Imtiaz Marquez ; Kathi Parekh ; Bernice Connors ; Chandan Wynn ; Marshal Zamorano ; Raulito Davison ; Irma Turcios ; Juanito Herrera ; Azalea Kapoor ; Marcelo Greco ; Juanito Hubbard ; Vance Hanley Jr ; Madison Wynn ; Tere Smith ; Johana Ritter ; Herbert Alaniz ; Emy Pa ; Jeet Chris ; Mata Acevedo I. ; Gloria Lobo Coding Level of Care Code D/C DAY MANAGEMENT >30 MINS Diagnoses Diabetic foot infection E11.628; L08.9 Anemia D64.9 Anemia type: unspecified type DM type 2 (diabetes mellitus, type 2) E11.9 Diarrhea R19.7 CAD (coronary artery disease) I25.10 CVA, old, ataxia I69.993 Nausea & vomiting R11.2 Hypertension I10 Dyslipidemia E78.5 Hematemesis K92.0 Carotid stenosis, right I65.21
[2022-01-18] MEDS: LOSARTAN POTASSIUM 50 MG TAB PO SCH (08:18)
[2022-01-18] MEDS: ATORVASTATIN 40 MG TAB PO SCH (08:18)
[2022-01-18] MEDS: PANTOprazole 40 MG TAB PO SCH (08:19)
[2022-01-18] MEDS: ISOSORBIDE MONO EXTENDED REL 30 MG TABCR PO SCH (08:19)
[2022-01-18] MEDS: CALCIUM ACETATE 667 MG CAP/TAB PO SCH (08:19)
[2022-01-18] MEDS: CLOPIDOGREL BISULFATE 75 MG TAB PO SCH (08:19)
[2022-01-18] MEDS: carvediloL 12.5 MG TAB PO SCH (08:19)
[2022-01-18] MEDS: ADVANCED PROBIOTIC 1250 MG CAPSULE PO SCH (08:19)
[2022-01-18] MEDS: amLODIPine BESYLATE 5 MG TAB PO SCH (08:19)
[2022-01-18] MEDS: PANCREAZE (LIPASE 10,500U) CAP PO SCH (08:19)
[2022-01-18] MEDS: NEPHROCAPS PO SCH (08:19)
[2022-01-18] MEDS: ASPIRIN 81 MG ECTAB PO SCH (08:19)
[2022-01-18] MEDS: CALCITRIOL 0.25 MCG CAPSULE PO SCH (08:19)
[2022-01-18] MEDS: INSULIN ASPART PER UNIT SC SCH (08:30)
== END 2022-01-18 09:12 | disposition home or self-care (01) | DRG 673 ==
LOC: EDBD → ED 23:31 → SUATTDRO 12-31 02:16 → 2E 12-31 02:16